=== PATIENT | male | born 1945 | race Caucasian/White ===

== ENCOUNTER → 2018-11-04 11:54 | Outpatient (CLI) | payer MEDICARE, SELFPAY ==
--- NOTE | 2018-11-04 12:01 | RAD_ITS ---
STUDY: X-RAY CHEST REASON FOR EXAM: Male, 73 years old. Wheezing x1 week TECHNIQUE: PA and lateral views of the chest. COMPARISON: None. FINDINGS: There are interstitial fibrotic changes of the lungs. There is no demonstrated pleural abnormality. Normal size heart. Normal mediastinum and teresita. Normal visualized pulmonary arteries. Normal visualized aortic arch and descending thoracic aorta. Normal visualized thoracic spine. Normal visualized ribs, clavicles, and shoulders. There is no demonstrated abnormality of the visualized soft tissue structures of the upper abdomen. RAD/Chest PA and Lateral IMPRESSION: Chronic interstitial changes, no superimposed acute pulmonary process Electronically Signed: Miguel Darnell MD at 13:51 EDT , Service support ,
== END ==
PROVIDERS: Family Provider Family Medicine; PCP Family Medicine; Referring Provider Family Medicine; Visit Provider Family Medicine
DX: R06.2 Wheezing (principal)
CPT/HCPCS: 71046

== ENCOUNTER → 2021-02-11 14:42 | Outpatient (CLI) | payer MEDICARE, SELFPAY ==
--- NOTE | 2021-02-11 14:50 | RAD_ITS ---
STUDY: X-RAY CHEST REASON FOR EXAM: Male, 75 years old. Abnormal pulmonary function tests TECHNIQUE: PA and lateral views of the chest. COMPARISON: None. FINDINGS: The lungs are clear and expanded. There is no demonstrated pleural abnormality. Normal size heart. Normal mediastinum and teresita. Normal visualized pulmonary arteries. Normal visualized aortic arch and descending thoracic aorta. Normal visualized thoracic spine. Normal visualized ribs, clavicles, and shoulders. There is no demonstrated abnormality of the visualized soft tissue structures of the upper abdomen. RAD/Chest PA and Lateral IMPRESSION: No acute pulmonary process Electronically Signed: Miguel Darnell MD at 13:35 EDT , Service support ,
== END ==
PROVIDERS: PCP Family Medicine; Referring Provider Family Medicine; Visit Provider Family Medicine
DX: R94.2 Abnormal results of pulmonary function studies (principal); R06.00 Dyspnea, unspecified
CPT/HCPCS: 71046

== ENCOUNTER → 2021-02-21 09:45 | Outpatient (CLI) | payer MEDICARE, SELFPAY ==
--- NOTE | 2021-02-21 12:15 | STRESSREP ---
Stress Test Report Date: 02/21/2021 Procedure: Exercise tolerance test Indications: Dyspnea on exertion Consent: Per the patient Procedure: The patient exercised on a Augustine protocol for 3 minutes and 13 seconds achieving a peak heart rate of 123 bpm (85% predicted maximal heart rate) with a peak blood pressure 178/84 mmHg and a peak MET capacity of approximately 4.8 MET's. The baseline ECG demonstrated normal sinus rhythm, nonspecific ST changes. The peak exercise ECG demonstrated sinus tachycardia with about [address] depression in the inferior and lateral leads. [There were no cardiac dysrhythmias pretest, during exercise, or recovery]. The functional capacity was considered mildly decreased for age. The patient had no complaint of chest discomfort during exercise or recovery. He did have right arm and throat discomfort in the recovery period. The examination was discontinued secondary to dyspnea. Impression: 1. Technically adequate (percent predicted maximal heart rate greater than 85%) exercise tolerance test 2. Stress test is negative for exercise-induced chest pain. 3. Stress test test is negative for exercise-induced EKG changes of ischemia. 4. Functional capacity is mildly decreased for age This note was generated with [employer] software. It may contain incorrect words, spelling, and punctuation that were not noted in checking the note before signing.
== END ==
PROVIDERS: PCP Family Medicine; Referring Provider Family Medicine; Visit Provider Family Medicine
DX: R06.00 Dyspnea, unspecified (principal)
CPT/HCPCS: 93017

== ENCOUNTER → 2021-07-11 15:41 | Outpatient (CLI) | payer MEDICARE, SELFPAY ==
[2021-07-11 16:35] LABS: Absolute Lymphocyte Count 3.78 X10^3/uL (0.83-4.51); Absolute Neutrophil Count 3.7 X10^3/uL (2.0-7.7); Basophil# 0.04 X10^3/uL; Basophil% 0.5 % (0-1); Eosinophil# 0.19 X10^3/uL; Eosinophils% 2.2 % (0-5); Hemoglobin 14.8 g/dL (13.0-16.5); Lymphocyte # 3.78 X10^3/ul (0.83-4.51); Lymphocyte % 43.7 % (19-41); Mean Corp Hgb Conc 32.9 g/dL (32-36); Mean Corpuscular Hgb 30.2 pg (27.0-32.0); Mean Corpuscular Volume 91.8 fL (80-94); Mean Platelet Vol. 9.5 fl (6.2-12.0); Monocyte# 0.88 X10^3/uL; Monocyte% 10.2 % (0-10); NRBC Flagged by Analyzer 0 % (0-5); Neutrophil # 3.72 X10^3/uL (2.7-7.7); Neutrophil % 42.9 % (47-70); Platelet Count 377 K/mm3 (150-450); RBC Distribution Width SD 43.5 fl (35.1-43.9); White Blood Count 8.7 K/mm3 (4.4-11.0)
[2021-07-11 16:55] LABS: Prothrombin Time (Protime)PT. 12.4 SECONDS (11.7-14.9)
[2021-07-11 16:56] LABS: Partial Thromboplast Time 33.4 Seconds (24.1-36.2)
[2021-07-11 17:02] LABS: Anion Gap 1 (5-15); BUN 14 mg/dL (7-18); BUN/Creat Ratio 11.5 RATIO (10-20); Calcium,Total 9.1 mg/dL (8.5-10.1); Chloride 106 mmol/L (98-107); Creatinine, Serum 1.22 mg/dL (0.70-1.30); EST Glomerular Filtration Rate 61 mL/min (>60); Est Glom Filt Rate - Afr Amer 74 mL/min (>60); Glucose 90 mg/dL (74-106); Sodium Level 137 mmol/L (136-145)
== END ==
PROVIDERS: PCP Family Medicine; Referring Provider Internal Medicine Cardiovascular Disease; Visit Provider Internal Medicine Cardiovascular Disease
DX: I20.9 Angina pectoris, unspecified (principal); R06.02 Shortness of breath; R94.39 Abnormal result of other cardiovascular function study; E78.2 Mixed hyperlipidemia; R06.00 Dyspnea, unspecified; R94.31 Abnormal electrocardiogram [ECG] [EKG]
CPT/HCPCS: 36415; 80048; 85025; 85610; 85730

== ENCOUNTER 2021-09-10 07:37 | Day surgery (SDC) | payer MEDICARE, SELFPAY ==
[2021-09-03 12:43] LABS: Absolute Lymphocyte Count 3.09 X10^3/uL (0.83-4.51); Absolute Neutrophil Count 3.5 X10^3/uL (2.0-7.7); Basophil# 0.06 X10^3/uL; Basophil% 0.8 % (0-1); Eosinophil# 0.22 X10^3/uL; Eosinophils% 2.9 % (0-5); Hematocrit 41.7 % (40-54); Lymphocyte # 3.09 X10^3/ul (0.83-4.51); Lymphocyte % 40.1 % (19-41); Mean Corp Hgb Conc 33.6 g/dL (32-36); Mean Corpuscular Hgb 30.7 pg (27.0-32.0); Mean Corpuscular Volume 91.4 fL (80-94); Mean Platelet Vol. 9.3 fl (6.2-12.0); Monocyte# 0.84 X10^3/uL; Monocyte% 10.9 % (0-10); NRBC Flagged by Analyzer 0 % (0-5); Neutrophil # 3.45 X10^3/uL (2.7-7.7); Neutrophil % 44.7 % (47-70); Platelet Count 309 K/mm3 (150-450); RBC Distribution Width CV 13.6 % (11.6-14.6); Red Blood Count 4.56 M/mm3 (4.6-6.2); White Blood Count 7.7 K/mm3 (4.4-11.0)
[2021-09-03 12:55] LABS: Prothrombin Time (Protime)PT. 12.1 SECONDS (11.7-14.9)
[2021-09-03 13:24] LABS: Anion Gap 3 (5-15); BUN 17 mg/dL (7-18); BUN/Creat Ratio 14.2 RATIO (10-20); Chloride 102 mmol/L (98-107); EST Glomerular Filtration Rate 62 mL/min (>60); Est Glom Filt Rate - Afr Amer 76 mL/min (>60); Glucose 99 mg/dL (74-106); Potassium 4.1 mmol/L (3.5-5.1); Sodium Level 134 mmol/L (136-145)
[2021-09-09 08:32] VITALS: BMI 28.0
--- NOTE | 2021-09-09 18:14 | HP.PCM_ITS ---
History and Physical Date of Admission: 09/10/21 [facility] [id number] [place], [place] [id number] OFFICE VISITDate of Service: 09/03/21 MR#:[id number]: BENSON DUVAL #[id number] Provider: RADHA Dodd/Sex: 75/M Loca tion:BMS.REJItatus:Signed HPI HPI History of Present Illness Surgical H&P: Yes Details: This is a 75-year-old white male who presents today for a cardiovascular visit. He has concerns of exertional right upper extremity discomfort, upper chest discomfort, neck discomfort, and shortness of breath/dyspnea concerning for angina pectoris with notation of an abnormal electrocardiogram and report of an abnormal treadmill stress test. The patient states for some time now he has been demonstrating the aforementioned symptoms with exertion. He does not recall them happening at rest. He has not had any obvious orthopnea or PND or peripheral pitting edema. There is been no near syncope or syncope. He states that with his symptoms he does feel somewhat nauseated at times. He has not had diaphoresis. He did have in February of 2021 a treadmill stress test. It stated he exercised on a Augustine protocol for just over 3 minutes and had approximately [address] segment depression in the inferior and lateral leads which at the time was considered negative for exercise-induced ECG ischemia. There was an addendum to his stress test that stated that his symptoms that occurred at peak ex ercise/recovery included his right arm discomfort and throat pain being concerning for an anginal equivalent. He did have an ECG in the office today. He was noted to have sinus rhythm with a T wave abnormality compatible with myocardial ischemia in the inferior leads. He did have a chest x-ray in January which per radiology was reported as with no acute cardiopulmonary findings. He does have a cardiovascular risk factor of hyperlipidemia for which he is being treated. From a cardiac standpoint, the patient is doing well. He denies any palpitations, chest pain, pressure or heaviness. He states that he does get pain in his neck that does radiate to his right arm during exertion. He does have an occasional SOB with exertion. He denies Orthopnea, and PND. He does not have bleeding issues; no blood in urine, stool or nosebleeds. He denies any decrease in energy level, myalgias, or claudication. He denies edema, or sudden weight gain. He does note an occasional dizziness or lightheadedness with positional changes. He denies syncopal or near syncopal episodes, and headaches. Intake Vital Signs 09/03/21 11:09 Height 5 ft 9 in Weight: 190 lb BMI 28.0 BP 137/84 H Blood Pressure Location Lt brachial Position Sitting Respiration 18 Pulse 70 Pulse Source Monitor Pulse Oximetry (%) 98 Intake Visit Reasons: update H & P Ged Preparation Teacher Required: No Accompanied by: None Is patient in pain?: No Allergies No Known Allergies Allergy (Verified 09/03/21 11:35) Medications albuterol sulfate 90 mcg/actuation aerosol inhaler 2 puff INHALATION Q6H PRN 04/03/21 [History Confirmed 09/03/21] fluticasone furoate 200 mcg-vilanterol 25 mcg/dose inhalation powder 1 inh INHALATION DAILY 04/03/21 [History Confirmed 09/03/21] multivitamin 1 tab PO DAILY 04/03/21 [History Confirmed 09/03/21] omega-3 fatty acids 1,000 mg capsule 1,000 mg PO DAILY 04/03/21 [History Confirmed 09/03/21] rosuvastatin 5 mg tablet 5 mg PO .three times a week tab 04/03/21 [History Confirmed 09/03/21] aspirin 81 mg tablet,delayed release 81 mg PO DAILY #1 tab 07/11/21 [Rx Confirmed 09/03/21] isosorbide mononitrate 30 mg tablet,extended release 24 hr 30 mg PO DAILY #30 tab 07/11/21 [Rx Confirmed 09/03/21] metoprolol tartrate 25 mg tablet 25 mg PO BID #60 tab 07/11/21 [Rx Confirmed 09/03/21] nitroglycerin 0.4 mg sublingual tablet 0.4 mg SUBLINGUAL Q5-15M PRN #90 tab 07/11/21 [Rx Confirmed 09/03/21] PFSH Medical History Abnormal electrocardiogram [ECG] [EKG] Abnormal stress test Angina pectoris COPD (chronic obstructive pulmonary disease) Dyslipidemia Hernia Mixed hyperlipidemia Surgical History (Reviewed 09/03/21 @ 11:35 by Neva Espino METAL BUILDING ASSEMBLER, METAL BUILDING ASSEMBLER-C) H/O knee surgery History of hernia repair Family History Mother Cancer Brother Myocardial infarction CAD (coronary artery disease) Brother CVA (cerebral vascular accident) Social History (Reviewed 09/03/21 @ 11:35 by Neva Espino METAL BUILDING ASSEMBLER, METAL BUILDING ASSEMBLER-C) Smoking Status: Former smoker alcohol intake: never substance use type: does not use caffeine: Yes Type: coffee Number of servings: 4 ROS Const Const: Negative for fatigue, weakness, fever(s), headache(s), chills, frequent falls, weight gain or weight loss Eyes Eyes: Negative for blind spots, loss of peripheral vision, transient loss of vision, blurry vision, change in vision, double vision, floaters or tunnel vision ENT ENT: Positive for dizziness (occasional positional changes); Negative for headache(s), Nosebleed/epistaxis, balance problems or neck pain Cardio Chest Pain: Yes Character: other (discomfort) Onset: exercise Location: other (Neck and right arm) Exacerbation: exercise Relieving: rest Palpitations: No Edema: None Muscle aches with walking: None Resp Respiratory: Positive for SOB with activity; Negative for SOB at rest or SOB orthopnea\SOB lying down GI GI: Negative nausea, vomiting, heartburn, bloating, vomiting blood/hematemesis, bright, red blood in stools or black,tarry stools Musc Musc: Negative for muscle aches/ myalgia, muscle weakness, joint pain or balance problems Neuro Neuro: Positive for dizziness (occasional positional changes) and li ghtheadedness; Negative for near syncope, syncope, orthostatic symptoms, frequent falls, headache(s), weakness, blurry vision or double vision Padilla Hematologic/Lymphatic: Negative for easy bleeding or easy bruising Endo Endo: Negative for fatigue Cardiology Exam Const Appearance: cooperative and no acute distress Orientation: alert and oriented x3 Head Head: normal to inspection Ears: hearing grossly normal bilaterally Nose: external nose normal Face and Sinus: face symmetric Eyes General: appearance normal, both eyes and all related structures Eyelids: eyelids normal Conjunctivae: conjunctivae normal Pupils: PERRL and pupil size EOM: EOM intact bilaterally Neck Neck: normal visual inspection Carotids: normal carotid upstroke; Negative bruit Chest Chest inspection: normal inspection of the chest and normal respiratory effort Auscultation: Bilateral: Clear to Auscultation Cardio Palpation: normal PMI Rate: regular rate Rhythm: regular rhythm Heart sounds: S1 normal and S2 normal; Negative rub, gallop or murmur GI GI: normal to inspection and soft; Negative no hepatosplenomegaly Neuro General: patient alert, patient oriented x3 and CN's II-XI intact bilaterally Skin Skin: no rashes or lesions noted Extremities Pulses: Normal: Right Posterior Tibial Pulse, Left Posterior Tibial Pulse, Right Radial Pulse and Left Radial Pulse Lower Extremity Edema: None: Bilateral Psych Psychological: normal affect Supplemental Info Supplemental Information Stress Test: Date: 02/21/2021 Procedure: Exercise tolerance test Indications: Dyspnea on exertion Consent: Per the patient Procedure: The patient exercised on a Augustine protocol for 3 minutes and 13 seconds achieving a peak heart rate of 123 bpm (85% predicted maximal heart rate) with a peak blood pressure 178/84 mmHg and a peak MET capacity of approximately 4.8 MET's. The baseline ECG demonstrated normal sinus rhythm, nonspecific ST changes. The peak exercise ECG demonstrated sinus tachycardia with about [address] depression in the inferior and lateral leads. [There were no cardiac dysrhythmias pretest, during exercise, or recovery]. The functional capacity was considered mildly decreased for age. The patient had no complaint of chest discomfort during exercise or recovery. He did have right arm and throat discomfort in the recovery period. The examination was discontinued secondary to dyspnea. Impression: 1. Technically adequate (percent predicted maximal heart rate greater than 85%) exercise tolerance test 2. Stress test is negative for exercise-induced chest pain. 3. Stress test test is negative for exercise-induced EKG changes of ischemia. 4. Functional capacity is mildly decreased for age ADDENDUM by Dr. Hammad Jay MD on 02/21/21 at 1223 Patient's right arm pain and throat pain could be anginal equivalents. Labs: No Data to Display Diagnostics: Electrocardiogram Stress Test Chest X-Ray Pulmonary: No Data to Display Assessment and Plan Assessment and Plan (1) Abnormal stress test: Status: Acute Orders: Orders: 12 Lead EKG performed by BMS Today 12 Lead EKG performed by BMS Today Basic Metabolic Profile (BMP) Today Prothrombin Time w/INR Today CBC W/Diff, Automated Today Plan - Neva Espino METAL BUILDING ASSEMBLER, METAL BUILDING ASSEMBLER-C: Patient had an abnormal stress test. With his symptoms and abnormal stress test patient will undergo a cardiac catheterization. Cardiac Catheterization instructions given to patient. (2) Abnormal electrocardiogram [ECG] [EKG]: Status: Acute Froylan Espino METAL BUILDING ASSEMBLER, METAL BUILDING ASSEMBLER-C: Patient's EKG from today demonstrated sinus rhythm with a heart rate of 72, and nonspecific T wave abnormality. He underwent a stress test in February 2021 which was abnormal, he will undergo a cardiac catheterization. (3) Dyspnea on exertion: Status: Acute Froylan Espino METAL BUILDING ASSEMBLER, METAL BUILDING ASSEMBLER-C: Patient has complaints of dyspnea on exertion. With his symptoms, and abnormal stress test, patient will undergo a cardiac catheterization to evaluate this. (4) Mixed hyperlipidemia: Status: Acute Froylan Espino METAL BUILDING ASSEMBLER, METAL BUILDING ASSEMBLER-C: Patient has a history of hyperlipidemia. He states his PCP monitors his cholesterol. He will continue rosuvastatin 5mg three times a week, along with aggressive risk factor and lifestyle modifications. Plan Details Other Orders: Orders: Prothrombin Time w/INR Today I20.9 Additional Comments: Patient will follow-up in 1 months, or sooner if needed. Thank you for allowing me to participate in the care of your patient. Please d on't hesitate to call if any issues arise. This note was generated using a voice recognition system and there may be incorrect words, spelling, or punctuation that were not noted when reviewing the office note prior to saving. Follow Up: Keep as is (KR) COVID (Procedure Consent) Procedure Criteria Procedure Criteria: Yes Elective The surgeon/proceduralist and patient have discussed in detail the risk of exposure to and/or potential harm posed by the COVID-19 virus with having a surgery/procedure at this time versus the risk of delaying the surgery/procedure. It is not possible to know either the risk of delaying the surgery or procedure or chance of getting an infection with perfect accuracy, but a joint decision was made between the patient and the surgeon/proceduralist to proceed at this time with the scheduled surgery/procedure as indicated on the consent form. Coding Level of Care Code Off vis,est,level 3 Diagnoses Abnormal stress test R94.39 Abnormal electrocardiogram [ECG] [EKG] R94.31 Dyspnea on exertion R06.00 Mixed hyperlipidemia E78.2 Coding Level of Care Code Off vis,est,level 3 Diagnoses Abnormal stress test R94.39 Abnormal electrocardiogram [ECG] [EKG] R94.31 Dyspnea on exertion R06.00 Mixed hyperlipidemia E78.2 09/03/21 1159<Electronically signed by Neva Espino METAL BUILDING ASSEMBLER METAL BUILDING ASSEMBLER-C>Date Neva Espino METAL BUILDING ASSEMBLER METAL BUILDING ASSEMBLER-C 09/03/21 1220<Electronically signed by Marcel Garcia MD>Cosigner Signature:Date (if applicable)Marcel Garcia MD CC: Dr. Mikel Fields MD ~ Assessment & Plan Addt'l Comments I have re-examined the patient. There are no clinical changes since date of exam
--- NOTE | 2021-09-10 10:58 | CL.D_ITS ---
Patient Name: BENSON DUVAL Study Date: 09/10/2021 Performing: Marcel Garcia MD Ht: 68.89 inches 175 cm : 1945 Wt: 189.6 lbs 86 kg Age: 75 Gender: male BSA: 2.02 PROCEDURE(S) PERFORMED DC01-(49813)LHC/COR/LV CLINICAL PROFILE AND INDICATIONS Indications: Worsening Angina, Suspected CAD Heart Failure: None Stress/Imaging Date: 02/21/2021 Angina Classification Anginal Classification w/in 2 Weeks: CCS III CAD Presentations: Stable angina. 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 The risks and benefits of the procedure as well as a full d escription of our services here and current unavailability of surgical backup were fully explained to the patient and/or their significant other prior to the catheterization. The Timeout was completed, verifying the correct patient and procedure. The patient's procedural site was prepped and draped in the usual fashion. Local anesthetic was given subcutaneously to right radial region with Lidocaine 2% . Using a modified Seldinger technique, arterial access was obtained via the right radial artery, a 6 Fr sheath was inserted. Left Coronary Artery selective angiography was performed in multiple views u sing a 5 Fr. 4.0 [place] catheter. Right Coronary Artery selective angiography was then performed in mu ltiple views using a 5 Fr. 4.0 [place] catheter. Right Coronary Artery selective angiography was then p erformed in multiple views using a 5 Fr. JR 4 catheter. Left Ventriculography was performed in LENZ projection using a 5 Fr. Pigtail catheter. LV to AO pullback pressures were then rec orded.The arterial sheath was pulled and a TR Band was applied for hemostasis w/10ml air CORONARY ANGIOGRAPHY DOMINANCE: Right Dominant LEFT HEART ASSESSMENT Left Ventricular Ejection Fraction: by LV Gram 55 % Inferior Basal Hypokinesis. Inferior Mid Hypokinesis. Inferior Apical Hypokinesis Elevated Left Ventricular End Diastolic Pressure LVEDP: 42 mmHg LEFT MAIN: Mild calcification, mid: eccentric: 25 % Stenosis LEFT ANTERIOR DESCENDING ARTERY: PROX LAD: Moderate calcification, is occluded MID LAD: Moderate calcification, filling late from bridging collaterals and left to left collaterals and right to left collateral flow, mid to distal with subtotal occlusion DISTAL LAD: filling late from antegrade flow as well as from left to left collateral flow and right t o left collateral flow CIRCUMFLEX ARTERY: Mild luminal irregularities RIGHT CORONARY ARTERY: Moderate calcification PROX RCA: diffuse: eccentric: 25 % Stenosis MID RCA: diffuse: irregular: 50 % Stenosis DISTAL RCA: is occluded, filling from left to right collateral flow COLLATERAL FLOW: Collateral flow from Left to Left (bridging collaterals) Collateral flow from Left to Left Collateral flow from Left to Right Collateral flow from Right to Left VALVE FINDINGS: Mitral Valve Insufficiency - Grade 1 to Grade 2 AORTIC ROOT: Angiographically normal COMPLICATIONS No Complications PROCEDURE MEDICATIONS Versed 1 mg IV Fentanyl 50 mcg IV Oxygen: 2 L/min via nasal cannula Heparin given IA 09/10/2021 09:48:15 Verapamil 2.5mg, Ntg 100mcgs, 3000 units of Heparin given IA 09/10/2021 09:48:15 SUMMARY OF HEMODYNAMIC DATA Time AIR REST ECG 08:01:31 Art 167/62 (98) 09:40:58 AO 113/66 (88) SA 09:50:43 LV 145/16, 41 10:03:35 LV 144/8, 42 10:03:41 LV 141/10, 40 10:04:23 LV 147/8, 43 10:04:29 LVp 150/9, 48 10:04:34 AOp 149/79 (110) 10:04:39 Signed By Marcel Garcia MD On 09/10/2021 10:56:59 AM Marcel Garcia MD
--- NOTE | 2021-09-10 12:22 | ECHOD_ITS ---
Reason For Study: CAD, chest pain Procedure This was a 2D Doppler, Color Flow transthoracic echocardiogram. The study was technically difficult. Exam done portable in micro lab analyst holding area. Left Ventricle Normal LV size. Segmental dysfunction with preserved ejection fraction (see wall motion). The estimated ejection fraction is 55 %. There is evidence of diastolic dysfunction. Infero-Basal: Hypokinetic. Mid-Inferior: Hypokinetic. Mid-inferoseptal : Hypokinetic. Right Ventricle Normal RV size. Normal systolic function. Atria The left atrium is mildly enlarged. Normal right atrium. No doppler evidence for ASD. Mitral Valve There is mild to moderate mitral annular calcification. Extension of the mitral annular calcification onto the base of the posterior mitral valve leaflet. Mild-Moderate (1-2+) mitral valve insufficiency. Tricuspid Valve Normal tricuspid valve. Trivial tricuspid valve insufficiency. Right ventricular systolic pressure estimated to be 27 mmHg. Aortic Valve Trisinus/trileaflet aortic valve. Normal aortic valve. Trivial aortic valve insufficiency. Pulmonic Valve The pulmonic valve is not well visualized. Trivial pulmonic valve insufficiency. Great Vessels Normal sized aortic root. Calcified aortic root. Pericardium/Pleural No pericardial effusion. MMode/2D Measurements & Calculations LVIDd: 4.8 cm IVSd: 1.3 cm Ao root diam: 3.5 cm LVIDs: 3.3 cm LVPWd: 1.1 cm RVDd: 3.0 cm FS: 31.8 % LAV(MOD-bp): 70.3 ml LVAd ap4: 35.3 cm2 LVAd ap2: 34.8 cm2 LAV(MOD-bp) Indexed: 34.9 ml/m2 LVLd ap4: 8.3 cm LVLd ap2: 8.3 cm LAV(MOD-sp2): 54.0 ml EDV(MOD-sp4): 123.8 ml EDV(MOD-sp2): 126.4 ml LAV(MOD-sp4): 76.5 ml EDV(sp4-el): 127.3 ml EDV(sp2-el): 123.9 ml LVAs ap4: 20.1 cm2 LVAs ap2: 21.3 cm2 LVLs ap4: 6.7 cm LVLs ap2: 7.2 cm ESV(MOD-sp4): 53.8 ml ESV(MOD-sp2): 59.6 ml ESV(sp4-el): 51.2 ml ESV(sp2-el): 54.0 ml EF(MOD-sp4): 56.5 % EF(MOD-sp2): 52.9 % EF(sp4-el): 59.8 % SV(MOD-sp4): 70.0 ml SV(MOD-sp2): 66.9 ml SV(sp4-el): 76.1 ml LA dimension(2D): 4.7 cm LA A4 area: 24.3 cm2 RA A4 area: 14.3 cm2 Doppler Measurements & Calculations MV E max reinaldo: 88.4 cm/sec Lat Peak E' Reinaldo: 9.3 cm/sec Med Peak E' Reinaldo: 5.9 cm/sec MV A max reinaldo: 114.9 cm/sec E/E' lat: 9.5 E/E' med: 15.0 MV E/A: 0.77 Ao V2 max: 126.1 cm/sec AI max reinaldo: 364.4 cm/sec LV V1 max: 104.4 cm/sec Ao max P.4 mmHg AI max P.1 mmHg LV V1 max P.4 mmHg AI dec slope: 136.7 cm/sec2 AI P1/2t: 780.8 msec PA V2 max: 98.0 cm/sec TR max reinaldo: 242.2 cm/sec TR max P.5 mmHg ECHO/Echo Complete Interpretation Summary The study was technically difficult. Segmental dysfunction with preserved ejection fraction (see wall motion). The estimated ejection fraction is 55 %. The left atrium is mildly enlarged. There is mild to moderate mitral annular calcification. Extension of the mitral annular calcification onto the base of the posterior mi tral valve leaflet. Mild-Moderate (1-2+) mitral valve insufficiency. Trivial tricuspid valve insufficiency. Trivial aortic valve insufficiency. Trivial pulmonic valve insufficiency. Calcified aortic root. Right ventricular systolic pressure estimated to be 27 mmHg. There is evidence of diastolic dysfunction. Ordering Physician: Marcel Garcia Referring Physician: Marycarmen Berger M.D. Performed By: Grace Walton RDCS
== END 2021-09-10 23:59 | disposition home or self-care (01) ==
PROVIDERS: Nurse Practitioner Gerontology; PCP Internal Medicine; Referring Provider Internal Medicine Cardiovascular Disease; Visit Provider Internal Medicine Cardiovascular Disease
DX: I25.10 Atherosclerotic heart disease of native coronary artery without angina pectoris (principal); J44.9 Chronic obstructive pulmonary disease, unspecified; E78.2 Mixed hyperlipidemia; I34.0 Nonrheumatic mitral (valve) insufficiency; Z87.891 Personal history of nicotine dependence; Z79.82 Long term (current) use of aspirin; Z79.899 Other long term (current) drug therapy
CPT/HCPCS: 36415; 80048; 85025; 85610; 93306; 93458; 99152; 99153; J7040; C1769; C1894; Q9967

== ENCOUNTER → 2022-01-21 | Outpatient (CLI) | payer MEDICARE, SELFPAY ==
[2022-01-21 10:26] LABS: Absolute Lymphocyte Count 3.23 X10^3/uL (0.83-4.51); Absolute Neutrophil Count 3.6 X10^3/uL (2.0-7.7); Basophil# 0.08 X10^3/uL; Eosinophil# 0.57 X10^3/uL; Eosinophils% 6.9 % (0-5); Hematocrit 38.3 % (40-54); Hemoglobin 12.3 g/dL (13.0-16.5); Lymphocyte # 3.23 X10^3/ul (0.83-4.51); Lymphocyte % 38.9 % (19-41); Mean Corp Hgb Conc 32.1 g/dL (32-36); Mean Corpuscular Hgb 29.2 pg (27.0-32.0); Mean Platelet Vol. 8.8 fl (6.2-12.0); Monocyte# 0.74 X10^3/uL; Monocyte% 8.9 % (0-10); NRBC Flagged by Analyzer 0 % (0-5); Neutrophil % 43.3 % (47-70); Platelet Count 381 K/mm3 (150-450); RBC Distribution Width CV 14.1 % (11.6-14.6); RBC Distribution Width SD 46.9 fl (35.1-43.9); Red Blood Count 4.21 M/mm3 (4.6-6.2); White Blood Count 8.3 K/mm3 (4.4-11.0)
[2022-01-21 11:09] LABS: AST(SGOT) 12 U/L (15-37); Alanine Aminotransfer ALT/SGPT 26 U/L (16-61); Albumin, Serum 3.7 g/dL (3.2-5.0); Alkaline Phosphatase 66 U/L (45-117); Anion Gap 7 (5-15); BUN 31 mg/dL (7-18); BUN/Creat Ratio 16.8 RATIO (10-20); Bilirubin, Direct 0.13 mg/dL (0.00-0.30); Calcium,Total 8.7 mg/dL (8.5-10.1); Chloride 103 mmol/L (98-107); Cholesterol 154 mg/dL (200); Creatinine, Serum 1.85 mg/dL (0.70-1.30); EST Glomerular Filtration Rate 38 mL/min (>60); Est Glom Filt Rate - Afr Amer 46 mL/min (>60); Free T3 1.8 pg/mL (2.18-3.98); Globulin 4.4 g/dL (2.2-4.2); Glucose 108 mg/dL (74-106); High Density Lipoprotein 36 mg/dL; Potassium 4.5 mmol/L (3.5-5.1); Protein, Total 8.1 g/dL (6.4-8.2); Sodium Level 133 mmol/L (136-145); T4 Free Direct 1.18 ng/dL (0.76-1.46); Triglycerides 102 mg/dL; Very Low Density Lipoprotein 20 mg/dL (5-40)
== END | disposition home or self-care (01) ==
LOC: LAB 09:52
PROVIDERS: PCP Internal Medicine; Referring Provider Nurse Practitioner Gerontology; Visit Provider Nurse Practitioner Gerontology
DX: R53.83 Other fatigue (principal); E78.2 Mixed hyperlipidemia
CPT/HCPCS: 36415; 80048; 80061; 80076; 84439; 84443; 84481; 85025

== ENCOUNTER → 2022-01-23 | Outpatient (CLI) | payer MEDICARE, SELFPAY ==
--- NOTE | 2022-01-23 08:46 | CR.HP_ITS ---
CR - History & Physical - General Arrival date:: 01/23/22 Arrival time:: 08:00 Date of Referral:: 01/03/22 Date of CR Evaluation:: 01/23/22 Referring Physician: Dr. Marcel Garcia Primary Diagnosis: S/P CABG - History of Present Cardiac Event Onset Date: Enter Onset Date of cardiac illnesses in Comment field below Coronary Artery Bypass Graft:: Yes - 2 vessel bypass; pacemaker implant device Heart valve replacement or repair:: Yes - repaired Type of Symptoms:: abnormal nuclear stress test, abnormal heart cath Were there any complications?: Readmitted about two weeks later for rapid heart rate, cardioversion, meds - Sleep Disorder Evaluation Hx of Sleep Apnea: No Do you snore loudly (louder than talking or can be heard through closed doors)?: No Do you often feel tired/ fatigued/ sleepy during daytime?: Yes - sometimes Has anyone observed you stop breathing during sleep?: No History of Hypertension (for STOP score): Yes STOP Results: Positive - Medications Home Medications: Ambulatory Orders Medication Instructions Recorded albuterol sulfate 90 mcg/actuation 2 puff INHALATION Q6H PRN 04/03/21 aerosol inhaler fluticasone furoate 200 1 inh INHALATION DAILY 04/03/21 mcg-vilanterol 25 mcg/dose inhalation powder multivitamin 1 tab PO DAILY 04/03/21 omega-3 fatty acids 1,000 mg 1,000 mg PO DAILY 04/03/21 capsule aspirin 81 mg tablet,delayed 81 mg PO DAILY #1 tab 07/11/21 release nitroglycerin 0.4 mg sublingual 0.4 mg SUBLINGUAL Q5-15M PRN #90 07/11/21 tablet tab amiodarone 200 mg tablet 400 mg PO DAILY #60 tab 01/14/22 apixaban 5 mg tablet 5 mg PO BID #180 tab 01/14/22 lisinopril 5 mg tablet 5 mg PO DAILY #90 tab 01/14/22 metoprolol tartrate 25 mg tablet 37.5 mg PO BID #270 tab 01/14/22 rosuvastatin 5 mg tablet 5 mg PO MOWEFR tab 01/14/22 - Allergies Allergies/Adverse Reactions: Allergies No Known Allergies Allergy (Verified 01/14/22 13:47) Advanced Directives - Advanced Directives Power of Manager Clinical Informatics: Yes - Granddaughter is POA for his Healthcare Living Will: Yes Advance Directives Information Provided: No Advance Directives on File: No DNR Order?:: No - MOLST See MOLST form: No Past Medical History - Covid-19 Screening Fever: No Unexplained muscle aches: No Current respiratory symptoms: No Upper respiratory infections symptoms: No Gastro-intestinal symptoms: No [id number] symptoms: No Has tested positive for COVID-19 in last 30 days: No Date of testin01/23/22 - No vaccines per patients request Had contact w/person w/symptoms or Covid-19 (+) last 14 days: No Has High Risk Exposures ID'd by Health dept/Inf Control team: No 65 years or older:: Yes Lives in Assisted Living facility:: No Has a chronic lung disease or moderate to severe asthma:: Yes Has a serious heart condition:: Yes Immunocompromised:: No Severely obese (Body Mass Index of 40 or higher):: No Diabetic:: No Has chronic kidney disease undergoing dialysis:: No Has liver disease:: No - Past Medical Illness Medical History: Past Medical History (Last Updated 01/16/22 @ 11:13 by Neva Espino TRACTOR TRAILER MECHANIC, TRACTOR TRAILER MECHANIC-C) Abnormal electrocardiogram [ECG] [EKG] R94.31 Abnormal stress test R94.39 Angina pectoris I20.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 COPD (chronic obstructive pulmonary disease) J44.9 Dyslipidemia E78.5 Hernia K46.9 Mixed hyperlipidemia E78.2 Sinus node dysfunction I49.5 - Past Surgical History Surgical History: Past Surgical History (Last Reviewed 01/14/22 @ 13:47 by Neva Espino NP, TRACTOR TRAILER MECHANIC-C) H/O knee surgery Z98.890 History of cardioversion Onset Date: ~12/16/21 Z98.890 12/16/21 History of coronary artery bypass surgery Onset Date: ~11/18/21 Z95.1 CABG x2 VALLADARES-LAB, SVG-PDA @ [facility] 11/18/21 History of hernia repair Z98.890, Z87.19 x2 History of left heart catheterization (LHC) Onset Date: ~09/10/21 Z98.890 LEFT MAIN: Mild calcification, mid: eccentric: 25 % Stenosis; LEFT ANTERIOR DESCENDING ARTERY: PROX LAD: Moderate calcification, is occluded, MID LAD: Moderate calcification, filling late from bridging collaterals and left to left collaterals and right to left collateral flow, mid to distal with subtotal occlusion; DISTAL LAD: filling late from antegrade flow as well as from left to left collateral flow and right to left collateral flow; CIRCUMFLEX ARTERY: Mild luminal irregularities; RIGHT CORONARY ARTERY: Moderate calcification, PROX RCA: diffuse: eccentric: 25 % Stenosis, MID RCA: diffuse: irregular: 50 % Stenosis, DISTAL RCA: is occluded, filling from left to right collateral flow; COLLATERAL FLOW: Collateral flow from Left to Left (bridging collaterals); Collateral flow from Left to Left; Collateral flow from Left to Right; Collateral flow from Right to Left; VALVE FINDINGS: Mitral Valve Insufficiency - Grade 1 to Grade 2; AORTIC ROOT: Angiographically normal: RECOMMENDATION: CT surgery consult for coronary revascularization options and possible valvular intervention per cardiac cath 09/10/21 History of mitral valve repair Onset Date: ~11/18/21 Z98.890 Annuloplasty: Estrada Etiologix @ [facility] 11/18/21 Presence of permanent cardiac pacemaker Onset Date: 11/22/21 Z95.0 S/P CABG (coronary artery bypass graft) Z95.1 - Family History Summary Family History: Family History (Last Reviewed 01/14/22 @ 13:47 by Neva Espino NP, TRACTOR TRAILER MECHANIC-C) Mother Cancer Brother Myocardial infarction CAD (coronary artery disease) Brother CVA (cerebral vascular accident) Social History - Smoking History Smoking Status: Former smoker Hx Tobacco Use: No Hx Smoking Exposure: No - Alcohol Use Alcohol Usage: Yes - social drink, very rarely - Substance Abuse Hx Substance Use: No - Occupation Occupation (List type of work in comments):: Retired - Hobbies, Recreation, Social Activities Hobbies: Sports - fire arm range, fishing, Walking - walking the dog., Exercise - ride bike, Other Recreational Activities: I am able to engage in most, but not all activities Social Environment - Status Marital Status: - Current Living Arrangements Living Environment:: Alone, Family - Children How many children do you have?: 2 Do any of your children live nearby?: Yes - daughter lives with me - Safety Do you feel safe in your surroundings?: Yes - Assistance Do you need any assistance at home?: no Review of Systems - Review of Systems Hints: Right click = Denies ([place]). Left click = Reports ([place]) Review of Present Symptoms: Reports: Shortness of Breath with Exertion, Operative Discomfort, Angina - not a good description, probably more related to surgical pain/discomfort., Dizziness/Lightheadedness - rarely, Fatigue, Heart Arrhythmia/Irregularities - H/O SVT, pacemaker implant device, cardioversion and adjusted medications to control heart rate post surgery., Appetite - Normal, Sleep - Normal. Denies: Shortness of Breath at Rest, Appetite - Special Diet, Sexual Changes - Pain Is Patient Pain Free?: Yes Pain Location: none Risk Factor Assessment - Vital Signs Temperature: 98.2 F Respiratory Rate: 16 Pulse Ox: 96 Blood Pressure: 135/66 - Pulse Pulse Rate: 65 Pulse Rhythm: Regular - Hypertension Blood Pressure Sitting - Left Arm: 135/66 - Obesity Height: 5 ft 9 in Weight:: 188 lb Weight in Pounds: 188.0 lbs Body Mass Index (BMI): 27.7 Nutritional Referral for Obesity: No - Physical Inactivity Physical Inactivity: Reg Exercise 30 min/day, Recreational activity - walking and riding bike - Risk Stratification Risk Guidelines: Lowest Risk: Risk Factor for Dyslipidemia, Risk Factor for Obesity, Risk Factor for Sedentary Lifestyle, Risk Factor for Depression, Moderate Risk: Risk Factor for Hypertension - 135/66 - Family History Family History: Family History (Last Reviewed 01/14/22 @ 13:47 by Neva Espino NP, TRACTOR TRAILER MECHANIC-C) Mother Cancer Brother Myocardial infarction CAD (coronary artery disease) Brother CVA (cerebral vascular accident) Motivation - Motivation to Participate On a scale of 1 to 10, how prepared are you to commit to attending program?: 5 What do you see as barriers to successfully being able to complete the program?: scheduling / hours What do you see as the benefits of succesfully completing the program? In other words, what do you hope to get out of participating in the program?: felling better, more normal, getting healthier, improving physical activity Are there issues you are dealing with that will interfere with completing the program?: none Do you have a spouse or signficant other, family or friends who will help support you to complete the program?: yes
[2022-01-23 09:02] VITALS: BP 135/66; PULSE 65; RESP 16; TEMP 36.8; O2SAT 96; BMI 27.7
--- NOTE | 2022-01-23 09:54 | PCM.CR.ITP ---
Diagnosis - General Information Admitting Diagnosis: S/P CABG Personal Learning Style:: Audio/Visual, Written Barriers to Learning: Hearing Impairment, Vision Impairment Stage of change r/t lifestyle modifications:: Contemplation Gave educational material for:: Treating Heart Disease, Emotions & Heart Disease, Stress Management & Relaxation, Sleep Disorders & Heart Disease, How The Heart Works, What it means to have Heart Disease, How Coronary Artery Disease is Diagnosed, Heart Procedures, What Heart Medications Do, Risk Factors & Modifications, Living an Active Life, Nutrition - Education/Goals Individual Counseling: Initial Assessment: Abnormal Cholesterol Levels, High Blood Pressure Cardiac Rehabilitation Goals: 1. Maintain the individual as the primary focus of care. 2. To improve the patient's quality of life. 3. Identification of cardiac risk factors and provide cardiac risk factor management. 4. Enhance the psychosocial status of the patient. 5. Reconditioning enough to allow the patient to resume customary activities. 6. Control symptoms of cardiac disease Personal Goals: Initial Assessment: Improve energy level, Get back to work, or to resume activities faster, Improve muscle strength and endurance, Control risk factors (learn risk factor modification) Scale for measuring improvement of personal goals: Enter appropriate number in Comments. 2 = Unchanged. 3 = Slightly Better. 4 = Moderate Improvement. 5 = Met my Goal - Diagnosis & Disease Process Outcomes/Goals: Pt IDs own risk factors & lifestyle modifications by Session 10, Verbalizes symptoms of angina & response by session 3., Pt independently manages Plan/Interventions: Assist Pt to ID & engage in lifestyle modification to reduce CVD risk, Instruct on individual risk factors, Review symptoms of angina & emergency actions, Review secondary diagnosis & identify educational needs. - Safety Referral to Physical Therapy: No Referral to [facility] Case Management: No Fall Risk Assessed:: Yes Assistive Devices:: None Exercise - Initial Assessment - Visit Date of Eval: 01/23/22 Session #:: 0 - Starting 01/27/2022 @ 09:30 Mets: Pre-: >5 METS for 30 minutes by discharge - Physician Prescribed Exercise Modalities: Treadmill, Airdyne, NuStep Frequency: 3x/week for 12 weeks [36 sessions] Intensity: 60-80% of age predicted maximum heart rate reserve Target Heart Rate:: 93-123 Resting Blood Pressure: 135/66 EKG Type: Atrial Flutter with a 2:1 conduction (Pacemaker) - Outcomes & Goals Goals:: Verbalizes understanding of THR, RPE & goal METS by session 6, Documents in home exercise log/reports 30 min aerobic 5 day/wk by DC, Demonstrates accurate pulse taking by DC - Intervention & Plan Exercise Program Goals: Instruct on personal THR & RPE, Instruct on MET level & personal MET goal, Show patient to take own pulse /validate performance until accurate, Instruct on home exercise - Physical Activity Home Exercise Physical Activity - Home Exercise: Safe Exercise, Warm-up, Self-monitoring, Cool-Down, Home Exercise > 30 min Daily, Sitting Time <3 hours/daily - Outcomes & Goals Outcomes/Goals: Demonstrates correct Warm-up/exercise Cool-Down (S3) if = 2.5 METs, Verbalizes symptoms of exercise intolerance by Session 3 (S3), Demonstrate safe equipment use (S3) & follows exercise prescrition (6) - Intervention & Plan Plan/Intervention: Instruct warm-up & cool-down if exercising at > 2 METs, Instruct on symptoms of exercise intolerance & actions to take, Instruct & monitor on saf, Assess intial functional capacity & safety risk Nutrition - Initial Assessment - Program Goals Nutrition Program Goals: LDL <100 optimal. 100 - 129 Near optimal. 130 - 159 Borderline High. 160 - 189 High. Total Cholesterol <200 desirable. 200 - 239 Borderline High. >/= 240 High. HDL < 40 Low >/=60 High. Triglycerides <150 desirable. <199 optimal. VlDL 5 - 40. HgbA1C <7%. BMI <25 Patient has diagnosis of Hyperlipidemia (ICD E78)?: Yes - Visit Date of Assessment:: 01/23/22 - no labs available - Cholesterol/Lipids Determine presence & major risk factors that modify LDL goal: Hypertension or hypertensive medication, Age men > 45 years; women >/= 55 years Outcomes/Goals: Pt IDs own risk factors & lifestyle modifications by Session 10, Verbalizes symptoms of angina & response by session 3., Pt independently manages Intervention/Plan: Instruct on personal lipid levels & lipid goals/NCEP guidelines, Instruct on cholesterol Referral to dietitian:: Yes - Medical Nutrition Therapy - Diabetes (Other Core Measures) Diabetes Type: Not Applicable - Weight Mgt (Other Care) Not Applicable: Yes Height: 5 ft 9 in Weight:: 188 lb BMI: 27.7 Diagnosis Overweight/Obesity BMI> 30% ICD-10 E66: No Diagnosis High BMI/Morbid Obesity BMI> 35% ICD-10 Z68: No Outcomes/Goals: Pt sets, maintains & shows weight loss goal & trend during rehab Intervention/Plan: Instruct on ideal BMI & set weight loss goal w/patient - Healthy Eating Habits Will attend diet classes:: Yes Outcomes/Goals:: Consume diet rich in vegs,fruits,whole grain/high fiber,fish,lean meat, Limit sat/trans fats,cholesterol & added salts & sugars Intervention/Plan:: Assess current eating habits - Education Gave educational materials for:: Healthy eating Nutrition - 30-Day Assessment Nutrition - 60-Day Assessment Nutrition - 90-Day Assessment Nutrition - Final Assessment Medical - Initial Assessment - Visit Date of Eval: 01/23/22 Session #:: 0 - Medication Compliance Preventative Medication(s):: Aspirin, ABRAN inhibitor, Statin/lipid, Beta nighat, Eliquis H/O mental health issues: depression, anxiety, or addiction?: No Doesn?t believe in the benefits of treatment?: No Believes medications are unnecessary or harmful?: No Has a concern about medication side effects?: No Expresses concern over the cost of medications?: No Outcomes/Goals: Verbalizes medications,desired effect & common side effects @ DC, Pt self-reports following medication regimen, Keeps card in wallet w/medications listed by DC Interventions/plans: Instruct on medication effects & side effects, Review medication list w/patient every two weeks, Instruct importance of taking meds as ordered & assist problem solving - Tobacco Use Tobacco Use: Non-smoker - Hypertension Hypertension Diagnosis:: Hypertension ICD-10 I10 Resting Blood Pressure:: 135/66 [place] [employer] Hypertension Guidelines: [place] [employer] Hypertension Guidelines. Normal BP Less than 120/80. Elevated BP 120/80. Hypertension Stage 1: BP 130-139/80-89. Hypertesnion Stage 2: BP 140 or higher/90 or higher. Hypertension Crisis: BP higher than 180/120 Outcomes/Goals: Able to verbalize/achieve optimal blood pressure <130/80, Incorporates diet changes & exercise for blood pressure control by DC Interventions/plan: Instruct on optimal blood pressure, hypertension & medications, Instruct on effects of sodium, alcohol, stress, exercise &hypertension - Tobacco Cessation Referral Smoking Cessation Referral:: No Individual Education/Counseling:: No Education Schedule Given:: Yes Medical- 30-Day Assessment Medical- 60-Day Assessment Medical- 90-Day Assessment Medical - Final Assessment Psychosocial - Initial Assess - VIsit Date of Eval: 01/23/22 Session #:: 0 Not Applicable: Yes History of previous Mental disease:: No - Psychosocial Test Tool Used:: Lara Kwan QOL Cardiac, PHQ-9 Questionnaire phq-9 Severity: Severity. 1-4 Minimal Depression. 5-9 Mild Depression. 10-14 Moderate Depression. 15-19 Moderately Sever Depression. 20-27 Severe Depression. Rule: - Referral to Behavioral Health PS - Interventions: Yes Attend Stress Management Classes, No Referral to Behavioral Health if PHQ-9 score >9:, No Referral to [facility], No Referral to Physician if PHQ-9 if score is 5-9: - Outcomes/Goals: See list Psychosocial Outcomes/Goals:: ID's personal stressors & 2 strategies to manage stress by discharge - Intervention/Plan: See List Interventions/Plan:: Assess stressors,coping strategies & signs of derpression on admission, Instruct/assist pt to develop coping & personal stress Mgt strategies, Instruct patient to recognize signs & symptoms of depression, Instruct patient to recog Psychosocial - 30-Day Assess Psychosocial - 60-Day Assess Psychosocial - 90-Day Assess Psychosocial - Final Assessmen Patient Health Questionnaire Initial Assessment 1. Little interest or pleasure in doing things: Not at all 2. Feeling down, depressed, or hopeless: Several days 3. Trouble falling or staying asleep, or sleeping too much: Not at all 4. Feeling tired or having little energy: Several days 5. Poor appetite or overeating: Not at all 6. Feeling bad about yourself -- or that you are a failure or have let yourself or your family down: Not at all 7. Trouble concentrating on things, such as reading the newspaper or watching television: Several days 8. Moving or speaking so slowly that other people could have noticed. Or the opposite - being so fidgety or restless that you have been moving around a lot more than usual: Not at all 9. Thoughts that you would be better off , or of hurting yourself in some way: Not at all How difficult have these problems made it for you to do your work, take care of things at home, or get along with other people?: Not difficult at all Total Score: 3 CORINA-Q SV Test - Statements CAD is a disease of the arteries in the heart: False Examples of risk factors for heart disease: True Angina is chest pain or discomfort: True The benefits of resistance training include: True Eating more meat and dairy products: False Anti-platelet medications such as aspirin are important: True The only effective way to manage stress: False An exercise warm-up slowly increases heart rate: True Prepared, processed foods usually have high sodium: True Depression is common after a heart attack: True The statin medications lower cholesterol: I Don't Know To control blood pressure, lower the amount of sodium: True If someone gets chest discomfort during walking: False Transfats are partially hydrogenated vegetable oils: True Sleep apnea that is not treated increases the risk: I Don't Know To control cholesterol, one should become a vegetarian: False Someone knows if he/she is exercising at the right level: I Don't Know Diabetes cannot be prevented with exercise & health eating: False Stress is a large risk for heart attack: True A diet that can help lower blood pressure is rich in: True - Total Score Total Correct Responses: 17 Self-Efficacy Initial Assessment We would like to know how confident you are in doing certain activities. Please select your confidence level for:: Select your confidence level for the following using the scale 1-10 where 1 is not at all confident and 10 is totally confident. Your score is the average of all 6 responses. Fatigue: How confident are you that you can keep the fatigue caused by your disease from interfering with the things you want to do? Select Number: 6 Physical Discomfort or Pain: How confident are you that you can keep the physical discomfort or pain of your disease from interfering with the things you want to do? Select Number: 8 Emotional Distress: How confident are you that you can keep the emotional distress caused by your disease from interfering with the things you want to do? Select Number: 8 Other Symptoms or Health Problems: How confident are you that you can keep other symptoms or health problems from interfering with the things you want to do? Select Number: 8 Different Tasks and Activities: How confident are you that you can do the different tasks and activities needed to manage your health condition so as to reduce your need to see a doctor? Medication: How confident are you that you can do things other than just taking medication to reduce how much your illness affects your everyday life? Select Number: 8 Nutrition Survey - Nutrition Survey Initial Have you lost >10 lbs over the past 2 months without trying?: No Are you following a special diet at home for diabetes, low fat, or low salt?: No Are you interested in meeting with a dietitian for help understanding your diet?: No Do you eat less than 3 meals a day?: Yes Do you eat fatty meats (fleming, sausage, ribs, etc), fried foods, desserts, large amounts of salad dressings, margarine, butter, or cheese most days?: Yes Do you have food allergies? [Enter types in comment field]: No Do you eat in restaurants more than 3 times a week?: Yes Do you season food with salt, seasoning salt, or garlic salt?: Yes Do you used canned, boxed, frozen meals, or soups, seasoning packets?: Yes Total Score:: 5
[2022-01-23 10:04] VITALS: BP 135/66; BMI 27.7
== END | disposition home or self-care (01) ==
LOC: CR 08:14
PROVIDERS: PCP Internal Medicine; Referring Provider Internal Medicine Cardiovascular Disease; Visit Provider Internal Medicine Cardiovascular Disease
DX: I25.119 Atherosclerotic heart disease of native coronary artery with unspecified angina pectoris (principal); J44.9 Chronic obstructive pulmonary disease, unspecified; I49.5 Sick sinus syndrome; E78.5 Hyperlipidemia, unspecified; Z95.1 Presence of aortocoronary bypass graft; Z79.899 Other long term (current) drug therapy; Z79.01 Long term (current) use of anticoagulants

== ENCOUNTER 2022-02-19 09:30 | Outpatient (RCR) | payer MEDICARE, SELFPAY | END 2022-02-20 23:59 | LOC: CR 09:30 | PROVIDERS: PCP Internal Medicine; Referring Provider Internal Medicine Cardiovascular Disease; Visit Provider Internal Medicine Cardiovascular Disease | DX: I25.10 Atherosclerotic heart disease of native coronary artery without angina pectoris (principal); Z95.1 Presence of aortocoronary bypass graft | CPT/HCPCS: 93798 ==

== ENCOUNTER → 2022-03-07 | Outpatient (CLI) | payer MEDICARE, SELFPAY ==
[2022-01-23 10:04] VITALS: BMI 27.7
[2022-03-07 17:51] LABS: Free T3 1.6 pg/mL (2.18-3.98); T4 Free Direct 0.97 ng/dL (0.76-1.46); Thyroid Stim Hormone (TSH) 6.37 uIU/mL (0.358-3.74)
== END | disposition home or self-care (01) ==
LOC: LAB 14:18
PROVIDERS: PCP Internal Medicine; Visit Provider Nurse Practitioner Gerontology
DX: Z79.899 Other long term (current) drug therapy (principal)
CPT/HCPCS: 36415; 84439; 84443; 84481

== ENCOUNTER 2022-03-21 09:30 | Outpatient (RCR) | payer MEDICARE, SELFPAY ==
[2022-01-23 10:04] VITALS: BMI 27.7
== END 2022-03-23 23:59 ==
LOC: CR 09:30
PROVIDERS: PCP Internal Medicine; Referring Provider Internal Medicine Cardiovascular Disease; Visit Provider Internal Medicine Cardiovascular Disease
DX: I25.10 Atherosclerotic heart disease of native coronary artery without angina pectoris (principal); Z95.1 Presence of aortocoronary bypass graft
CPT/HCPCS: 93798

== ENCOUNTER → 2022-04-21 | Outpatient (CLI) | payer MEDICARE, SELFPAY ==
[2022-03-26 14:16] VITALS: BMI 28.0
[2022-04-21 11:53] LABS: T4 Free Direct 0.92 ng/dL (0.76-1.46); Thyroid Stim Hormone (TSH) 9.02 uIU/mL (0.358-3.74)
== END | disposition home or self-care (01) ==
LOC: LAB 09:58
PROVIDERS: PCP Internal Medicine; Referring Provider Nurse Practitioner Gerontology; Visit Provider Nurse Practitioner Gerontology
DX: Z79.899 Other long term (current) drug therapy (principal)
CPT/HCPCS: 36415; 84439; 84443; 84481

== ENCOUNTER 2022-04-23 09:30 | Outpatient (RCR) | payer MEDICARE, SELFPAY ==
[2022-01-23 10:04] VITALS: BMI 27.7
--- NOTE | 2022-03-26 14:05 | PCM.CR.ITP ---
Diagnosis Exercise - 60-day Assessment - Visit Date of Eval: 03/26/22 Session #:: 22 - Physician Prescribed Exercise Modalities: Treadmill, Airdyne, NuStep Frequency: 3x/week for 12 weeks [36 sessions] Intensity: 60-80% of age predicted maximum heart rate reserve Current METSs:: 5.0 Target Heart Rate:: 93-123 Current RPE:: 13-14 Maximum Excercise HR:: 111 Resting Blood Pressure: 124/68 Maximum Exercise Blood Pressure: 146/60 EKG Type: NSR to sinus tach at times T wave inversion. Current Physical Activity or Exercising minutes: 37:24 - Outcomes & Goals Goals:: Verbalizes understanding of THR, RPE & goal METS by session 6, Documents in home exercise log/reports 30 min aerobic 5 day/wk by DC, Demonstrates accurate pulse taking by DC - Intervention & Plan Exercise Program Goals: Instruct on personal THR & RPE, Instruct on MET level & personal MET goal, Show patient to take own pulse /validate performance until accurate, Instruct on home exercise - 30-day Reassessments 30 day Reassessments:: Progressing - Physical Activity Home Exercise Physical Activity - Home Exercise: Safe Exercise, Warm-up, Self-monitoring, Cool-Down, Home Exercise > 30 min Daily, Sitting Time <3 hours/daily - Outcomes & Goals Outcomes/Goals: Demonstrates correct Warm-up/exercise Cool-Down (S3) if = 2.5 METs, Verbalizes symptoms of exercise intolerance by Session 3 (S3), Demonstrate safe equipment use (S3) & follows exercise prescrition (6) - Intervention & Plan Plan/Intervention: Instruct warm-up & cool-down if exercising at > 2 METs, Instruct on symptoms of exercise intolerance & actions to take, Instruct & monitor on saf - 30-day Reassessments 30 day Reassessments:: Progressing Nutrition - Initial Assessment Nutrition - 30-Day Assessment Nutrition - 60-Day Assessment - Program Goals Nutrition Program Goals: LDL <100 optimal. 100 - 129 Near optimal. 130 - 159 Borderline High. 160 - 189 High. Total Cholesterol <200 desirable. 200 - 239 Borderline High. >/= 240 High. HDL < 40 Low >/=60 High. Triglycerides <150 desirable. <199 optimal. VlDL 5 - 40. HgbA1C <7%. BMI <25 Patient has diagnosis of Hyperlipidemia (ICD E78)?: Yes - Visit Date of Assessment:: 03/26/22 Session #:: 22 - no recent labs drawn - Cholesterol/Lipids Determine presence & major risk factors that modify LDL goal: Hypertension or hypertensive medication, Family history of premature CHD in Male < 55 years: female <65 yearsFa, Age men > 45 years; women >/= 55 years Outcomes/Goals: Pt IDs own risk factors & lifestyle modifications by Session 10, Verbalizes symptoms of angina & response by session 3., Pt independently manages Intervention/Plan: Instruct on personal lipid levels & lipid goals/NCEP guidelines, Instruct on cholesterol Referral to dietitian:: Yes - Medical Nutrition Therapy 30-day Reassessments:: Progressing - Diabetes (Other Core Measures) Diabetes Type: Not Applicable - Weight Mgt (Other Care) Not Applicable: Yes Height: 5 ft 9 in Weight:: 189 lb 8 oz BMI: 28.0 Diagnosis Overweight/Obesity BMI> 30% ICD-10 E66: No Diagnosis High BMI/Morbid Obesity BMI> 35% ICD-10 Z68: No Outcomes/Goals: Pt sets, maintains & shows weight loss goal & trend during rehab Intervention/Plan: Instruct on ideal BMI & set weight loss goal w/patient, Assist pt to ID & incorporate diet changes for weight loss by S9, Encourage goal of using 250-300dcal per session for weight loss 30 day Reassessments:: Progressing - weight stable - Healthy Eating Habits Will attend diet classes:: Yes Outcomes/Goals:: Consume diet rich in vegs,fruits,whole grain/high fiber,fish,lean meat, Limit sat/trans fats,cholesterol & added salts & sugars Intervention/Plan:: Assess current eating habits 30-day Reassessments:: Progressing - Education Gave educational materials for:: Healthy eating Nutrition - 90-Day Assessment Nutrition - Final Assessment Medical - Initial Assessment Medical- 30-Day Assessment Medical- 60-Day Assessment - Visit Date of Eval: 03/26/22 Session #:: 22 - Medication Compliance Preventative Medication(s):: Aspirin, ABRAN inhibitor, Statin/lipid, Beta nighat, Eliquis H/O mental health issues: depression, anxiety, or addiction?: No Doesn?t believe in the benefits of treatment?: No Believes medications are unnecessary or harmful?: No Has a concern about medication side effects?: No Expresses concern over the cost of medications?: No Outcomes/Goals: Verbalizes medications,desired effect & common side effects @ DC, Pt self-reports following medication regimen, Keeps card in wallet w/medications listed by DC Interventions/plans: Instruct on medication effects & side effects, Review medication list w/patient every two weeks, Instruct importance of taking meds as ordered & assist problem solving 30-day Reassessments:: Progressing - Tobacco Use Tobacco Use: Non-smoker - Hypertension Hypertension Diagnosis:: Hypertension ICD-10 I10 Resting Blood Pressure:: 130/56 [employer] Hypertension Guidelines: [place] [employer] Hypertension Guidelines. Normal BP Less than 120/80. Elevated BP 120/80. Hypertension Stage 1: BP 130-139/80-89. Hypertesnion Stage 2: BP 140 or higher/90 or higher. Hypertension Crisis: BP higher than 180/120 Peak Exercise Blood Pressure:: 140/60 Outcomes/Goals: Able to verbalize/achieve optimal blood pressure <130/80, Incorporates diet changes & exercise for blood pressure control by DC Interventions/plan: Instruct on optimal blood pressure, hypertension & medications, Instruct on effects of sodium, alcohol, stress, exercise &hypertension 30 day Reassessments:: Not Met Reassessment Notes & Comments:: Blood pressure remain above recommended AHA Guidelines - Tobacco Cessation Referral Smoking Cessation Referral:: No Individual Education/Counseling:: No Education Schedule Given:: Yes Medical- 90-Day Assessment Medical - Final Assessment Psychosocial - Initial Assess Psychosocial - 30-Day Assess Psychosocial - 60-Day Assess - VIsit Date of Eval: 03/26/22 Session #:: 22 Not Applicable: Yes History of previous Mental disease:: No - Psychosocial Test Tool Used:: PHQ-9 Questionnaire phq-9 Severity: Severity. 1-4 Minimal Depression. 5-9 Mild Depression. 10-14 Moderate Depression. 15-19 Moderately Sever Depression. 20-27 Severe Depression. Rule: - Referral to Behavioral Health PS - Interventions: Yes Attend Stress Management Classes, No Referral to Behavioral Health if PHQ-9 score >9:, No Referral to [facility], No Referral to Physician if PHQ-9 if score is 5-9: - Outcomes/Goals: See list Psychosocial Outcomes/Goals:: ID's personal stressors & 2 strategies to manage stress by discharge - Intervention/Plan: See List Interventions/Plan:: Assess stressors,coping strategies & signs of derpression on admission, Instruct/assist pt to develop coping & personal stress Mgt strategies, Instruct patient to recognize signs & symptoms of depression, Instruct patient to recog - 30-day Reassessments: 30 day Reassessments:: Met - Patient verbalizes methods to control stress/situations Psychosocial - 90-Day Assess Psychosocial - Final Assessmen Patient Health Questionnaire 60-Day Re-eval Assessment 1. Little interest or pleasure in doing things: Not at all 2. Feeling down, depressed, or hopeless: Not at all 3. Trouble falling or staying asleep, or sleeping too much: Not at all 4. Feeling tired or having little energy: Several days 5. Poor appetite or overeating: Not at all 6. Feeling bad about yourself -- or that you are a failure or have let yourself or your family down: Not at all 7. Trouble concentrating on things, such as reading the newspaper or watching television: Not at all 8. Moving or speaking so slowly that other people could have noticed. Or the opposite - being so fidgety or restless that you have been moving around a lot more than usual: Not at all 9. Thoughts that you would be better off , or of hurting yourself in some way: Not at all How difficult have these problems made it for you to do your work, take care of things at home, or get along with other people?: Not difficult at all Total Score: 1 Self-Efficacy 60-Day Re-eval Assessment We would like to know how confident you are in doing certain activities. Please select your confidence level for:: Select your confidence level for the following using the scale 1-10 where 1 is not at all confident and 10 is totally confident. Your score is the average of all 6 responses. Fatigue: How confident are you that you can keep the fatigue caused by your disease from interfering with the things you want to do? Select Number: 8 Physical Discomfort or Pain: How confident are you that you can keep the physical discomfort or pain of your disease from interfering with the things you want to do? Select Number: 8 Emotional Distress: How confident are you that you can keep the emotional distress caused by your disease from interfering with the things you want to do? Select Number: 9 Other Symptoms or Health Problems: How confident are you that you can keep other symptoms or health problems from interfering with the things you want to do? Select Number: 9 Different Tasks and Activities: How confident are you that you can do the different tasks and activities needed to manage your health condition so as to reduce your need to see a doctor? Select Number: 9 Medication: How confident are you that you can do things other than just taking medication to reduce how much your illness affects your everyday life? Select Number: 9 Total Score:: 8 Nutrition Survey
[2022-03-26 14:16] VITALS: BP 124/68; BP 130/56; BP 140/60; BMI 28.0
== END 2022-04-23 23:59 ==
LOC: CR 09:30
PROVIDERS: PCP Internal Medicine; Referring Provider Internal Medicine Cardiovascular Disease; Visit Provider Internal Medicine Cardiovascular Disease
DX: I25.10 Atherosclerotic heart disease of native coronary artery without angina pectoris (principal); Z95.1 Presence of aortocoronary bypass graft
CPT/HCPCS: 93798

== ENCOUNTER 2022-05-02 09:30 | Outpatient (RCR) | payer MEDICARE, SELFPAY ==
[2022-03-26 14:16] VITALS: BMI 28.0
[2022-04-24 00:34] VITALS: BP 124/68; BP 130/56; BP 140/60
== END 2022-05-23 23:59 ==
LOC: CR 09:30
PROVIDERS: PCP Internal Medicine; Referring Provider Internal Medicine Cardiovascular Disease; Visit Provider Internal Medicine Cardiovascular Disease
DX: I25.10 Atherosclerotic heart disease of native coronary artery without angina pectoris (principal); Z95.1 Presence of aortocoronary bypass graft
CPT/HCPCS: 93798

== ENCOUNTER 2022-05-22 15:55 | Outpatient (RCR) | payer MEDICARE, SELFPAY ==
[2022-03-26 14:16] VITALS: BMI 28.0
[2022-05-22 16:06] LABS: INR Fingerstick 1.1; Prothrombin Time Fingerstick 13.6 SEC (11.7-14.9)
== END 2022-05-22 18:00 | disposition home or self-care (01) ==
LOC: LAB 15:55
PROVIDERS: PCP Internal Medicine; Visit Provider Physician Assistant Medical
DX: I48.91 Unspecified atrial fibrillation (principal); Z79.01 Long term (current) use of anticoagulants
CPT/HCPCS: 36415; 36416; 85610

== ENCOUNTER → 2022-05-29 | Outpatient (CLI) | payer MEDICARE, SELFPAY ==
[2022-03-26 14:16] VITALS: BMI 28.0
[2022-05-29 16:14] LABS: Free T3 2.1 pg/mL (2.18-3.98); T4 Free Direct 0.86 ng/dL (0.76-1.46)
== END | disposition home or self-care (01) ==
PROVIDERS: PCP Internal Medicine; Referring Provider Nurse Practitioner Gerontology; Visit Provider Nurse Practitioner Gerontology
DX: I48.91 Unspecified atrial fibrillation (principal); Z79.899 Other long term (current) drug therapy; Z79.01 Long term (current) use of anticoagulants
CPT/HCPCS: 36415; 84439; 84443; 84481; 85610

== ENCOUNTER 2022-06-20 13:50 | Outpatient (RCR) | payer MEDICARE, SELFPAY ==
[2022-03-26 14:16] VITALS: BMI 28.0
[2022-05-29 15:33] LABS: International Normalized Ratio 1.2; Prothrombin Time (Protime)PT. 14.6 SECONDS (11.7-14.9)
[2022-06-05 14:40] LABS: INR Fingerstick 1.3; Prothrombin Time Fingerstick 15.8 SEC (11.7-14.9)
[2022-06-11 08:56] LABS: INR Fingerstick 1.4
[2022-06-20 14:16] LABS: INR Fingerstick 1.5
== END 2022-06-20 18:00 | disposition home or self-care (01) ==
LOC: LAB 13:50
PROVIDERS: PCP Internal Medicine; Visit Provider Physician Assistant Medical
DX: Z79.01 Long term (current) use of anticoagulants (principal); I48.91 Unspecified atrial fibrillation
CPT/HCPCS: 36415; 36416; 85610

== ENCOUNTER 2022-06-27 14:14 | Outpatient (RCR) | payer MEDICARE, SELFPAY ==
[2022-03-26 14:16] VITALS: BMI 28.0
[2022-06-30 09:31] LABS: INR Fingerstick 1.5; Prothrombin Time Fingerstick 18.3 SEC (11.7-14.9)
== END 2022-07-23 18:00 | disposition home or self-care (01) ==
LOC: LAB 14:14
PROVIDERS: PCP Internal Medicine; Visit Provider Physician Assistant Medical
DX: I48.91 Unspecified atrial fibrillation (principal); Z79.01 Long term (current) use of anticoagulants
CPT/HCPCS: 36416; 85610

== ENCOUNTER → 2022-09-25 | Outpatient (CLI) | payer MEDICARE, SELFPAY ==
[2022-03-26 14:16] VITALS: BMI 28.0
[2022-09-25 15:09] LABS: Absolute Lymphocyte Count 3.46 X10^3/uL (0.83-4.51); Absolute Neutrophil Count 4.1 X10^3/uL (2.0-7.7); Basophil# 0.05 X10^3/uL; Basophil% 0.5 % (0-1); Eosinophil# 0.66 X10^3/uL; Eosinophils% 7.2 % (0-5); Hemoglobin 12.6 g/dL (13.0-16.5); Lymphocyte # 3.46 X10^3/ul (0.83-4.51); Lymphocyte % 37.5 % (19-41); Mean Corp Hgb Conc 32.3 g/dL (32-36); Mean Corpuscular Hgb 30.3 pg (27.0-32.0); Mean Corpuscular Volume 93.8 fL (80-94); Mean Platelet Vol. 9.3 fl (6.2-12.0); Monocyte# 0.93 X10^3/uL; Monocyte% 10.1 % (0-10); NRBC Flagged by Analyzer 0 % (0-5); Neutrophil # 4.07 X10^3/uL (2.7-7.7); Neutrophil % 44.2 % (47-70); Platelet Count 339 K/mm3 (150-450); RBC Distribution Width CV 13.2 % (11.6-14.6); RBC Distribution Width SD 45.1 fl (35.1-43.9); Red Blood Count 4.16 M/mm3 (4.6-6.2); White Blood Count 9.2 K/mm3 (4.4-11.0)
[2022-09-25 15:38] LABS: AST(SGOT) 21 U/L (15-37); Alanine Aminotransfer ALT/SGPT 29 U/L (16-61); Albumin, Serum 3.8 g/dL (3.2-5.0); Alkaline Phosphatase 60 U/L (45-117); Anion Gap 5 (5-15); BUN 23 mg/dL (7-18); BUN/Creat Ratio 16.2 RATIO (10-20); Bilirubin, Direct 0.11 mg/dL (0.00-0.30); Chloride 102 mmol/L (98-107); Cholesterol 137 mg/dL (200); Creatinine, Serum 1.42 mg/dL (0.70-1.30); EST Glomerular Filtration Rate 51 mL/min (>60); Est Glom Filt Rate - Afr Amer 62 mL/min (>60); Free T3 2.5 pg/mL (2.18-3.98); Globulin 4.6 g/dL (2.2-4.2); Glucose 90 mg/dL (74-106); High Density Lipoprotein 30 mg/dL; Potassium 4.4 mmol/L (3.5-5.1); Protein, Total 8.4 g/dL (6.4-8.2); Sodium Level 134 mmol/L (136-145); T4 Free Direct 0.96 ng/dL (0.76-1.46); Thyroid Stim Hormone (TSH) 4.98 uIU/mL (0.358-3.74); Triglycerides 164 mg/dL; Very Low Density Lipoprotein 33 mg/dL (5-40)
== END | disposition home or self-care (01) ==
LOC: LAB 13:40
PROVIDERS: PCP Internal Medicine; Visit Provider Nurse Practitioner Gerontology
DX: R53.83 Other fatigue (principal); E78.2 Mixed hyperlipidemia
CPT/HCPCS: 36415; 80048; 80061; 80076; 84439; 84443; 84481; 85025

== ENCOUNTER → 2022-10-02 | Outpatient (CLI) | payer MEDICARE, SELFPAY ==
[2022-03-26 14:16] VITALS: BMI 28.0
[2022-10-08 11:09] LABS: Testosterone, Free 9.52 ng/dL (5.00-21.00)
[2022-10-10 19:00] LABS: Testosterone, % Free 1.87 % (1.50-4.20); Testosterone, Total 509 ng/dL (264-916)
== END | disposition home or self-care (01) ==
LOC: LAB 12:17
PROVIDERS: PCP Internal Medicine; Visit Provider Internal Medicine
DX: N52.9 Male erectile dysfunction, unspecified (principal)
CPT/HCPCS: 36415; 84402; 84403

== ENCOUNTER → 2022-10-07 | Outpatient (CLI) | payer MEDICARE, SELFPAY ==
[2022-03-26 14:16] VITALS: BMI 28.0
--- NOTE | 2022-10-07 09:02 | ECHOD_ITS ---
Version 2 Reason For Study: s/p MV Repair Procedure This was a 2D Doppler, Color Flow transthoracic echocardiogram. The study was technically difficult. Exam performed in department. Left Ventricle Normal LV size. Left ventricular systolic function is normal. The estimated ejection fraction is 60 %. Post operative septal motion. Diastolic function is indeterminate. Right Ventricle Normal RV size. ICD or pacer leads identified within the right ventricle. Normal systolic function. Atria The left atrium is mildly enlarged. Normal right atrium. ICD or pacer leads identified within the right atrium. No doppler evidence for ASD. Mitral Valve There is moderate mitral annular calcification. Moderate (2+) mitral valve insufficiency. An annuloplasty ring is noted in the mitral position. Tricuspid Valve Normal tricuspid valve. Moderate (2+) tricuspid valve insufficiency. Right ventricular systolic pressure estimated to be 33 mmHg. Aortic Valve Trisinus/trileaflet aortic valve. Mild focal aortic valve calcification. Trivial aortic valve insufficiency. Pulmonic Valve The pulmonic valve is not well visualized. Mild (1+) pulmonic valve insufficiency. Great Vessels Calcified aortic root. Pericardium/Pleural No pericardial effusion. MMode/2D Measurements & Calculations LVIDd: 4.6 cm IVSd: 0.84 cm Ao root diam: 3.4 cm LVIDs: 3.1 cm LVPWd: 1.00 cm LA dimension: 4.4 cm RVDd: 3.4 cm FS: 30.9 % LAV(MOD-bp): 61.0 ml LA A4 area: 21.9 cm2 RA A4 area: 14.5 cm2 LAV(MOD-bp) Indexed: 29.7 ml/m2 LAV(MOD-sp2): 50.5 ml LAV(MOD-sp4): 66.9 ml Time Measurements MV dec time: 0.31 sec Doppler Measurements & Calculations MV E max reinaldo: 111.5 cm/sec Lat Peak E' Reinaldo: 9.1 cm/sec Med Peak E' Reinaldo: 5.6 cm/sec MV A max reinaldo: 126.6 cm/sec E/E' lat: 12.3 E/E' med: 20.0 MV E/A: 0.88 MV V2 max: 137.5 cm/sec MV dec slope: 389.5 cm/sec2 Ao V2 max: 113.4 cm/sec MV max P.6 mmHg Ao max P.1 mmHg MV V2 mean: 89.1 cm/sec MV mean P.6 mmHg MV V2 VTI: 43.8 cm AI max reinaldo: 409.3 cm/sec LV V1 max: 102.7 cm/sec MR max reinaldo: 523.5 cm/sec AI max P.1 mmHg LV V1 max P.2 mmHg MR max P.6 mmHg MR mean reinaldo: 371.0 cm/sec AI dec slope: 226.7 cm/sec2 MR mean P.7 mmHg AI P1/2t: 528.9 msec MR VTI: 173.5 cm PA V2 max: 80.0 cm/sec TR max reinaldo: 275.1 cm/sec TR max P.3 mmHg ECHO/Echo Complete Interpretation Summary The study was technically difficult. Left ventricular systolic function is normal. The estimated ejection fraction is 60 %. Post operative septal motion. The left atrium is mildly enlarged. There is moderate mitral annular calcification. An annuloplasty ring is noted in the mitral position. Moderate (2+) mitral valve insufficiency. Moderate (2+) tricuspid valve insufficiency. Mild focal aortic valve calcification. Trivial aortic valve insufficiency. Mild (1+) pulmonic valve insufficiency. Calcified aortic root. Right ventricular systolic pressure estimated to be 33 mmHg. Diastolic function is indeterminate. Ordering Physician: Neva Espino Referring Physician: Marycarmen Berger M.D. Performed By: Cirilo Gottlieb RCS
== END | disposition home or self-care (01) ==
LOC: CVS 09:00
PROVIDERS: PCP Internal Medicine; Visit Provider Nurse Practitioner Gerontology
DX: Z98.890 Other specified postprocedural states (principal)
CPT/HCPCS: 93306

== ENCOUNTER → 2023-04-20 | Outpatient (CLI) | payer MEDICARE, SELFPAY ==
[2022-03-26 14:16] VITALS: BMI 28.0
[2023-04-20 15:07] LABS: Absolute Neutrophil Count 4.2 X10^3/uL (2.0-7.7); Basophil# 0.05 X10^3/uL; Basophil% 0.5 % (0-1); Eosinophil# 0.39 X10^3/uL; Hematocrit 37.1 % (40-54); Hemoglobin 11.9 g/dL (13.0-16.5); Lymphocyte % 42.5 % (19-41); Mean Corp Hgb Conc 32.1 g/dL (32-36); Mean Corpuscular Hgb 29.8 pg (27.0-32.0); Mean Corpuscular Volume 92.8 fL (80-94); Mean Platelet Vol. 9.4 fl (6.2-12.0); Monocyte# 0.89 X10^3/uL; Monocyte% 9.2 % (0-10); NRBC Flagged by Analyzer 0 % (0-5); Neutrophil # 4.15 X10^3/uL (2.7-7.7); Neutrophil % 43.2 % (47-70); Platelet Count 332 K/mm3 (150-450); RBC Distribution Width SD 44.3 fl (35.1-43.9); White Blood Count 9.6 K/mm3 (4.4-11.0)
[2023-04-20 15:48] LABS: ALB/GLOB Ratio 0.8 RATIO (0.9-2.4); AST(SGOT) 13 U/L (15-37); Alanine Aminotransfer ALT/SGPT 20 U/L (16-61); Albumin, Serum 3.6 g/dL (3.2-5.0); Alkaline Phosphatase 57 U/L (45-117); Anion Gap 5 (5-15); BUN 26 mg/dL (7-18); Calcium,Total 8.7 mg/dL (8.5-10.1); Chloride 107 mmol/L (98-107); Cholesterol 126 mg/dL (200); Creatinine, Serum 1.37 mg/dL (0.70-1.30); EST Glomerular Filtration Rate 53 mL/min (>60); Est Glom Filt Rate - Afr Amer 65 mL/min (>60); Free T3 1.9 pg/mL (2.18-3.98); Globulin 4.3 g/dL (2.2-4.2); Glucose 96 mg/dL (74-106); High Density Lipoprotein 29 mg/dL; PSA,Total - Annual Screen 0.84 ng/mL (0.00-4.00); Potassium 4.5 mmol/L (3.5-5.1); Protein, Total 7.9 g/dL (6.4-8.2); Sodium Level 135 mmol/L (136-145); T4 Free Direct 0.94 ng/dL (0.76-1.46); Thyroid Stim Hormone (TSH) 3.01 uIU/mL (0.358-3.74); Triglycerides 160 mg/dL; Very Low Density Lipoprotein 32 mg/dL (5-40)
[2023-04-22 14:27] LABS: Iron 57 ug/dL (65-175); Iron Binding Capacity,Total 323 ug/dL (250-450); PERCENT IRON SATURATION 17.6 % (15.0-55.0)
== END | disposition home or self-care (01) ==
LOC: LAB 14:08
PROVIDERS: PCP Internal Medicine; Referring Provider Internal Medicine; Visit Provider Internal Medicine
DX: Z13.220 Encounter for screening for lipoid disorders (principal); J44.9 Chronic obstructive pulmonary disease, unspecified; I48.91 Unspecified atrial fibrillation; Z95.1 Presence of aortocoronary bypass graft; E78.2 Mixed hyperlipidemia; R06.00 Dyspnea, unspecified; R94.31 Abnormal electrocardiogram [ECG] [EKG]; I25.10 Atherosclerotic heart disease of native coronary artery without angina pectoris; Z12.5 Encounter for screening for malignant neoplasm of prostate; D64.9 Anemia, unspecified
CPT/HCPCS: 36415; 80053; 80061; 83540; 83550; 84153; 84439; 84443; 84481; 85025; G0103

== ENCOUNTER → 2024-04-19 | Outpatient (CLI) | payer MEDICARE, SELFPAY ==
[2022-03-26 14:16] VITALS: BMI 28.0
--- NOTE | 2024-04-19 09:03 | ECHOD_ITS ---
Reason For Study: MV REPAIR Procedure This was a 2D Doppler, Color Flow transthoracic echocardiogram. The study was technically difficult. Exam performed in department. Left Ventricle Normal LV size. Mild concentric left ventricular hypertrophy. The left ventricular ejection fraction is 55 %. Normal diastology for age. Right Ventricle Normal right ventricle. ICD or pacer leads identified within the right ventricle. Atria The left atrium is severely enlarged. Normal right atrium. ICD or pacer leads identified within the right atrium. Mitral Valve Mitral valve annuloplasty repair. Moderate (2+) mitral valve insufficiency. Tricuspid Valve Moderate (2+) tricuspid valve insufficiency. Normal pulmonary artery pressure. Aortic Valve Trisinus/trileaflet aortic valve. Mild (1+) aortic valve insufficiency. Pulmonic Valve The pulmonic valve is not well visualized. Mild (1+) pulmonic valve insufficiency. Great Vessels Normal sized aortic root. Pericardium/Pleural No pericardial effusion. MMode/2D Measurements & Calculations LVIDd: 5.1 cm IVSd: 1.4 cm LVOT diam: 2.0 cm LVIDs: 3.8 cm LVPWd: 0.91 cm LVOT area: 3.2 cm2 RVDd: 3.9 cm FS: 26.6 % Ao root diam: 3.4 cm LAV(MOD-bp): 60.8 ml LVAd ap4: 26.7 cm2 LAV(MOD-bp) Indexed: 30.1 ml/m2 LVLd ap4: 7.8 cm LAV(MOD-sp2): 60.2 ml EDV(MOD-sp4): 74.9 ml LAV(MOD-sp4): 53.3 ml EDV(sp4-el): 77.5 ml LVAs ap4: 16.4 cm2 LVLs ap4: 6.4 cm ESV(MOD-sp4): 35.6 ml ESV(sp4-el): 35.6 ml EF(MOD-sp4): 52.5 % EF(sp4-el): 54.1 % LVAd ap2: 23.4 cm2 SV(MOD-sp4): 39.3 ml SV(MOD-sp2): 33.5 ml LVLd ap2: 7.3 cm EDV(MOD-sp2): 64.1 ml EDV(sp2-el): 63.8 ml LVAs ap2: 14.7 cm2 LVLs ap2: 6.2 cm ESV(MOD-sp2): 30.6 ml ESV(sp2-el): 29.5 ml EF(MOD-sp2): 52.3 % SV(sp4-el): 41.9 ml LA dimension(2D): 4.9 cm LA A4 area: 21.0 cm2 RA A4 area: 14.2 cm2 TAPSE: 1.3 cm Time Measurements MV dec time: 0.31 sec Doppler Measurements & Calculations MV E max reinaldo: 131.3 cm/sec Lat Peak E' Reinaldo: 9.2 cm/sec Med Peak E' Reinaldo: 6.3 cm/sec MV A max reinaldo: 141.7 cm/sec E/E' lat: 14.3 E/E' med: 20.8 MV E/A: 0.93 MV V2 max: 143.2 cm/sec Ao V2 max: 103.1 cm/sec MV max P.2 mmHg MV dec slope: 463.1 cm/sec2 Ao max P.3 mmHg MV V2 mean: 85.0 cm/sec Ao V2 mean: 77.7 cm/sec MV mean P.4 mmHg Ao mean P.6 mmHg MV V2 VTI: 56.7 cm Ao V2 VTI: 22.1 cm AV (velocity ratio): 0.99 MVA(VTI): 1.2 cm2 GIUSEPPE(I,D): 3.1 cm2 GIUSEPPE(V,D): 2.8 cm2 LV V1 max: 90.5 cm/sec SV(LVOT): 68.9 ml PA V2 max: 68.8 cm/sec LV V1 max P.3 mmHg PA max PG (full): 1.2 mmHg LV V1 mean P.0 mmHg LV V1 mean: 67.0 cm/sec LV V1 VTI: 21.8 cm TR max reinaldo: 264.1 cm/sec TR max P.9 mmHg ECHO/Echo Complete Interpretation Summary Mild concentric left ventricular hypertrophy. The left ventricular ejection fraction is 55 %. Moderate (2+) mitral valve insufficiency. Moderate (2+) tricuspid valve insufficiency. Mild (1+) aortic valve insufficiency. Mild (1+) pulmonic valve insufficiency. The study was technically difficult. Ordering Physician: Mitch Bonilla Referring Physician: Marycarmen Berger M.D. Performed By: Chaya James RDCS
== END | disposition home or self-care (01) ==
LOC: CVS 09:03
PROVIDERS: PCP Internal Medicine; Referring Provider Nurse Practitioner Family; Visit Provider Nurse Practitioner Family
DX: Z98.890 Other specified postprocedural states (principal); Z95.1 Presence of aortocoronary bypass graft; Z95.0 Presence of cardiac pacemaker
CPT/HCPCS: 93306

== ENCOUNTER → 2024-04-28 | Outpatient (CLI) | payer MEDICARE, SELFPAY ==
[2022-03-26 14:16] VITALS: BMI 28.0
[2024-04-28 10:56] LABS: Absolute Lymphocyte Count 4.08 X10^3/uL (0.83-4.51); Basophil# 0.07 X10^3/uL; Basophil% 0.8 % (0-1); Eosinophil# 0.27 X10^3/uL; Eosinophils% 3.3 % (0-5); Hemoglobin 12.9 g/dL (13.0-16.5); Lymphocyte # 4.08 X10^3/ul (0.83-4.51); Lymphocyte % 49.3 % (19-41); Mean Corp Hgb Conc 33.1 g/dL (32-36); Mean Corpuscular Hgb 30.4 pg (27.0-32.0); Mean Platelet Vol. 9.2 fl (6.2-12.0); Monocyte% 9.7 % (0-10); NRBC Flagged by Analyzer 0 % (0-5); Neutrophil % 36.2 % (47-70); Platelet Count 289 K/mm3 (150-450); Red Blood Count 4.24 M/mm3 (4.6-6.2); White Blood Count 8.3 K/mm3 (4.4-11.0)
[2024-04-28 11:32] LABS: Vitamin B12 497 pg/mL (211-911); Vitamin D,25 Hydroxy 26.4 ng/mL
[2024-04-28 11:48] LABS: Cholesterol 139 mg/dL (200); High Density Lipoprotein 29 mg/dL; Triglycerides 150 mg/dL; Very Low Density Lipoprotein 30 mg/dL (5-40)
[2024-04-28 11:49] LABS: ALB/GLOB Ratio 0.8 RATIO (0.9-2.4); AST(SGOT) 18 U/L (15-37); Alanine Aminotransfer ALT/SGPT 28 U/L (16-61); Albumin, Serum 3.6 g/dL (3.2-5.0); Alkaline Phosphatase 67 U/L (45-117); Anion Gap 5 (5-15); BUN 24 mg/dL (7-18); BUN/Creat Ratio 15.6 RATIO (10-20); Calcium,Total 9.3 mg/dL (8.5-10.1); Chloride 105 mmol/L (98-107); Creatinine, Serum 1.54 mg/dL (0.70-1.30); EST Glomerular Filtration Rate 47 mL/min (>60); Est Glom Filt Rate - Afr Amer 56 mL/min (>60); Globulin 4.8 g/dL (2.2-4.2); Glucose 117 mg/dL (74-106); Magnesium 2.4 mg/dL (1.6-2.6); PSA,Total - Annual Screen 0.83 ng/mL (0.00-4.00); Potassium 4.3 mmol/L (3.5-5.1); Protein, Total 8.4 g/dL (6.4-8.2); Sodium Level 135 mmol/L (136-145)
== END | disposition home or self-care (01) ==
LOC: LAB 10:15
PROVIDERS: Nurse Practitioner Family; PCP Internal Medicine; Referring Provider Internal Medicine; Visit Provider Internal Medicine
DX: Z95.1 Presence of aortocoronary bypass graft (principal); E78.2 Mixed hyperlipidemia; E53.8 Deficiency of other specified B group vitamins; E55.9 Vitamin D deficiency, unspecified; Z12.5 Encounter for screening for malignant neoplasm of prostate
CPT/HCPCS: 36415; 80053; 80061; 82306; 82607; 83735; 84153; 84443; 85025; G0103

== ENCOUNTER → 2024-09-15 | Outpatient (CLI) | payer MEDICARE, SELFPAY ==
[2022-03-26 14:16] VITALS: BMI 28.0
--- NOTE | 2024-09-15 13:51 | CDU_ITS ---
Reason For Study: Carotid Stenosis Rt. Velocities/BP Lt. Velocities/BP Prox CCA 86.7/6.9 cm/sec. Prox CCA 100.1/16.7 cm/sec. Mid CCA 80.6/9.3 cm/sec. Mid CCA 115.5/16.7 cm/sec. Dist CCA 86.7/10.6 cm/sec. Dist CCA 86.9/10.1 cm/sec. ICA BULB 168.2/16.7 cm/sec. Prox ICA 95.7/18.9 cm/sec. Prox ICA 157.2/10.1 cm/sec. Mid ICA 76.0/21.1 cm/sec. Mid ICA 128.6/25.5 cm/sec. Dist ICA 115.5/34.2 cm/sec. Dist ICA 95.7/16.7 cm/sec. Lt. ICA/CCA = 1.0. Rt. ICA/CCA = 2.1. Prox ECA 119.9/3.5 cm/sec. Prox ECA 179.1/0.0 cm/sec. Lt. Vert. 54.6/9.2 cm/sec. Rt. Vert. 42.4/7.5 cm/sec. Right Extracranial There is heterogeneous, irregular atherosclerotic plaque noted in the right common carotid artery. There is heterogeneous, irregular atherosclerotic plaque noted in the right internal carotid artery. The atherosclerotic plaque causes acoustic shadowing. There is heterogeneous, irregular atherosclerotic plaque noted in the right external carotid artery. Antegrade flow is noted in the right vertebral artery. There is acoustic shadowing in the bulb. Left Extracranial There is heterogeneous, irregular atherosclerotic plaque noted in the left common carotid artery. There is heterogeneous, irregular atherosclerotic plaque noted in the left internal carotid artery. There is heterogeneous, irregular atherosclerotic plaque noted in the left external carotid artery. Antegrade flow is noted in the left vertebral artery. VL/Carotid Duplex Ultrasound Interpretation Summary Moderate (50-69%) stenosis right extracranial internal carotid. Limited by calc ific shadowing. Mild (<50%) stenosis left extracranial internal carotid. Patent and antegrade vertebrals bilaterally. Ordering Physician: Marycarmen Berger Referring Physician: Marycarmen Berger Performed By: Brain Schulte RVT
== END | disposition home or self-care (01) ==
LOC: CVS 13:51
PROVIDERS: PCP Internal Medicine; Referring Provider Internal Medicine; Visit Provider Internal Medicine
DX: I65.23 Occlusion and stenosis of bilateral carotid arteries (principal)
CPT/HCPCS: 93880

== ENCOUNTER → 2025-05-15 | Outpatient (CLI) | payer MEDICARE, SELFPAY ==
[2022-03-26 14:16] VITALS: BMI 28.0
[2025-05-15 17:08] LABS: Hematocrit 38.4 % (40-54); Hemoglobin 12.7 g/dL (13.0-16.5); Immature Granulocytes Count 0.080 X10^3/uL (0.0-0.0); Mean Corp Hgb Conc 33.1 g/dL (32-36); Mean Corpuscular Volume 91.0 fL (80-94); Mean Platelet Vol. 9.2 fl (6.2-12.0); NRBC Flagged by Analyzer 0 % (0-5); POSITIVE DIFFERENTIAL YES; Platelet Count 319 K/mm3 (150-450); RBC Distribution Width CV 13.2 % (11.6-14.6); RBC Distribution Width SD 44.7 fl (35.1-43.9); Red Blood Count 4.22 M/mm3 (4.6-6.2); White Blood Count 11.2 K/mm3 (4.4-11.0)
[2025-05-15 17:50] LABS: AST(SGOT) 17 U/L (<=37); Alanine Aminotransfer ALT/SGPT 14 U/L (<=46); Albumin, Serum 4.1 g/dL (3.4-4.8); Alkaline Phosphatase 55 U/L (40-129); Anion Gap 10 (5-15); BUN 24 mg/dL (4-19); BUN/Creat Ratio 14.6 RATIO (10-20); Calcium,Total 9.3 mg/dL (7.6-11.0); Carbon Dioxide 22.3 mmol/L (21.0-32.0); Chloride 101 mmol/L (98-108); Cholesterol 183 mg/dL (<=200); Free T3 2.3 pg/mL (2.18-3.98); Globulin 3.9 g/dL (2.2-4.2); Glucose 92 mg/dL (70-99); Low Density Lipoprotein Calc. 100 mg/dL; Magnesium 2.2 mg/dL (1.5-2.2); Potassium 5.2 mmol/L (3.3-5.1); Triglycerides 265 mg/dL; Very Low Density Lipoprotein 53 mg/dL (5-40); Vitamin B12 517 pg/mL (180-914); Vitamin D,25 Hydroxy 81.2 ng/mL (30-100); cholesterol:hdl ratio screen 6.10
[2025-05-15 19:44] LABS: Differential Indicated SCAN CRITERIA MET
[2025-05-15 19:47] LABS: Differential Comment SCANNED
== END | disposition home or self-care (01) ==
LOC: LAB 16:42
PROVIDERS: PCP Internal Medicine; Referring Provider Internal Medicine; Visit Provider Internal Medicine
DX: I25.10 Atherosclerotic heart disease of native coronary artery without angina pectoris (principal); J44.9 Chronic obstructive pulmonary disease, unspecified; I48.0 Paroxysmal atrial fibrillation; I48.19 Other persistent atrial fibrillation; I65.23 Occlusion and stenosis of bilateral carotid arteries; Z79.899 Other long term (current) drug therapy; Z95.1 Presence of aortocoronary bypass graft; Z79.01 Long term (current) use of anticoagulants; N52.9 Male erectile dysfunction, unspecified; E53.8 Deficiency of other specified B group vitamins; E78.2 Mixed hyperlipidemia; Z13.220 Encounter for screening for lipoid disorders; E55.9 Vitamin D deficiency, unspecified
CPT/HCPCS: 36415; 80053; 80061; 82306; 82607; 83735; 84439; 84443; 84481; 85025

== ENCOUNTER 2025-06-09 10:46 | Emergency (ER) | payer MEDICARE, SELFPAY ==
[2022-03-26 14:16] VITALS: BMI 28.0
[2025-06-09 10:47] VITALS: BP 170/101; PULSE 117; RESP 18; TEMP 37; O2SAT 99; BMI 27.6
--- NOTE | 2025-06-09 11:22 | EKG12_ITS ---
Test Reason : PALPS Blood Pressure : */* mmHG Vent. Rate : 116 BPM Atrial Rate : 116 BPM P-R Int : 230 ms QRS Dur : 94 ms QT Int : 276 ms P-R-T Axes : 40 60 -43 degrees QTcB Int : 383 ms Sinus tachycardia with 1st degree A-V block T wave abnormality, consider inferior ischemia Abnormal ECG Confirmed by CHRISTINA DONOVAN, ERNESTO ([id number]), design editor ELIZABETH TA ([id number]) on 06/12/2025 9:16:36 AM Referred By: SUMIT/COREY Confirmed By: ERNESTO VASQUEZ MD
--- NOTE | 2025-06-09 11:22 | RAD_ITS ---
PROCEDURE: CHEST 1 VIEW (PORTABLE) 06/09/2025 REASON FOR EXAM: CHEST PAIN TECHNIQUE: Frontal view of the chest. COMPARISON: None. FINDINGS: LINES: Left-sided pacemaker device with right atrial and right ventricular leads. LUNGS AND PLEURA: Small nodular opacity over the inferior left lung. The left lung is clear. No pleural effusion or pneumothorax. HEART AND MEDIASTINUM: The heart size and mediastinal contours are normal. Prior cardiac valvuloplasty. Mediastinal closure devices present. BONES: No acute osseous abnormality. RAD/Chest 1 View (Portable) IMPRESSION: Nodular opacity over the left inferior lung, possibly a nipple shadow or lung n odule. Consider follow-up imaging with a nipple marker to further evaluate. Reading Location: [id number]
--- NOTE | 2025-06-09 11:23 | ED.VIS.CHEST ---
HPI History of Present Illness Chief Complaint: Palpitations Narrative Narrative: Pt is a 79-year-old male who was sent into the ER today at the recommendation of his spectrographic analyst because he was having episodes of A-fib. Patient stated this morning he felt slightly lightheaded, dizzy, slightly weak, so he came into the ER on his own accord. Patient does take Eliquis 2.5 mg daily. Patient's driver salesman is Dr. Chacko. Patient does have a spectrographic analyst, Dr. Duncan. Patient currently has no headache, no chest pain or shortness of breath. Minimal palpitations. No abdominal pain nausea vomiting. No other acute complaints. Patient does have an ICD pacemaker. REVIEW OF SYSTEMS: Unless otherwise stated in this report the patient's positive and negative responses for review of systems for constitutional, eyes, ENT, cardiovascular, respiratory, gastrointestinal, neurological, , musculoskeletal, and integument systems and related systems to the presenting problem are either stated in the history of present illness or were not pertinent or were negative for the symptoms and/or complaints related to the presenting medical problem. Nurse's notes and vital signs reviewed. The patient is not hypoxic. Vital signs reviewed and patient is not hypoxic. General: The patient appears well and in no apparent distress. Patient is resting comfortably on cart. Not toxic, lethargic, or listless. Skin: Warm, dry, no pallor noted. There is no rash noted. Head: Normocephalic, atraumatic Eye: Normal conjunctiva, no drainage, EOMI. PERRL. Ears, Nose, Mouth, and Throat: oral mucosa is moist. Nares patent. Mouth without vesicles. Cardiovascular: Tachycardic regular Rate and Rhythm, no murmurs, gallops, or rubs Respiratory: Patient is in no distress, no accessory muscle use, lungs are clear to auscultation, no wheezing, rales or rhonchi Back: non-tender, no CVA tenderness bilaterally to percussion. NO CTLS midline or paraspinal tenderness to palpation. GI: Soft, no tenderness to palpation, no masses appreciated. No rebound, guarding, or rigidity noted. Musculoskeletal: The patient has full range of motion of all extremities and joints with no difficulty. Patient has no motor, no sensory deficits. Neurological: A&O x4, normal speech, no focal neurological deficits. Psychiatric: Cooperative PFS PFSH Medical History Bilateral stenosis of carotid arteries greater than 50% Cataract fragments in eye following surgery COVID-19 long-term (current) use of anticoagulants Sinus node dysfunction Atherosclerotic heart disease of [place] coronary artery without angina pectoris Abnormal stress test Abnormal electrocardiogram [ECG] [EKG] Angina pectoris Mixed hyperlipidemia Hernia COPD (chronic obstructive pulmonary disease) Dyslipidemia Home Medications ?Medication ?Instructions ?Recorded ?Last Taken ?Type multivitamin (Daily Multi-Vitamin 1 tab PO DAILY 04/03/21 Unknown History tablet) aspirin 81 mg tablet,delayed 81 mg PO DAILY #1 TAB 07/11/21 09/10/21 Rx release (Adult Aspirin Regimen) nitroglycerin 0.4 mg sublingual 0.4 mg sublingual Q5-15M PRN chest 02/15/24 Unknown Rx tablet pain #25 tabs acetaminophen 650 mg 650 mg PO Q12H 08/03/24 Unknown History tablet,extended release (Tylenol 8 Hour) metoprolol tartrate 25 mg tablet 25 mg PO BID #180 tabs 10/10/24 Unknown Rx cholecalciferol (vitamin D3) 25 25 mcg PO QDAY 10/26/24 Unknown History mcg (1,000 unit) capsule lisinopril 5 mg tablet 5 mg PO DAILY #90 tabs 12/19/24 Unknown Rx apixaban 2.5 mg tablet 2.5 mg PO BID pt stopping 02/10/25 Unknown Rx warfarin, switching to Eliquis #180 tabs Allergy/AdvReac Type Severity Reaction Status Date / Time No Known Allergies Allergy Verified 06/09/25 10:47 Family History Mother Cancer Brother Myocardial infarction CAD (coronary artery disease) Brother CVA (cerebral vascular accident) Surgical History History of cataract surgery Presence of permanent cardiac pacemaker (11/22/21) History of cardioversion (~12/16/21) History of mitral valve repair (~11/18/21) History of coronary artery bypass surgery (~11/18/21) S/P CABG (coronary artery bypass graft) History of left heart catheterization (LHC) (~09/10/21) History of hernia repair H/O knee surgery Social History Smoking Status: Former smoker Tobacco: How many years used: 20 how long ago did patient quit smoking: Started age 13, cigarettes, switched to pipe in his 30s, quit late 30's alcohol intake: current alcohol intake frequency: holidays/special occasions only substance use type: does not use caffeine: Yes Type: coffee Number of servings: 4 EXAM Physical Exam Const Vital Signs: 06/09/25 10:47 06/09/25 12:01 06/09/25 12:37 Temperature 98.6 F Temperature Source Oral Pulse Rate 117 H 116 H 116 H Respiratory Rate 18 14 14 Blood Pressure 170/101 H 158/102 H 129/91 H Blood Pressure Mean 124 120 103 Pulse Ox 99 100 100 Oxygen Delivery Method Room Air Room Air Room Air 06/09/25 14:49 06/09/25 15:27 Temperature 98.2 F Temperature Source Pulse Rate 75 71 Respiratory Rate 18 16 Blood Pressure 127/81 H 125/86 H Blood Pressure Mean 96 99 Pulse Ox 96 97 Oxygen Delivery Method Room Air MDM MDM MDM Narrative Medical decision making narrative: Patient seen and examined: IV, EKG, x-ray, IV fluids, lab work Differential diagnosis includes but is not limited to: A-fib, a flutter, tachycardia, electrolyte abnormality, dehydration, ICD malfunction Relevant laboratory interpretation: Patient BUN is 25/1.42. Radiological studies: Chest x-ray shows no acute cardiopulmonary disease, no infiltrate, no effusion. Reevaluation: Patient feels better after IV fluids. Initially patient had small amount of IV fluids ordered, patient was given 1 L bolus which helped him feel better. Social barriers to healthcare: There are no food insecurities, there is no issue with transportation, there are no insurance barriers Disposition: I initially spoke to Roseline Reddy nurse practitioner from Dr. Duncan office. Patient's device was interrogated on June 02 and June 05. Both times he was in A-fib. The recommendation was for patient to start on 5 mg of Eliquis daily, patient has an appointment at the office on August 01 at 1 PM the patient did not know about. Patient is already taking Eliquis 2.5 mg daily. I discussed this with Dr. Medina. He recommended to keep on 2.5 mg of Eliquis daily, not increasing to 5 mg daily and we discussed his age and BUN and creatinine. Patient is happy with this, this was written on patient's discharge papers as well. He will follow-up with his spectrographic analyst in July. Strict return precautions were discussed with the patient at bedside. Lab Data Labs: Laboratory Results - last 24 hr 06/09/25 06/09/25 11:40 12:59 WBC 8.6 RBC 4.38 L Hgb 13.3 Hct 39.8 L MCV 90.9 MCH 30.4 MCHC 33.4 RDW Std Deviation 45.0 H RDW Coeff of Nancy 13.3 Plt Count 318 MPV 9.3 Immature Gran % (Auto) 0.500 Neut % (Auto) 47.3 Lymph % (Auto) 41.8 H [place] % (Auto) 9.0 Eos % (Auto) 0.9 Baso % (Auto) 0.5 Absolute Neuts (auto) 4.1 Absolute Lymphs (auto) 3.59 Nucleated RBC % 0 Sodium Cancelled 133 Potassium Cancelled 4.6 Chloride Cancelled 103 Carbon Dioxide Cancelled 22.7 Anion Gap Cancelled 8 BUN Cancelled 25 H Creatinine Cancelled 1.42 H Estim Creat Clear Calc Cancelled 42.84 L Est GFR (MDRD) Non-Af Cancelled 50 L BUN/Creatinine Ratio Cancelled 17.6 Glucose Cancelled 121 H Calcium Cancelled 9.0 Magnesium Cancelled Troponin T High Sens Cancelled 15 NT pro BNP II Cancelled Radiography Chest X-Ray - ED: Read by ED Physician (Chest x-ray shows no acute cardiopulmonary disease, no infiltrate, no effusion.) Diagnostic Testing: Clinical Impression(s) from Imaging Studies Chest X-Ray 06/09/25 11:22 IMPRESSION: Nodular opacity over the left inferior lung, possibly a nipple shadow or lung nodule. Consider follow-up imaging with a nipple marker to further evaluate. Reading Location: [facility] [place] Initial EKG: Attestation: I personally reviewed and interpreted this EKG as follows: (EKG interpretation. Sinus tachy, 116. IN interval at 230, first-degree AV block. Normal axis deviation. No acute ST elevation, no acute ectopy. QTc of 3 3) Discharge Plan Triage Chief Complaint: Palpitations ED Provider: Adrian Jalloh Dx/Rx/DC Orders Clinical Impression: Light-headedness Instructions: A-Fib, ED Dizziness, Uncertain Cause Prescriptions: No Action multivitamin [Daily Multi-Vitamin] Tablet 1 tab PO DAILY aspirin [Adult Aspirin Regimen] 81 mg tablet,delayed release (DR/EC) 81 mg PO DAILY Qty: 1 0RF acetaminophen [Tylenol 8 Hour] 650 mg tablet extended release 650 mg PO Q12H cholecalciferol (vitamin D3) 25 mcg (1,000 unit) capsule 25 mcg PO QDAY nitroglycerin 0.4 mg tablet, sublingual 0.4 mg sublingual Q5-15M PRN (Reason: chest pain) Qty: 25 3RF Rx Instructions: do not exceed 3 doses per episode metoprolol tartrate 25 mg tablet 25 mg PO BID Qty: 180 3RF lisinopril 5 mg tablet 5 mg PO DAILY Qty: 90 3RF apixaban 2.5 mg tablet 2.5 mg PO BID Qty: 180 3RF Primary Care Provider: Marycarmen Berger Referrals: Marycarmen Berger MD [Primary Care Provider, Internal Medicine - [facility]] Activity Restrictions/Additional Instructions: Continue taking Eliquis 2.5mg twice a day per Dr. Medina. He will discuss with Dr. Chacko your case as well. You have an appointment scheduled on August 01 with your spectrographic analyst, Dr. Duncan at 1PM. Print Language: [place]ian Disposition Disposition: Home, Self Care Discharge Date/Time: 06/09/25 15:30
[2025-06-09] MEDS: 0.9% Normal Saline (1000mL) 1,000 ML 250 ML IV (11:39)
[2025-06-09 12:01] VITALS: BP 158/102; PULSE 116; RESP 14; O2SAT 100
[2025-06-09 12:04] LABS: Hematocrit 39.8 % (40-54); Hemoglobin 13.3 g/dL (13.0-16.5); Immature Granulocytes Count 0.040 X10^3/uL (0.0-0.0); Mean Corp Hgb Conc 33.4 g/dL (32-36); Mean Corpuscular Volume 90.9 fL (80-94); Mean Platelet Vol. 9.3 fl (6.2-12.0); NRBC Flagged by Analyzer 0 % (0-5); Platelet Count 318 K/mm3 (150-450); RBC Distribution Width CV 13.3 % (11.6-14.6); RBC Distribution Width SD 45.0 fl (35.1-43.9); Red Blood Count 4.38 M/mm3 (4.6-6.2); White Blood Count 8.6 K/mm3 (4.4-11.0)
--- OUTSIDE RECORDS SUMMARY | 2025-06-09 12:08 | XMS RPT_ITS | CCD ---
Author Organization [facility] Care Team Providers Care Java Analyst Name Role Phone Kelsey Berger MD Primary Care Provider [phone] Marcel Garcia Unavailable Miglionico WOOD MILLING MACHINE TENDER.NURSE SUBSTANCE ABUSE, Catherine Unavailable Roly Lazo MD Unavailable Alonzo De La Cruz RN Unavailable Dr. Mikel Fields Referring Provider [phone] Dr. Kelsey Berger Primary Care Provider Dr. Kelsey Berger Attending Provider [phone] RADHA Espino NP Attending Provider Dr. Marcel Garcia Attending Provider [phone] Dr. Kelsey Berger Referring Provider [phone] Dr. Kelsey Berger Primary Care Provider RADHA Espino NP Attending Provider Alonzo De La Cruz RN Unavailable Dr. Kelsey Berger Primary Care Provider Dr. Kelsey Berger Referring Provider [phone] RADHA Espino NP Attending Provider Kelsey Berger MD Primary Care Provider [phone] Marcel Garcia Unavailable Miglionicflakito WOOD MILLING MACHINE TENDER.URVASHI, Catherine Unavailable Roly Lazo MD Unavailable Dr. Klesey Berger Attending Provider [phone] Dr. Kelsey Berger Primary Care Provider Dr. Kelsey Berger Referring Provider [phone] Srinivas NGO, FIRST MATE-C Neva Attending Provider Dr. Kelsey Berger Primary Care Provider Dr. Kelsey Berger Attending Provider [phone] Dr. Kelsey Berger Referring Provider [phone] Kelsey Berger MD Primary Care Provider [phone] Marcel Garcia Unavailable Miglionico WOOD MILLING MACHINE TENDER.NURSE SUBSTANCE ABUSE, Catherine Unavailable Henri DONOVAN, Roly Knott Unavailable Dr. Kelsey Berger Primary Care Provider Dr. Kelsey Berger Referring Provider [phone] Lillie ARROYO, PA Abhishek Moran Attending Provider Srinivas FIRST MATE, FIRST MATE-C Neva Attending Provider Dr. Kelsey Berger Attending Provider [phone] Dr. Marcel Garcia Attending Provider [phone] Miglionico WOOD MILLING MACHINE TENDER.NURSE SUBSTANCE ABUSE, Catherine Unavailable Dr. Kelsey Berger Primary Care Provider Dr. Kelsey Berger Referring Provider [phone] Irene FIRST MATE, FIRST MATE-C Mitch Leung Attending Provider Dr. Kelsey Berger Attending Provider [phone] DO BRIDGETT KIM Attending Unavailable BOBBY, DO MALACHI BRANCH Primary Care UnavailDO MALACHI Mcdowell Referring UnavailKelsey Glass MD Primary Care Provider [phone] Marcel Garcia MD Unavailable Miglionico WOOD MILLING MACHINE TENDER.NURSE SUBSTANCE ABUSE, Catherine Unavailable [phone] Kelsey Berger MD Primary Care Provider [phone] Long WOOD MILLING MACHINE TENDER.NURSE SUBSTANCE ABUSE, Catherine Unavailable [phone] Long WOOD MILLING MACHINE TENDER.NURSE SUBSTANCE ABUSE, Catherine Unavailable Unavailable Celine DONOVAN, Dr. Conroy Primary Care Provider Celine DONOVAN, Dr. Conroy Referring Provider Dr. Vu Chacko MD Attending Provider Celine DONOVAN, Dr. Conroy Attending Provider OVIDIO MAIN Attending Unavailable SELF Referring Unavailable CELINE, KELSEY M Primary Care Unavailable CELINE, KELSEY M Primary Care Unavailable CELINE, KELSEY M Primary Care Unavailable CELINE, KELSEY M Primary Care Unavailable CELINE, KELSEY M Primary Care Unavailable Celine DONOVAN, Dr. Conroy Primary Care Physician Celine DONOVAN, Dr. Conroy Attending Physician Celine DONOVAN, Dr. Conroy Referring Provider Mitch Varghese Attending Physician Kelsey Berger Attending Unavailable Kelsey Berger Primary Care Unavailable CelineKelsey Referring Unavailable Celine, Kelsey Primary Care Unavailable Kelsey Berger Attending Unavailable Kelsey Berger Attending Unavailable Celine, Kelsey Referring Unavailable Celine, Kelsey Primary Care Unavailable Kelsey Berger Attending Unavailable Celine, Kelsey Primary Care Unavailable Kelsey Berger Attending Unavailable Celine, Klesey Primary Care Unavailable Celine, Kelsey Referring Unavailable Celine, Kelsey Primary Care Unavailable Larry Magana Attending Unavailable Mitch Bonilla NP Attending Unavailable Kelsey Berger Referring Unavailable Celine, Kelsey Primary Care Unavailable Kelsey Berger Attending Unavailable Kelsey Berger Primary Care Unavailable Vu Chacko Attending Unavailable CelineKelsey Referring Unavailable Celine Kelsey Primary Care Unavailable Medications Current Medications Medication Drug Class(es) Dates Sig (Normalized) Sig (Original) 8 hr acetaminophen 650 mg extended release oral tablet (20 sources) Start: 08-03-2024 take 1 tablet by mouth every twelve hours Start: 11-25-2021 take 2 tablets by [facility] every six hours as needed acetaminophen (TYLENOL) 500 mg tablet Take 2 tablets by mouth every 6 hours as needed for pain. 11/25/2021 Active acetaminophen (T YLENOL EXTRA STRENGTH ORAL) Take 1,000 tablets by mouth. today 0 Suspended Comment on above: Take 1,000 tablets b y mouth. today Take 2 tablets by [facility] every 6 hours as needed for pain. aspirin 81 mg chewable tablet (20 sources) Platelet Aggregation Inhibitor, Nonsteroidal Anti-inflammatory Drug Start: 12-25-2021 End: 01-24-2022 take 1 tablet by mouth once daily aspirin 81 mg chewable tablet Take 1 tablet by mouth once daily. 390 tablet 12/25/2021 Active Start: 11-26-2021 End: 12-26-2022 take 2 tablets by mouth once daily, then take 1 tablet by mouth once daily aspirin 81 mg chewable tablet Take 2 tablets by mouth once daily for 30 days, THEN 1 tablet once daily. 420 tablet 0 11/26/2021 12/25/2021 Discontinued Start: 07-11-20[address] [facility] once daily Comment on above: Take 81 mg by mouth once daily. Take 2 tablets by [facility] once daily for 30 days, THEN 1 tablet once daily. Take [address] [facility] once daily. chlorhexidine gluconate 1.2 mg/ml mouthwash (11 sources) Start: 11-12-19 End: 12-26-19 Chlorhexidine Gluconate (PERIDEX) 0.12 % solution Use 15 mL as instructed twice daily for 5 days. Rinse around mouth for 30 seconds then expectorate 150 mL 0 11/11/2021 11/16/2021 Active Comment on above: Use 15 mL as instruc ezequiel twice daily for 5 days. Rinse around mouth for 30 seconds then expectorate Use 15 mL as instruc ezequiel as directed. Rinse around mouth for 30 seconds then expectorate Use 15 mL as instruc ezequiel twice daily. Rinse around mouth for 30 seconds then expectorate cholecalciferol 0.025 mg oral capsule (3 sources) Vitamin D Start: 10-27-19 take 1 capsule by mouth once daily Fluticasone Furoate-Vilanterol (20 sources) Corticosteroid, beta2-Adrenergic Agonist Start: 04-03-20 Fluticasone Furoate-Vilanterol (Breo Ellipta) 200-25 mcg/dose blister with device Active 1 INH INHALATION DAILY April 03, 2021 11:00am Start: 04-03-2021 End: 09-25-2022 Fluticasone Furoate-Vilanter ol (Breo Ellipta) 200-25 mcg/dose blister with device Discontinued 1 NMA INHALATION DAILY April 03, 2021 12:00am September 25, 2022 2:01pm Start: 04-03-2021 End: 09-25-2022 Fluticasone Furoate-Vilanter ol (Breo Ellipta) 200-25 mcg/dose blister with device Discontinued 1 INH INHALATION DAILY April 03, 2021 12:00am September 25, 2022 2:01pm Start: 04-03-2021 End: 09-25-2022 Fluticasone Furoate-Vilanter ol (Breo Ellipta) 200-25 mcg/dose blister with device Discontinued 1 INH INHALATION DAILY April 02, 2021 11:00pm September 25, 2022 1:01pm Start: 04-03-2021 Fluticasone Fu roate-Vilanterol (Breo Ellipta) 200-25 mcg/dose blister with device Active 1 INH INHALATION DAILY April 02, 2021 11:00pm Start: 04-03-2021 Fluticasone Fu roate-Vilanterol (Breo Ellipta) 200-25 mcg/dose blister with device Active 1 INH INHALATION DAILY April 03, 2021 12:00am Start: 03-07-2021 End: 03-07-2022 fluticasone-vilanterol (BREO ELLIPTA) 200-25 mcg/dose inhaler [The details of the medication are not available because there are pending changes by a home health clinician.] 60 Each 03/07/2021 Active Start: 03-07-2021 End: 03-07-2022 fluticasone-vilanterol (BREO ELLIPTA) 200-25 mcg/dose inhaler Inhale 1 Inhalation as instructed once daily. 60 Each 03/07/2021 03/07/2022 Suspended Comment on above: Inhale 1 Inhalation as instructed once daily. [The details of the medication are not available because there are pending changes by a home health clinician.] Multivitamin (Daily Multi-Vitamin) tablet (17 sources) Start: take 1 tablet by mouth once daily Multivitamin (Daily Multi-Vitamin) tablet Active 1 TABLET PO DAILY April 03, 2021 11:01am Start: 04-03-2021 Start: 04-03-2021 Multivitamin ( Daily Multi-Vitamin) tablet Active 1 {tbl} PO DAILY April 03, 2021 12:00am Start: 04-03-2021 take 1 tablet by barbara th once daily Multivitamin (Daily Multi-Vitamin) tablet Active 1 TABLET PO DAILY April 02, 2021 11:00pm Start: 04-03-2021 take 1 tablet by barbara th once daily Multivitamin (Daily Multi-Vitamin) tablet Active 1 TABLET PO DAILY April 03, 2021 12:00am mupirocin 0.02 mg/mg topical ointment (11 sources) RNA Synthetase Inhibitor Antibacterial Start: 11-11-2021 End: 12-25-2021 mupirocin (BACTROBAN) 2 % ointment Apply 1 application to affected area twice daily for 5 days. 22 g 0 11/11/2021 11/16/2021 Active Comment on above: Apply 1 application to affected area twice daily for 5 days. Apply 1 application to affected area as directed. nitroglycerin 0.4 mg sublingual tablet (20 sources) Nitrate Vasodilator Start: 01-08-2023 nitroglyce rin sublingual (NITROQUICK) 0.[address] 1 tablet under the tongue if needed every 5 minutes for james... (REFER TO PRESCRIPTION NOTES). 01/08/2023 Active Start: 07-11-2021 End: 02-15-2024 Nitroglycerin 0.4 mg tablet, sublingual Discontinued 0.4 mg SL every 5 to 15 minutes as needed for chest pain 15 11January 07, 2023 9:47am February 15, 2024 10:57am do not exceed 3 doses per episode Start: 07-11-2021 End: 01-07-2023 Nitroglycerin Active 0.4 MG SL every 5 to 15 minutes January 07, 2023 9:47am do not exceed 3 doses per episode Comment on above: place 1 tablet under the tongue if needed every 5 minutes for james... (REFER TO PRESCRIPTION NOTES). [place]-3 Fatty Acids (14 sources) Start: 04-03-2021 take 1000 mg by mouth once daily [place]-3 Fatty Acids Active 1000 MG PO DAILY April 03, 2021 11:01am Start: 04-03-2021 End: 09-25-2022 take 1000 mg by mouth once daily [place]-3 Fatty Acids Discontinued 1000 MG PO DAILY April 03, 2021 12:00am September 25, 2022 2:01pm Start: 04-03-2021 End: 09-25-2022 take 1000 mg by mouth once daily [place]-3 Fatty Acids Discontinued 1000 MG PO DAILY April 02, 2021 11:00pm September 25, 2022 1:01pm Start: 04-03-2021 take 1000 mg by mout h once daily [place]-3 Fatty Acids Active 1000 MG PO DAILY April 02, 2021 11:00pm Start: 04-03-2021 take 1000 mg by mout h once daily [place]-3 Fatty Acids Active 1000 MG PO DAILY April 03, 2021 12:00am microencapsulated potassium chloride 20 meq extended release oral tablet (10 sources) Start: 11-25-2021 End: 11-28-2021 take 1 tablet by mouth once daily potassium chloride ER (KLOR-CON M20) 20 mEq tablet Take 1 tablet by mouth once daily for 3 days. 3 tablet 0 11/25/2021 11/28/2021 Active End: 12-25-2021 potassium chloride ER (K-DUR , KLOR-CON) 20 mEq tablet Take 20 mEq by mouth as directed. 0 12/25/2021 Discontinued (Course of therapy completed) Comment on above: Take 1 tablet by barbara th once daily for 3 days. Take 20 mEq by mouth as directed. Completed/Discontinued Medications Medication Drug Class(es) Dates Sig (Normalized) Sig (Original) [id number] 200 actuat albuterol 0.09 mg/actuat metered dose inhaler (20 sources) beta2-Adrenergic Agonist Start: 04-03-2021 End: 03-17-2024 Albuterol Sulfate 90 mcg/actuation HFA aerosol inhaler Discontinued 2 NMA INHALATION EVERY 6 HOURS as needed for Shortness Of Breath April 03, 2021 12:00am March 17, 2024 1:09pm Start: 04-03-2021 take 1 puff(s) by in halation every six hours Albuterol Sulfate Active 2 PUFF INHALATION EVERY 6 HOURS April 03, 2021 12:00am Start: 03-04-2021 albuterol HFA (PROVENTIL HFA, VENTOLIN HFA) 90 mcg/actuation inhaler inhale 2 puffs 20-30 MINUTES PRIOR TO EXERCISE AND NEEDED FOR ... (REFER TO PRESCRIPTION NOTES). 03/04/2021 Active Start: 03-04-2021 albuterol HFA (PROVENTIL HFA, VENTOLIN HFA) 90 mcg/actuation inhaler [The details of the medication are not available because there are pending changes by a home health clinician.] 0 03/04/2021 Active Start: 03-04-2021 albuterol HFA (PROVENTIL HFA, VENTOLIN HFA) 90 mcg/actuation inhaler inhale 2 puffs 20-30 MINUTES PRIOR TO EXERCISE AND NEEDED FOR ... (REFER TO PRESCRIPTION NOTES). 0 03/04/2021 Suspended Comment on above: inhale 2 puffs 20-30 MINUTES PRIOR TO EXERCISE AND NEEDED FOR ... (REFER TO PRESCRIPTION NOTES). [The details of the medication are not available because there are pending changes by a home health clinician.] amiodarone hydrochloride 200 mg oral tablet (20 sources) Antiarrhythmic Start: 03-10-2022 End: 04-21-2022 Amiodarone 200 mg tablet Discontinued 100 mg PO DAILY March 10, 2022 1:54pm April 21, 2022 3:20pm Start: 03-10-2022 End: 04-21-2022 take 100 mg by mouth once daily Amiodarone Discontinue d 100 MG PO DAILY March 10, 2022 1:54pm April 21, 2022 3:20pm Start: 01-29-2022 End: 03-10-2022 take 1 tablet by mouth once daily Amiodarone 200 mg tablet Discontinued 200 mg PO DAILY February 06, 2022 10:38am March 10, 2022 1:54pm Start: 01-14-2022 End: 01-29-2022 take 2 tablets by mouth once daily Amiodarone 200 mg tablet Discontinued 400 mg PO DAILY 60 0 January 14, 2022 2:12pm January 29, 2022 3:55pm Start: 01-14-2022 End: 01-29-2022 take 400 mg by mouth once daily Amiodarone Discontinue d 400 MG PO DAILY 60 January 14, 2022 2:12pm January 29, 2022 3:55pm Start: 12-17-2021 End: 01-21-2022 take 2 tablets by mouth twice daily, then take 2 tablets by mouth once daily amiodarone (PACERONE) 200 mg tablet Take 2 tablets by mouth twice daily for 5 days, THEN 2 tablets once daily. 80 tablet 0 12/17/2021 01/21/2022 Active Comment on above: Take 2 tablets by mo [facility] twice daily for 5 days, THEN 2 tablets once daily. amoxicillin 500 mg oral capsule (5 sources) Penicillin-class Antibacterial take 1 capsule by mouth three times daily amoxicillin (POLYMOX, AMOXIL) 500 mg capsule Take 500 mg by mouth three times daily. 0 Suspended Comment on above: Take 500 mg by mouth three times daily. apixaban 2.5 mg oral tablet (20 sources) Factor Xa Inhibitor Start: 10-13-19 End: 02-11-20 take 1 tablet by mouth twice daily Apixaban 2.5 mg tablet Discontinued 2.5 mg PO TWICE A DAY 180 3 October 13, 2024 4:12pm February 10, 2025 11:26am pt stopping warfarin, switching to Eliquis Start: 01-26-2023 End: 02-09-2025 take 2.5 mg by mouth twice daily ELIQUIS 5 mg tab(s) Take 2.5 mg by mouth two times a day. 01/26/2023 02/09/2025 Discontinued Start: 07-01-2022 End: 10-13-2024 take 1 tablet by mouth twice daily Apixaban (Eliquis) 5 mg tablet Discontinued 5 mg PO TWICE A DAY 60 July 01, 2022 1:00am October 13, 2024 4:10pm pt stopping warfarin, switching to Eliquis Start: 12-17-2021 End: 05-15-2022 take 1 tablet by mouth twice daily Apixaban (Eliquis) 5 mg tablet Discontinued 5 mg PO TWICE A DAY 180 3 January 14, 2022 2:00pm May 15, 2022 9:05am Comment on above: Take 1 tablet by barbara twice daily. Take 5 mg by mouth t wice daily. furosemide 40 mg oral tablet (15 sources) Loop Diuretic Start: 2 End: 2 take 1 tablet by mouth once daily furosemide (LASIX) 40 mg tablet Take 1 tablet by mouth once daily for 3 days. 3 tablet 0 11/25/2021 Active Comment on above: [facility] for 3 days. Take 40 mg by mouth as directed. 24 hr isosorbide mononitrate 60 mg extended release oral tablet (20 sources) Nitrate Vasodilator Start: 2 take 2 tablets by mouth once daily isosorbide mononitrate ER (IMDUR) 30 mg 24 hr tablet Take 2 tablets by mouth once daily. 0 10/09/2021 Suspended Start: 09-10-2021 End: 01-14-2022 take 1 tablet by mouth once daily, then take 1 tablet by mouth every twenty-four hours Isosorbide Mononitrate 60 mg tablet extended release 24 hr Discontinued 60 mg PO DAILY 30 September 10, 2021 12:26pm January 14, 2022 1:30pm Start: 07-11-2021 End: 09-10-2021 take 1 tablet by mouth once daily, then take 1 tablet by mouth every twenty-four hours Isosorbide Mononitrate 30 mg tablet extended release 24 hr Discontinued 30 mg PO DAILY 30 September 04, 2021 1:14pm September 10, 2021 12:24pm Comment on above: Take 2 tablets by mo [facility] once daily. Take 60 mg by mouth as directed. lidocaine 0.04 mg/mg medicated patch (8 sources) Antiarrhythmic, Amide Local Anesthetic Start: 2 lidocaine (SALONPAS) 4 % patch Apply 1 Patch as directed once daily. Cut in half and apply to both sides of midsternal incision daily. Remove after 12 hrs. 0 11/26/2021 Active Comment on above: Apply 1 Patch as dir ected once daily. Cut in half and apply to both sides of midsternal incision daily. Remove after 12 hrs. lisinopril 5 mg oral tablet (20 sources) Angiotensin Converting Enzyme Inhibitor Start: 2 End: 5 take 1 tablet by mouth once daily Lisinopril 5 mg tablet Discontinued 5 mg PO DAILY 90 December 21, 2023 8:07am December 19, 2024 2:08pm Comment on above: Take 1 tablet by barbara once daily. magnesium oxide 400 mg oral tablet (20 sources) Start: 2 End: take 1 tablet by mouth once daily magnesium oxide (MAG-OX) 400 mg (241.3 mg magnesium) tablet Take 1 tablet by mouth once daily. 0 11/26/2021 12/25/2021 Discontinued (Course of therapy completed) Comment on above: Take 1 tablet by barbara once daily. metoprolol tartrate 25 mg oral tablet (20 sources) beta-Adrenergic Nighat Start: 3 End: 5 take 1 tablet by mouth twice daily Metoprolol Tartrate 25 mg tablet Discontinued 25 mg PO TWICE A DAY 180 September 29, 2023 4:57pm October 10, 2024 11:43am Start: 01-14-2022 End: 09-25-2022 Metoprolol Tartrate 25 mg ta blet Discontinued 37.5 mg PO TWICE A DAY 270 January 14, 2022 2:02pm September 25, 2022 2:24pm Start: 01-14-2022 End: 09-25-2022 take 37.5 mg by mouth twice daily Metoprolol Tartrate Discontinued 37.5 MG PO TWICE A DAY 270 January 14, 2022 2:02pm September 25, 2022 2:24pm Start: 12-09-2021 End: 01-08-2022 take 1.5 tablets by mouth every twelve hours metoprolol tartrate, short acting, (LOPRESSOR) 25 mg tablet Take 1.5 tablets by mouth every 12 hours. 90 tablet 12/09/2021 Active Start: 11-25-2021 End: 12-25-2021 take 0.5 tablet by mouth every twelve hours metoprolol tartrate, short acting, (LOPRESSOR) 25 mg tablet Take 0.5 tablets by mouth every 12 hours. 30 tablet 0 11/25/2021 12/09/2021 Discontinued Start: 09-10-2021 End: 01-14-2022 take 1 tablet by mouth twice daily Metoprolol Tartrate 50 mg tablet Discontinued 50 mg PO TWICE A DAY 60 September 10, 2021 12:26pm January 14, 2022 1:27pm Start: 07-11-2021 End: 11-20-2021 metoprolol tartrate, short a cting, (LOPRESSOR) 25 mg tablet Take 50 mg by mouth twice daily. 0 07/11/2021 11/20/2021 Discontinued Start: 07-11-2021 End: 09-10-2021 take 1 tablet by mouth twice daily Metoprolol Tartrate 25 mg tablet Discontinued 25 mg PO TWICE A DAY 60 September 04, 2021 1:14pm September 10, 2021 12:25pm Comment on above: Take 50 mg by mouth twice daily. Take 0.5 tablets by mouth every 12 hours. Take 1.5 tablets by mouth every 12 hours. Molnupiravir (6 sources) Start: 08-14-2022 End: 08-19-2022 take 1 capsule by mouth every twelve hours Molnupiravir 200 mg capsule Discontinued 800 mg PO Q12H 40 5 0 August 14, 2022 1:00am August 18, 2022 1:00am August 19, 2022 1:04am Start: 08-14-2022 End: 08-19-2022 take 1 capsule by mouth every twelve hours Molnupiravir 200 mg capsule Discontinued 800 mg PO Q12H 40 5 August 14, 2022 1:00am August 18, 2022 1:00am August 19, 2022 1:04am Start: 08-14-2022 End: 08-19-2022 take 800 mg by mouth every twelve hours Molnupiravir Discontinued 800 MG PO Q12H 40 5 August 14, 2022 1:00am August 19, 2022 1:04am Start: 08-14-2022 End: 08-19-2022 take 800 mg by mouth every twelve hours Molnupiravir Discontinued 800 MG PO Q12H 40 5 August 14, 2022 12:00am August 19, 2022 12:04am Multivitamin capsule (5 sources) take 1 capsule by mo uth once daily Multivitamin capsule Take 1 capsule by mouth once daily. 0 Suspended take 1 capsule by mouth once marv ly Multivitamin capsule Take 1 capsule by mouth once daily. 0 Active Comment on above: Take 1 capsule by mo uth once daily. [place]-3 Fatty Acids 1,000 mg capsule (3 sources) Start: 04-03-2021 End: 09-25-2022 take 1 capsule by mouth once daily [place]-3 Fatty Acids 1,000 mg capsule Discontinued 1000 mg PO DAILY April 03, 2021 12:00am September 25, 2022 2:01pm omega-3 fatty acids/fish oil (FISH OIL-OMEGA-3 FATTY ACIDS) 300-1,000 mg cap (5 sources) take 1 capsule by mouth once daily omega-3 fatty acids/fish oil (FISH OIL-OMEGA-3 FATTY ACIDS) 300-1,000 mg cap Take 2 g by mouth once daily. 0 Suspended take 1 capsule by mouth once marv ly omega-3 fatty acids/fish oil (FISH OIL-OMEGA-3 FATTY ACIDS) 300-1,000 mg cap Take 2 g by mouth once daily. 0 Active Comment on above: Take 2 g by mouth on ce daily. rosuvastatin calcium 5 mg oral tablet (20 sources) HMG-CoA Reductase Inhibitor Start: 2 End: 2 take 1 tablet by mouth once rosuvastatin (CRESTOR) 5 mg tablet Take 1 tablet by mouth every Thursday,Thursday, ay. 12 tablet 12/25/2021 Active Start: 11-26-2021 End: 02-24-2022 take 1 tablet by mouth once daily rosuvastatin (CRESTOR) 20 mg tablet Take 1 tablet by mouth once daily. 90 tablet 0 11/26/2021 12/25/2021 Discontinued Start: 04-03-2021 End: 10-13-2024 Rosuvastatin 5 mg tablet Discontinued 5 mg PO MOWEFR 36 3 May 06, 2022 4:33pm April 08, 2023 1:34pm Start: 12-11-2016 take 1 tablet by barbara th once daily rosuvastatin (CRESTOR) 5 mg tablet Take 5 mg by mouth once daily. 0 12/11/2016 Suspended Comment on above: Take 5 mg by mouth o nce daily. Take 1 tablet by barbara th once daily. Take 1 tablet by barbara th every Thursday,Thursday,Thursday. Shower Chair with Back (20 sources) Start: 11-25-2021 End: 12-25-2021 Shower Chair with Back once daily. Use as directed 1 Each 0 11/25/2021 12/25/2021 Discontinued (Course of therapy completed) Start: 11-25-2021 End: 12-25-2021 Shower Chair with Back once daily. Use as directed 1 Each 0 11/25/2021 12/25/2021 Suspended Start: 11-25-2021 End: 12-25-2021 Shower Chair with Back once daily. Use as directed 1 Each 0 11/25/2021 12/25/2021 Active Comment on above: once daily. Use as d irected warfarin sodium 7.5 mg oral tablet (20 sources) Vitamin K Antagonist Start: 06-30-2022 End: 07-01-2022 take 1 tablet by mouth once daily Warfarin 7.5 mg tablet Discontinued 7.5 mg PO DAILY Protocol: Adjustment Start Date: Thursday06/30/22INR Value: 1.5INR Date: 06/27/22 Condition: Thursday Dose/Route: 7.5 mg Instructions: 1 x 7.5 mg tablet Condition: Thursday Dose/Route: 7.5 mg Instructions: 1 x 7.5 mg tablet Condition: Thursday Dose/Route: 7.5 mg Instructions: 1 x 7.5 mg tablet Condition: Thursday Dose/Route: 7.5 mg Instructions: 1 x 7.5 mg tablet Condition: Dose/Route: 7.5 mg Instructions: 1 x 7.5 mg tablet Condition: Thursday Dose/Route: 7.5 mg Instructions: 1 x 7.5 mg tablet Condition: Thursday Dose/Route: 7.5 mg Instructions: 1 x 7.5 mg tablet 23 07June 30, 2022 1:00am July 01, 2022 10:14am Please contact the information source for Protocol details. Start: 06-05-2022 End: 06-30-2022 take 1 tablet by mouth once daily Warfarin 4 mg tablet Discontinued 6 mg PO DAILY Protocol: Adjustment Start Date: Thursday06/20/22INR Value: 1.5INR Date: 06/20/22Recheck Date: 06/27/22 Condition: Thursday Dose/Route: 6 mg Instructions: 1.5 x 4 mg tablets Condition: Thursday Dose/Route: 6 mg Instructions: 1.5 x 4 mg tablets Condition: Thursday Dose/Route: 6 mg Instructions: 1.5 x 4 mg tablets Condition: Thursday Dose/Route: 8 mg Instructions: 2 x 4 mg tablets Condition: Dose/Route: 6 mg Instructions: 1.5 x 4 mg tablets Condition: Thursday Dose/Route: 8 mg Instructions: 2 x 4 mg tablets Condition: Thursday Dose/Route: 6 mg Instructions: 1.5 x 4 mg tablets 135 4 June 05, 2022 5:14pm June 30, 2022 6:43pm or as directed Please contact the information source for Protocol details. Start: 06-04-2022 End: 06-30-2022 Warfarin 4 mg tablet Discont inued 0 mg PO DAILY Protocol: Adjustment Start Date: 06/05/22INR Value: 1.3INR Date: 06/05/22Recheck Date: 06/11/22 Condition: Thursday Dose/Route: 6 mg Instructions: 1.5 x 4 mg tablets Condition: Thursday Dose/Route: 6 mg Instructions: 1.5 x 4 mg tablets Condition: Thursday Dose/Route: 6 mg Instructions: 1.5 x 4 mg tablets Condition: Thursday Dose/Route: 4 mg Instructions: 1 x 4 mg tablet Condition: Dose/Route: 6 mg Instructions: 1.5 x 4 mg tablets Condition: Thursday Dose/Route: 6 mg Instructions: 1.5 x 4 mg tablets Condition: Thursday Dose/Route: 6 mg Instructions: 1.5 x 4 mg tablets 90 3 June 04, 2022 3:00pm June 05, 2022 5:17pm Take 6 mg on , Thursday, Thursday. Take 4 mg all other days or as directed for dose changes. Please contact the information source for Protocol details. Start: 06-04-2022 End: 06-30-2022 take 6 mg by mouth once daily Warfarin Discontinued 6 MG PO DAILY 135 June 05, 2022 5:14pm June 30, 2022 6:43pm or as directed Start: 05-15-2022 End: 06-04-2022 take 1 tablet by mouth once daily Warfarin 4 mg tablet Discontinued 4 mg PO .COMPLEX Protocol: Adjustment Start Date: 05/29/22INR Value: 1.2INR Date: 05/29/22Recheck Date: 06/05/22 Condition: Thursday Dose/Route: 4 mg Instructions: 1 x 4 mg tablet Condition: Thursday Dose/Route: 4 mg Instructions: 1 x 4 mg tablet Condition: Thursday Dose/Route: 4 mg Instructions: 1 x 4 mg tablet Condition: Thursday Dose/Route: 4 mg Instructions: 1 x 4 mg tablet Condition: Dose/Route: 6 mg Instructions: 1.5 x 4 mg tablets Condition: Thursday Dose/Route: 6 mg Instructions: 1.5 x 4 mg tablets Condition: Thursday Dose/Route: 6 mg Instructions: 1.5 x 4 mg tablets 23 07May 16, 2022 8:34am June 04, 2022 12:42pm 4 mg orally daily or as directed.; Please contact the information source for Protocol details. Problems Active Problems Problem Classification Problem Date Documented Date Episodic/Chronic Acute and unspecified renal failure (1 source) Acute injury of kidney; Translations: [Acute kidney failure, unspecified] Episodic Cardiac dysrhythmias (20 sources) Cardiac arrhythmia; Translations: [Other specified cardiac arrhythmias] Onset: 2 Resolved: 2 11-21-2021 Chronic Comment on above: Patients 07/2023 PPM check shows NSR with normal pacer function and no mode switches Chronic obstructive pulmonary disease and bronchiectasis (20 sources) Chronic obstructive lung disease; Translations: [Chronic obstructive pulmonary disease, unspecified] Onset: 3 Chronic Conduction disorders (20 sources) Cardiac pacemaker in situ; Translations: [Presence of cardiac pacemaker] Onset: 2 Chronic Coronary atherosclerosis and other heart disease (20 sources) Coronary atherosclerosis; Translations: [Atherosclerotic heart disease of venetie ira coronary artery with unstable angina pectoris] Onset: 2 Chronic Coronary atherosclerosis and other heart disease (20 sources) Presence of aortocoronary bypass graft; Translations: [Aortocoronary bypass status] Onset: 2 Episodic Deficiency and other anemia (4 sources) Hemoglobin low; Translations: [Anemia, unspecified] 04-22-2023 Episodic Disorders of lipid metabolism (20 sources) Dyslipidemia; Translations: [Hyperlipidemia, unspecified] Onset: 5 Chronic Essential hypertension (1 source) Essential (primary) hypertension; Translations: [ESSENTIAL (PRIMARY) HYPERTENSION] Onset: 3 Chronic Heart valve disorders (20 sources) Non-rheumatic mitral regurgitation ; Translations: [Nonrheumatic mitral (valve) insufficiency] Chronic Comment on above: 2+ MR on Echo in 09/25 023. Malaise and fatigue (20 sources) Fatigue; Translations: [Other fatigue] Episodic Nutritional deficiencies (2 sources) Vitamin D deficiency, unspecified; Translations: [Vitamin D deficiency, unspecified] Onset: 5 Chronic Nutritional deficiencies (2 sources) Deficiency of other specified B group vitamins; Translations: [Deficiency of other specified B group vitamins] Onset: 5 Episodic Occlusion or stenosis of precerebral arteries (9 sources) Bilateral stenosis of carotid arteries; Translations: [Occlusion and stenosis of bilateral carotid arteries] Onset: 5 10-26-2024 Chronic Other aftercare (11 sources) Drug therapy finding; Translations: [Other skilled nursing (current) drug therapy] 03-07-2022 Episodic Other aftercare (11 sources) 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; Translations: [Long-term (current) use of other medications] Onset: 3 Episodic Other aftercare (19 sources) Long-term current use of anticoagulant; Translations: [jail (current) use of anticoagulants] 05-15-2022 Episodic Other aftercare (5 sources) 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; Translations: [Long-term (current) use of anticoagulants] Onset: 5 10-02-2022 Episodic Other aftercare (1 source) termite control technician (current) use of aspirin; Translations: [SOAP PRESS FEEDER (CURRENT) USE OF ASPIRIN] Onset: 3 Episodic Other aftercare (6 sources) Long-term current use of amiodarone; Translations: [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] 03-07-2022 Episodic Other connective tissue disease (6 sources) Calcaneal spur; Translations: [Calcaneal spur, unspecified foot] 10-02-2022 Episodic Other connective tissue disease (2 sources) Calcaneal spur, unspecified foot; Translations: [Calcaneal spur] 10-02-2022 Episodic Other lower respiratory disease (17 sources) Dyspnea on exertion; Translations: [Dyspnea, unspecified] 04-03-2021 Episodic Other lower respiratory disease (2 sources) Dyspnea, unspecified; Translations: [Other respiratory abnormalities] Episodic Other lower respiratory disease (8 sources) Other forms of dyspnea; Translations: [Other respiratory abnormalities] Episodic Other male genital disorders (15 sources) Male erectile dysfunction, unspecified; Translations: [Erectile dysfunction] Onset: 5 09-25-2022 Chronic Other screening for suspected conditions (not mental disorders or infectious disease) (20 sources) Electrocardiogram abnormal; Translations: [Abnormal electrocardiogram [ECG] [EKG]] Onset: 5 07-11-2021 Episodic Other skin disorders (4 sources) Lesion of skin of face; Translations: [Disorder of the skin and subcutaneous tissue, unspecified] 04-08-2023 Episodic Other skin disorders (1 source) Disorder of the skin and subcutaneous tissue, unspecified; Translations: [Unspecified disorder of skin and subcutaneous tissue] 04-08-2023 Episodic Residual codes; unclassified (1 source) Other problems related to lifestyle; Translations: [OTHER PROBLEMS RELATED TO LIFESTYLE] Onset: 3 Episodic Residual codes; unclassified (1 source) Family history of ischemic heart disease and other diseases of the circulatory system; Translations: [FAMILY HX OF ISCHEM HEART DIS AND OTH DIS OF THE C] Onset: 3 Episodic Screening and history of mental health and substance abuse codes (1 source) Personal history of nicotine dependence; Translations: [PERSONAL HISTORY OF NICOTINE DEPENDENCE] Onset: 3 Episodic Spondylosis; intervertebral disc disorders; other back problems (17 sources) Neck pain; Translations: [Cervicalgia] 04-03-2021 Episodic Unclassified (2 sources) Other persistent atrial fibrillation; Translations: [Other persistent atrial fibrillation] Onset: 5 Viral infection (8 sources) Disease caused by 2019-nCoV; Translations: [COVID-19] 08-14-2022 Episodic Past or Other Problems Problem Classification Problem Date Documented Date Episodic/Chronic Residual codes; unclassified (19 sources) History of repair of mitral valve; Translations: [Other specified postprocedural states] Onset: 10-22-2021 Episodic Comment on above: Annuloplasty: Rolo Liu @ [facility] 11/18/21 Residual codes; unclassified (18 sources) Other specified postprocedural states; Translations: [Personal history of surgery to heart and great vessels, presenting hazards to health] Onset: 10-22-2021 Episodic Residual codes; unclassified (20 sources) Other specified personal risk factors, not elsewhere classified; Translations: [Other specified personal history presenting hazards to health] Onset: 01-28-2022 01-28-2022 Episodic Unclassified (2 sources) Patient encounter status 03-13-2025 Results Test Name Value Interpretation Reference Range Facility Absolute lymphocyte countOrd ered By: Kelsey Berger on 05-15-2025 Lymphocytes Auto (Unsp spec) [#/Vol] 5.32 10*3/uL High 0.83-4.51 [facility] Absolute neutrophil countOrd ered By: Kelsey Berger on 05-15-2025 Neutrophils (Bld) [#/Vol] 4.4 10*3/uL 2.0-7.7 [facility] Anion gap in Serum or Plasma Ordered By: Kelsey Berger on 05-15-2025 Anion gap [Moles/Vol] 10 mmol/L 5-15 [facility] Automated lymphocyte count a s percentage of total leukocytesOrdered By: Kelsey Berger on 05-15-2025 Lymphocytes/100 WBC Auto (Unsp spec) 47.5 % High 19-41 [facility] BUN/creatinine ratioOrdered By: Kelsey Berger on 05-15-2025 Urea nitrogen/Creatinine [Mass ratio] 14.6 mg/mg 10-20 [facility] Basophil percentageOrdered B y: Kelsey Berger on 05-15-2025 Basophils/100 WBC (Bld) 0.4 % 0-1 [facility] Bilirubin, totalOrdered By: Kelsey Berger on 05-15-2025 Bilirubin [Mass/Vol] 0.32 mg/dL 0.00-1.30 [facility] Blood manual differential co mment interpretation (narrative result)Ordered By: Kelsey Berger on 05-15-2025 Manual differential comment Josias (Bld) [Interp] SCANNED [facility] CBC W/Diff, Automatedon 04-25 PLT EST ADEQUATE Normal ADEQ [facility] Comment on above: Performed By: #### L [id number], L100.0100, L506.1001, L503.0106, L506.0400, L501.5200, L501.13623, L500.4050, L500.4100 ####[facility] [address] [place], [address] SMEAR COMMENT SCANNED Normal [facility] Comment on above: Performed By: #### L [id number], L100.0100, L506.1001, L503.0106, L506.0400, L501.5200, L501.21809, L500.4050, L500.4100 ####[facility] [address] [place], [place], [address] Calculated very low density lipoprotein (VLDL) cholesterol measurementOrdered By: Kelsey Berger on 05-15-2025 Calculated very low density lipoprotein (VLDL) cholesterol measurement 53 mg/dL High 5-40 [facility] Carbon dioxide, total [Moles /volume] in Central venous bloodOrdered By: Kelsey Berger on 05-15-2025 CO2 [Moles/Vol] 22.3 mmol/L 21.0-32.0 [facility] Cardiology Visit Reporton Cardiology Visit Report [facility] [address] [place], [place] [address] OFFICE VISIT Date of Service: 05/15/25 MR#: [id number] Acct: [id number] Name: BENSON MCKEON Rep #: [id number] 3 : 1945 Provider: RADHA dorado Age/Sex: 79/M [place] [facility] [place] Status: Signed HPI HPI History of Present Illness Details: Patient is a pleasant 79-year-old white male that comes in today for monitoring of his coronary disease and history of atrial fibrillation. Patient is status post coronary bypass graft surgery by Dr. Lazo at [facility] October 2021. He received a VALLADARES to the LAD and a vein graft to the PDA of the right coronary artery and mitral valve repair. 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 Last pacer check 02/08/2024 showed no ventricular high rate sensing and no mode switching. This is consistent with him not having atrial fibrillation. The patient's resting heart rate is around 60 bpm and he is paced about 50% of the time. The patient is on Eliquis for his history of atrial fibrillation at 5 mg twice daily. Last blood work showed a creatinine of 1.5 he is now 79 years old for therefore decreasing his Eliquis to 2.5 mg twice daily. Patient also has a history of hypertension his blood pressure is well-controlled he has a history of hyperlipidemia but he is intolerant of all statin therapy and could not including rosuvastatin. He denies chest, arm, jaw, or neck discomfort. He states palpitations that he describes as occasional and notes during exercise. He denies bilateral lower extremity edema. He denies claudication. He denies shortness of breath with activity, shortness of breath at rest, orthopnea, or PND. He denies chronic cough. He denies significant, sudden weight gain. He denies lightheadedness, dizziness, near-syncope, or syncope. He denies blood in urine, blood in stool, or epistaxis. He denies fever with chills. He denies myalgia. He denies fatigue. His exercise level has remained stable. 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 Accompanied by: Self Is patient in pain?: No Allergies No Known Allergies Allergy (Verified 05/15/25 14:48) Medications ???Medication ???Instructions ???Recorded ???Confirmed ???Type multivitamin (Daily Multi-Vitamin 1 tab PO DAILY 04/03/21 05/15/25 History tablet) aspirin 81 mg tablet,delayed 81 mg PO DAILY #1 TAB 07/11/21 Rx release (Adult Aspirin Regimen) nitroglycerin 0.4 mg sublingual 0.4 mg sublingual Q5-15M PRN chest 02/15/24 05/15/25 Rx tablet pain #25 tabs acetaminophen 650 mg 650 mg PO Q12H 08/03/24 05/15/25 H istory tablet,extended release (Tylenol 8 Hour) metoprolol tartrate 25 mg tablet 25 mg PO BID #180 tabs 10/10/24 Rx cholecalciferol (vitamin D3) 25 25 mcg PO QDAY 10/26/24 05/15/25 H istory mcg (1,000 unit) capsule lisinopril 5 mg tablet 5 mg PO DAILY #90 tabs 12/19/24 Rx apixaban 2.5 mg tablet 2.5 mg PO BID pt stopping 02/10/25 05/15/25 Rx warfarin, switching to Eliquis #180 tabs Ejection fraction %: 55 Have you fallen in the past year?: No PFSH Medical History Bilateral stenosis of carotid arteries greater than 50% Cataract fragments in eye following surgery COVID-19 jail (current) use of anticoagulants Sinus node dysfunction 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 Abnormal stress test Abnormal electrocardiogram [ECG] [EKG] Angina pectoris Mixed hyperlipidemia Hernia COPD (chronic obstructive pulmonary disease) Dyslipidemia Surgical History History of cataract surgery Presence of permanent cardiac pacemaker (11/22/21) History of cardioversion ( 12/16/21) History of mitral valve repair ( 11/18/21) History of coronary artery bypass surgery ( 11/18/21) S/P CABG (coronary artery bypass graft) History of left heart catheterization (LHC) ( 09/10/21) History of hernia repair H/O knee surgery Family History Mother Cancer Brother Myocardial infarction CAD (coronary artery disease) Brother CVA (cerebral vascular accident) Social History Smoking Status: Former smoker Tobacc (more content not included)... Normal [facility] Chloride assayOrdered By: Nataliia Berger on 05-15-2025 Chloride [Moles/Vol] 101 mmol/L 98-108 [facility] Comprehensive Metabolic Prof ilon 05-15-2025 Albumin [Mass/Vol] 4.1 g/dL Normal 3.4-4.8 [facility] Comment on above: Performed By: #### L [id number], L100.0100, L506.1001, L503.0106, L506.0400, L501.5200, L501.01307, L500.4050, L500.4100 #### [facility] [address] [place], [address] Albumin/Globulin [Mass ratio] 1.1 {ratio} Normal 0.9-2.4 [facility] Comment on above: Performed By: #### L [id number], L100.0100, L506.1001, L503.0106, L506.0400, L501.5200, L501.92984, L500.4050, L500.4100 #### [facility] [address] [place], [address] ALK PHOS 55 U/L Normal 40-129 [facility] Comment on above: Performed By: #### L [id number], L100.0100, L506.1001, L503.0106, L506.0400, L501.5200, L501.89446, L500.4050, L500.4100 #### [facility] [address] [place], [address] ALT [Catalytic activity/Vol] 14 U/L Normal <=46 [facility] Comment on above: Performed By: #### L 501.9520, L100.0100, L506.1001, L503.0106, L506.0400, L501.5200, L501.71061, L500.4050, L500.4100 #### [facility] [address] [place], [address] AST [Catalytic activity/Vol] 17 U/L Normal <=37 [facility] Comment on above: Performed By: #### L 501.9520, L100.0100, L506.1001, L503.0106, L506.0400, L501.5200, L501.77001, L500.4050, L500.4100 #### [facility] [address] [place], [address] Bilirubin [Mass/Vol] 0.32 mg/dL Normal 0.00-1.30 [facility] Comment on above: Performed By: #### L 501.9520, L100.0100, L506.1001, L503.0106, L506.0400, L501.5200, L501.35155, L500.4050, L500.4100 #### [facility] [address] [place], [address] BUN/CRE 14.6 RATIO Normal 10-20 [facility] Comment on above: Performed By: #### L 501.9520, L100.0100, L506.1001, L503.0106, L506.0400, L501.5200, L501.60723, L500.4050, L500.4100 #### [facility] [address] [place], [address] Calcium [Mass/Vol] 9.3 mg/dL Normal 7.6-11.0 [facility] Comment on above: Performed By: #### L 501.9520, L100.0100, L506.1001, L503.0106, L506.0400, L501.5200, L501.45535, L500.4050, L500.4100 #### [facility] [address] [place], [address] Chloride [Moles/Vol] 101 mmol/L Normal 98-108 [facility] Comment on above: Performed By: #### L 501.9520, L100.0100, L506.1001, L503.0106, L506.0400, L501.5200, L501.51854, L500.4050, L500.4100 #### [facility] [address] [place], [place], [id number] (832) CO2 [Moles/Vol] 22.3 mmol/L Normal 21.0-32.0 [facility] Comment on above: Performed By: #### L 501.9520, L100.0100, L506.1001, L503.0106, L506.0400, L501.5200, L501.55155, L500.4050, L500.4100 #### [facility] [address] [place], [place], [id number] (355) Creatinine [Mass/Vol] 1.64 mg/dL High 0.70-1.20 [facility] Comment on above: Performed By: #### L 501.9520, L100.0100, L506.1001, L503.0106, L506.0400, L501.5200, L501.08963, L500.4050, L500.4100 #### [facility] [address] [place], [place], [id number] (308) GAP 10 Normal 5-15 [facility] Comment on above: Performed By: #### L 501.9520, L100.0100, L506.1001, L503.0106, L506.0400, L501.5200, L501.73058, L500.4050, L500.4100 #### [facility] [address] [place], [place], [id number] (456) GFR/1.73 sq M.predicted among non-blacks MDRD (S/P/Bld) [Vol rate/Area] 42 mL/min/{1.73_m2} Low >60 [facility] Comment on above: Result Comment: mL/m in/1.73m2 CKD-EPI Creatinine Equation (2020) Performed By: #### L 501.9520, L100.0100, L506.1001, L503.0106, L506.0400, L501.5200, L501.43384, L500.4050, L500.4100 #### [facility] [address] [place], [address] Globulin (S) [Mass/Vol] 3.9 g/dL Normal 2.2-4.2 [facility] Comment on above: Performed By: #### L 501.9520, L100.0100, L506.1001, L503.0106, L506.0400, L501.5200, L501.99256, L500.4050, L500.4100 #### [facility] [address] [place], [address] Glucose [Mass/Vol] 92 mg/dL Normal 70-99 [facility] Comment on above: Performed By: #### L 501.9520, L100.0100, L506.1001, L503.0106, L506.0400, L501.5200, L501.79830, L500.4050, L500.4100 #### [facility] [address] [place], [address] Potassium [Moles/Vol] 5.2 mmol/L High 3.3-5.1 [facility] Comment on above: Performed By: #### L 501.9520, L100.0100, L506.1001, L503.0106, L506.0400, L501.5200, L501.00975, L500.4050, L500.4100 #### [facility] [address] [place], [address] Sodium [Moles/Vol] 133 mmol/L Normal 133-145 [facility] Comment on above: Performed By: #### L 501.9520, L100.0100, L506.1001, L503.0106, L506.0400, L501.5200, L501.52957, L500.4050, L500.4100 #### [facility] [address] [place], [place], [id number] T PROT 8.0 g/dL Normal 5.9-8.4 [facility] Comment on above: Performed By: #### L 501.9520, L100.0100, L506.1001, L503.0106, L506.0400, L501.5200, L501.22469, L500.4050, L500.4100 #### [facility] [address] [place], [place], [id number] Urea nitrogen [Mass/Vol] 24 mg/dL High 4-19 [facility] Comment on above: Performed By: #### L 501.9520, L100.0100, L506.1001, L503.0106, L506.0400, L501.5200, L501.02946, L500.4050, L500.4100 #### [facility] [address] [place], [place], [id number] Eosinophil percentageOrdered By: Kelsey Berger on 05-15-2025 Eosinophils/100 WBC (Bld) 3.2 % 0-5 [facility] Erythrocyte distribution wid th ratioOrdered By: Kelsey Berger on 05-15-2025 Erythrocyte distribution width (RBC) [Ratio] 13.2 % 11.6-14.6 [facility] Erythrocyte distribution wid th standard deviationOrdered By: Kelsey Berger on 05-15-2025 Erythrocyte distribution width (RBC) [Ratio] 44.7 fl High 35.1-43.9 [facility] Free T3on 05-15-2025 Free T3 [Mass/Vol] 2.3 pg/mL Normal 2.18-3.98 [facility] Comment on above: Performed By: #### L 501.9520, L100.0100, L506.1001, L503.0106, L506.0400, L501.5200, L501.88495, L500.4050, L500.4100 #### [facility] [address] [place], [address] Free A9Cbvltmg By: eKlsey prince on 05-15-2025 Free T3 [Mass/Vol] 2.3 pg/mL 2.18-3.98 [facility] Glomerular filtration rate ( GFR) estimation/1.73 sq m using serum, plasma, or whole bOrdered By: Kelsey Berger on 05-15-2025 GFR/1.73 sq M.predicted among non-blacks MDRD (S/P/Bld) [Vol rate/Area] 42 mL/min/{1.73_m2} Low >60 [facility] Comment on above: mL/min/1.73m2 CKD-EP I Creatinine Equation (2020) Hematocrit Auto (Bld) [Volum e fraction]Ordered By: Kelsey Berger on 05-15-2025 Hematocrit (Bld) [Volume fraction] 38.4 % Low 40-54 [facility] Hemoglobin measurementOrdere d By: Kelsey Berger on 05-15-2025 Hemoglobin (Bld) [Mass/Vol] 12.7 g/dL Low 13.0-16.5 [facility] Immature granulocytes/100 WB C Auto (Bld)Ordered By: Kelsey Berger on 05-15-2025 Immature granulocytes/100 WBC (Bld) 0.700 % 0.0-0.9 [facility] Comment on above: IG% - Immature Granu locytes (promyelocytes, myelocytes and metamyelocytes) > 1% indicates that a LEFT SHIFT is Present. LDL calc ser/plasOrdered By: Kelsey Berger on 05-15-2025 Cholesterol in LDL [Mass/Vol] 100 mg/dL [facility] Comment on above: Huvypjcwwn=554-896 m g/dL & Higher Ilxd=689 mg/dL or greaterFriedwald Equation for LDL-C Laboratory - Chemistry and C hemistry - challengeOrdered By: Kelsey Berger on 05-15-2025 AST [Catalytic activity/Vol] 17 U/L <38 [facility] Lipid Profileon 05-15-2025 CHOL:HDL 6.10 Normal [facility] Comment on above: Performed By: #### L 501.9520, L100.0100, L506.1001, L503.0106, L506.0400, L501.5200, L501.26712, L500.4050, L500.4100 #### [facility] [address] [place], [address] Cholesterol [Mass/Vol] 183 mg/dL Normal <=200 [facility] Comment on above: Result Comment: Chol esterol level, Desirable <200 mg/dL Borderline high cholesterol 200-239 mg/dL High cholesterol >=240 mg/dL Recommendations of the NCEP Adult Treatment Panel for the following risk-cutoff thresholds for the [place] population. Performed By: #### L 501.9520, L100.0100, L506.1001, L503.0106, L506.0400, L501.5200, L501.73362, L500.4050, L500.4100 #### [facility] [address] [place], [address] Cholesterol in HDL [Mass/Vol] 30 mg/dL Low [facility] Comment on above: Result Comment: Laury onal Cholesterol Education Program (NCEP) guidelines: <40 mg/dL: Low HDL-cholesterol (major risk factor for CHD) >= 60 mg/dL: High HDL-cholesterol (negative risk factor for CHD) HDL-cholesterol is affected by a number of factors, e.g. smoking, exercise, hormones, sex and age. Performed By: #### L 501.9520, L100.0100, L506.1001, L503.0106, L506.0400, L501.5200, L501.64087, L500.4050, L500.4100 #### [facility] [address] [place], [address] Cholesterol in LDL [Mass/Vol] 100 mg/dL Normal [facility] Comment on above: Result Comment: Bord pqjwgk=831-108 mg/dL Higher Tjck=004 mg/dL or greater Friedwald Equation for LDL-C Performed By: #### L 501.9520, L100.0100, L506.1001, L503.0106, L506.0400, L501.5200, L501.25453, L500.4050, L500.4100 #### [facility] [address] [place], [address] Cholesterol in VLDL [Mass/Vol] 53 mg/dL High 5-40 [facility] Comment on above: Performed By: #### L 501.9520, L100.0100, L506.1001, L503.0106, L506.0400, L501.5200, L501.01339, L500.4050, L500.4100 #### [facility] [address] [place], [address] Triglyceride [Mass/Vol] 265 mg/dL High [facility] Comment on above: Result Comment: The drugs N-Acetylcysteine and Metamizole may falsely depress this assay. Normal range: <150 mg/dL Borderline High: 150-199 mg/dL High: 200-499 mg/dL Very High: >500 mg/dL Performed By: #### L 501.9520, L100.0100, L506.1001, L503.0106, L506.0400, L501.5200, L501.97477, L500.4050, L500.4100 #### [facility] [address] [place], [address] CHOL Normal <=200 [facility] Comment on above: Result Comment: DUP ORDER Performed By: #### L 500.4100 #### [facility] [address] [place], [address] CHOL:HDL Normal [facility] Comment on above: Result Comment: DUP ORDER Performed By: #### L 500.4100 #### [facility] [address] [place], [address] CLDL Normal [facility] Comment on above: Result Comment: DUP ORDER Performed By: #### L 500.4100 #### [facility] [address] [place], [address] HDL Normal [facility] Comment on above: Result Comment: DUP ORDER Performed By: #### L 500.4100 #### [facility] [address] [place], [address] TRIG Normal [facility] Comment on above: Result Comment: DUP ORDER Performed By: #### L 500.4100 #### [facility] [address] [place], [address] VLDL Normal 5-40 [facility] Comment on above: Result Comment: DUP ORDER Performed By: #### L 500.4100 #### [facility] [address] [place], [address] MCV (mean corpuscular volume ) determinationOrdered By: Kelsey Berger on 05-15-2025 MCV (RBC) [Entitic vol] 91.0 fL 80-94 [facility] Magnesiumon 05-15-2025 Magnesium [Mass/Vol] 2.2 mg/dL Normal 1.5-2.2 [facility] Comment on above: Performed By: #### L 501.9520, L100.0100, L506.1001, L503.0106, L506.0400, L501.5200, L501.28922, L500.4050, L500.4100 #### [facility] [address] [place], [address] Magnesium measurement (mass/ volume)Ordered By: Kelsey Berger on 05-15-2025 Magnesium (Unsp spec) [Mass/Vol] 2.2 mg/dL 1.5-2.2 [facility] Mean corpuscular hemoglobin (MCH) determinationOrdered By: Kelsey Berger on 05-15-2025 MCH (RBC) [Entitic mass] 30.1 pg 27.0-32.0 [facility] Mean corpuscular hemoglobin concentration (MCHC) determinationOrdered By: Kelsey Berger on 05-15-2025 MCHC (RBC) [Mass/Vol] 33.1 g/dL 32-36 [facility] Mean platelet volume determi nationOrdered By: Kelsey Berger on 05-15-2025 Platelet mean volume (Bld) [Entitic vol] 9.2 fL 6.2-12.0 [facility] Monocyte percentageOrdered B y: Kelsey Berger on 05-15-2025 Monocytes/100 WBC (Bld) 9.1 % 0-10 [facility] Neutrophil percentageOrdered By: Kelsey Berger on 05-15-2025 Neutrophils/100 WBC (Bld) 39.1 % Low 47-70 [facility] Nucleated red blood cell per centageOrdered By: Kelsey Berger on 05-15-2025 Nucleated RBC/100 WBC (Bld) [Ratio] 0 % 0-5 [facility] Platelet countOrdered By: Nataliia Berger on 05-15-2025 Platelets (Bld) [#/Vol] 319 10*3/uL 150-450 [facility] Platelet estimateOrdered By: Kelsey Berger on 05-15-2025 Platelets LM Ql (Bld) ADEQUATE ADEQ [facility] Potassium measurement (mass/ volume)Ordered By: Kelsey Berger on 05-15-2025 Potassium (Unsp spec) [Mass/Vol] 5.2 mmol/L High 3.3-5.1 [facility] RBC Auto (Bld) [#/Vol]Ordere d By: Kelsey Berger on 05-15-2025 RBC (Bld) [#/Vol] 4.22 10*6/uL Low 4.6-6.2 [facility] Screening total cholesterol/ high density lipoprotein (HDL) cholesterol ratioOrdered By: Kelsey Berger on 05-15-2025 Cholesterol.total/Beverly sterol in HDL [Mass ratio] 6.10 {ratio} [facility] Serum creatinine measurement (mass/volume)Ordered By: Kelsey Berger on 05-15-2025 Creatinine [Mass/Vol] 1.64 mg/dL High 0.70-1.20 [facility] Serum globulin measurementOr dered By: Kelsey Berger on 05-15-2025 Globulin (S) [Mass/Vol] 3.9 g/dL 2.2-4.2 [facility] Serum glucose measurement (m ass/volume)Ordered By: Kelsey Berger on 05-15-2025 Glucose [Mass/Vol] 92 mg/dL 70-99 [facility] Serum or plasma alanine jain otransferase (ALT) measurementOrdered By: Kelsey Berger on 05-15-2025 ALT [Catalytic activity/Vol] 14 U/L <47 [facility] Serum or plasma albumin karel urement (mass/volume)Ordered By: Kelsey Berger on 05-15-2025 Albumin [Mass/Vol] 4.1 g/dL 3.4-4.8 [facility] Serum or plasma albumin/glob ulin mass ratioOrdered By: Kelsey Berger on 05-15-2025 Albumin/Globulin [Mass ratio] 1.1 {ratio} 0.9-2.4 [facility] Serum or plasma alkaline leonard sphatase measurementOrdered By: Kelsey Berger on 05-15-2025 ALP [Catalytic activity/Vol] 55 U/L 40-129 [facility] Serum or plasma calcium karel urement (mass/volume)Ordered By: Kelsey Berger on 05-15-2025 Calcium [Mass/Vol] 9.3 mg/dL 7.6-11.0 [facility] Serum or plasma cholesterol in HDL measurement (mass/volume)Ordered By: Kelsey Berger on 05-15-2025 Cholesterol in HDL [Mass/Vol] 30 mg/dL Low >40 [facility] Comment on above: National Cholesterol Education Program (NCEP) guidelines:<40 mg/dL: Low HDL-cholesterol (major risk factor for CHD)>= 60 mg/dL: High HDL-cholesterol (negative risk factor for CHD)HDL-cholesterol is affected by a number of factors, e.g. smoking, exercise, hormones, sex and age. Serum or plasma cholesterol measurement (mass/volume)Ordered By: Kelsey Berger on 05-15-2025 Cholesterol [Mass/Vol] 183 mg/dL <201 [facility] Comment on above: Cholesterol level, D esirable <200 mg/dLBorderline high cholesterol 200-239 mg/dLHigh cholesterol >=240 mg/dLRecommendations of the NCEP Adult Treatment Panel for the following risk-cutoff thresholds for the [place] population. Serum or plasma urea nitroge n measurement (mass/volume)Ordered By: Kelsey Berger on 05-15-2025 Urea nitrogen [Mass/Vol] 24 mg/dL High 4-19 [facility] Sodium levelOrdered By: Yeni Berger on 05-15-2025 Sodium [Moles/Vol] 133 mmol/L 133-145 [facility] T4 Free Directon 05-15-2025 T4 FREE DIRECT 1.10 ng/dL Normal 0.76-1.46 [facility] Comment on above: Performed By: #### L 501.9520, L100.0100, L506.1001, L503.0106, L506.0400, L501.5200, L501.84593, L500.4050, L500.4100 ####[facility] [address] [place], [place], [address] T4 freeOrdered By: Kelsey prince on 05-15-2025 Free T4 [Mass/Vol] 1.10 ng/dL 0.76-1.46 [facility] TSH DL <= 0.005 mIU/L QnOrde red By: Kelsey Berger on 05-15-2025 TSH Qn 2.640 uIU/mL 0.300-4.200 [facility] Thyroid Stim Hormone (TSH)on 05-15-2025 TSH 2.640 uIU/mL Normal 0.300-4.200 [facility] Comment on above: Performed By: #### L 501.9520, L100.0100, L506.1001, L503.0106, L506.0400, L501.5200, L501.91753, L500.4050, L500.4100 #### [facility] [address] [place], [place], [id number] Total proteinOrdered By: Cris Berger on 05-15-2025 Protein [Mass/Vol] 8.0 g/dL 5.9-8.4 [facility] Triglycerides measurementOrd ered By: Kelsey Berger on 05-15-2025 Triglyceride [Mass/Vol] 265 mg/dL High <199 [facility] Comment on above: The drugs N-Acetylcy steine and Metamizole may falsely depress this assay. Normal range: <150 mg/dLBorderline High: 150-199 mg/dLHigh: 200-499 mg/dLVery High: >500 mg/dL Vitamin B12on 05-15-2025 Cobalamin (Vitamin B12) [Mass/Vol] 517 pg/mL Normal 180-914 [facility] Comment on above: Performed By: #### L 501.9520, L100.0100, L506.1001, L503.0106, L506.0400, L501.5200, L501.77463, L500.4050, L500.4100 #### [facility] [address] [place], [place], [id number] Vitamin B12 ser/plasOrdered By: Kelsey Berger on 05-15-2025 Cobalamin (Vitamin B12) [Mass/Vol] 517 pg/mL 180-914 [facility] Vitamin D,25 Hydroxyon 05-15 Vitamin D 25-OH 81.2 ng/mL Normal 30-100 [facility] Comment on above: Result Comment: Luz Marina min D Status Deficiency: <20 ng/mL (50nmol/L) Insufficiency: 20-30 ng/mL (50-75 nmol/L) Sufficiency: 30-100 ng/mL (75-250 nmol/L) Toxicity: >100 ng/mL (>250 nmol/L) Performed By: #### L 501.9520, L100.0100, L506.1001, L503.0106, L506.0400, L501.5200, L501.66422, L500.4050, L500.4100 ####[facility] [address] [place], [address] White blood cell (WBC) count Ordered By: Kelsey Berger on 05-15-2025 WBC (Bld) [#/Vol] 11.2 10*3/uL High 4.4-11.0 [facility] CNOVon 02-09-2025 CNOV Office Visit (MARK POB) ----- SIMINBENSON ([id number]) 1945 M Date Time Provider Department 02/09/25 2:00 PM OVIDIO MAINGCARDPOB During your visit today, we recorded the following information about you: Pulse Blood pressure Weight 68/minute 125/69 86.8 kg Ovidio Main MD 02/09/2025 2:22 PM [facility] SECTION OF CARDIAC PACING and ELECTROPHYSIOLOGY OUTPATIENT VISIT DATE February 09, 2025 OUTPATIENT VISIT TYPE ESTABLISHED PRIMARY CARE PHYSICIAN: Kelsey Berger [address] [facility] [address] [place] [address] HISTORY OF PRESENT ILLNESS: HISTORY OF PRESENT ILLNESS: 78-year-old male with history of essential hypertension, multivessel coronary disease, status post CABG and mitral valve repair for severe mitral regurgitation in October 2021, sinus node dysfunction with severe postoperative bradycardia requiring pacemaker implantation, postoperative atrial fibrillation that required inpatient amiodarone loading and cardioversion. The patient was discharged on oral amiodarone. Benson presents for an office follow-up. He reports feeling well, denies chest discomfort, palpitation, dizziness, or syncope. He has been taking amiodarone since his surgery. He is maintained on oral anticoagulation for [id number] score of at least 4. ECG shows sinus rhythm at 69 bpm with a narrow QRS complex and normal QT interval. Device interrogation from December 2021 demonstrated normal function, battery longevity of 13 more years, no atrial fibrillation recurrences, and stable lead parameters. At this point we can discontinue amiodarone and follow his device remotely. Anticoagulation should be continued. If atrial fibrillation recurrences are detected, amiodarone may be resumed. We will see him back in 1 year provided that remote data reveals no atrial fibrillation. Interval history: Mr. Mckeon presents for an office visit. He reports feeling well, denies palpitation, changes comfort, dizziness, or syncope. His device is about 2 years old. He remains on Eliquis for stroke prevention with no obvious bleeding complications. ECG today shows sinus rhythm at 73 bpm with PACs. Device interrogation earlier today demonstrated normal function, minimal atrial pacing, no atrial fibrillation recurrences, battery longevity of 13 more years. Interval history: Mr. Mckeon presents for follow-up. As before, he reports feeling well, denies palpitation, chest discomfort, or dizziness. He remains on oral anticoagulation with Eliquis for the history of postoperative atrial fibrillation. He is ECG shows sinus rhythm at 72 bpm with PACs. Device interrogation shows normal function, stable lead parameters, better longevity of 11 more years, minimal atrial pacing, no mode switch episodes. PAST MEDICAL HISTORY Diagnosis Date Actinic keratosis Allergic rhinitis BPH (benign prostatic hyperplasia) CAD (coronary artery disease) Hypertension Inguinal hernia Mitral valve regurgitation Mixed hyperlipidemia Osteoarthritis of multiple joints Persistent atrial fibrillation (HCC) 01/26/2023 Presence of cardiac pacemaker 01/26/2023 S/P CABG x 2 11/18/2021 (VALLADARES to LAD, SVG to PDA) MEDICATIONS: nitroglycerin sublingual (NITROQUICK) 0.[address] 1 tablet under the tongue if needed every 5 minutes for james... (REFER TO PRESCRIPTION NOTES). lisinopril (ZESTRIL, PRINIVIL) 5 mg tablet Take 1 tablet by mouth once daily. metoprolol tartrate, short acting, (LOPRESSOR) 25 mg tablet Take 1.5 tablets by mouth every 12 hours. (Patient taking differently: Take 1.5 tablets by mouth every 12 hours.) acetaminophen (TYLENOL) 500 mg tablet Take 2 tablets by mouth every 6 hours as needed for pain. aspirin 81 mg chewable tablet Take 1 tablet by mouth once daily. rosuvastatin (CRESTOR) 5 mg tablet Take 1 tablet by mouth every Thursday,Thursday,Thursday. albuterol HFA (PROVENTIL HFA, VENTOLIN HFA) 90 mcg/actuation inhaler inhale 2 puffs 20-30 MINUTES PRIOR TO EXERCISE AND NEEDED FOR ... (REFER TO PRESCRIPTION NOTES). fluticasone-vilanterol (BREO ELLIPTA) 200-25 mcg/dose inhaler Inhale 1 Inhalation as instructed once daily. (Patient taking differently: Inhale 1 Inhalation as instructed once daily. Inhale 1 puff into lungs daily) Review of Systems Constitutional: Negative for fatigue. HENT: Negative for hearing loss. Respiratory: Negative for shortness of breath. Cardiovascular: Negative for chest pain and palpitations. Gastrointestinal: Negative for abdominal pain. Endocrine: Negative for cold intolerance. Genitourinary: Negative for hematuria. Skin: Negative for pallor. Neurological: Negative for syncope. Psychiatric/Behavioral: The patient is not nervous/anxious. PHYSICAL EXAMINATION: BP 125/69 (BP S (more content not included)... Normal [facility] ECG B/O W INTERP (MED OFFICE )on 02-09-2025 Normal sinus rhythm at 72 bpm, PACs, WV 140, QRS 90, QTc 440, normal axis. [facility] MR/BMS.Bon 02-01-2025 MR/BMS.B [facility] [address] [facility] [place] [address] OFFICE VISIT Date of Service: 02/01/25 MR#: [id number] Acct: [id number] Name: BENSON MCKEON Rep #: [id number] : 1945 Provider: Dr. 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 Accompanied by: Self Is patient in pain?: No Allergies No Known Allergies Allergy (Verified 02/01/25 13:34) Medications ???Medication ???Instructions ???Recorded ???Confirmed ???Type multivitamin (Daily Multi-Vitamin 1 tab PO DAILY 04/03/21 02/01/25 History tablet) aspirin 81 mg tablet,delayed 81 mg PO DAILY #1 TAB 07/11/2107/18 Rx release (Adult Aspirin Regimen) nitroglycerin 0.4 mg sublingual 0.4 mg sublingual Q5-15M PRN chest 02/15/24 02/01/25 Rx tablet pain #25 tabs acetaminophen 650 mg 650 mg PO Q12H 08/03/24 02/01/25 H istory tablet,extended release (Tylenol 8 Hour) metoprolol tartrate 25 mg tablet 25 mg PO BID #180 tabs 10/10/24 Rx apixaban 2.5 mg tablet 2.5 mg PO BID pt stopping 10/13/24 02/01/25 Rx warfarin, switching to Eliquis #180 tabs cholecalciferol (vitamin D3) 25 25 mcg PO QDAY 10/26/24 02/01/25 H istory mcg (1,000 unit) capsule lisinopril 5 mg tablet 5 mg PO DAILY #90 tabs 12/19/24 Rx Have you fallen in the past year?: No PFSH Medical History (Updated 10/26/24 @ 14:[address] 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 Sinus node dysfunction 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 Abnormal stress test Abnormal electrocardiogram [ECG] [EKG] Angina pectoris Mixed hyperlipidemia Hernia COPD (chronic obstructive pulmonary disease) Dyslipidemia Surgical History History of cataract surgery Presence of permanent cardiac pacemaker (11/22/21) History of cardioversion ( 12/16/21) History of mitral valve repair ( 11/18/21) History of coronary artery bypass surgery ( 11/18/21) S/P CABG (coronary artery bypass graft) History of left heart catheterization (LHC) ( 09/10/21) History of hernia repair H/O knee surgery Family History Mother Cancer Brother Myocardial infarction CAD (coronary artery disease) Brother CVA (cerebral vascular accident) Social History Smoking Status: Former smoker Tobacco: How many years used: 20 how long ago did patient quit smoking: Started age 13, cigarettes, switched to pipe in his 30s, quit late 30's alcohol intake: current alcohol intake frequency: holidays/special occasions only substance use type: does not use caffeine: Yes Type: coffee Number of servings: 4 HPI HPI Chief Complaint: 4 M FU Details: BENSON MCKEON, is a 79 M who presents to the office today for 6-month follow-up. 79-year-old gentleman who has a history of atrial fibrillation, on long-term anticoagulation, long-term rate c ontrol. He is on low-dose of lisinopril and metoprolol as well as apixaban. Also takes daily aspirin, vitamin D and a multivitamin. Has a pacemaker, and again follows regularly with cardiology. Basically all of his medications are managed through cardiology for that matter. He just had a few questions that he wanted to review. We reviewed in detail his carotid ultrasound results from August. Basically looks very similar in appearance to carotid ultrasound completed when he had bypass surgery, in 2021. Recommended he update this once again in a couple of more years. He does have stable cholesterol in terms of LDL, total cholesterol but his HDL has been low. We reviewed that in some detail. I highly encourage good amount of antioxidant types of foods in the diet to include fruits and vegetables, and avoid as much as possible, vegetable oil particularly heated vegetable oil in terms of deep-fried foods, baked goods with vegetable oils etc. He also had a question about Eliquis. He is on apixaban 2.5 p.o. twice daily. Was previously on 5 mg. Since he went to 2.5 p.o. twice daily from 5 p.o. twice daily, he is actually paying the higher cost. We did discuss, that the tablets cannot be split. That w (more content not included)... Normal [facility] No Panel Informationon 12-02 BLANK _ [facility] Implant Date 11/22/2021 [facility] PACEMAKER REMOTE CHECKon AV Delay Adaptive Paced Minimum (ms) 300 ms [facility] AV Delay Adaptive Sensed Minimum (ms) 270 ms [facility] AV Delay Paced (ms) 100 ms [facility] AV Delay Sensed (ms) 90 ms [facility] Porter RA Pacing Amplitude (volts) 2.0 V [facility] Porter RA Pacing Polarity BI [facility] Porter RA Pacing Pulse Width (ms) 0.6 ms [facility] Porter RA Sensing Amplitude (mvolts) 0.3 mV [facility] Porter RA Sensing Polarity BI [facility] Porter RV Pacing Amplitude (volts) 2.0 V [facility] Porter RV Pacing Polarity BI [facility] Porter RV Pacing Pulse Width (ms) 0.4 ms [facility] Porter RV Sensing Amplitude (mvolts) 1.5 mV [facility] Porter RV Sensing Polarity BI [facility] Lead1 Mfg [facility] Lead2 Mfg [facility] Location RA [facility] Location RV [facility] Lower Rate (bpm) 60 {beats}/min [facility] Max Sensor Rate (bmp) 130 {beats}/min [facility] Model L331 ACCOLADE MRI EL [facility] Model 7841 Ingevity+IS-1 [facility] Model 7842 Ingevity+IS-1 [facility] Pacing Mode DDDR [facility] PM-Device Mfg BSX [facility] PM-Percent Pacing (A) 9 % [facility] PM-Percent Pacing (V) 0 % [facility] RA Bipolar Impedance ohms 713 ohm [facility] RV Bipolar Impedance ohms 592 ohm [facility] Serial Number [id number] [facility] Serial Number [id number] [facility] Serial Number [id number] [facility] Tracking Rate (bpm) 130 {beats}/min [facility] PM remote interrogat ion. Presenting EGM shows sinus @ 62-88 bpm. Interrogation shows no ventricular high rate or mode switch episodes since last check. Lead impedances and sensing measurements stable. Battery voltage stable. Recommended replacement time is 12.5 years. Sonia CVT NOTE TO PROVIDERS: CARD Flowsheets contain detailed device programming and testing data. Paceart/Interrogation PDF can be found under CARDIAC DATA AND REPORT, Scanned Documents section. PACEART 12/02/2024 Formattin g of this note might be different from the original. PM remote interrogation. Presenting EGM shows sinus @ 62-88 bpm. Interrogation shows no ventricular high rate or mode switch episodes since last check. Lead impedances and sensing measurements stable. Battery voltage stable. Recommended replacement time is 12.5 years. [facility] CVT NOTE TO PROVIDERS: CARD Flowsheets contain detailed device programming and testing data. Paceart/Interrogation PDF can be found under CARDIAC DATA AND REPORT, Scanned Documents section. [facility] MR/BMS.IMBon 10-26-2024 MR/BMS.IMB [facility] [address] [facility] [place] [address] OFFICE VISIT Date of Service: 10/26/24 MR#: [id number] Acct: [id number] Name: BENSON MCKEON Rep #: [id number] : 1945 Provider: Dr. 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 Accompanied by: Self Is patient in pain?: No Allergies No Known Allergies Allergy (Verified 10/26/24 13:47) Medications ???Medication ???Instructions ???Recorded ???Confirmed ???Type multivitamin (Daily Multi-Vitamin 1 tab PO DAILY 04/03/21 10/26/24 History tablet) aspirin 81 mg tablet,delayed 81 mg PO DAILY #1 TAB 07/11/2101/15 Rx release (Adult Aspirin Regimen) lisinopril 5 mg tablet 5 mg PO DAILY #90 tabs 12/21/23 Rx nitroglycerin 0.4 mg sublingual 0.4 mg sublingual Q5-15M PRN chest 02/15/24 10/26/24 Rx tablet pain #25 tabs acetaminophen 650 mg 650 mg PO Q12H 08/03/24 10/26/24 H istory tablet,extended release (Tylenol 8 Hour) metoprolol tartrate 25 mg tablet 25 mg PO BID #180 tabs 10/10/24 Rx apixaban 2.5 mg tablet 2.5 mg PO BID pt stopping 10/13/24 10/26/24 Rx warfarin, switching to Eliquis #180 tabs cholecalciferol (vitamin D3) 25 25 mcg PO QDAY 10/26/24 10/26/24 H istory mcg (1,000 unit) capsule Have you fallen in the past year?: No [facility] Medical History (Updated 10/26/24 @ 14:[address] 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 Sinus node dysfunction 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 Abnormal stress test Abnormal electrocardiogram [ECG] [EKG] Angina pectoris Mixed hyperlipidemia Hernia COPD (chronic obstructive pulmonary disease) Dyslipidemia Surgical History History of cataract surgery Presence of permanent cardiac pacemaker (11/22/21) History of cardioversion ( 12/16/21) History of mitral valve repair ( 11/18/21) History of coronary artery bypass surgery ( 11/18/21) S/P CABG (coronary artery bypass graft) History of left heart catheterization (LHC) ( 09/10/21) History of hernia repair H/O knee surgery Family History Mother Cancer Brother Myocardial infarction CAD (coronary artery disease) Brother CVA (cerebral vascular accident) Social History Smoking Status: Former smoker Tobacco: How many years used: 20 how long ago did patient quit smoking: Started age 13, cigarettes, switched to pipe in his 30s, quit late 30's alcohol intake: current alcohol intake frequency: holidays/special occasions only substance use type: does not use caffeine: Yes Type: coffee Number of servings: 4 HPI HPI Chief Complaint: Review Carotid US Results Details: BENSON MCKEON, is a 79 M who presents to the office today for follow-up visit to discuss recent carotid ultrasound results. In 2021, patient underwent bypass surgery after we had an abnormal stress test. He did well with that. While there, they did a carotid ultrasound showing an estimated 70% approximate blockage in the right carotid. They did not do any intervention at that time. We repeated the ultrasound recently, and the current estimate with our ultrasound, is 50 to 69% in the right, less than 50% in the left. We discussed at least doing note, that would recommend 1 to 2-year follow-up ultrasound. The patient had desired to discuss this a little bit further so he made an appointment to come in. He had some questions about the implications of the carotid stenosis and general. We discussed in terms of any interventions and when to intervene i.e. greater than 70% which she is not there yet based off of our studies. We discussed that in the context of different anticoagulation regimens. He is currently on aspirin plus Eliquis, because of history of atrial fibrillation. Cardiology recently decreased the Eliquis to prevention dose and he wondered about that. We discussed that that should be sufficient, for prevention in the circumstances and would be appropriate for reducing stroke risk fr (more content not included)... [facility] 12 Lead EKG performed by [facility] on 10-13-2024 12 Lead EKG performed by [facility] [address] [place] [address] 12 Lead EKG performed by [facility] 10/13/24 0955 MR#: [id number] Acct: [id number] Name: BENSON MCKEON Rep #: [id number] : 1945 79 From: Vu Chacko MD Attending Dr: Dr. Vu Chacko MD Status: DE P AMB Ordering Dr: Vu Chacko MD Date: 10/13/24 Location: [facility] Sex: M C Admitted: [facility]/12 Lead EKG performed by [facility] ECG Report Interpretation -Sinus Rhythm -With rate variation cv = 12.WITHIN NORMAL LIMITSElectronically signed on 10/13/2024 at 16:[address] Vu Normanwood Software Version 8610 10/13/24 1620 Date Vu Chacko MD CC: Dr. Kelsey Berger MD Date Dictated: 10/13/24954 Date Transcribed: 10/13/24954 Rivet Machine Operator: Signed [facility] Cardiology Visit Reporton Cardiology Visit Report [facility] [address] [place] [address] OFFICE VISIT Date of Service: 10/13/24 MR#: [id number] Acct: [id number] Name: BENSON MCKEON Rep #: [id number] : 1945 Provider: Dr. Vu echevarria MD Age/Sex: 79/M Location: [facility].G Status: Signed HPI HPI History of Present Illness Details: Patient is a pleasant 79-year-old white male that comes in today for monitoring of his coronary disease and history of atrial fibrillation. Patient is status post coronary bypass graft surgery by Dr. Thomas at [facility] October 2021. He received a VALLADARES to the LAD and a vein graft to the PDA of the right coronary artery and mitral valve repair. 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 Last pacer check 02/08/2024 showed no ventricular high rate sensing and no mode switching. This is consistent with him not having atrial fibrillation. The patient's resting heart rate is around 60 bpm and he is paced about 50% of the time. The patient is on Eliquis for his history of atrial fibrillation at 5 mg twice daily. Last blood work showed a creatinine of 1.5 he is now 79 years old for therefore decreasing his Eliquis to 2.5 mg twice daily. Patient also has a history of hypertension his blood pressure is well-controlled he has a history of hyperlipidemia but he is intolerant of all statin therapy and could not including rosuvastatin. Patient denies any recurrence of his dyspnea on exertion which is his anginal equivalent prior to his bypass surgery. EKG done in the office today showed normal sinus rhythm at 77 bpm with some rate variation but otherwise unremarkable. 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 Accompanied by: Self Is patient in pain?: No Allergies No Known Allergies Allergy (Verified 10/13/24 14:35) Medications ???Medication ???Instructions ???Recorded ???Confirmed ???Type multivitamin (Daily Multi-Vitamin 1 tab PO DAILY 04/03/21 10/13/24 History tablet) aspirin 81 mg tablet,delayed 81 mg PO DAILY #1 TAB 07/11/21 Rx release (Adult Aspirin Regimen) lisinopril 5 mg tablet 5 mg PO DAILY #90 tabs 12/21/23 Rx nitroglycerin 0.4 mg sublingual 0.4 mg sublingual Q5-15M PRN chest 02/15/24 10/13/24 Rx tablet pain #25 tabs acetaminophen 650 mg 650 mg PO Q12H 08/03/24 10/13/24 H istory tablet,extended release (Tylenol 8 Hour) metoprolol tartrate 25 mg tablet 25 mg PO BID #180 tabs 10/10/24 Rx apixaban 2.5 mg tablet 2.5 mg PO BID pt stopping 10/13/24 10/13/24 Rx warfarin, switching to Eliquis #180 tabs Ejection fraction %: 55 Have you fallen in the past year?: No PFSH Medical History Cataract fragments in eye following surgery COVID-19 jail (current) use of anticoagulants Sinus node dysfunction 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 Abnormal stress test Abnormal electrocardiogram [ECG] [EKG] Angina pectoris Mixed hyperlipidemia Hernia COPD (chronic obstructive pulmonary disease) Dyslipidemia Surgical History History of cataract surgery Presence of permanent cardiac pacemaker (11/22/21) History of cardioversion ( 12/16/21) History of mitral valve repair ( 11/18/21) History of coronary artery bypass surgery ( 11/18/21) S/P CABG (coronary artery bypass graft) History of left heart catheterization (LHC) ( 09/10/21) History of hernia repair H/O knee surgery Family History Mother Cancer Brother Myocardial infarction CAD (coronary artery disease) Brother CVA (cerebral vascular accident) Social History Smoking Status: Former smoker Tobacco: How many years used: 20 how long ago did patient quit smoking: Started age 13, cigarettes, switched to pipe in his 30s, quit late 30's alcohol intake: current alcohol intake frequency: holidays/special occasions only substance use type: does not use caffeine: Yes Type: coffee Number of servings: 4 ROS Const Const: Negative for fatigue or weakness ENT ENT: Positive for dizziness (occasionally); Negative for balance problems Cardio Chest Pain: No Pal (more content not included)... [facility] Carotid Duplex Ultrasoundon 09-15-2024 Carotid Duplex Ultrasound [facility] [address] [place] [address] Carotid Duplex Ultrasound 09/15/24 1410 MR#: [id number] Acct: [id number] Name: BENSON MCKEON Rep #: [id number] : 1945 78 From: Larry Magana MD Attending Dr: Dr. Kelsey Berger MD Status: RE G CLI Ordering Dr: Kelsey Berger MD Date: 09/15/24 Location: [facility] Sex: M C Admitted: Reason For Study: Carotid Stenosis Rt. Velocities/BP Lt. Velocities/BP Prox CCA 86.7/6.9 cm/sec. Prox CCA 100.1/16.7 cm/sec. Mid CCA 80.6/9.3 cm/sec. Mid CCA 115.5/16.7 cm/sec. Dist CCA 86.7/10.6 cm/sec. Dist CCA 86.9/10.1 cm/sec. ICA BULB 168.2/16.7 cm/sec. Prox ICA 95.7/18.9 cm/sec. Prox ICA 157.2/10.1 cm/sec. Mid ICA 76.0/21.1 cm/sec. Mid ICA 128.6/25.5 cm/sec. Dist ICA 115.5/34.2 cm/sec. Dist ICA 95.7/16.7 cm/sec. Lt. ICA/CCA = 1.0. Rt. ICA/CCA = 2.1. Prox ECA 119.9/3.5 cm/sec. Prox ECA 179.1/0.0 cm/sec. Lt. Vert. 54.6/9.2 cm/sec. Rt. Vert. 42.4/7.5 cm/sec. Right Extracranial There is heterogeneous, irregular atherosclerotic plaque noted in the right common carotid artery. There is heterogeneous, irregular atherosclerotic plaque noted in the right internal carotid artery. The atherosclerotic plaque causes acoustic shadowing. There is heterogeneous, irregular atherosclerotic plaque noted in the right external carotid artery. Antegrade flow is noted in the right vertebral artery. There is acoustic shadowing in the bulb. Left Extracranial There is heterogeneous, irregular atherosclerotic plaque noted in the left common carotid artery. There is heterogeneous, irregular atherosclerotic plaque noted in the left internal carotid artery. There is heterogeneous, irregular atherosclerotic plaque noted in the left external carotid artery. Antegrade flow is noted in the left vertebral artery. VL/Carotid Duplex Ultrasound Interpretation Summary Moderate (50-69%) stenosis right extracranial internal carotid. Limited by calcific shadowing. Mild (<50%) stenosis left extracranial internal carotid. Patent and antegrade vertebrals bilaterally. ___ Ordering Physician: Kelsey Berger Referring Physician: Kelsey Berger Performed By: Brain Schulte, T 09/15/24 1625 Date Larry Magana MD CC: Dr. Kelsey Berger MD Date Dictated: 09/15/24 1410 Date Transcribed: 09/15/241624 Rivet Machine Operator: Signed [facility] No Panel Informationon 08-29 BLANK _ [facility] Implant Date 11/22/2021 [facility] PACEMAKER REMOTE CHECKon AV Delay Adaptive Paced Minimum (ms) 300 ms [facility] AV Delay Adaptive Sensed Minimum (ms) 270 ms [facility] AV Delay Paced (ms) 100 ms [facility] AV Delay Sensed (ms) 90 ms [facility] Porter RA Pacing Amplitude (volts) 2.0 V [facility] RA Pacing Polarity BI [facility] RA Pacing Pulse Width (ms) 0.6 ms [facility] Sensing Amplitude (mvolts) 0.3 mV [facility] RA Sensing Polarity BI [facility] RV Pacing Amplitude (volts) 2.0 V [facility] RV Pacing Polarity BI [facility] RV Pacing Pulse Width (ms) 0.4 ms [facility] RV Sensing Amplitude (mvolts) 1.5 mV [facility] Porter RV Sensing Polarity BI [facility] Lead1 [facility]fg [facility] Lead[facility] Location RA [facility] Location RV [facility] Lower Rate (bpm) 60 {beats}/min [facility] Max Sensor Rate (bmp) 130 {beats}/min [facility] Model L331 ACCOLADE MRI EL [facility] Model 7841 Ingevity+IS-1 [facility] Model 7842 Ingevity+IS-[facility] Pacing Mode DDDR [facility] PM-Device Mfg BSX [facility] PM-Percent Pacing (A) 10 % [facility] PM-Percent Pacing (V) 0 % [facility] RA Bipolar Impedance ohms 675 ohm [facility] RV Bipolar Impedance ohms 611 ohm [facility] Serial Number [id number] [facility] Serial Number [id number] [facility] Serial Number [id number] [facility] Tracking Rate (bpm) 130 {beats}/min [facility] PM remote interrogat ion. Presenting EGM shows -AP/VS @ 80 bpm. Interrogation shows no ventricular high rate episodes and 3 mode switch episodes since last transmission 05/19/24. Mode switch EGMs show brief PAT with some farfield atrial oversensing, longest duration approx. 4 secs. Per epic med list, patient takes Eliquis. Lead impedances and sensing measurements stable. Recommended replacement time is 12.5 years. Rufina Urbina RN NOTE TO PROVIDERS: CARD Flowsheets contain detailed device programming and testing data. Paceart/Interrogation PDF can be found under CARDIAC DATA AND REPORT, Scanned Documents section. PACEART 08/29/2024 Formattin g of this note might be different from the original. PM remote interrogation. Presenting EGM shows -AP/VS @ 80 bpm. Interrogation shows no ventricular high rate episodes and 3 mode switch episodes since last transmission 05/19/24. Mode switch EGMs show brief PAT with some farfield atrial oversensing, longest duration approx. 4 secs. Per epic med list, patient takes Eliquis. Lead impedances and sensing measurements stable. Recommended replacement time is 12.5 years. Rufina Urbina RN NOTE TO PROVIDERS: CARD Flowsheets contain detailed device programming and testing data. Paceart/Interrogation PDF can be found under CARDIAC DATA AND REPORT, Scanned Documents section. [facility] MR/BMS.IMBon 08-03-2024 MR/BMS.IMB [facility] [address] [place] [address] OFFICE VISIT Date of Service: 08/03/24 MR#: [id number] Acct: [id number] Name: BENSON MCKEON Rep #: [id number] : 1945 Provider: Dr. 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 Accompanied by: Self Is patient in pain?: No Allergies No Known Allergies Allergy (Verified 08/03/24 13:30) Medications ???Medication ???Instructions ???Recorded ???Confirmed ???Type multivitamin (Daily Multi-Vitamin 1 tab PO DAILY 04/03/21 08/03/24 History tablet) aspirin 81 mg tablet,delayed 81 mg PO DAILY #1 TAB 07/11/21 08/03/24 Rx release (Adult Aspirin Regimen) apixaban 5 mg tablet (Eliquis) 5 mg PO BID pt stopping warfarin, 07/01/22 08/03/24 Rx switching to Eliquis #60 tabs metoprolol tartrate 25 mg tablet 25 mg PO BID #180 tabs 09/29/23 08/03/24 Rx lisinopril 5 mg tablet 5 mg PO DAILY #90 tabs 12/21/23 08/03/24 Rx nitroglycerin 0.4 mg sublingual 0.4 mg sublingual Q5-15M PRN chest 02/15/24 08/03/24 Rx tablet pain #25 tabs rosuvastatin 5 mg tablet 5 mg PO MOWEFR 90 days #39 tabs 03/17/24 08/03/24 Rx acetaminophen 650 mg 650 mg PO Q12H 08/03/24 08/03/24 History tablet,extended release (Tylenol 8 Hour) Have you fallen in the past year?: No PFSH Medical History Cataract fragments in eye following surgery COVID-19 jail (current) use of anticoagulants Sinus node dysfunction 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 Abnormal stress test Abnormal electrocardiogram [ECG] [EKG] Angina pectoris Mixed hyperlipidemia Hernia COPD (chronic obstructive pulmonary disease) Dyslipidemia Surgical History (Updated 08/03/24 @ 13:34 by Bjorn Choudhury RN) History of cataract surgery Presence of permanent cardiac pacemaker (11/22/21) History of cardioversion ( 12/16/21) History of mitral valve repair ( 11/18/21) History of coronary artery bypass surgery ( 11/18/21) S/P CABG (coronary artery bypass graft) History of left heart catheterization (LHC) ( 09/10/21) History of hernia repair H/O knee surgery Family History Mother Cancer Brother Myocardial infarction CAD (coronary artery disease) Brother CVA (cerebral vascular accident) Social History Smoking Status: Former smoker Tobacco: How many years used: 20 how long ago did patient quit smoking: Started age 13, cigarettes, switched to pipe in his 30s, quit late 30's alcohol intake: current alcohol intake frequency: holidays/special occasions only substance use type: does not use caffeine: Yes Type: coffee Number of servings: 4 HPI HPI Chief Complaint: 4 m fu Details: BENSON MCKEON, is a 78 M who presents to the office today for 6-month follow-up. 78-year-old gentleman who has a history of CAD, see my previous notes. He ultimately was evaluated by cardiology, and underwent stress testing which was abnormal, culminating in heart cath. Ultimately was recommended CABG. He also has mitral valve repair that was completed at that visit as well as the bypass in October 2021. He had pacemaker permanent, placement while there as well for persistent arrhythmia postop. Does have a history of mild COPD which is stable. He does wonder about carotid arteries. They did do carotid artery evaluation preop although I do not have availability of that. Will try and requested and see if anything needs followed through anytime soon. He is not having any concerning symptoms. He does remain on anticoagulation, with Eliquis and aspirin. Hyperlipidemia stable on rosuvastatin low-dose, and lisinopril low-dose along with metoprolol. He is tolerating his medical regimen. Does have some mild alternating between very mild constipation types of symptoms and then empties out and then starts over again. This is a bit different in his previous pattern over his lifetime but nothing it is significant overall he feels. He does use some intermittent fiber supplement and I encouraged him to consider using that on a regular basis as opposed to just using it when he gets actually constipated. Keeping well-hydrated. May add probiot (more content not included)... [facility] No Panel Informationon 05-20 BLANK _ [facility] Implant Date 11/22/2021 [facility] PACEMAKER REMOTE CHECKon AV Delay Adaptive Paced Minimum (ms) 300 ms [facility] AV Delay Adaptive Sensed Minimum (ms) 270 ms [facility] AV Delay Paced (ms) 100 ms [facility] AV Delay Sensed (ms) 90 ms [facility] RA Pacing Amplitude (volts) 2.0 V [facility] RA Pacing Polarity BI [facility] RA Pacing Pulse Width (ms) 0.6 ms [facility] RA Sensing Amplitude (mvolts) 0.3 mV [facility] RA Sensing Polarity BI [facility] RV Pacing Amplitude (volts) 2.0 V [facility] RV Pacing Polarity BI [facility] RV Pacing Pulse Width (ms) 0.4 ms [facility] RV Sensing Amplitude (mvolts) 1.5 mV [facility] Porter RV Sensing Polarity BI [facility] Lead1 Mfg [facility] Lead2 Mfg [facility] Location RA [facility] Location RV [facility] Lower Rate (bpm) 60 {beats}/min [facility] Max Sensor Rate (bmp) 130 {beats}/min [facility] Model L331 ACCOLADE MRI EL [facility] Model 7841 Ingevity+IS-1 [facility] Model 7842 Ingevity+IS-1 [facility] Pacing Mode DDDR [facility] PM-Device Mfg BSX [facility] PM-Percent Pacing (A) 9 % [facility] PM-Percent Pacing (V) 0 % [facility] RA Bipolar Impedance ohms 541 ohm [facility] RV Bipolar Impedance ohms 573 ohm [facility] Serial Number [id number] [facility] Serial Number [id number] [facility] Serial Number [id number] [facility] Tracking Rate (bpm) 130 {beats}/min [facility] PM remote interrogat ion. Presenting EGM: /VS @ 86 bpm. Interrogation shows 1 ventricular high rate and 1 mode switch episodes since last check. Episodes are same event, EGMs show burst of PAT/SVT w/ rate to 152 bpm, approx 8-9 sec in duration. PMT noted, some EGMs show tracking of upper rates. Lead impedance and sensing measurements stable. Battery voltage stable. Recommended replacement time is 13 yrs. April Em RN NOTE TO PROVIDERS: CARD Flowsheets contain detailed device programming and testing data. Paceart/Interrogation PDF can be found under CARDIAC DATA AND REPORT, Scanned Documents section. PACEART 05/20/2024 Formattin g of this note might be different from the original. PM remote interrogation. Presenting EGM: /VS @ 86 bpm. Interrogation shows 1 ventricular high rate and 1 mode switch episodes since last check. Episodes are same event, EGMs show burst of PAT/SVT w/ rate to 152 bpm, approx 8-9 sec in duration. PMT noted, some EGMs show tracking of upper rates. Lead impedance and sensing measurements stable. Battery voltage stable. Recommended replacement time is 13 yrs. April Em RN NOTE TO PROVIDERS: CARD Flowsheets contain detailed device programming and testing data. Paceart/Interrogation PDF can be found under CARDIAC DATA AND REPORT, Scanned Documents section. [facility] ECG B/O W INTERP (MED OFFICE )on 02-08-2024 Normal sinus rhythm at 73 beats minute, PACs, WV 160, QRS 90, QTc 440, normal axis. [facility] No Panel Informationon 02-07 BLANK _ [facility] Implant Date 11/22/2021 [facility] PACEMAKER CLINIC CHECKon AV Delay Adaptive Paced Minimum (ms) 300 ms [facility] AV Delay Adaptive Sensed Minimum (ms) 270 ms [facility] AV Delay Paced (ms) 100 ms [facility] AV Delay Sensed (ms) 90 ms [facility] RA Pacing Amplitude (volts) 2.0 V [facility] RA Pacing Polarity BI [facility] RA Pacing Pulse Width (ms) 0.6 ms [facility] RA Sensing Amplitude (mvolts) 0.3 mV [facility] RA Sensing Polarity BI [facility] Porter RV Pacing Amplitude (volts) 2.0 V [facility] Porter RV Pacing Polarity BI [facility] RV Pacing Pulse Width (ms) 0.4 ms [facility] Porter RV Sensing Amplitude (mvolts) 1.5 mV [facility] Porter RV Sensing Polarity BI [facility] Lead1 Mfg [employer] [facility] Lead2 Mfg [employer] [facility] Location RA [facility] Location RV [facility] Lower Rate (bpm) 60 {beats}/min [facility] Max Sensor Rate (bmp) 130 {beats}/min [facility] Model L331 ACCOLADE MRI EL [facility] Model 7841 Ingevity+IS-1 [facility] Model 7842 Ingevity+IS-1 [facility] Pacemaker Dependent? NO [facility] Pacing Mode DDDR [facility] PM-Device Mfg BSX [facility] PM-Percent Pacing (A) 6 % [facility] PM-Percent Pacing (V) 0 % [facility] RA Bipolar Impedance ohms 503 ohm [facility] Rhythm NSR at 68 BPM [facility] RV Bipolar Impedance ohms 611 ohm [facility] Serial Number [id number] [facility] Serial Number [id number] [facility] Serial Number [id number] [facility] Thresh RA Capture Amplitude (volts) 0.7 V [facility] Thresh RA Capture Duration (ms) 0.6 ms [facility] Thresh RV Capture Amplitude (volts) 0.7 V [facility] Thresh RV Capture Duration (ms) 0.4 ms [facility] Tracking Rate (bpm) 130 {beats}/min [facility] 02/08/2024 Formattin g of this note might be different from the original. PPM check, dual lead system with programming. ID x2. Here for routine PM evaluation. Offers no complaints. Incision/pocket left pectoral area without signs of infection. Presenting rhythm NSR alternating w/ AP/VS. Rate 60's. Interrogation shows no ventricular high rate and/or mode switch episodes. PMT has occurred. Algorithm converts PMT. Takes Eliquis BID and 81 mg asa QD. Recommended replacement time is 13 more years. Lead impedances, sensing and pacing thresholds stable. VAC consistent. PVARP increased. RA sensitivity decreased from 0.25 mv to 0.3 mv d/t past far field atrial oversensing. P waves measure 3.1 mv. Counters cleared. Next device check scheduled for patient, questions answered. M.Catalina RN NOTE TO PROVIDERS: CARD Flowsheets contain detailed device programming and testing data. Paceart/Interrogation PDF can be found under CARDIAC DATA AND REPORT, Scanned Documents section. [facility] No Panel Informationon 11-26 BLANK _ [facility] Implant Date 11/22/2021 [facility] PACEMAKER REMOTE CHECKon AV Delay Adaptive Paced Minimum (ms) 300 ms [facility] AV Delay Adaptive Sensed Minimum (ms) 270 ms [facility] AV Delay Paced (ms) 100 ms [facility] AV Delay Sensed (ms) 90 ms [facility] Porter RA Pacing Amplitude (volts) 2.0 V [facility] Porter RA Pacing Polarity BI [facility] Porter RA Pacing Pulse Width (ms) 0.6 ms [facility] Porter RA Sensing Amplitude (mvolts) 0.25 mV [facility] Porter RA Sensing Polarity BI [facility] Porter RV Pacing Amplitude (volts) 2.0 V [facility] Porter RV Pacing Polarity BI [facility] Porter RV Pacing Pulse Width (ms) 0.4 ms [facility] Porter RV Sensing Amplitude (mvolts) 1.5 mV [facility] Porter RV Sensing Polarity BI [facility] Lead1 Mfg [facility] Lead2 Mfg [facility] Location RA [facility] Location RV [facility] Lower Rate (bpm) 60 {beats}/min [facility] Max Sensor Rate (bmp) 130 {beats}/min [facility] Model L331 ACCOLADE MRI EL [facility] Model 7841 Ingevity+IS-1 [facility] Model 7842 Ingevity+IS-1 [facility] Pacing Mode DDDR [facility] PM-Device Mfg BSX [facility] PM-Percent Pacing (A) 6 % [facility] PM-Percent Pacing (V) 0 % [facility] RA Bipolar Impedance ohms 549 ohm [facility] RV Bipolar Impedance ohms 597 ohm [facility] Serial Number [id number] [facility] Serial Number [id number] [facility] Serial Number [id number] [facility] Tracking Rate (bpm) 130 {beats}/min [facility] No Panel Informationon 05-15 BLANK _ [facility] Implant Date 11/22/2021 [facility] PACEMAKER REMOTE CHECKon AV Delay Adaptive Paced Minimum (ms) 300 ms [facility] AV Delay Adaptive Sensed Minimum (ms) 270 ms [facility] AV Delay Paced (ms) 100 ms [facility] AV Delay Sensed (ms) 90 ms [facility] Porter RA Pacing Amplitude (volts) 2.0 V [facility] Porter RA Pacing Polarity BI [facility] Porter RA Pacing Pulse Width (ms) 0.6 ms [facility] Porter RA Sensing Amplitude (mvolts) 0.25 mV [facility] Porter RA Sensing Polarity BI [facility] Porter RV Pacing Amplitude (volts) 2.0 V [facility] Porter RV Pacing Polarity BI [facility] Porter RV Pacing Pulse Width (ms) 0.4 ms [facility] Porter RV Sensing Amplitude (mvolts) 1.5 mV [facility] Porter RV Sensing Polarity BI [facility] Lead1 Mfg [facility] Lead2 [facility] Location RA [facility] Location RV [facility] Lower Rate (bpm) 60 {beats}/min [facility] Max Sensor Rate (bmp) 130 {beats}/min [facility] Model L331 ACCOLADE MRI EL [facility] Model 7841 Ingevity+IS-1 [facility] Model 7[address] In[address]+IS-[address] [facility] Pacing Mode DDDR [facility] PM-Device Mfg BSX [facility] PM-Percent Pacing (A) 6 % [facility] PM-Percent Pacing (V) 0 % [facility] RA Bipolar Impedance ohms 611 ohm [facility] RV Bipolar Impedance ohms 597 ohm [facility] Serial Number [id number] [facility] Serial Number [id number] [facility] Serial Number [id number] [facility] Tracking Rate (bpm) 130 {beats}/min [facility] Absolute lymphocyte countOrd ered By: Kelsey Berger on 04-20-2023 Lymphocytes Auto (Unsp spec) [#/Vol] 4.10 10*3/uL 0.83-4.51 [facility] Basophil percentageOrdered B y: Kelsey Berger on 04-20-2023 Basophils/100 WBC (Bld) 0.5 % 0-1 [facility] Bilirubin [Mass/Vol] 0.30 mg/dL 0.20-1.00 [facility] Comment on above: For patients on eltr ombopag therapy, use of Dimension [place] TBIL is not recommended. Chloride [Moles/Vol] 107 mmol/L 98-107 [facility] Cholesterol [Mass/Vol] 126 mg/dL <200 [facility] Comment on above: <200 mg/dL Desirable 200-240 mg/dL Borderline >240 mg/dL High Risk Eosinophils/100 WBC (Bld) 4.0 % 0-5 [facility] Glucose [Mass/Vol] 96 mg/dL 74-106 [facility] Neutrophils (Bld) [#/Vol] 4.2 10*3/uL 2.0-7.7 [facility] Neutrophils/100 WBC (Bld) 43.2 % 47-70 [facility] Potassium [Moles/Vol] 4.5 mmol/L 3.5-5.1 [facility] Protein [Mass/Vol] 7.9 g/dL 6.4-8.2 [facility] Sodium [Moles/Vol] 135 mmol/L 136-145 [facility] Triglyceride [Mass/Vol] 160 mg/dL <199 [facility] Comment on above: The drugs N-Acetylcy steine and Metamizole may falsely depress this assay.Serum Triglycerides Reference Interval Normal <150 mg/dL Borderline high 150 - 199 mg/dL High 200 - 499 mg/dL Very High > or = 500 mg/dL WBC (Bld) [#/Vol] 9.6 10*3/uL 4.4-11.0 [facility] Blood erythrocytes count (nu mber/volume)Ordered By: Kelsey Berger on 04-20-2023 RBC (Bld) [#/Vol] 4.00 10*6/uL 4.6-6.2 [facility] Blood hemoglobin measurement (mass/volume)Ordered By: Kelsey eBrger on 04-20-2023 Hemoglobin (Bld) [Mass/Vol] 11.9 g/dL 13.0-16.5 [facility] Blood lymphocytes/100 leukoc ytesOrdered By: Kelsey Berger on 04-20-2023 Lymphocytes/100 WBC (Bld) 42.5 % 19-41 [facility] Blood monocytes/100 leukocyt esOrdered By: Kelsey Berger on 04-20-2023 Monocytes/100 WBC (Bld) 9.2 % 0-10 [facility] Blood platelet mean volumeOr dered By: Kelsey Berger on 04-20-2023 Platelet mean volume (Bld) [Entitic vol] 9.4 fL 6.2-12.0 [facility] Determination of erythrocyte mean corpuscular volume (MCV)Ordered By: Kelsey Berger on 04-20-2023 MCV (RBC) [Entitic vol] 92.8 fL 80-94 [facility] Hematocrit Auto (Bld) [Volum e fraction]Ordered By: Kelsey Berger on 04-20-2023 Hematocrit (Bld) [Volume fraction] 37.1 % 40-54 [facility] Iron measurement (mass/mass) Ordered By: Kelsey Berger on 04-20-2023 Iron (Unsp spec) [Mass/Mass] 57 ug/dL 65-175 [facility] - Chemistry and C hemistry - challengeOrdered By: Kelsey Berger on 04-20-2023 ALP [Catalytic activity/Vol] 57 U/L 45-117 [facility] ALT [Catalytic activity/Vol] 20 U/L 16-61 [facility] CO2 [Moles/Vol] 23.0 mmol/L 21.0-32.0 [facility] Free T4 [Mass/Vol] 0.94 ng/dL 0.76-1.46 [facility] Globulin (S) [Mass/Vol] 4.3 g/dL 2.2-4.2 [facility] Urea nitrogen/Creatinine [Mass ratio] 19.0 mg/mg 10-20 [facility] - Hematology and Cell countsOrdered By: Kelsey Berger on 04-20-2023 Erythrocyte distribution width (RBC) [Entitic vol] 44.3 fL 35.1-43.9 [facility] Erythrocyte distribution width (RBC) [Ratio] 13.0 % 11.6-14.6 [facility] Immature granulocytes/100 WBC (Bld) 0.600 % 0.0-0.9 [facility] Comment on above: IG% - Immature Granu locytes (promyelocytes, myelocytes and metamyelocytes) > 1% indicates that a LEFT SHIFT is Present. MCH (RBC) [Entitic mass] 29.8 pg 27.0-32.0 [facility] Nucleated RBC/100 WBC (Bld) [Ratio] 0 % 0-5 [facility] MCHC Auto (RBC) [Mass/Vol]Or dered By: Kelsey Berger on 04-20-2023 MCHC (RBC) [Mass/Vol] 32.1 g/dL 32-36 [facility] No Panel InformationOrdered By: Kelsey Berger on 04-20-2023 Estimated GFR (MDRD) Amer 65 mL/min >60 [facility] Comment on above: GFR Calc Estimated GFR (MDRD) Non-Af Amer 53 mL/min >60 [facility] Comment on above: Non- GFR Calc Free Triiodothyronine (T3) pg/dL 1.9 pg/mL 2.18-3.98 [facility] Prostate Specific Antigen Screen 0.84 ng/mL 0.00-4.00 [facility] Comment on above: This test was perfor med using the TPSA assay method for [facility] chemistry system. Values obtained with differentassay methods cannot be used interchangably.When changing PSA assays in the course of monitoring apatient, additional sequential testing should be carriedout to confirm baseline values. Thyroid Stimulating Hormone (TSH) 3.01 uIU/mL 0.358-3.74 [facility] Total Iron Binding Capacity 323 ug/dL 250-450 [facility] Platelets bldOrdered By: Cris Berger on 04-20-2023 Platelets (Bld) [#/Vol] 332 10*3/uL 150-450 [facility] Serum or plasma albumin karel urement (mass/volume)Ordered By: Kelsey Berger on 04-20-2023 Albumin [Mass/Vol] 3.6 g/dL 3.2-5.0 [facility] Serum or plasma albumin/glob ulin mass ratioOrdered By: Kelsey Berger on 04-20-2023 Albumin/Globulin [Mass ratio] 0.8 {ratio} 0.9-2.4 [facility] Serum or plasma calcium karel urement (mass/volume)Ordered By: Kelsey Berger on 04-20-2023 Calcium [Mass/Vol] 8.7 mg/dL 8.5-10.1 [facility] Serum or plasma cholesterol in HDL measurement (mass/volume)Ordered By: Kelsey Berger on 04-20-2023 Cholesterol in HDL [Mass/Vol] 29 mg/dL >40 [facility] Comment on above: The drugs N-Acetylcy steine and Metamizole may falsely depress this assay. Reference Range HDL <40 mg/dL Low HDL Cholesterol HDL >or= 60 mg/dL High HDL Cholesterol Serum or plasma cholesterol in VLDL measurement (mass/volume)Ordered By: Kelsey Berger on 04-20-2023 Cholesterol in VLDL [Mass/Vol] 32 mg/dL 5-40 [facility] Serum or plasma creatinine m easurement (mass/volume)Ordered By: Kelsey Berger on 04-20-2023 Creatinine [Mass/Vol] 1.37 mg/dL 0.70-1.30 [facility] Comment on above: The validity of the calculated GFR & GFRAA in patients over 70 years has not been determined. Clinical correlation is essential. Serum or plasma iron saturat ion measurement (mass fraction)Ordered By: Kelsey Berger on 04-20-2023 Iron saturation [Mass fraction] 17.6 % 15.0-55.0 [facility] Serum or plasma low density lipoprotein (LDL) cholesterol measurement (mass/volume)Ordered By: Kelsey Berger on 04-20-2023 Cholesterol in LDL [Mass/Vol] 65 mg/dL 0-130 [facility] Serum or plasma urea nitroge n measurement (mass/volume)Ordered By: Kelsey Berger on 04-20-2023 Urea nitrogen [Mass/Vol] 26 mg/dL 7-18 [facility] Thin prep Papanicolaou smear with manual screeningOrdered By: Kelsey Berger on 04-20-2023 Thin prep Papanicolaou smear with manual screening 13 U/L 15-37 [facility] Thin prep Papanicolaou smear with manual screening 5 5-15 [facility] No Panel Informationon 11-06 BLANK _ [facility] Implant Date 11/22/2021 [facility] PACEMAKER REMOTE CHECKon AV Delay Adaptive Paced Minimum (ms) 300 ms [facility] AV Delay Adaptive Sensed Minimum (ms) 270 ms [facility] AV Delay Paced (ms) 100 ms [facility] AV Delay Sensed (ms) 90 ms [facility] Porter RA Pacing Amplitude (volts) 3.0 V [facility] Porter RA Pacing Polarity BI [facility] Porter RA Pacing Pulse Width (ms) 0.6 ms [facility] Porter RA Sensing Amplitude (mvolts) 0.25 mV [facility] Porter RA Sensing Polarity BI [facility] Porter RV Pacing Amplitude (volts) 2.2 V [facility] Porter RV Pacing Polarity BI [facility] Porter RV Pacing Pulse Width (ms) 0.4 ms [facility] Porter RV Sensing Amplitude (mvolts) 1.5 mV [facility] Porter RV Sensing Polarity BI [facility] Lead1 Mfg [facility] Lead[facility] Location RA [facility] Location RV [facility] Lower Rate (bpm) 60 {beats}/min [facility] Max Sensor Rate (bmp) 130 {beats}/min [facility] Model L331 ACCOLADE MRI EL [facility] Model 7841 Ingevity+IS-1 [facility] Model 7[address] In[address]+IS-1 [facility] Pacing Mode DDDR [facility] PM-Device Mfg BSX [facility] PM-Percent Pacing (A) 5 % [facility] PM-Percent Pacing (V) 0 % [facility] RA Bipolar Impedance ohms 598 ohm [facility] RV Bipolar Impedance ohms 717 ohm [facility] Serial Number [id number] [facility] Serial Number [id number] [facility] Serial Number [id number] [facility] Tracking Rate (bpm) 130 {beats}/min [facility] Absolute lymphocyte countOrd ered By: Neva Espino on 09-25-2022 Lymphocytes Auto (Unsp spec) [#/Vol] 3.46 10*3/uL 0.83-4.51 [facility] Basophil percentageOrdered B y: Neva Espino on 09-25-2022 Basophils/100 WBC (Bld) 0.5 % 0-1 [facility] Bilirubin [Mass/Vol] 0.50 mg/dL 0.20-1.00 [facility] Comment on above: For patients on eltr ombopag therapy, use of Dimension [place] TBIL is not recommended. Chloride [Moles/Vol] 102 mmol/L 98-107 [facility] Cholesterol [Mass/Vol] 137 mg/dL <200 [facility] Comment on above: <200 mg/dL Desirable 200-240 mg/dL Borderline >240 mg/dL High Risk Eosinophils/100 WBC (Bld) 7.2 % 0-5 [facility] Glucose [Mass/Vol] 90 mg/dL 74-106 [facility] Neutrophils (Bld) [#/Vol] 4.1 10*3/uL 2.0-7.7 [facility] Neutrophils/100 WBC (Bld) 44.2 % 47-70 [facility] Potassium [Moles/Vol] 4.4 mmol/L 3.5-5.1 [facility] Protein [Mass/Vol] 8.4 g/dL 6.4-8.2 [facility] Sodium [Moles/Vol] 134 mmol/L 136-145 [facility] Triglyceride [Mass/Vol] 164 mg/dL <199 [facility] Comment on above: The drugs N-Acetylcy steine and Metamizole may falsely depress this assay.Serum Triglycerides Reference Interval Normal <150 mg/dL Borderline high 150 - 199 mg/dL High 200 - 499 mg/dL Very High > or = 500 mg/dL WBC (Bld) [#/Vol] 9.2 10*3/uL 4.4-11.0 [facility] Blood erythrocytes count (nu mber/volume)Ordered By: Neva Espino on 09-25-2022 RBC (Bld) [#/Vol] 4.16 10*6/uL 4.6-6.2 [facility] Blood hemoglobin measurement (mass/volume)Ordered By: Neva Espino on 09-25-2022 Hemoglobin (Bld) [Mass/Vol] 12.6 g/dL 13.0-16.5 [facility] Blood lymphocytes/100 leukoc ytesOrdered By: Neva Espino on 09-25-2022 Lymphocytes/100 WBC (Bld) 37.5 % 19-41 [facility] Blood monocytes/100 leukocyt esOrdered By: Neva Espino on 09-25-2022 Monocytes/100 WBC (Bld) 10.1 % 0-10 [facility] Blood platelet mean volumeOr dered By: Neva Espino on 09-25-2022 Platelet mean volume (Bld) [Entitic vol] 9.3 fL 6.2-12.0 [facility] Determination of erythrocyte mean corpuscular volume (MCV)Ordered By: Neva Espino on 09-25-2022 MCV (RBC) [Entitic vol] 93.8 fL 80-94 [facility] Direct bilirubinOrdered By: Neva Espino on 09-25-2022 Bilirubin.direct [Mass/Vol] 0.11 mg/dL 0.00-0.30 [facility] Hematocrit Auto (Bld) [Volum e fraction]Ordered By: Neva Espino on 09-25-2022 Hematocrit (Bld) [Volume fraction] 39.0 % 40-54 [facility] - Chemistry and C hemistry - challengeOrdered By: Neva Espino on 09-25-2022 ALP [Catalytic activity/Vol] 60 U/L 45-117 [facility] ALT [Catalytic activity/Vol] 29 U/L 16-61 [facility] CO2 [Moles/Vol] 27.0 mmol/L 21.0-32.0 [facility] Free T4 [Mass/Vol] 0.96 ng/dL 0.76-1.46 [facility] Globulin (S) [Mass/Vol] 4.6 g/dL 2.2-4.2 [facility] Urea nitrogen/Creatinine [Mass ratio] 16.2 mg/mg 10-20 [facility] - Hematology and Cell countsOrdered By: Neva Espino on 09-25-2022 Erythrocyte distribution width (RBC) [Entitic vol] 45.1 fL 35.1-43.9 [facility] Erythrocyte distribution width (RBC) [Ratio] 13.2 % 11.6-14.6 [facility] Immature granulocytes/100 WBC (Bld) 0.500 % 0.0-0.9 [facility] Comment on above: IG% - Immature Granu locytes (promyelocytes, myelocytes and metamyelocytes) > 1% indicates that a LEFT SHIFT is Present. MCH (RBC) [Entitic mass] 30.3 pg 27.0-32.0 [facility] Nucleated RBC/100 WBC (Bld) [Ratio] 0 % 0-5 [facility] Auto (RBC) [Mass/Vol]Or dered By: Neva Espino on 09-25-2022 MCHC (RBC) [Mass/Vol] 32.3 g/dL 32-36 [facility] No Panel InformationOrdered By: Neva Espino on 09-25-2022 Estimated GFR (MDRD) Amer 62 mL/min >60 [facility] Comment on above: GFR Calc Estimated GFR (MDRD) Non-Af Amer 51 mL/min >60 [facility] Comment on above: Non- GFR Calc Free Triiodothyronine (T3) pg/dL 2.5 pg/mL 2.18-3.98 [facility] Thyroid Stimulating Hormone (TSH) 4.98 uIU/mL 0.358-3.74 [facility] Platelets bldOrdered By: Benji Espino on 09-25-2022 Platelets (Bld) [#/Vol] 339 10*3/uL 150-450 [facility] Serum or plasma albumin karel urement (mass/volume)Ordered By: Neva Espino on 09-25-2022 Albumin [Mass/Vol] 3.8 g/dL 3.2-5.0 [facility] Serum or plasma calcium karel urement (mass/volume)Ordered By: Neva Espino on 09-25-2022 Calcium [Mass/Vol] 9.0 mg/dL 8.5-10.1 [facility] Serum or plasma cholesterol in HDL measurement (mass/volume)Ordered By: Neva Espino on 09-25-2022 Cholesterol in HDL [Mass/Vol] 30 mg/dL >40 [facility] Comment on above: The drugs N-Acetylcy steine and Metamizole may falsely depress this assay. Reference Range HDL <40 mg/dL Low HDL Cholesterol HDL >or= 60 mg/dL High HDL Cholesterol Serum or plasma cholesterol in VLDL measurement (mass/volume)Ordered By: Neva Espino on 09-25-2022 Cholesterol in VLDL [Mass/Vol] 33 mg/dL 5-40 [facility] Serum or plasma creatinine m easurement (mass/volume)Ordered By: Neva Espino on 09-25-2022 Creatinine [Mass/Vol] 1.42 mg/dL 0.70-1.30 [facility] Comment on above: The validity of the calculated GFR & GFRAA in patients over 70 years has not been determined. Clinical correlation is essential. Serum or plasma low density lipoprotein (LDL) cholesterol measurement (mass/volume)Ordered By: Neva Espino on 09-25-2022 Cholesterol in LDL [Mass/Vol] 74 mg/dL 0-130 [facility] Serum or plasma urea nitroge n measurement (mass/volume)Ordered By: Neva Espino on 09-25-2022 Urea nitrogen [Mass/Vol] 23 mg/dL 7-18 [facility] Thin prep Papanicolaou smear with manual screeningOrdered By: Neva Espino on 09-25-2022 Thin prep Papanicolaou smear with manual screening 21 U/L 15-37 [facility] Thin prep Papanicolaou smear with manual screening 5 5-15 [facility] - Microbiology an d Antimicrobial susceptibilityon 08-14-2022 SARS-CoV-2 (COVID-19) RNA MISBAH+probe Ql (Unsp spec) Detected [facility] No Panel Informationon 08-14 Influenza Types A,B Rapid (Clinic) Not detected [facility] No Panel Informationon 07-25 BLANK _ [facility] Implant Date 11/21/2021 [facility] PACEMAKER REMOTE CHECKon AV Delay Adaptive Paced Minimum (ms) 300 ms [facility] AV Delay Adaptive Sensed Minimum (ms) 270 ms [facility] AV Delay Paced (ms) 100 ms [facility] AV Delay Sensed (ms) 90 ms [facility] Porter RA Pacing Amplitude (volts) 3 V [facility] Porter RA Pacing Polarity BI [facility] Porter RA Pacing Pulse Width (ms) 0.6 ms [facility] Porter RA Sensing Amplitude (mvolts) 0.25 mV [facility] Porter RA Sensing Polarity BI [facility] Porter RV Pacing Amplitude (volts) 2.2 V [facility] Porter RV Pacing Polarity BI [facility] Porter RV Pacing Pulse Width (ms) 0.4 ms [facility] Porter RV Sensing Amplitude (mvolts) 1.5 mV [facility] Porter RV Sensing Polarity BI [facility] Lead1 Mfg [facility] Lead[facility] Location RA [facility] Location RV [facility] Lower Rate (bpm) 60 {beats}/min [facility] Max Sensor Rate (bmp) 130 {beats}/min [facility] Model L331 ACCOLADE MRI EL [facility] Model 7841 Ingevity+IS-1 [facility] Model 7842 Ingevity+IS-1 [facility] Pacing Mode DDDR [facility] PM-Device Mfg BSX [facility] PM-Percent Pacing (A) 7 % [facility] PM-Percent Pacing (V) 1 % [facility] RA Bipolar Impedance ohms 552 ohm [facility] RV Bipolar Impedance ohms 660 ohm [facility] Serial Number [id number] [facility] Serial Number [id number] [facility] Serial Number [id number] [facility] Tracking Rate (bpm) 130 {beats}/min [facility] Laboratory - CoagulationOrde red By: Laura Hines on 06-27-2022 INR Coag (Bld) [Relative time] 1.5 {INR} [facility] Comment on above: Critical Value > 4.0 Whole blood prothrombin time Ordered By: Laura Hines on 06-27-2022 PT Coag (Bld) [Time] 18.3 s 11.7-14.9 [facility] Laboratory - CoagulationOrde red By: Laura Hines on 06-20-2022 INR Coag (Bld) [Relative time] 1.5 {INR} [facility] Comment on above: Critical Value > 4.0 Whole blood prothrombin time Ordered By: Laura Hines on 06-20-2022 PT Coag (Bld) [Time] 18.0 s 11.7-14.9 [facility] INR in Blood by Coagulation assayon 05-29-2022 INR Coag (Bld) [Relative time] 1.2 {INR} [facility] Work Phone: Laboratory - Chemistry and C hemistry - challengeon 05-29-2022 Free T4 [Mass/Vol] 0.86 ng/dL 0.76-1.46 [facility] Work Phone: Laboratory - CoagulationOrde red By: Laura Hines on 05-29-2022 PT Coag (PPP) [Time] 14.6 s 11.7-14.9 [facility] No Panel Informationon 05-29 Free Triiodothyronine (T3) pg/dL 2.1 pg/mL 2.18-3.98 [facility] Work Phone: Thyroid Stimulating Hormone (TSH) 10.30 uIU/mL 0.358-3.74 [facility] Work Phone: Laboratory - Coagulationon 0 05-22-2022 INR Coag (Bld) [Relative time] 1.1 {INR} [facility] Work Phone: Comment on above: Critical Value > 4.0 Whole blood prothrombin time on 05-22-2022 PT Coag (Bld) [Time] 13.6 s 11.7-14.9 [facility] Work Phone: Laboratory - Chemistry and C hemistry - challengeon 04-21-2022 Free T4 [Mass/Vol] 0.92 ng/dL 0.76-1.46 [facility] Work Phone: No Panel Informationon 04-21 Free Triiodothyronine (T3) pg/dL 2.0 pg/mL 2.18-3.98 [facility] Work Phone: Thyroid Stimulating Hormone (TSH) 9.02 uIU/mL 0.358-3.74 [facility] Work Phone: No Panel Informationon 04-11 BLANK _ [facility] Implant Date 11/21/2021 [facility] PACEMAKER REMOTE CHECKon AV Delay Adaptive Paced Minimum (ms) 300 ms [facility] AV Delay Adaptive Sensed Minimum (ms) 270 ms [facility] AV Delay Paced (ms) 100 ms [facility] AV Delay Sensed (ms) [address] [facility] RA Pacing Amplitude (volts) 3 V [facility] RA Pacing Polarity BI [facility] RA Pacing Pulse Width (ms) 0.6 ms [facility] RA Sensing Amplitude (mvolts) 0.25 mV [facility] RA Sensing Polarity BI [facility] RV Pacing Amplitude (volts) 2.2 V [facility] RV Pacing Polarity BI [facility] RV Pacing Pulse Width (ms) 0.4 ms [facility] RV Sensing Amplitude (mvolts) 1.5 mV [facility] RV Sensing Polarity BI [facility] Lead1 Mfg [employer] [facility] Lead2 Mfg [employer] [facility] Location RA [facility] Location RV [facility] Lower Rate (bpm) 60 {beats}/min [facility] Max Sensor Rate (bmp) 130 {beats}/min [facility] Model L331 ACCOLADE MRI EL [facility] Model 7841 Ingevity+IS-1 [facility] Model 7842 Ingevity+IS-1 [facility] Pacing Mode DDDR [facility] PM-Device Mfg BSX [facility] PM-Percent Pacing (A) 9 % [facility] PM-Percent Pacing (V) 1 % [facility] RA Bipolar Impedance ohms 550 ohm [facility] RV Bipolar Impedance ohms 740 ohm [facility] Serial Number [id number] [facility] Serial Number [id number] [facility] Serial Number [id number] [facility] Tracking Rate (bpm) 130 {beats}/min [facility] Laboratory - Chemistry and C hemistry - challengeon 03-07-2022 Free T4 [Mass/Vol] 0.97 ng/dL 0.76-1.46 [facility] Work Phone: No Panel Informationon 03-07 Free Triiodothyronine (T3) pg/dL 1.6 pg/mL 2.18-3.98 [facility] Work Phone: Thyroid Stimulating Hormone (TSH) 6.37 uIU/mL 0.358-3.74 [facility] Work Phone: Absolute lymphocyte counton 01-21-2022 Lymphocytes Auto (Unsp spec) [#/Vol] 3.23 10*3/uL 0.83-4.51 [facility] Work Phone: Basophil percentageon 2021 Basophils/100 WBC (Bld) 1.0 % 0-1 [facility] Work Phone: Bilirubin [Mass/Vol] 0.40 mg/dL 0.20-1.00 [facility] Work Phone: Comment on above: For patients on eltr ombopag therapy, use of Dimension [place] TBIL is not recommended. Chloride [Moles/Vol] 103 mmol/L 98-107 [facility] Work Phone: Cholesterol [Mass/Vol] 154 mg/dL <200 [facility] Work Phone: Comment on above: <200 mg/dL Desirable 200-240 mg/dL Borderline >240 mg/dL High Risk Eosinophils/100 WBC (Bld) 6.9 % 0-5 [facility] Work Phone: Glucose [Mass/Vol] 108 mg/dL 74-106 [facility] Work Phone: Comment on above: Fasting Glucose resu lt from 100 to 125 mg/dL suggests IMPAIRED HOMEOSTASIS per A.D.A. criteria. Neutrophils (Bld) [#/Vol] 3.6 10*3/uL 2.0-7.7 [facility] Work Phone: Neutrophils/100 WBC (Bld) 43.3 % 47-70 [facility] Work Phone: Potassium [Moles/Vol] 4.5 mmol/L 3.5-5.1 [facility] Work Phone: Protein [Mass/Vol] 8.1 g/dL 6.4-8.2 [facility] Work Phone: Sodium [Moles/Vol] 133 mmol/L 136-145 [facility] Work Phone: Triglyceride [Mass/Vol] 102 mg/dL <199 [facility] Work Phone: Comment on above: The drugs N-Acetylcy steine and Metamizole may falsely depress this assay.Serum Triglycerides Reference Interval Normal <150 mg/dL Borderline high 150 - 199 mg/dL High 200 - 499 mg/dL Very High > or = 500 mg/dL WBC (Bld) [#/Vol] 8.3 10*3/uL 4.4-11.0 [facility] Work Phone: Blood erythrocytes count (nu mber/volume)on 01-21-2022 RBC (Bld) [#/Vol] 4.21 10*6/uL 4.6-6.2 [facility]: Blood hemoglobin measurement (mass/volume)on 01-21-2022 Hemoglobin (Bld) [Mass/Vol] 12.3 g/dL 13.0-16.5 [facility] Work Phone: Blood lymphocytes/100 leukoc yteson 01-21-2022 Lymphocytes/100 WBC (Bld) 38.9 % 19-41 [facility] Work Phone: Blood monocytes/100 leukocyt eson 01-21-2022 Monocytes/100 WBC (Bld) 8.9 % 0-10 [facility] Work Phone: Blood platelet mean volumeon 01-21-2022 Platelet mean volume (Bld) [Entitic vol] 8.8 fL 6.2-12.0 [facility] Work Phone: Determination of erythrocyte mean corpuscular volume (MCV)on 01-21-2022 MCV (RBC) [Entitic vol] 91.0 fL 80-94 [facility] Work Phone: Direct bilirubinon 2 Bilirubin.direct [Mass/Vol] 0.13 mg/dL 0.00-0.30 [facility] Work Phone: Hematocrit Auto (Bld) [Volum e fraction]on 01-21-2022 Hematocrit (Bld) [Volume fraction] 38.3 % 40-54 [facility] Work Phone: Laboratory - Chemistry and C hemistry - challengeon 01-21-2022 ALP [Catalytic activity/Vol] 66 U/L 45-117 [facility] Work Phone: ALT [Catalytic activity/Vol] 26 U/L 16-61 [facility] Work Phone: CO2 [Moles/Vol] 23.0 mmol/L 21.0-32.0 [facility] Work Phone: Free T4 [Mass/Vol] 1.18 ng/dL 0.76-1.46 [facility] Work Phone: Globulin (S) [Mass/Vol] 4.4 g/dL 2.2-4.2 [facility] Work Phone: Urea nitrogen/Creatinine [Mass ratio] 16.8 mg/mg 10-20 [facility] Work Phone: Laboratory - Hematology and Cell countson 01-21-2022 Erythrocyte distribution width (RBC) [Entitic vol] 46.9 fL 35.1-43.9 [facility] Work Phone: Erythrocyte distribution width (RBC) [Ratio] 14.1 % 11.6-14.6 [facility] Work Phone: Immature granulocytes/100 WBC (Bld) 1.000 % 0.0-0.9 [facility] Work Phone: Comment on above: IG% - Immature Granu locytes (promyelocytes, myelocytes and metamyelocytes) > 1% indicates that a LEFT SHIFT is Present. MCH (RBC) [Entitic mass] 29.2 pg 27.0-32.0 [facility] Work Phone: Nucleated RBC/100 WBC (Bld) [Ratio] 0 % 0-5 [facility] Work Phone: MCHC Auto (RBC) [Mass/Vol]on 01-21-2022 MCHC (RBC) [Mass/Vol] 32.1 g/dL 32-36 [facility] Work Phone: No Panel Informationon 01-21 Estimated GFR (MDRD) Amer 46 mL/min >60 [facility] Work Phone: Comment on above: GFR Calc Estimated GFR (MDRD) Non-Af Amer 38 mL/min >60 [facility] Work Phone: Comment on above: Non- GFR Calc Free Triiodothyronine (T3) pg/dL 1.8 pg/mL 2.18-3.98 [facility] Work Phone: Thyroid Stimulating Hormone (TSH) 5.80 uIU/mL 0.358-3.74 [facility] Work Phone: Platelets bldon 01-21-2022 Platelets (Bld) [#/Vol] 381 10*3/uL 150-450 [facility] Work Phone: Serum or plasma albumin karel urement (mass/volume)on 01-21-2022 Albumin [Mass/Vol] 3.7 g/dL 3.2-5.0 [facility] Work Phone: Serum or plasma calcium karel urement (mass/volume)on 01-21-2022 Calcium [Mass/Vol] 8.7 mg/dL 8.5-10.1 [facility] Work Phone: Serum or plasma cholesterol in HDL measurement (mass/volume)on 01-21-2022 Cholesterol in HDL [Mass/Vol] 36 mg/dL >40 [facility] Work Phone: Comment on above: The drugs N-Acetylcy steine and Metamizole may falsely depress this assay. Reference Range HDL <40 mg/dL Low HDL Cholesterol HDL >or= 60 mg/dL High HDL Cholesterol Serum or plasma cholesterol in VLDL measurement (mass/volume)on 01-21-2022 Cholesterol in VLDL [Mass/Vol] 20 mg/dL 5-40 [facility] Work Phone: Serum or plasma creatinine m easurement (mass/volume)on 01-21-2022 Creatinine [Mass/Vol] 1.85 mg/dL 0.70-1.30 [facility] Work Phone: Comment on above: The validity of the calculated GFR & GFRAA in patients over 70 years has not been determined. Clinical correlation is essential. Serum or plasma low density lipoprotein (LDL) cholesterol measurement (mass/volume)on 01-21-2022 Cholesterol in LDL [Mass/Vol] 98 mg/dL 0-130 [facility] Work Phone: Serum or plasma urea nitroge n measurement (mass/volume)on 01-21-2022 Urea nitrogen [Mass/Vol] 31 mg/dL 7-18 [facility] Work Phone: Thin prep Papanicolaou smear with manual screeningon 01-21-2022 Thin prep Papanicolaou smear with manual screening 12 U/L 15-37 [facility] Work Phone: Thin prep Papanicolaou smear with manual screening 7 5-15 [facility] Work Phone: No Panel Informationon 01-03 BLANK _ [facility] Implant Date 11/21/2021 [facility] PACEMAKER CLINIC CHECKon AV Delay Adaptive Paced Minimum (ms) 300 ms [facility] AV Delay Adaptive Sensed Minimum (ms) 270 ms [facility] AV Delay Paced (ms) 100 ms [facility] AV Delay Sensed (ms) 90 ms [facility] Porter RA Pacing Amplitude (volts) 3 V [facility] RA Pacing Polarity BI [facility] RA Pacing Pulse Width (ms) 0.6 ms [facility] RA Sensing Amplitude (mvolts) 0.25 mV [facility] RA Sensing Polarity BI [facility] RV Pacing Amplitude (volts) 2.2 V [facility] RV Pacing Polarity BI [facility] RV Pacing Pulse Width (ms) 0.4 ms [facility] RV Sensing Amplitude (mvolts) 1.5 mV [facility] RV Sensing Polarity BI [facility] Lead1 Mfg [facility] Lead2 Mfg [facility] Location RA [facility] Location RV [facility] Lower Rate (bpm) 60 {beats}/min [facility] Max Sensor Rate (bmp) 130 {beats}/min [facility] Model L331 ACCOLADE MRI EL [facility] Model 7841 Ingevity+IS-1 [facility] Model 7842 Ingevity+IS-1 [facility] Pacemaker Dependent? NO [facility] Pacing Mode DDDR [facility] PM-Device Mfg BSX [facility] PM-Percent Pacing (A) 1 % [facility] PM-Percent Pacing (V) 1 % [facility] RA Bipolar Impedance ohms 519 ohm [facility] Rhythm NSR at 75 BPM [facility] RV Bipolar Impedance ohms 678 ohm [facility] Serial Number [id number] [facility] Serial Number [id number] [facility] Serial Number [id number] [facility] Thresh RA Capture Amplitude (volts) 1.4 V [facility] Thresh RA Capture Duration (ms) 0.6 ms [facility] Thresh RV Capture Amplitude (volts) 0.9 V [facility] Thresh RV Capture Duration (ms) 0.4 ms [facility] Tracking Rate (bpm) 130 {beats}/min [facility] No Panel Informationon 12-17 BLANK _ [facility] Implant Date 11/21/2021 [facility] PACEMAKER REMOTE CHECKon AV Delay Adaptive Paced Minimum (ms) 300 ms [facility] AV Delay Adaptive Sensed Minimum (ms) 270 ms [facility] AV Delay Paced (ms) 100 ms [facility] AV Delay Sensed (ms) 90 ms [facility] Porter RA Pacing Amplitude (volts) 3.5 V [facility] Porter RA Pacing Polarity BI [facility] RA Pacing Pulse Width (ms) 0.4 ms [facility] RA Sensing Amplitude (mvolts) 0.25 mV [facility] RA Sensing Polarity BI [facility] RV Pacing Amplitude (volts) 3.5 V [facility] RV Pacing Polarity BI [facility] RV Pacing Pulse Width (ms) 0.4 ms [facility] RV Sensing Amplitude (mvolts) 1.5 mV [facility] RV Sensing Polarity BI [facility] Lead1 Mfg [employer] [facility] Lead2 Mfg [facility] Location RA [facility] Location RV [facility] Lower Rate (bpm) 60 {beats}/min [facility] Max Sensor Rate (bmp) 130 {beats}/min [facility] Model L331 ACCOLADE MRI EL [facility] Model 7841 Ingevity+IS-1 [facility] Model 7842 Ingevity+IS-1 [facility] Pacing Mode DDDR [facility] PM-Device Mfg BSX [facility] PM-Percent Pacing (A) 0 % [facility] PM-Percent Pacing (V) 1 % [facility] RA Bipolar Impedance ohms 451 ohm [facility] RV Bipolar Impedance ohms 671 ohm [facility] Serial Number [id number] [facility] Serial Number [id number] [facility] Serial Number [id number] [facility] Tracking Rate (bpm) 130 {beats}/min [facility] [place] 12-16-2021 CNPN Telephone (HCSIND) ----- SIMINBENSON MENDOZA ([id number]) 1945 M Date Time Provider Department 12/16/21 ALONZO DE LA CRUZ During your visit today, we recorded the following information about you: Alonzo De La Cruz RN 12/16/2021 3:16 PM Signed ; Patient transferred and was admitted to the hospital 12/14 for 3 days of a-fib. All Home Health visits have been placed on HOLD at this time. Thank you for your review of this information. Alonzo De La Cruz RN-[facility] Care. Allergies As of Date: 12/16/2021 (No Known Allergies) Date Reviewed: 12/15/2021 Reviewed by: Amanda Samaniego RN - Fully Assessed Reason for Visit: Home Care [4073] Cmt: report of patient transferred to hospital Prescriptions as of 12/16/2021 - isosorbide mononitrate ER (IMDUR) 60 mg 24 hr tablet Take 60 mg by mouth as directed. - Chlorhexidine Gluconate (PERIDEX) 0.12 % solution Use 15 mL as instructed twice daily. Rinse around mouth for 30 seconds then expectorate - furosemide (LASIX) 40 mg tablet Take 40 mg by mouth as directed. - mupirocin (BACTROBAN) 2 % ointment Apply 1 application to affected area as directed. - potassium chloride ER (K-DUR, KLOR-CON) 20 mEq tablet Take 20 mEq by mouth as directed. - metoprolol tartrate, short acting, (LOPRESSOR) 25 mg tablet Take 1.5 tablets by mouth every 12 hours. - acetaminophen (TYLENOL) 500 mg tablet Take 2 tablets by mouth every 6 hours as needed for pain. - aspirin 81 mg chewable tablet Take 2 tablets by mouth once daily for 30 days, THEN 1 tablet once daily. - rosuvastatin (CRESTOR) 20 mg tablet Take 1 tablet by mouth once daily. - lisinopril (ZESTRIL, PRINIVIL) 5 mg tablet Take 1 tablet by mouth once daily. - magnesium oxide (MAG-OX) 400 mg (241.3 mg magnesium) tablet Take 1 tablet by mouth once daily. - Shower Chair with Back once daily. Use as directed - albuterol HFA (PROVENTIL HFA, VENTOLIN HFA) 90 mcg/actuation inhaler inhale 2 puffs 20-30 MINUTES PRIOR TO EXERCISE AND NEEDED FOR ... (REFER TO PRESCRIPTION NOTES). - fluticasone-vilanterol (BREO ELLIPTA) 200-25 mcg/dose inhaler Inhale 1 Inhalation as instructed once daily. Facility-Administered Medications as of 12/16/2021 - amiodarone 400 mg tab(s) (PACERONE) - apixaban 5 mg tab(s) (ELIQUIS) - acetaminophen 650 mg tab(s) (TYLENOL) - heparin RATE CHANGE bolus 1,000-4,000 Units for subtherapeutic PTTAC results - rosuvastatin 20 mg tab(s) (CRESTOR) - fluticasone-vilanterol 200-25 mcg/dose 1 Inhalation (BREO ELLIPTA) - metoprolol tartrate (short acting) 37.5 mg tab(s) (LOPRESSOR) - aspirin 81 mg chewable tab(s) - potassium chloride ER 20-40 mEq tab(s) (K-DUR, KLOR-CON) - potassium chloride iv piggyback 20 mEq/100 mL - magnesium sulfate 2 g in sterile water 50 ml - phosphorus 500 mg tab(s) (K PHOS NEUTRAL) - calcium gluconate 4 g in NaCl 0.9% 250 mL - NaCl 0.9% iv flush bag - sodium chloride 0.9 % (flush) 3-5 mL (BD POSIFLUSH) Problem List As Of Date 12/16/2021 Noted Resolved CAD (coronary artery disease) [I25.10] 11/18/2021 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 He said that his lopressor had been increased because his HR has been elevated. His HR was 130 (regular), after 10min resting 120bpm. BP 142/78, SPO2 99%, temp 97.8, RR 16. Pt denies any dizziness or SOB. He stated he was due to take another dose of lopressor in about an hour, and that he's only had 2 doses since the change. I told him to record his VS over the weekend, and to call your office Thursday with the readings. Or if he develops symptoms to go to the ER. Thank you Allergies As of Date: 12/13/2021 (No Known Allergies) Date Reviewed: 12/05/2021 Reviewed by: Alena Schwab RN - Fully Assessed Reason for Visit: Home Care [4073] Cmt: elevated HR Prescriptions as of 12/13/2021 - metoprolol tartrate, short acting, (LOPRESSOR) 25 mg tablet Take 1.5 tablets by mouth every 12 hours. - acetaminophen (TYLENOL) 500 mg tablet Take 2 tablets by mouth every 6 hours as needed for pain. - aspirin 81 mg chewable tablet Take 2 tablets by mouth once daily for 30 days, THEN 1 tablet once daily. - rosuvastatin (CRESTOR) 20 mg tablet Take 1 tablet by mouth once daily. - lisinopril (ZESTRIL, PRINIVIL) 5 mg tablet Take 1 tablet by mouth once daily. - magnesium oxide (MAG-OX) 400 mg (241.3 mg magnesium) tablet Take 1 tablet by mouth once daily. - Shower Chair with Back once daily. Use as directed - albuterol HFA (PROVENTIL HFA, VENTOLIN HFA) 90 mcg/actuation inhaler inhale 2 puffs 20-30 MINUTES PRIOR TO EXERCISE AND NEEDED FOR ... (REFER TO PRESCRIPTION NOTES). - fluticasone-vilanterol (BREO ELLIPTA) 200-25 mcg/dose inhaler Inhale 1 Inhalation as instructed once daily. Problem List As Of Date 12/13/2021 Noted Resolved CAD (coronary artery disease) [I25.10] 11/18/2021 Junctional cardiac arrhythmia [I49.8] 11/21/2021 S/P CABG x 2 [Z95.1] 11/24/2021 Encounter Status:Closed by TIANA PHILIPPE on 12/13/21 [facility] [place] 12-09-2021 CNPN Telephone (HCSIND) ----- BENSON MCKEON ([id number]) 1945 M Date Time Provider Department 12/09/21 ALENA SCHWAB During your visit today, we recorded the following information about you: Alena Schwab RN 12/09/2021 10:16 AM Signed Pt has been taking his blood pressures daily and he has noted that he has been having an increase of his blood pressures SN noted his list includes most blood pressures running in the Mid 130's over high 80's to low 90's and his pulse is increasing to in the 90's. SN took his blood pressure manullay today and it was 142/84 p 92 his weight was 185 R 18 his edema in his BLE is reduced he express taking all meds as directed and maintaining his diet he express no chest pain, racing heart, palpitation, sweats, increased pain, dizziness, headaches, arm aches, increased SOB. His Bowel and Bladder are regular. No falls, No confusion. Incisions are clean dry and no s/s of infection noted. Allergies As of Date: 12/09/2021 (No Known Allergies) Date Reviewed: 12/05/2021 Reviewed by: Alena Schwab RN - Fully Assessed Reason for Visit: Home Care [4073] Cmt: Update Prescriptions as of 03/06/2022 - aspirin 81 mg chewable tablet Take 1 tablet by mouth once daily. - rosuvastatin (CRESTOR) 5 mg tablet Take 1 tablet by mouth every Thursday,Thursday,Thursday. - lisinopril (ZESTRIL, PRINIVIL) 5 mg tablet Take 1 tablet by mouth once daily. - metoprolol tartrate, short acting, (LOPRESSOR) 25 mg tablet Take 1.5 tablets by mouth every 12 hours. - acetaminophen (TYLENOL) 500 mg tablet Take 2 tablets by mouth every 6 hours as needed for pain. - albuterol HFA (PROVENTIL HFA, VENTOLIN HFA) 90 mcg/actuation inhaler inhale 2 puffs 20-30 MINUTES PRIOR TO EXERCISE AND NEEDED FOR ... (REFER TO PRESCRIPTION NOTES). - fluticasone-vilanterol (BREO ELLIPTA) 200-25 mcg/dose inhaler Inhale 1 Inhalation as instructed once daily. 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 He is staying with his daughter and her family at this time. He has all his medications in the home and his family is preparing and assuring her takes them. His incisions are clean covered with dermabonud and dressings. Educated pt on Post Op precautions, skin care, s/s of infection home safety, and medication management express understanding See intervention summary for education details and skills performed. Plan of care and visit frequency established with patient and plan of care agreed upon. Patient demonstrated a need for further skilled SN services for chronic disease management AND education and wound/skin care. RECOMMENDATION: Visit Frequency: 2x3, 1x3 Need for additional services: Patient agreeable to PT referrals. Patient declined N/A referrals. Additional concerns to be followed up on: NONE Next visit to focus on (be specific): incision care post op monitoring Additionally Pt states he has been having smaller frequent bowel movements, he states he was on Metamucil prior to Surgery, he would like to know if he can resume taking it? He was also on a Multivitamin SN educated to take bottle with him to his follow up visit with your office before resuming it, express understanding. Allergies As of Date: 11/29/2021 (No Known Allergies) Date Reviewed: 11/29/2021 Reviewed by: Alena Schwab RN - Fully Assessed Reason for Visit: Home Care [4073] Cmt: SOC and request Prescriptions as of 11/29/2021 - acetaminophen (TYLENOL) 500 mg tablet Take 2 tablets by mouth every 6 hours as needed for pain. - aspirin 81 mg chewable tablet Take 2 tablets by mouth once daily for 30 days, THEN 1 tablet once daily. - metoprolol tartrate, short acting, (LOPRESSOR) 25 mg tablet Take 0.5 tablets by mouth every 12 hours. - rosuvastatin (CRESTOR) 20 mg tablet Take 1 tablet by mouth once daily. - lidocaine (SALONPAS) 4 % patch Apply 1 Patch as directed once daily. Cut in half and apply to both sides of midsternal incision daily. Remove after 12 hrs. - lisinopril (ZESTRIL, PRINIVIL) 5 mg tablet Take 1 tablet by mouth once daily. - magnesium oxide (MAG-OX) 400 mg (241.3 mg magnesium) tablet Take 1 tablet by mouth once daily. - furosemide (LASIX) 40 mg tablet Take 1 tablet by mouth once daily for 3 days. - Shower Chair with Back once daily. Use as directed - albuterol HFA (PROVENTIL HFA, VENTOLIN HFA) 90 mcg/actuation inhaler inhale 2 puffs 20-30 MINUTES PRIOR TO EXERCISE AND NEEDED FOR ... (REFER TO PRESCRIPTION NOTES). - fluticasone-vilanterol (BREO ELLIPTA) 200-25 mcg/dose inhaler Inhale 1 Inhalation as instructed once daily. Problem List As Of Date 11/29/2021 Noted Resolved CAD (coronary artery disease) [I25.10] 11/18/2021 Junctional cardiac arrhythmia [I49.8] 11/21/2021 S/P CABG x 2 [Z95.1] 11/24/2021 Encounter Status:Closed by ALENA SCHWAB on 11/29/21 [facility] BENSON MCKE[facility] ([id number]) 1945 M Date Time Provider Department 11/27/21 RAEANN GARIBAY During your visit today, we recorded the following information about you: Raeann Garibay, PT 11/27/2021 3:44 PM Signed PT eval only completed 11/27/21 Pt indep with cardiac ambulation program Allergies As of Date: 11/27/2021 (No Known Allergies) Date Reviewed: 11/26/2021 Reviewed by: Alena Schwab RN - Fully Assessed Reason for Visit: Home Care [4073] Cmt: PT eval Prescriptions as of 11/27/2021 - acetaminophen (TYLENOL) 500 mg tablet Take 2 tablets by mouth every 6 hours as needed for pain. - aspirin 81 mg chewable tablet Take 2 tablets by mouth once daily for 30 days, THEN 1 tablet once daily. - metoprolol tartrate, short acting, (LOPRESSOR) 25 mg tablet Take 0.5 tablets by mouth every 12 hours. - rosuvastatin (CRESTOR) 20 mg tablet Take 1 tablet by mouth once daily. - lidocaine (SALONPAS) 4 % patch Apply 1 Patch as directed once daily. Cut in half and apply to both sides of midsternal incision daily. Remove after 12 hrs. - lisinopril (ZESTRIL, PRINIVIL) 5 mg tablet Take 1 tablet by mouth once daily. - magnesium oxide (MAG-OX) 400 mg (241.3 mg magnesium) tablet Take 1 tablet by mouth once daily. - furosemide (LASIX) 40 mg tablet Take 1 tablet by mouth once daily for 3 days. - potassium chloride ER (KLOR-CON M20) 20 mEq tablet Take 1 tablet by mouth once daily for 3 days. - Shower Chair with Back once daily. Use as directed - albuterol HFA (PROVENTIL HFA, VENTOLIN HFA) 90 mcg/actuation inhaler inhale 2 puffs 20-30 MINUTES PRIOR TO EXERCISE AND NEEDED FOR ... (REFER TO PRESCRIPTION NOTES). - fluticasone-vilanterol (BREO ELLIPTA) 200-25 mcg/dose inhaler Inhale 1 Inhalation as instructed once daily. Problem List As Of Date 11/27/2021 Noted Resolved CAD (coronary artery disease) [I25.10] 11/18/2021 Junctional cardiac arrhythmia [I49.8] 11/21/2021 S/P CABG x 2 [Z95.1] 11/24/2021 Encounter Status:Closed by RAEANN GARIBAY on 11/27/21 [facility] 11-20-2021 [facility] BENSON MCKEON ([id number]) 1945 M Date Time Provider Department 11/20/21 JOHANA VAUGHN During your visit today, we recorded the following information about you: JACQUELINE Flower 11/20/2021 1:11 PM Addendum 11/20/2021 CONFIRMATION CALL NO COVID TEST, NO SYMPTOMS, NO CONTACT, NO INTERNATIONAL TRAVEL a. Date and Time: 1:41 PM 11/20/2021 b. Contact name/relationship: BRITTNEY AMAYA DAUGHTER Have you been active with any Home Care company in the last 60 days? No. Caregiver: Patient is able to manage care independently Shay Dubon, TELEGRAPH MECHANIC CONFIRMATION CALL a. Date and Time: 1:05 PM 11/20/2021 b. Contact name/relationship: No answer at the granddaughters number so a message was left to call Nadine back at the home care number Have you been active with any Home Care company in the last 60 days? Caregiver: JACQUELINE Flower CONFIRMATION CALL a. Date and Time: 11:09 AM 11/20/2021 b. Contact name/relationship: left a message to call Nadine back at the home care number Have you been active with any Home Care company in the last 60 days? Caregiver: JACQUELINE Flower LPN 11/25/2021 12:09 PM Signed CONFIRMATION CALL a. Date and Time: 12:09 PM 11/25/2021 b. Contact name/relationship: Brittney Have you been active with any Home Care company in the last 60 days? No. Nadine Lovell LPN Allergies As of Date: 11/20/2021 (No Known Allergies) Date Reviewed: 11/20/2021 Reviewed by: Joyce Garcia RRT - Fully Assessed Reason for Visit: Home Care [4073] Cmt: confirmation call Prescriptions as of 11/25/2021 - acetaminophen (TYLENOL) 500 mg tablet Take 2 tablets by mouth every 6 hours as needed for pain. - aspirin 81 mg chewable tablet Take 2 tablets by mouth once daily for 30 days, THEN 1 tablet once daily. - metoprolol tartrate, short acting, (LOPRESSOR) 25 mg tablet Take 0.5 tablets by mouth every 12 hours. - rosuvastatin (CRESTOR) 20 mg tablet Take 1 tablet by mouth once daily. - lidocaine (SALONPAS) 4 % patch Apply 1 Patch as directed once daily. Cut in half and apply to both sides of midsternal incision daily. Remove after 12 hrs. - lisinopril (ZESTRIL, PRINIVIL) 5 mg tablet Take 1 tablet by mouth once daily. - magnesium oxide (MAG-OX) 400 mg (241.3 mg magnesium) tablet Take 1 tablet by mouth once daily. - furosemide (LASIX) 40 mg tablet Take 1 tablet by mouth once daily for 3 days. - potassium chloride ER (KLOR-CON M20) 20 mEq tablet Take 1 tablet by mouth once daily for 3 days. - albuterol HFA (PROVENTIL HFA, VENTOLIN HFA) 90 mcg/actuation inhaler inhale 2 puffs 20-30 MINUTES PRIOR TO EXERCISE AND NEEDED FOR ... (REFER TO PRESCRIPTION NOTES). - fluticasone-vilanterol (BREO ELLIPTA) 200-25 mcg/dose inhaler Inhale 1 Inhalation as instructed once daily. Facility-Administered Medications as of 11/25/2021 - metoprolol tartrate (short acting) 12.5 mg tab(s) (LOPRESSOR) - sodium chloride 0.9 % (flush) 2-10 mL (BD POSIFLUSH) - lisinopril 5 mg tab(s) (ZESTRIL, PRINIVIL) - acetaminophen 300 mg - codeine 30 mg tablet (TYLENOL #3) - insulin lispro pen (rapid acting) (HumaLOG KWIKPEN) - insulin lispro pen (rapid acting) (HumaLOG KWIKPEN) - pantoprazole DR 40 mg tab(s) (PROTONIX) - polyethylene glycol 3350 17 g packet (MIRALAX, GLYCOLAX) - senna-docusate 8.6-50 mg 1 tablet (SENNA-S) - bisacodyl 10 mg suppository (DULCOLAX) - rosuvastatin 20 mg tab(s) (CRESTOR) - dextrose 50% in water 25 mL syringe - albuterol 2.5 mg /3 mL (0.083 %) 2.5 mg (PROVENTIL) - aspirin 162 mg chewable tab(s) - ondansetron (PF) 4 mg injection (ZOFRAN) - acetaminophen 1,000 mg tab(s) (TYLENOL) - lidocaine 4 % 1 Patch (SALONPAS) - lidocaine patch - REMOVE - lidocaine - VERIFY PATCH - magnesium oxide 400 mg tab(s) (MAG-OX) Problem List As Of Date 11/20/2021 Noted Resolved CAD (coronary artery disease) [I25.10] 11/18/2021 Encounter Status:Closed by SHAY DUBON on 11/20/21 Normal [facility] SARS-CoV-2 RNA Resp Ql MISBAH+p kerry 11-15-2021 SARS-CoV-2 (COVID-19) RNA MISBAH+probe Ql (Resp) COVID 19 RESULT: SARS-CoV-2 (Agent of COVID-19) Not Detected by RT-PCR or equivalent method. This test was developed and its performance characteristics determined by [facility]'s [facility] [place]. This test has been authorized by FDA under an Emergency Use Authorization (EUA). This test has been validated in accordance with the FDA's Guidance Document Policy for Diagnostics Testing in Laboratories Certified to Perform High Complexity Testing under CLIA prior to Emergency use Authorization for Coronavirus Disease 2019 during the Public Health Emergency issued on October 22, 2019. Test performed by [facility], [facility] [place], [address] [place] [address]. Normal [facility] Comment on above: Performed By: #### [id number] ####[facility] [id number] [place] [address] [place] Laboratory - Microbiology an d Antimicrobial susceptibilityon 11-11-2021 S. aureus and MRSA panel MISBAH+probe (Nose) Negative Negative [facility] [place] 09-19-2021 CNPN Telephone ([facility] ----- SIMINBENSON MENDOZA ([id number]) 1945 M Date Time Provider Department 09/19/21 ROLY LAZO During your visit today, we recorded the following information about you: Tyrell Haley 09/19/2021 2:37 PM Signed LMOM to schedule New Patient Referral from Marcel Garcia for CAD/Mitral Valve Regurgitation with Cath and Echo 09/10/2021 Allergies As of Date: 09/19/2021 (No Known Allergies) Date Reviewed: 08/13/2021 Reviewed by: Ryan Huber MD - Fully Assessed Reason for Visit: Appointment [186] Prescriptions as of 09/19/2021 - metoprolol tartrate, short acting, (LOPRESSOR) 25 mg tablet Take by mouth. - isosorbide mononitrate ER (IMDUR) 30 mg 24 hr tablet Take 30 mg by mouth once daily. - metoprolol succinate ER (TOPROL XL) 25 mg 24 hr tablet Take 25 mg by mouth twice daily. - aspirin, enteric coated (ASPIRIN, ENTERIC COATED) 81 mg EC tablet Take 81 mg by mouth once daily. - albuterol HFA (PROVENTIL HFA, VENTOLIN HFA) 90 mcg/actuation inhaler inhale 2 puffs 20-30 MINUTES PRIOR TO EXERCISE AND NEEDED FOR ... (REFER TO PRESCRIPTION NOTES). - azithromycin (ZITHROMAX) 250 mg tablet Take by mouth as directed. TAKE 2 TABLETS BY MOUTH TODAY, THEN TAKE 1 TABLET DAILY FOR 4 DAYS - benzonatate (TESSALON PERLE) 100 mg capsule take 1 capsule by mouth three times a day if needed for cough - predniSONE (DELTASONE) 20 mg tablet Take 40 mg by mouth once daily. - fluticasone-vilanterol (BREO ELLIPTA) 200-25 mcg/dose inhaler Inhale 1 Inhalation as instructed once daily. - rosuvastatin (CRESTOR) 5 mg tablet Take 5 mg by mouth once daily. - omega-3 fatty acids/fish oil (FISH OIL-OMEGA-3 FATTY ACIDS) 300-1,000 mg cap Take 2 g by mouth once daily. - Multivitamin capsule Take 1 capsule by mouth once daily. - triamcinolone acetonide (KENALOG) 0.1 % ointment Apply 1 application to affected area twice daily. - methylPREDNISolone (MEDROL DOSE-PACK) 4 mg Dose-Pack As Instructed per package - PRAVASTATIN SODIUM (PRAVASTATIN ORAL) Take by mouth. - IBUPROFEN ORAL Take by mouth. - pseudoephedrine (SUDAFED) 30 mg tablet Take 30 mg by mouth every 4 hours as needed. - MEDICATION, NON-DATABASE HCI otc for cough AND congestion - codeine-guaiFENesin (ROBITUSSIN AC) 10-100 mg/5 mL syrup Take 5-10 mL by mouth four times daily as needed for Cough. May cause drowsiness. Problem List As Of Date: 09/19/2021 (None) Encounter Status:Closed by TYRELL HALEY on [facility]/19/[facility] Office Visit ([facility] ) ----- BENSON MCKEON ([id number]) 1945 M Date Time Provider Department 08/13/21 2:[address] [facility] During your visit today, we recorded the following information about you: Temperature Pulse Respiration Blood pressure 97.8 degrees 73/minute 18/minute 131/73 Weight Height 85.3 kg 1.753 m Ryan Huber MD 08/13/2021 2:21 PM Signed PATIENT NAME: Benson Mckeon DATE OF SERVICE: August 13, 2021 PRIMARY CARE PHYSICIAN: Mikel Fields MD CARE TEAM: Patient Care Team: Mikel Fields as PCP - General (Family Practice) HISTORY OF PRESENT ILLNESS: Benson Mckeon is a 75 year old man who presents for evaluation of progressively worsening dyspnea on exertion. He denies SOB at rest, hemoptysis, chronic sinonasal congestion, postnasal drip, unanticipated weight loss, fever/chills, exposure to ill contacts, night sweats, and personal or family history of chronic lung disease. He does have significantly improved dyspnea on exertion, vastly improved chronic cough and chronic sputum production, and has only minimal wheezing. He denies frequent or recurrent respiratory tract infections including pneumonias, sinus infections, and other upper respiratory infections. Patient is able to do all his daily activities (eg, taker out, shopping, meal preparation, work, etc.) at a measured pace without difficulty or dyspnea. He can even now walk his dog ~1/2 mile a day which he could not prior to starting Breo. He had been previously using PRN albuterol daily 8-10 times per day when last seen here on 03/07/21. He has not used it once since he started his Breo. Of note, he has been having intermittent neck and right arm pain for which he saw a mobile lounge driver in [place] who will be doing a cardiac catheterization on him in the new year. HOSPITALIZATION HISTORY: None. LAST DATE OF INFLUENZA/PNEUMONIA VACCINES: Immunization History Administered Date(s) Administered Influenza 06/21/2014 Influenza Seasonal - High Dose - Age 65+ 07/03/2017 Influenza Seasonal Inj Quad Age 6 Mo-64 Yrs Pres Free 06/18/2015 06/14/2018 06/21/2018 Influenza Seasonal Trivalent Adjuvanted Pres Free 06/23/2019 Influenza Seasonal Trivalent Inj Pres Free 07/06/2015 Pneumococcal-13 Vac Conjugate 12/21/2015 Pneumovax 01/09/2014 Zoster Recombinant (Shingrix) 12/29/2018 03/14/2019 influenza (aIIV4) vaccine, age 65+ yr, quadrivalent, PF (FLUAD QUADRIVALENT) 07/03/2020 influenza, high-dose, quadrivalent vaccine (FLUZONE HIGH DOSE QUADRIVALENT) 05/28/2021 REVIEW OF SYSTEMS: GENERAL: Negative for fevers, malaise, chills, sweats, change in appetite or weight HEENT: Negative for headaches, nasal congestion or rhinorrhea NECK: Negative for pain and significant neck swelling NEURO: No history of headaches, syncope, seizures RESPIRATORY: Negative for cough, hemoptysis, wheezing, and dyspnea at rest and with exertion/ambulation CARDIOVASCULAR: Negative for chest pain/discomfort/pressure, orthopnea, leg swelling, or palpitations GI: No nausea, vomiting, diarrhea, heartburn or reflux symptoms : No history of dysuria, frequency or incontinence SKIN: Negative for lesions, rash, and itching MUSCULOSKELETAL: Negative for joint pain or swelling, back pain or muscle pain ? Patient's weight is stable. Last 2 Encounter Wt Readings: Date: Wt: 03/07/2021 82 kg (180 lb 11.2 oz) 05/08/2016 83.4 kg (183 lb 12.8 oz) All other 10 point review of systems were reviewed and negative except for that mentioned above. ? PAST MEDICAL HISTORY: PAST MEDICAL HISTORY Diagnosis Date - Actinic keratosis - Allergic rhinitis - BPH (benign prostatic hyperplasia) - Inguinal hernia - Mixed hyperlipidemia - Osteoarthritis of multiple joints PAST SURGICAL HISTORY: PAST SURGICAL HISTORY Procedure Laterality Date - INGUINAL HERNIA REPAIR HX 1994 - KNEE SURGERY HX Right 1983 PAST FAMILY HISTORY: FAMILY HISTORY Problem Relation Age of Onset - Lymphoma Mother - Alzheimer's Disease Father - Cancer Sister - Stroke Brother - Heart Brother SOCIAL HISTORY: Social History Tobacco Use - Smoking status: Former Smoker Years: 15.00 Types: Cigarettes, Pipe Quit date: 1979 Years since quittin.0 - Smokeless tobacco: Never Used - Tobacco comment: SOCIALLY Vaping Use - Vaping Use: Never used Substance Use Topics - Alcohol use: Yes Comment: ON OCCASION - Drug use: Never ALLERGIES: ALLERGIES No Known Allergies HOME MEDICATIONS: Current Outpatient Medications Medication Sig Dispense Refill - isosorbide mononitrate ER (IMDUR) 30 mg 24 hr tablet Take 30 mg by mouth once daily. - metoprolol succinate ER (TOPROL XL) 25 mg 24 hr tablet Take 25 mg by mouth twice daily. - aspirin, enteric coated (ASPIRIN, ENTERIC COATED) 81 mg EC tablet Take 81 mg by mouth once da (more content not included)... Normal [facility] [place] 03-15-2021 CNPN Telephone ([facility]) ----- BENSON MCKEON ([id number]) 1945 M Date Time Provider Department 03/15/21 RYAN HUBER [facility] During your visit today, we recorded the following information about you: Cassius Blandon 03/15/2021 8:[address] Huber, The patient wanted you to know that the medication you prescribed is working well. I also want you to know that so many of the patients that you see, have such wonderful things to say about you when checking out. Have a good weekend, Cassius Allergies As of Date: 03/15/2021 (No Known Allergies) Date Reviewed: 03/07/2021 Reviewed by: Ryan Huber MD - Fully Assessed Reason for Visit: Patient Update [1234] Prescriptions as of 10/08/2021 - metoprolol tartrate, short acting, (LOPRESSOR) 25 mg tablet Take by mouth. - isosorbide mononitrate ER (IMDUR) 30 mg 24 hr tablet Take 30 mg by mouth once daily. - metoprolol succinate ER (TOPROL XL) 25 mg 24 hr tablet Take 25 mg by mouth twice daily. - aspirin, enteric coated (ASPIRIN, ENTERIC COATED) 81 mg EC tablet Take 81 mg by mouth once daily. - albuterol HFA (PROVENTIL HFA, VENTOLIN HFA) 90 mcg/actuation inhaler inhale 2 puffs 20-30 MINUTES PRIOR TO EXERCISE AND NEEDED FOR ... (REFER TO PRESCRIPTION NOTES). - azithromycin (ZITHROMAX) 250 mg tablet Take by mouth as directed. TAKE 2 TABLETS BY MOUTH TODAY, THEN TAKE 1 TABLET DAILY FOR 4 DAYS - benzonatate (TESSALON PERLE) 100 mg capsule take 1 capsule by mouth three times a day if needed for cough - predniSONE (DELTASONE) 20 mg tablet Take 40 mg by mouth once daily. - fluticasone-vilanterol (BREO ELLIPTA) 200-25 mcg/dose inhaler Inhale 1 Inhalation as instructed once daily. - rosuvastatin (CRESTOR) 5 mg tablet Take 5 mg by mouth once daily. - omega-3 fatty acids/fish oil (FISH OIL-OMEGA-3 FATTY ACIDS) 300-1,000 mg cap Take 2 g by mouth once daily. - Multivitamin capsule Take 1 capsule by mouth once daily. - triamcinolone acetonide (KENALOG) 0.1 % ointment Apply 1 application to affected area twice daily. - methylPREDNISolone (MEDROL DOSE-PACK) 4 mg Dose-Pack As Instructed per package - PRAVASTATIN SODIUM (PRAVASTATIN ORAL) Take by mouth. - IBUPROFEN ORAL Take by mouth. - pseudoephedrine (SUDAFED) 30 mg tablet Take 30 mg by mouth every 4 hours as needed. - MEDICATION, NON-DATABASE HCI otc for cough AND congestion - codeine-guaiFENesin (ROBITUSSIN AC) 10-100 mg/5 mL syrup Take 5-10 mL by mouth four times daily as needed for Cough. May cause drowsiness. Problem List As Of Date: 03/15/2021 (None) Encounter Status:Closed by CASSIUS BLANDON on 10/08/21 Normal [facility] ECG B/O W INTERP (MED OFFICE ) [facility] Vital Signs Date Time Vital Sign Value Performing Clinician Facility 05-15-2025 14:50-0400 Body height 177.[address] Kelsey Berger MD Work Phone: [facility] 05-15-2025 14:49-0400 Body mass index (BMI) [Ratio] 24.5 kg/m2 Dr. Kelsey Berger MD Work Phone: [facility] 05-15-2025 14:49-0400 Body weight 77.[address] Kelsey Berger MD Work Phone: [facility] 05-15-2025 14:49-0400 Diastolic blood pressure 72 mm[Hg] Dr. Kelsey Berger MD Work Phone: [facility] 05-15-2025 14:49-0400 Heart rate 75 /min Dr. Kelsey Berger MD Work Phone: [facility] 05-15-2025 14:49-0400 Respiratory rate 16 /min Dr. Kelsey Berger MD Work Phone: [facility] 05-15-2025 14:49-0400 Systolic blood pressure 125 mm[Hg] Dr. Kelsey Berger MD Work Phone: [facility] 02-09-2025 13:39-0400 Body mass index (BMI) [Ratio] 28.26 kg/m2 Ovidio Main MD Work Phone: [facility] 02-09-2025 13:39-0400 Body weight 86.82 kg Ovidio Main MD Work Phone: [facility] 02-09-2025 13:39-0400 Diastolic blood pressure 69 mm[Hg] Ovidio Main MD Work Phone: [facility] 02-09-2025 13:39-0400 Heart rate 68 /min Ovidio Main MD Work Phone: [facility] 02-09-2025 13:39-0400 SaO2% (BldA) [Mass fraction] 99 % Ovidio Main MD Work Phone: [facility] 02-09-2025 13:39-0400 Systolic blood pressure 125 mm[Hg] Ovidio Main MD Work Phone: [facility] 02-01-2025 13:38-0400 Body height 177.[address] Kelsey Berger MD Work Phone: [facility] 02-01-2025 13:38-0400 Body mass index (BMI) [Ratio] 27.4 kg/m2 Dr. Kelsey Berger MD Work Phone: [facility] 02-01-2025 13:38-0400 Body temperature 98.2 [degF] Dr. Kelsey Berger MD Work Phone: [facility] 02-01-2025 13:38-0400 Body weight 86.[address] Kelsey Berger MD Work Phone: [facility] 02-01-2025 13:38-0400 Diastolic blood pressure 56 mm[Hg] Dr. Kelsey Berger MD Work Phone: [facility] 02-01-2025 13:38-0400 Heart rate 74 /min Dr. Kelsey Berger MD Work Phone: [facility] 02-01-2025 13:38-0400 Respiratory rate 16 /min Dr. Kelsey Berger MD Work Phone: [facility] 02-01-2025 13:38-0400 SaO2% (BldA) [Mass fraction] 95 % Dr. Kelsey Berger MD Work Phone: [facility] 02-01-2025 13:38-0400 Systolic blood pressure 106 mm[Hg] Dr. Kelsey Berger MD Work Phone: [facility] 10-26-2024 13:52-0500 Body mass index (BMI) [Ratio] 28.5 kg/m2 Dr. Kelsey Berger MD Work Phone: [facility] 10-26-2024 13:52-0500 Body temperature 98 [degF] Dr. Kelsey Berger MD Work Phone: [facility] 10-26-2024 13:52-0500 Body weight 90.[address] Kelsey Berger MD Work Phone: [facility] 10-26-2024 13:52-0500 Diastolic blood pressure 70 mm[Hg] Dr. Kelsey Berger MD Work Phone: [facility] 10-26-2024 13:52-0500 Heart rate 77 /min Dr. Kelsey Berger MD Work Phone: [facility] 10-26-2024 13:52-0500 Respiratory rate 16 /min Dr. Kelsey Berger MD Work Phone: [facility] 10-26-2024 13:52-0500 SaO2% (BldA) [Mass fraction] 95 % Dr. Kelsey Berger MD Work Phone: [facility] 10-26-2024 13:52-0500 Systolic blood pressure 115 mm[Hg] Dr. Kelsey Berger MD Work Phone: [facility] 10-13-2024 14:35-0500 Body mass index (BMI) [Ratio] 28.3 kg/m2 Dr. Kelsey Berger MD Work Phone: [facility] 10-13-2024 14:35-0500 Body weight 89.[address] Kelsey Berger MD Work Phone: [facility] 10-13-2024 14:35-0500 Diastolic blood pressure 67 mm[Hg] Dr. Kelsey Berger MD Work Phone: [facility] 10-13-2024 14:35-0500 Heart rate 74 /min Dr. Kelsey Berger MD Work Phone: [facility] 10-13-2024 14:35-0500 Respiratory rate 18 /min Dr. Kelsey Berger MD Work Phone: [facility] 10-13-2024 14:35-0500 SaO2% (BldA) [Mass fraction] 94 % Dr. Kelsey Berger MD Work Phone: [facility] 10-13-2024 14:35-0500 Systolic blood pressure 127 mm[Hg] Dr. Kelsey Berger MD Work Phone: [facility] 02-08-2024 14:06-0400 Body height 175.3 cm Ovidio Main MD Work Phone: [facility] 02-08-2024 14:06-0400 Body mass index (BMI) [Ratio] 28.5 kg/m2 Ovidio Main MD Work Phone: [facility] 02-08-2024 14:06-0400 Body weight 87.54 kg Ovidio Main MD Work Phone: [facility] 02-08-2024 14:06-0400 Diastolic blood pressure 59 mm[Hg] Ovidio Main MD Work Phone: [facility] 02-08-2024 14:06-0400 Heart rate 66 /min Ovidio Main MD Work Phone: [facility] 02-08-2024 14:06-0400 SaO2% (BldA) [Mass fraction] 97 % Ovidio Main MD Work Phone: [facility] 02-08-2024 14:06-0400 Systolic blood pressure 114 mm[Hg] Ovidio Main MD Work Phone: [facility] 04-08-2023 13:32-0400 Body height 177.[address] Kelsey Berger Work Phone: [facility] 04-08-2023 13:32-0400 Body mass index (BMI) [Ratio] 27.9 kg/m2 Dr. Kelsey Berger Work Phone: [facility] 04-08-2023 13:32-0400 Body temperature 97.8 [degF] Dr. Kelsey Berger Work Phone: [facility] 04-08-2023 13:32-0400 Body weight 88.[address] Kelsey Berger Work Phone: [facility] 04-08-2023 13:32-0400 Diastolic blood pressure 71 mm[Hg] Dr. Kelsey Berger Work Phone: [facility] 04-08-2023 13:32-0400 Heart rate 73 /min Dr. Kelsey Berger Work Phone: [facility] 04-08-2023 13:32-0400 Respiratory rate 16 /min Dr. Kelsey Berger Work Phone: [facility] 04-08-2023 13:32-0400 SaO2% (BldA) [Mass fraction] 96 % Dr. Kelsey Berger Work Phone: [facility] 04-08-2023 13:32-0400 Systolic blood pressure 113 mm[Hg] Dr. Kelsey Berger Work Phone: [facility] 01-22-2023 15:03-0400 Body mass index (BMI) [Ratio] 27.6 kg/m2 Dr. Kelsey Berger Work Phone: [facility] 01-22-2023 15:03-0400 Body weight 87.[address] Kelsey Berger Work Phone: [facility] 01-22-2023 15:03-0400 Diastolic blood pressure 61 mm[Hg] Dr. Kelsey Berger Work Phone: [facility] 01-22-2023 15:03-0400 Heart rate 78 /min Dr. Kelsey Berger Work Phone: [facility] 01-22-2023 15:03-0400 Respiratory rate 16 /min Dr. Kelsey Berger Work Phone: [facility] 01-22-2023 15:03-0400 Systolic blood pressure 116 mm[Hg] Dr. Kelsey Berger Work Phone: [facility] 10-02-2022 11:06-0500 Body temperature 97.1 [degF] Dr. Kelsey Berger Work Phone: [facility] 10-02-2022 11:06-0500 Body weight 86.[address] Kelsey Berger Work Phone: [facility] 10-02-2022 11:06-0500 Diastolic blood pressure 58 mm[Hg] Dr. Kelsey Berger Work Phone: [facility] 10-02-2022 11:06-0500 Heart rate 84 /min Dr. Kelsey Berger Work Phone: [facility] 10-02-2022 11:06-0500 Respiratory rate 16 /min Dr. Kelsey Berger Work Phone: [facility] 10-02-2022 11:06-0500 SaO2% (BldA) [Mass fraction] 98 % Dr. Kelsey Berger Work Phone: [facility] 10-02-2022 11:06-0500 Systolic blood pressure 126 mm[Hg] Dr. Kelsey Berger Work Phone: [facility] 09-25-2022 12:58-0500 Body height 177.[address] Kelsey Berger Work Phone: [facility] 09-25-2022 12:58-0500 Body mass index (BMI) [Ratio] 27.5 kg/m2 Dr. Kelsey Berger Work Phone: [facility] 09-25-2022 12:58-0500 Body weight 87.[address] Kelsey eBrger Work Phone: [facility] 09-25-2022 12:58-0500 Diastolic blood pressure 75 mm[Hg] Dr. Kelsey Berger Work Phone: [facility] 09-25-2022 12:58-0500 Heart rate 62 /min Dr. Kelsey Berger Work Phone: [facility] 09-25-2022 12:58-0500 Respiratory rate 18 /min Dr. Kelsey Berger Work Phone: [facility] 09-25-2022 12:58-0500 SaO2% (BldA) [Mass fraction] 99 % Dr. Kelsey Berger Work Phone: [facility] 09-25-2022 12:58-0500 Systolic blood pressure 128 mm[Hg] Dr. Kelsey Berger Work Phone: [facility] 08-14-2022 16:29-0500 Body mass index (BMI) [Ratio] 27.8 kg/m2 Dr. Kelsey Berger Work Phone: [facility] 08-14-2022 16:29-0500 Body temperature 98.2 [degF] Dr. Kelsey Berger Work Phone: [facility] 08-14-2022 16:29-0500 Body weight 87.[address] Kelsey Berger Work Phone: [facility] 08-14-2022 16:29-0500 Diastolic blood pressure 82 mm[Hg] Dr. Kelsey Berger Work Phone: [facility] 08-14-2022 16:29-0500 Heart rate 81 /min Dr. Kelsey Berger Work Phone: [facility] 08-14-2022 16:29-0500 Respiratory rate 16 /min Dr. Kelsey Berger Work Phone: [facility] 08-14-2022 16:29-0500 SaO2% (BldA) [Mass fraction] 99 % Dr. Kelsey Berger Work Phone: [facility] 08-14-2022 16:29-0500 Systolic blood pressure 138 mm[Hg] Dr. Kelsey Berger Work Phone: [facility] 04-24-2022 00:34-0400 Body weight 85.[address] Kelsey Berger Work Phone: [facility] Work Phone: 03-27-2022 11:03-0400 Body height 175.[address] Kelsey Berger Work Phone: [facility] Work Phone: 03-27-2022 11:03-0400 Body mass index (BMI) [Ratio] 28.5 kg/m2 Dr. Kelsey Berger Work Phone: [facility] Work Phone: 03-27-2022 11:03-0400 Body temperature 98.1 [degF] Dr. Kelsey Berger Work Phone: [facility] Work Phone: 03-27-2022 11:03-0400 Body weight 87.[address] Kelsey Berger Work Phone: [facility] Work Phone: 03-27-2022 11:03-0400 Diastolic blood pressure 74 mm[Hg] Dr. Kelsey Berger Work Phone: [facility] Work Phone: 03-27-2022 11:03-0400 Heart rate 61 /min Dr. Kelsey Berger Work Phone: [facility] Work Phone: 03-27-2022 11:03-0400 Respiratory rate 16 /min Dr. Kelsey Berger Work Phone: [facility] Work Phone: 03-27-2022 11:03-0400 SaO2% (BldA) [Mass fraction] 98 % Dr. Kelsey Berger Work Phone: [facility] Work Phone: 03-27-2022 11:03-0400 Systolic blood pressure 128 mm[Hg] Dr. Kelsey Berger Work Phone: [facility] Work Phone: 03-26-2022 14:16-0400 Body weight 85.[address] Kelsey Berger Work Phone: [facility] Work Phone: 03-07-2022 13:46-0400 Body height 175.[address] Kelsey Berger Work Phone: [facility] Work Phone: 03-07-2022 13:46-0400 Body mass index (BMI) [Ratio] 28.4 kg/m2 Dr. Kelsey Berger Work Phone: [facility] Work Phone: 03-07-2022 13:46-0400 Body weight 87.[address] Kelsey Berger Work Phone: [facility] Work Phone: 03-07-2022 13:46-0400 Diastolic blood pressure 65 mm[Hg] Dr. Kelsey Berger Work Phone: [facility] Work Phone: 03-07-2022 13:46-0400 Heart rate 70 /min Dr. Kelsey Berger Work Phone: [facility] Work Phone: 03-07-2022 13:46-0400 Respiratory rate 18 /min Dr. Kelsey Berger Work Phone: [facility] Work Phone: 03-07-2022 13:46-0400 SaO2% (BldA) [Mass fraction] 97 % Dr. Kelsey Berger Work Phone: [facility] Work Phone: 03-07-2022 13:46-0400 Systolic blood pressure 128 mm[Hg] Dr. Kelsey Berger Work Phone: [facility] Work Phone: 01-23-2022 10:04-0400 Body height 175.[address] Kelsey Berger Work Phone: [facility] Work Phone: 01-23-2022 10:04-0400 Body weight 85.[address] Kelsey Berger Work Phone: [facility] Work Phone: 01-23-2022 10:04-0400 Body height 175.[address] Mikel Fields Work Phone: [facility] Work Phone: 01-23-2022 10:04-0400 Body weight 85.[address] Mikel Fields Work Phone: [facility] Work Phone: 01-23-2022 09:02-0400 Body mass index (BMI) [Ratio] 27.7 kg/m2 Dr. Kelsey Berger Work Phone: [facility] Work Phone: 01-23-2022 09:02-0400 Body temperature 98.2 [degF] Dr. Kelsey Berger Work Phone: [facility] Work Phone: 01-23-2022 09:02-0400 Diastolic blood pressure 66 mm[Hg] Dr. Kelsey Berger Work Phone: [facility] Work Phone: 01-23-2022 09:02-0400 Heart rate 65 /min Dr. Kelsey Berger Work Phone: [facility] Work Phone: 01-23-2022 09:02-0400 Respiratory rate 16 /min Dr. Kelsey Berger Work Phone: [facility] Work Phone: 01-23-2022 09:02-0400 SaO2% (BldA) [Mass fraction] 96 % Dr. Kelsey Berger Work Phone: [facility] Work Phone: 01-23-2022 09:02-0400 Systolic blood pressure 135 mm[Hg] Dr. Kelsey Berger Work Phone: [facility] Work Phone: 01-23-2022 09:02-0400 Body mass index (BMI) [Ratio] 27.7 kg/m2 Dr. Mikel Fields Work Phone: [facility] Work Phone: 01-23-2022 09:02-0400 Body temperature 98.2 [degF] Dr. Mikel Fields Work Phone: [facility] Work Phone: 01-23-2022 09:02-0400 Diastolic blood pressure 66 mm[Hg] Dr. Mikel Fields Work Phone: [facility] Work Phone: 01-23-2022 09:02-0400 Heart rate 65 /min Dr. Mikel Fields Work Phone: [facility] Work Phone: 01-23-2022 09:02-0400 Respiratory rate 16 /min Dr. Mikel Fields Work Phone: [facility] Work Phone: 01-23-2022 09:02-0400 SaO2% (BldA) [Mass fraction] 96 % Dr. Mikel Fields Work Phone: [facility] Work Phone: 01-23-2022 09:02-0400 Systolic blood pressure 135 mm[Hg] Dr. Mikel Fields Work Phone: [facility] Work Phone: 01-14-2022 13:23-0400 Body mass index (BMI) [Ratio] 27.7 kg/m2 Dr. Kelsey Berger Work Phone: [facility] Work Phone: 01-14-2022 13:23-0400 Body weight 85.[address] Kelsey Berger Work Phone: [facility] Work Phone: 01-14-2022 13:23-0400 Diastolic blood pressure 66 mm[Hg] Dr. Kelsey Berger Work Phone: [facility] Work Phone: 01-14-2022 13:23-0400 Heart rate 65 /min Dr. Kelsey Berger Work Phone: [facility] Work Phone: 01-14-2022 13:23-0400 Respiratory rate 16 /min Dr. Kelsey Berger Work Phone: [facility] Work Phone: 01-14-2022 13:23-0400 Systolic blood pressure 135 mm[Hg] Dr. Kelsey Berger Work Phone: [facility] Work Phone: 01-14-2022 13:23-0400 Body mass index (BMI) [Ratio] 27.7 kg/m2 Dr. Mikel Fields Work Phone: [facility] Work Phone: 01-14-2022 13:23-0400 Body weight 85.[address] Mikel Fields Work Phone: [facility] Work Phone: 01-14-2022 13:23-0400 Diastolic blood pressure 66 mm[Hg] Dr. Mikel Fields Work Phone: [facility] Work Phone: 01-14-2022 13:23-0400 Heart rate 65 /min Dr. Mikel Fields Work Phone: [facility] Work Phone: 01-14-2022 13:23-0400 Respiratory rate 16 /min Dr. Mikel Fields Work Phone: [facility] Work Phone: 01-14-2022 13:23-0400 Systolic blood pressure 135 mm[Hg] Dr. Mikel Fields Work Phone: [facility] Work Phone: 12-25-2021 13:21-0400 Body height 175.3 cm Nurse Pob Work Phone: [facility] 12-25-2021 13:21-0400 Body weight 83.46 kg Nurse Pob Work Phone: [facility] 12-25-2021 13:21-0400 Diastolic blood pressure 60 mm[Hg] Nurse Pob Work Phone: [facility] 12-25-2021 13:21-0400 Heart rate 68 /min Nurse Pob Work Phone: [facility] 12-25-2021 13:21-0400 SaO2% (BldA) [Mass fraction] 98 % Nurse Pob Work Phone: [facility] 12-25-2021 13:21-0400 Systolic blood pressure 120 mm[Hg] Nurse Pob Work Phone: [facility] 12-25-2021 11:01-0400 Body height 175.3 cm Catherine Miglionico WOOD MILLING MACHINE TENDER.NURSE SUBSTANCE ABUSE Work Phone: [facility] 12-25-2021 11:01-0400 Body weight 84.73 kg Catherine Miglionico WOOD MILLING MACHINE TENDER.NURSE SUBSTANCE ABUSE Work Phone: [facility] 12-25-2021 11:01-0400 Diastolic blood pressure 69 mm[Hg] Catherine Miglionico WOOD MILLING MACHINE TENDER.NURSE SUBSTANCE ABUSE Work Phone: [facility] 12-25-2021 11:01-0400 Heart rate 68 /min Catherine Miglionico WOOD MILLING MACHINE TENDER.NURSE SUBSTANCE ABUSE Work Phone: [facility] 12-25-2021 11:01-0400 SaO2% (BldA) [Mass fraction] 98 % Catherine Miglionico WOOD MILLING MACHINE TENDER.NURSE SUBSTANCE ABUSE Work Phone: [facility] 12-25-2021 11:01-0400 Systolic blood pressure 118 mm[Hg] Catherine Miglionico WOOD MILLING MACHINE TENDER.NURSE SUBSTANCE ABUSE Work Phone: [facility] 12-09-2021 10:05-0400 Body weight 83.92 kg Alena Schwab RN Work Phone: [facility] 12-09-2021 10:05-0400 Diastolic blood pressure 84 mm[Hg] Alena Schwab RN Work Phone: [facility] 12-09-2021 10:05-0400 Heart rate 92 /min Alena Schwab RN Work Phone: [facility] 12-09-2021 10:05-0400 Respiratory rate 18 /min Alena Schwab RN Work Phone: [facility] 12-09-2021 10:05-0400 SaO2% (BldA) [Mass fraction] 98 % Alena Schwab RN Work Phone: [facility] 12-09-2021 10:05-0400 Systolic blood pressure 142 mm[Hg] Alena Schwab RN Work Phone: [facility] 12-05-2021 08:24-0400 Body weight 85.84 kg Alena Schwab RN Work Phone: [facility] 12-05-2021 08:24-0400 Diastolic blood pressure 62 mm[Hg] Alena Schwab RN Work Phone: [facility] 12-05-2021 08:24-0400 Heart rate 72 /min Alena Schwab RN Work Phone: [facility] 12-05-2021 08:24-0400 Respiratory rate 18 /min Alena Schwab RN Work Phone: [facility] 12-05-2021 08:24-0400 Systolic blood pressure 118 mm[Hg] Alena Schwab RN Work Phone: [facility] 12-02-2021 10:23-0400 Body weight 86.64 kg Alena Schwab RN Work Phone: [facility] 12-02-2021 10:23-0400 Diastolic blood pressure 70 mm[Hg] Alena Schwab RN Work Phone: [facility] 12-02-2021 10:23-0400 Heart rate 74 /min Alena Schwab RN Work Phone: [facility] 12-02-2021 10:23-0400 Respiratory rate 18 /min Alena Schwab RN Work Phone: [facility] 12-02-2021 10:23-0400 SaO2% (BldA) [Mass fraction] 96 % Alena Schwab RN Work Phone: [facility] 12-02-2021 10:23-0400 Systolic blood pressure 144 mm[Hg] Alena Schwab RN Work Phone: [facility] 11-29-2021 09:29-0400 Body temperature 98.01 [degF] Alena Schwab RN Work Phone: [facility] 11-29-2021 09:29-0400 Body weight 88.51 kg Alena Schwab RN Work Phone: [facility] 11-29-2021 09:29-0400 Diastolic blood pressure 84 mm[Hg] Alena Schwab RN Work Phone: [facility] 11-29-2021 09:29-0400 Heart rate 86 /min Alena Schwab RN Work Phone: [facility] 11-29-2021 09:29-0400 Respiratory rate 20 /min Alena Schwab RN Work Phone: [facility] 11-29-2021 09:29-0400 SaO2% (BldA) [Mass fraction] 97 % Alena Schwab RN Work Phone: [facility] 11-29-2021 09:29-0400 Systolic blood pressure 116 mm[Hg] Alena Schwab RN Work Phone: [facility] 11-27-2021 15:28-0400 Diastolic blood pressure 56 mm[Hg] Raeann Garibay PT Work Phone: [facility] 11-27-2021 15:28-0400 Heart rate 87 /min Raeann Garibay PT Work Phone: [facility] 11-27-2021 15:28-0400 Respiratory rate 18 /min Raeann Garibay PT Work Phone: [facility] 11-27-2021 15:28-0400 SaO2% (BldA) [Mass fraction] 97 % Raeann Garibay PT Work Phone: [facility] 11-27-2021 15:28-0400 Systolic blood pressure 120 mm[Hg] Raeann Garibay PT Work Phone: [facility] 11-27-2021 15:00-0400 Body temperature 98.4 [degF] Raeann Garibay PT Work Phone: [facility] 11-26-2021 10:00-0400 Body temperature 97.9 [degF] Alena Schwab RN Work Phone: [facility] 11-26-2021 10:00-0400 Diastolic blood pressure 69 mm[Hg] Alena Schwab RN Work Phone: [facility] 11-26-2021 10:00-0400 Heart rate 74 /min Alena Schwab RN Work Phone: [facility] 11-26-2021 10:00-0400 Respiratory rate 18 /min Alena Schwab RN Work Phone: [facility] 11-26-2021 10:00-0400 SaO2% (BldA) [Mass fraction] 96 % Alena Schwab RN Work Phone: [facility] 11-26-2021 10:00-0400 Systolic blood pressure 144 mm[Hg] Alena Schwab RN Work Phone: [facility] 11-11-2021 14:01-0400 Body height 175.3 cm Garett Cr WOOD MILLING MACHINE TENDER.NURSE SUBSTANCE ABUSE Work Phone: [facility] 11-11-2021 14:01-0400 Body weight 85.28 kg Garett Cr WOOD MILLING MACHINE TENDER.NURSE SUBSTANCE ABUSE Work Phone: [facility] 11-11-2021 14:01-0400 Diastolic blood pressure 62 mm[Hg] Garett Cr WOOD MILLING MACHINE TENDER.NURSE SUBSTANCE ABUSE Work Phone: [facility] 11-11-2021 14:01-0400 Heart rate 72 /min Garett Cr WOOD MILLING MACHINE TENDER.NURSE SUBSTANCE ABUSE Work Phone: [facility] 11-11-2021 14:01-0400 Respiratory rate 18 /min Nehemiasa Shaye WOOD MILLING MACHINE TENDER.NURSE SUBSTANCE ABUSE Work Phone: [facility] 11-11-2021 14:01-0400 SaO2% (BldA) [Mass fraction] 96 % Garett Cr WOOD MILLING MACHINE TENDER.NURSE SUBSTANCE ABUSE Work Phone: [facility] 11-11-2021 14:01-0400 Systolic blood pressure 142 mm[Hg] Weina Shaye WOOD MILLING MACHINE TENDER.NURSE SUBSTANCE ABUSE Work Phone: [facility] 10-16-2021 12:12-0500 Body mass index (BMI) [Ratio] 28 kg/m2 Dr. Mikel Fields Work Phone: [facility] Work Phone: 10-16-2021 12:12-0500 Body weight 86.[address] Mikel Fields Work Phone: [facility] Work Phone: 10-16-2021 12:12-0500 Diastolic blood pressure 75 mm[Hg] Dr. Mikel Fields Work Phone: [facility] Work Phone: 10-16-2021 12:12-0500 Heart rate 65 /min Dr. Mikel Fields Work Phone: [facility] Work Phone: 10-16-2021 12:12-0500 Respiratory rate 18 /min Dr. Mikel Fields Work Phone: [facility] Work Phone: 10-16-2021 12:12-0500 SaO2% (BldA) [Mass fraction] 97 % Dr. Mikel Fields Work Phone: [facility] Work Phone: 10-16-2021 12:12-0500 Systolic blood pressure 135 mm[Hg] Dr. Mikel Fields Work Phone: [facility] Work Phone: 10-02-2021 09:35-0500 Body temperature 95.5 [degF] Dr. Mikel Fields Work Phone: [facility] Work Phone: 10-02-2021 09:35-0500 Body weight 88.[address] Mikel Fields Work Phone: [facility] Work Phone: 10-02-2021 09:35-0500 Diastolic blood pressure 70 mm[Hg] Dr. Mikel Fields Work Phone: [facility] Work Phone: 10-02-2021 09:35-0500 Heart rate 65 /min Dr. Mikel Fields Work Phone: [facility] Work Phone: 10-02-2021 09:35-0500 Respiratory rate 16 /min Dr. Mikel Fields Work Phone: [facility] Work Phone: 10-02-2021 09:35-0500 SaO2% (BldA) [Mass fraction] 98 % Dr. Mikel Fields Work Phone: [facility] Work Phone: 10-02-2021 09:35-0500 Systolic blood pressure 130 mm[Hg] Dr. Mikel Fields Work Phone: [facility] Work Phone: 04-03-2021 11:06-0400 Body mass index (BMI) [Ratio] 27.1 kg/m2 Dr. Mikel Fields Work Phone: [facility] Work Phone: Encounters Encounter Date Encounter Type Care Provider Facility Start: 05-15-2025 End: 05-15-[address] Kelsey Berger MD Work Phone: -Laboratory Start: 05-15-2025 End: 05-15-[address] Kelsey Berger MD -Laboratory Work Phone: Start: 05-15-2025 End: 05-15-2025 Patient encounter procedure Mitch GARCIA -[facility] Work Phone: Start: 05-15-2025 End: 05-15-[address] Kelsey Berger MD Work Phone: [facility] Start: 05-15-2025 End: 05-15-2025 ambulatory Kelsey Berger Facility:[facility] Start: 03-13-2025 ambulatory KELSEY BERGER [facility] ty:[facility] Start: 03-13-2025 End: 03-13-2025 Subsequent hospital visit by physician Device [facility] Comment on above: Pacemaker reprogramm ing/check [Z45.018] Start: 02-09-2025 End: 02-09-2025 Patient encounter procedure Ovidio Main MD Work Phone: [facility] [place] Comment on above: Sinus node dysfuncti on (HCC) (Primary Dx); Presence of cardiac pacemaker Start: 02-09-2025 End: 02-09-2025 ambulatory OVIDIO MAIN Facility:[facility] Start: 02-01-2025 End: 02-01-[address] Kelsey Berger MD -[facility] Work Phone: Start: 02-01-2025 End: 02-01-[address] Kesley Berger MD Work Phone: [facility] Work Phone: Start: 12-02-2024 End: 12-02-2024 Professional / ancillary services management Ovidio Main MD Work Phone: [facility] Start: 12-02-2024 End: 12-02-2024 ambulatory KELSEY BERGER Facility:[facility] Start: 12-02-2024 End: 12-02-2024 Follow-up encounter Oviido Main MD Work Phone: [facility] Comment on above: Remote Pacemaker Fol low Up Start: 12-02-2024 End: 12-02-2024 Patient encounter procedure Rem Device Ck [facility] Start: 10-26-2024 End: 10-26-[address] Kelsey Berger MD [facility] Work Phone: Start: 10-26-2024 End: 10-26-2024 ambulatory Kelseyponce DillonCeline Facility:[facility] Start: 10-13-2024 End: 10-13-[address] Vu Chacko MD -[facility] Work Phone: Start: 10-13-2024 End: 10-13-2024 ambulatory Vu Chacko Facility:[facility] Start: 09-15-2024 ambulatory Kelsey Berger Facility :[facility] Start: 09-15-2024 End: 09-15-2024 ambulatory Kelseyponce Gibsonner Facility:[facility] Start: 08-28-2024 End: 08-29-2024 ambulatory KELSEY Luisa CELINE Facility:[facility] Start: 08-28-2024 End: 08-29-2024 Professional / ancillary services management Ovidio Main MD Work Phone: [facility] Start: 08-28-2024 End: 08-29-2024 Follow-up encounter Ovidio Main MD Work Phone: [facility] Comment on above: Remote Pacemaker Fol low Up Start: 08-28-2024 End: 08-28-2024 Patient encounter procedure Rem Device Ck [facility] Start: 08-03-2024 End: 08-03-2024 ambulatory [facility] Facility:[facility] Start: 05-19-2024 End: 05-20-2024 ambulatory KELSEY Luisa [facility] Facility:[facility] Start: 05-19-2024 End: 05-20-2024 Professional / ancillary services management Ovidio Main MD Work Phone: [facility] Start: 05-19-2024 End: 05-20-2024 Follow-up encounter Ovidio Main MD Work Phone: [facility] Comment on above: Remote Pacemaker Fol low Up Start: 05-19-2024 End: 05-19-2024 Patient encounter procedure Rem Device Ck [facility] Start: 02-08-2024 Follow-up encounter Ovidio Main MD Work Phone: [facility] Start: 02-08-2024 End: 02-08-2024 Patient encounter procedure Ovidio Main MD Work Phone: [facility] Comment on above: Permanent Pacemaker Persistent atrial fi brillation (HCC) (Primary Dx); Sinus node dysfunction (HCC); Presence of cardiac pacemaker; 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 Start: 11-27-2023 End: 11-27-2023 Follow-up encounter Ovidio Main MD Work Phone: [facility] Comment on above: Remote Pacemaker Fol low Up Start: 11-27-2023 Pacemaker Remote F/U Ovidio Valdez MD Work Phone: [facility] Start: 11-27-2023 End: 11-27-2023 Patient encounter procedure Rem Device Ck [facility] Start: 05-15-2023 Follow-up encounter Ovidio Main MD Work Phone: [facility] Start: 05-15-2023 Pacemaker Remote F/U Ovidio Valdez MD Work Phone: [facility] Start: 05-06-2023 ambulatory DO BRIDGETT KIM Facility: [facility] Start: 04-20-2023 End: 04-20-[address] Kelsey Berger Work Phone: [facility] Work Phone: Start: 04-20-2023 End: 04-20-[address] Kelsey Berger Work Phone: [facility] Work Phone: Start: 04-08-2023 End: 04-08-[address] Kelsey Berger Work Phone: [facility] Work Phone: Start: 01-22-2023 End: 01-22-[address] Kelsey Berger Work Phone: [facility] [facility] Work Phone: Start: 11-06-2022 Follow-up encounter Ovidio Main MD Work Phone: [facility] Start: 11-06-2022 Pacemaker Remote F/U Ovidio Valdez MD Work Phone: [facility] Start: 11-06-2022 End: 11-06-2022 ambulatory Rem [facility] Comment on above: Permanent Pacemaker Start: 11-06-2022 End: 11-06-2022 Patient encounter procedure Rem Device [facility] Start: 10-07-2022 Non-patient / Non-visit Dr. Nataliia Berger Work Phone: [facility] Start: 10-07-[address] Kelsey Berger Work Phone: [facility] Start: 10-02-2022 End: 10-02-[address] Kelsey Berger Work Phone: [facility] Work Phone: Start: 10-02-2022 End: 10-02-[address] Kelsey Berger Work Phone: [facility] Start: 10-02-2022 End: 10-02-[address] Kelsey Berger Work Phone: [facility] Start: 09-25-2022 End: 09-25-[address] Kelsey Berger Work Phone: [facility] Work Phone: Start: 09-25-2022 End: 09-25-[address] Kelsey Berger Work Phone: [facility] Start: 08-14-2022 End: 08-14-[address] Kelsey Berger Work Phone: [facility] Start: 07-25-2022 End: 07-25-2022 Follow-up encounter Ovidio Main MD Work Phone: [facility] Comment on above: Remote Pacemaker Fol low Up Start: 07-25-2022 Pacemaker Remote F/U Ovidio Valdez MD Work Phone: [facility] Start: 07-25-2022 End: 07-25-2022 Patient encounter procedure Rem Device Ck [facility] Start: 06-27-2022 End: 07-23-[address] Kelsey Berger Work Phone: [facility] Work Phone: Start: 06-27-2022 End: 07-23-[address] Kelsey Berger Work Phone: [facility] Start: 06-20-2022 End: 06-20-[address] Kelsey Berger Work Phone: [facility] Work Phone: Start: 06-20-2022 End: 06-20-[address] Kelsey Berger Work Phone: [facility] Start: 05-29-[address] Kelsey Berger Work Phone: [facility] Start: 05-29-2022 End: 05-29-[address] Kelsey Berger Work Phone: [facility] Work Phone: Start: 05-29-2022 End: 05-29-[address] [facility] Start: 05-22-2022 End: 05-22-[address] Kelsey Berger Work Phone: [facility] Work Phone: Start: 05-22-2022 End: 05-22-[address] [facility] Start: 05-02-2022 End: 05-23-[address] Kelsey Berger Work Phone: [facility] Work Phone: Start: 05-02-2022 End: 05-23-[address] Kelsey Berger Work Phone: [facility] Start: 05-02-[address] Kelsey Berger Work Phone: [facility] Start: 04-23-2022 End: 04-23-[address] Kelsey Berger Work Phone: [facility] Work Phone: Start: 04-23-2022 End: 04-23-[address] Kelsey Berger Work Phone: [facility] Start: 04-21-2022 End: 04-21-[address] Kelsey Berger Work Phone: [facility] Work Phone: Start: 04-21-2022 End: 04-21-[address] Kelsey Berger Work Phone: [facility] Start: 04-11-2022 End: 04-11-2022 Follow-up encounter Ovidio Main MD Work Phone: [facility] Comment on above: Remote Pacemaker Fol low Up Start: 04-11-2022 Pacemaker Remote F/U Ovidio Valdez MD Work Phone: [facility] Start: 04-11-2022 End: 04-11-2022 Patient encounter procedure Rem Device Ck [facility] Start: 03-27-2022 End: 03-27-[address] Kelsey Berger Work Phone: [facility] Start: 03-21-2022 End: 03-23-[address] Kelsey Berger Work Phone: [facility] Start: 03-07-2022 End: 03-07-[address] Kelsey Berger Work Phone: [facility] Start: 02-19-2022 End: 02-20-[address] Kelsey Berger Work Phone: [facility] Start: 01-27-[address] Max Fields Work Phone: [facility] Start: 01-23-2022 End: 01-23-[address] Mikel Fields Work Phone: [facility] Start: 01-21-2022 End: 01-21-[address] Mikel Fields Work Phone: [facility] Start: 01-14-2022 End: 01-14-[address] Mikel Fields Work Phone: [facility] Start: 01-07-2022 Home visit Liudmila Martinez [facility] Comment on above: AGENCY DC NO [place] Start: 01-03-2022 End: 01-03-2022 ambulatory Device 1 [facility] DEVICE [facility] Comment on above: Permanent Pacemaker Start: 01-03-2022 Follow-up encounter Ovidio Main MD Work Phone: [facility] Start: 01-03-2022 End: 01-03-2022 Patient encounter procedure Device Clinic 1 [facility] Start: 01-03-2022 Telephone encounter Ovidio Main MD Work Phone: [facility] Comment on above: Medication Follow-up Start: 01-03-2022 Non-patient / Non-visit Dr. 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); S/P mitral valve repair; S/P placement of cardiac pacemaker; Atrial flutter, unspecified type (HCC); Acute kidney injury (HCC) Start: 12-17-2021 End: 12-17-2021 Follow-up encounter Ovidio Main MD Work Phone: [facility] Comment on above: Remote Pacemaker Fol low Up Start: 12-17-2021 Pacemaker Remote F/U Ovidio Valdez MD Work Phone: [facility] Start: 12-17-2021 Telephone encounter Kerry bhakta MD Work Phone: [facility] Comment on above: Abnormal Ekg Appointment Start: 12-17-2021 End: 12-17-2021 Patient encounter procedure Rem Device Ck [facility] Start: 12-16-2021 Telephone encounter Alonzo Sol RN Work Phone: [facility] Comment on above: Home Care (report of patient transferred to hospital) Start: 12-16-2021 End: 12-16-2021 Home visit Alonzo De La Cruz RN Work Phone: [facility] Comment on above: SN TRANSFER Start: 12-14-2021 Home visit Gardenia Holm RN [facility] Comment on above: CARE COORDINATION Start: 12-11-2021 End: 12-11-2021 Home visit Alena Schwab RN Work Phone: [facility] Comment on above: CARE COORDINATION Start: 12-09-2021 Telephone encounter Alena Schwab RN Work Phone: [facility] Comment on above: Home Care (Update) Start: 12-09-2021 End: 12-09-2021 Home visit Alena Schwab RN Work Phone: [facility] Comment on above: SN ROUTINE Start: 12-06-2021 Telephone encounter Roly burciaga MD Work Phone: [facility] Comment on above: Cardiac Rehab (refer ral to [facility]) Start: 12-05-2021 End: 12-05-2021 Home visit Alena Schwab RN Work Phone: [facility] Comment on above: SN ROUTINE Start: 12-02-2021 End: 12-02-2021 Home visit Aelna Schwab RN Work Phone: [facility] Comment on above: SN ROUTINE Start: 11-29-2021 Telephone encounter Alena Schwab RN Work Phone: [facility] Comment on above: Home Care (SOC and r equest) Start: 11-29-2021 End: 11-29-2021 ambulatory Nurse Pob Work Phone: [facility] [place] Comment on above: Pacemaker (Primary D x); Junctional cardiac arrhythmia Start: 11-29-2021 End: 11-29-2021 Telemedicine consultation with patient Nurse Card Ag Berta Su Work Phone: [facility] Start: 11-29-2021 End: 11-29-2021 Home visit Alena Schwab RN Work Phone: [facility] Comment on above: SN ROUTINE Start: 11-27-2021 End: 11-27-2021 Home visit Raeann Garibay PT Work Phone: [facility] Comment on above: PT EVAL Start: 11-27-2021 Telephone encounter Raeann Garibay PT Work Phone: [facility] Comment on above: Home Care (PT eval ) 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 Supervisor - 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 Start: 11-26-2021 End: 11-26-2021 Home visit Alena Schwab RN Work Phone: [facility] Comment on above: SN SOC Start: 11-24-2021 Telephone encounter Ovidio Main MD Work Phone: [facility] Comment on above: Wound Check Start: 11-22-2021 Telephone encounter Freddie ignacio APRN.NURSE SUBSTANCE ABUSE Work Phone: [facility] [place] Comment on above: Wound Check Start: 11-20-2021 Telephone encounter Johana king FAST FOOD SUPERVISOR Work Phone: [facility] Comment on above: Home Care (confirmat ion call) Start: 11-15-2021 Telephone encounter Garett Cr APRN.NURSE SUBSTANCE ABUSE Work Phone: [facility] Comment on above: Returning Patient's Call Start: 11-11-2021 End: 11-11-2021 Subsequent hospital visit by physician Xr [facility] Comment on above: Atherosclerosis of n ative 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 Gold Work Phone: [facility] Start: 10-16-2021 End: 10-16-[address] Mikel Fields Work Phone: [facility] Start: 10-02-2021 End: 10-02-[address] Mikel Fields Work Phone: [facility] Procedures Date Procedure Procedure Detail Performing Clinician Start: 05-15-2025 Vitamin D, 25-hydrox y measurement Dr. Kelsey Berger MD Work Phone: Comment on above: Vitamin D StatusDefi ciency: <20 ng/mL (50nmol/L)Insufficiency: 20-30 ng/mL (50-75 nmol/L)Sufficiency: 30-100 ng/mL (75-250 nmol/L)Toxicity: >100 ng/mL (>250 nmol/L) Start: 03-13-2025 Prgrmg dev eval implantable subq lead dfb system Murj Provider Start: 02-09-2025 Ecg routine ecg w/least 12 lds w/i&r Ovidio Main MD Work Phone: Start: 12-02-2024 PACEMAKER REMOTE CHECK Ovidio Main MD Work Phone: Start: 10-13-2024 Evaluation of diagnostic study results Dr. Kelsey Berger MD Work Phone: Start: 08-28-2024 PACEMAKER REMOTE CHECK Ovidio Main MD Work Phone: Start: 05-19-2024 PACEMAKER REMOTE CHECK Ovidio Main MD Work Phone: Start: 02-08-2024 Ecg routine ecg w/least 12 lds w/i&r Ovidio Main MD Work Phone: Start: 02-08-2024 PACEMAKER CLINIC CHECK Ovidio Main MD Work Phone: Start: 11-27-2023 PACEMAKER REMOTE CHECK Ovidio Main MD Work Phone: Start: 05-15-2023 PACEMAKER REMOTE CHECK Ovidio Main MD Work Phone: Start: 11-06-2022 PACEMAKER REMOTE CHECK Ovidio Main MD Work Phone: Start: 07-25-2022 PACEMAKER REMOTE CHECK Ovidio Main MD Work Phone: Start: 04-11-2022 PACEMAKER REMOTE CHECK Ovidio Main MD Work Phone: Start: 01-17-2022 Ecg routine ecg w/least 12 lds w/i&r Ovidio Main MD Work Phone: Start: 01-03-2022 PACEMAKER CLINIC CHECK Ovidio Main MD Work Phone: Start: 12-17-2021 PACEMAKER REMOTE CHECK Ovidio Main MD Work Phone: Start: 11-24-2021 History of coronary artery bypass grafting S/P CABG x 2 Alena Schwab RN Work Phone: Start: 11-11-2021 Radiologic exam ches t 2 views Catherine Miglionico WOOD MILLING MACHINE TENDER.NURSE SUBSTANCE ABUSE Work Phone: Start: 11-11-2021 Iadna s aureus amplified probe tq Garett Cr WOOD MILLING MACHINE TENDER.NURSE SUBSTANCE ABUSE Work Phone: Start: 10-22-2021 History of coronary artery bypass grafting History of coronary artery bypass surgery Dr. Vu Chacko MD Comment on above: CABG x2 VALLADARES-LAD, SV G-PDA @ [facility] 11/18/21 Stable History of coronary artery bypass grafting S/P CABG x 2 Catherine Miglionico WOOD MILLING MACHINE TENDER.NURSE SUBSTANCE ABUSE Work Phone: Plan of Treatment Date Care Activity Detail Author Start: 07-31-2025 ambulatory Ambulatory Facility:[facility] Start: 04-24-2025 [facility] Start: 04-21-2025 End: 04-21-2025 Patient encounter procedure [facility] Comment on above: PM/SV Start: 03-13-2025 End: 03-13-2025 Patient encounter procedure [facility] Comment on above: PM/SV Start: 12-17-2024 DIABETES SCREEN DIABETES SCREEN [facility] Start: 12-17-2024 [facility] Start: 12-16-2024 DIABETES SCREEN [facility]CREEN [facility] Start: 12-14-2024 DIABETES SCREEN [facility]CREEN [facility] Start: 12-03-2024 DIABETES SCREEN DIABETES SCREEN [facility] Start: 12-02-2024 End: 12-02-2024 Patient encounter procedure 12/02/2024 8:00 AM EDT Procedure [facility] [address] [place] [address] remote bsc pm/sv/hb [facility] Comment on above: remote bsc pm/sv/hb Start: 11-25-2024 DIABETES SCREEN DIABETES SCREEN [facility] Start: 11-22-2024 DIABETES SCREEN DIABETES SCREEN [facility] Start: 11-20-2024 DIABETES SCREEN DIABETES SCREEN [facility] Start: 11-11-2024 DIABETES SCREEN DIABETES SCREEN [facility] Start: 08-26-2024 End: 01-03-2025 Patient encounter procedure 08/26/2024 8:00 AM EST Procedure [facility] [address] [place] [address] bsc pm/sv/hb [facility] Comment on above: bsc pm/sv/hb Start: 08-24-2024 Advance Directive Discussion Advance Directive Discussion [facility] Start: 08-24-2024 Medicare Advantage Annual Wellness Visit Medicare Advantage Annual Wellness Visit [facility] Start: 05-13-2024 End: 05-13-2024 Patient encounter procedure 05/13/2024 8:00 AM EDT Procedure [facility] [address] [place] [address] BSC pm remote/ dr V/ [facility] Comment on above: BSC pm remote/ dr V/ [facility] Start: 04-24-2024 Covid-19 Vaccine ( season) Covid-19 Vaccine ( season) [facility] Start: 04-24-2024 Influenza vaccination Influenza Vacc ine (#1) [facility] Start: 08-24-2023 Advance Directive Discussion Advance Directive Discussion [facility] Start: 08-24-2023 Behavioral Health Screening Behavioral Health Screening [facility] Start: 04-24-2023 Covid-19 Vaccine ( season) Covid-19 Vaccine ( season) [facility] Start: 04-24-2023 Influenza vaccination Influenza Vacc ine (#1) [facility] Start: 10-02-2022 Patient referral [facility] Work Phone: Start: 10-02-2022 Testosterone measurement [facility] Start: 08-24-2022 ADVANCE DIRECTIVE DISCUSSION ADVANCE DIRECTIVE DISCUSSION [facility] Start: 08-24-2022 DEPRESSION ASSESSMENT DEPRESSION ASS ESSMENT [facility] Start: 04-24-2022 Influenza vaccination INFLUENZA (#1) [facility] Start: 03-26-2022 Patient referral to [facility] Work Phone: Start: 01-23-2022 [facility] Work Phone: Start: 01-23-2022 Patient referral to [facility] Work Phone: Start: 01-03-2022 Patient referral [facility] Work Phone: Start: 08-24-2021 ADVANCE DIRECTIVE DISCUSSION ADVANCE DIRECTIVE DISCUSSION [facility] Start: 08-24-2021 DEPRESSION ASSESSMENT DEPRESSION ASS ESSMENT [facility] Start: 2019 RSV Vaccine (1 - 1-d ose 75+ series) RSV Vaccine (1 - 1-dose 75+ series) [facility] Start: 2004 RSV Vaccine (1 - 1-d ose 60+ series) RSV Vaccine (1 - 1-dose 60+ series) [facility] Start: 1963 Urine microalbumin profile [facility] Start: 1962 ANNUAL PCP TEAM LOGISTICS CENTER MANAGER POPPY DISEASE VISIT ANNUAL PCP TEAM CHRONIC DISEASE VISIT [facility] Start: 1962 Anxiety Screening Anxiety Screening [facility] Start: 1962 Depression Screening Depression Scre ening [facility] Start: 1962 Hepatitis B surface antibody level LDL CHOLESTEROL [facility] Start: 1962 HEPATITIS C SCREENING HEPATITIS C SC REENING [facility] Start: 1956 Adult depression screening assessment DEPRESSION SCREENING [facility] Start: 1949 COVID-19 VACCINE (#1) COVID-19 VACCI NE (#1) [facility] Start: 1949 COVID-19 VACCINE (1) COVID-19 VACCIN E (1) [facility] Start: 03-27-1945 COVID-19 VACCINE (#1) COVID-19 VACCI NE (#1) [facility] CARDIAC IMPLANTABLE DEVICE CHECK CARDIAC IMPLANTABLE DEVICE CHECK PACEART Routine Pacemaker reprogramming/check 03/13/2025 10:51 AM EDT [facility] CBC W Auto Different ial panel - Blood [facility] Cobalamin (Vitamin B 12) [Mass/volume] in Serum or Plasma [facility] Comprehensive metabo lic 1999 panel - Serum or Plasma [facility] End: 12-17-2022 ECG COMPLETE ECG COMPLETE ECG Routine Atypical atrial flutter (HCC) 1 Occurrences starting 12/17/2021 until 12/17/2022 [facility] Work Phone: Comment on above: 1 Occurrences starti ng 12/17/2021 until 12/17/2022 Lipid 1996 panel - Serum or Plasma [facility] Magnesium measurement [facility] Patient referral [facility] Work Phone: Radiologic exam ches t 2 views XR CHEST 2V FRONTAL/LAT Radiology Routine 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) Nonrheumatic mitral valve regurgitation Preoperative testing 11/11/2021 3:43 PM EDT [facility] Work Phone: T4 free measurement [facility] Testosterone Free [Mass/volume] in Serum or Plasma [facility] Thyroid stimulating hormone measurement [facility] Triiodothyronine, fr ee measurement [facility] US Carotid arteries [facility] Vitamin D, 25-hydrox y measurement [facility] [place] [facility] Immunizations Immunization Date Immunization Notes Care Provider Jayden [facility] 07-03-2023 influenza virus vacc ine, unspecified formulation Rem Ck [facility] 07-15-2022 influenza virus vacc ine, unspecified formulation Ovidio Main MD Work Phone: [facility] 05-28-2021 influenza, high-dose , quadrivalent vaccine (FLUZONE HIGH DOSE QUADRIVALENT) Garett Cr APRN.NURSE SUBSTANCE ABUSE Work Phone: [facility] 07-03-2020 influenza (aIIV4) vaccine, age 65+ yr, quadrivalent, PF (FLUAD QUADRIVALENT) Garett Cr APRN.NURSE SUBSTANCE ABUSE Work Phone: [facility] 06-23-2019 Seasonal trivalent influenza vaccine, adjuvanted, preservative free Garett Cr APRN.NURSE SUBSTANCE ABUSE Work Phone: [facility] 03-14-2019 zoster vaccine recombinant Garett Cr APRN.NURSE SUBSTANCE ABUSE Work Phone: [facility] 12-29-2018 zoster vaccine recombinant Weina Shaye WOOD MILLING MACHINE TENDER.NURSE SUBSTANCE ABUSE Work Phone: [facility] 06-21-2018 influenza, injectabl e, quadrivalent, preservative free Weina Shaye WOOD MILLING MACHINE TENDER.NURSE SUBSTANCE ABUSE Work Phone: [facility] 06-14-2018 influenza, injectabl e, quadrivalent, preservative free Weina Shaye WOOD MILLING MACHINE TENDER.NURSE SUBSTANCE ABUSE Work Phone: [facility] 07-03-2017 influenza, high dose seasonal, preservative-free Weina Shaye WOOD MILLING MACHINE TENDER.NURSE SUBSTANCE ABUSE Work Phone: [facility] 12-21-2015 pneumococcal conjuga te vaccine, 13 valent Weina Shaye WOOD MILLING MACHINE TENDER.NURSE SUBSTANCE ABUSE Work Phone: [facility] 07-06-2015 influenza, seasonal, injectable, preservative free Weina Shaye WOOD MILLING MACHINE TENDER.NURSE SUBSTANCE ABUSE Work Phone: [facility] 06-18-2015 influenza, injectabl e, quadrivalent, preservative free Weina Shaye WOOD MILLING MACHINE TENDER.NURSE SUBSTANCE ABUSE Work Phone: [facility] 06-21-2014 influenza, seasonal, injectable Weina Shaye WOOD MILLING MACHINE TENDER.NURSE SUBSTANCE ABUSE Work Phone: [facility] 01-09-2014 pneumococcal polysaccharide vaccine, 23 valent Weina Shaye WOOD MILLING MACHINE TENDER.NURSE SUBSTANCE ABUSE Work Phone: [facility] Payers Date Payer Category Payer Self-pay [id number] 2019 Medicare HUMANA MEDICARE HUMANA MEDICARE PPO [id number] 2019-Present [phone] [place], [place] [address] PPO [id number] 2019 Medicare HUMANA MEDICARE HUMANA MEDICARE PPO [id number] 2019-Present [phone] [address] [place] [id number] PPO [id number] 2019 Medicare (Managed Care) M[employer]Z [id number] 2019 Medicare [id number] Unknown [id number] Unknown [id number] Unknown [id number] Unknown [id number] Unknown [id number] Unknown [id number] Unknown [id number] Unknown [id number] Unknown [id number] Unknown [id number] Unknown [id number] Social History Date Type Detail Facility Start: 05-15-2015 End: 09-02-2023 Tobacco smoking status INIS Ex-smoker [facility] Start: 08-24-1964 End: 08-24-1979 History of tobacco use Current smoker [facility] Start: 08-24-1964 End: 08-24-1979 History of tobacco use Cigarette Smoker [facility] End: 08-24-1979 History of tobacco use Pipe Smoker [facility] Start: 05-15-2015 End: 02-09-2025 Tobacco use and exposure Smokeless tobacco non-user [facility] Start: 11-11-2021 End: 02-09-2025 Alcohol intake Current drinker of alcohol (finding) [facility] Start: 03-07-2021 History SDOH Alcohol Comment ON OCCASION [facility] Start: 03-07-2021 End: 02-02-2023 Tobacco Comment SOCIALLY [facility] Start: 1945 Sex Assigned At Not on file [facility] Start: 11-01-2021 End: 01-28-2022 Exposure to SARS-CoV-2 (event) Not sure [facility] Start: 11-19-2021 End: 04-11-2022 Exposure to SARS-CoV-2 (event) Unable to assess [facility] Start: 01-23-2022 End: 04-08-2023 Tobacco smoking status NHIS Unknown if ever smoked [facility] Start: 1945 Sex Assigned At Male [facility] Start: 02-02-2023 End: 02-09-2025 History of Social function [facility] Start: 02-02-2023 End: 02-09-2025 Tobacco use panel [facility] National Score (1-100), lower number is lower risk 69 [facility] Medical Equipment Procedure Code Equipment Code Equipment Origin al Text Equipment Identifier Dates Low Profile Ster nal X-Plate 8 Holes [id number] Start: 11-18-2021 Axs Smartlock Driving Screw 2.3mm X 12mm [id number] Start: 11-18-2021 Ring Marely Long Imr Etlogix 32mm Asymmetric Titanium - [id number] Start: 11-18-2021 [id number] Ingevity+Is-1 [id number] Start: 11-22-2021 [id number] Ingevity+Is-1 [id number] Start: 11-22-2021 [id number] Start : 11-22-2021 Goals Date Patient Goal Desired Activity /State Personal health goal Functional Status Date Assessment Result Facility 12-17-2021 Are you deaf, or do you have serious difficulty hearing No 12/17/2021 11:49 AM Gordon Brian APRN.URVASHI No [facility] Work Phone: 12-17-2021 Are you blind, or do you have serious difficulty seeing, even when wearing glasses No 12/17/2021 11:49 AM Gordon Brian APRN.URVASHI No [facility] 12-17-2021 Do you have serious difficulty walking or climbing stairs No 12/17/2021 11:49 AM Gordon Brian APRN.NURSE SUBSTANCE ABUSE No [facility] 12-17-2021 Do you have difficul ty dressing or bathing No 12/17/2021 11:49 AM Gordon Brian APRN.NURSE SUBSTANCE ABUSE No [facility] 12-17-2021 Because of a physica l, mental, or emotional condition, do you have difficulty doing errands alone such as visiting a physician's office or shopping No 12/17/2021 11:49 AM Gordon Brian APRN.NURSE SUBSTANCE ABUSE No [facility] Mental Status Date Assessment Result Facility 12-17-2021 Because of a physica l, mental, or emotional condition, do you have serious difficulty concentrating, remembering, or making decisions No 12/17/2021 11:49 AM Gordon Brian APRN.NURSE SUBSTANCE ABUSE No [facility] Clinical Notes 06-12-2021 to 05-15-2025 Note Date & Type Note Facility 05-15-2025 Progress note [facility] 05-15-2025 Progress note Note Date/Time May 15, 2025 3:10pm [facility] [place] [id number] [place], [place] [address] OFFICE VISIT Date of Service: 05/15/25 MR#: [id number] Acct: [id number] Name: BENSON MCKEON KWABENA Rep #: [id number] : 1945 Provider: RADHA Bonilla Age/Sex: 79/M Location: [facility] Status: Signed HPI HPI History of Present Illness Details: Patient is a pleasant 79-year-old white male that comes in today for monitoring of his coronary disease and history of atrial fibrillation. Patient is status post coronary bypass graft surgery by Dr. Lazo at [facility] October 2021. He received a VALLADARES to the LAD and a vein graft to the PDA of the right coronary artery and mitral valve repair. 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 Last pacer check 02/08/2024 showed no ventricular high rate sensing and no mode switching. This is consistent with him not having atrial fibrillation. The patient's resting heart rate is around 60 bpm and he is pacedabout 50% of the time. The patient is on Eliquis for his history of atrial fibrillation at 5 mg twice daily. Last blood work showed a creatinine of 1.5 heis now 79 years old for therefore decreasing his Eliquis to 2.5 mg twice daily. Patient also has a history of hypertension his blood pressure is well-controlledhe has a history of hyperlipidemia but he is intolerant of all statin therapy and could not including rosuvastatin. He denies chest, arm, jaw, or neck discomfort. He states palpitations that he describes as occasional and notes during exercise. He denies bilateral lower extremity edema. He denies claudication. He denies shortness of breath with activity, shortness of breath at rest, orthopnea, or PND. He denies chronic cough. He denies significant, sudden weight gain. He denies lightheadedness, dizziness, near-syncope, or syncope. He denies blood in urine, blood in stool, or epistaxis. He denies fever with chills. He denies myalgia. He denies fatigue. His exercise level has remained stable. 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 Accompanied by: Self Is patient in pain?: No Allergies No Known Allergies Allergy (Verified 05/15/25 14:48) Medications ?Medication ?Instructions ?Recorded ?Confirmed ?Type multivitamin (Daily Multi-Vitamin 1 tab PO DAILY 04/0305/15/25 History tablet) aspirin 81 mg tablet,delayed 81 mg PO DAILY #1 TAB 05/15/25 Rx release (Adult Aspirin Regimen) nitroglycerin 0.4 mg sublingual 0.4 mg sublingual Q5-1 5M PRN chest 02/15/24 05/15/25 Rx tablet pain #25 tabs acetaminophen 650 mg 650 mg PO Q12H 08/03/2404/25 History tablet,extended release (Tylenol 8 Hour) metoprolol tartrate 25 mg tablet 25 mg PO BID #180 tab s 10/10/24 05/15/25 Rx cholecalciferol (vitamin D3) 25 25 mcg PO QDAY 5 05/15/25 History mcg (1,000 unit) capsule lisinopril 5 mg tablet 5 mg PO DAILY #90 tabs 12/1905/15/25 Rx apixaban 2.5 mg tablet 2.5 mg PO BID pt stopping 05/15/25 Rx warfarin, switching to Eliquis #180 tabs Ejection fraction %: 55 Have you fallen in the past year?: No PFSH Medical History Bilateral stenosis of carotid arteries greater than 50% Cataract fragments in eye following surgery 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 Sinus node dysfunction 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 Abnormal stress test Abnormal electrocardiogram [ECG] [EKG] Angina pectoris Mixed hyperlipidemia Hernia COPD (chronic obstructive pulmonary disease) Dyslipidemia Surgical History History of cataract surgery Presence of permanent cardiac pacemaker (11/22/21) History of cardioversion (~12/16/21) History of mitral valve repair (~11/18/21) History of coronary artery bypass surgery (~11/18/21) S/P CABG (coronary artery bypass graft) History of left heart catheterization (LHC) (~09/10/21) History of hernia repair H/O knee surgery Family History Mother Cancer Brother Myocardial infarction CAD (coronary artery disease) Brother CVA (cerebral vascular accident) Social History Smoking Status: Former smoker Tobacco: How many years used: 20 how long ago did patient quit smoking: Started age 13, cigarettes, switched to pipe in his 30s, quit late 30's alcohol intake: current alcohol intake frequency: holidays/special occasions only substance use type: does not use caffeine: Yes Type: coffee Number of servings: 4 ROS Const Const: Negative for fatigue or weakness Eyes Eyes: Negative for change in vision ENT ENT: Negative for dizziness or balance problems Cardio Chest Pain: No Palpitations: Yes feels like its: fast (occasional with exercise) Edema: None Muscle aches with walking: None Resp Respiratory: Negative for SOB with activity, SOB at rest or SOB orthopnea\SOB lying down GI GI: Positive for heartburn; Negative nausea : Negative for hematuria or frequent nighttime urination/ nocturia Musc Musc: Negative for balance problems Skin Skin: Negative non-healing lesions or rash Neuro Neuro: Negative for dizziness, lightheadedness, near syncope, syncope or weakness Endo Endo: Negative for fatigue Allergy Allergy/Immunology: Negative for rash Cardiology Exam Const Appearance: cooperative, healthy appearing, comfortable and no acute distress Nutritional Appearance: average body habitus and well nourished Orientation: alert, awake and oriented x3 Head Head: normal to inspection Ears: hearing grossly normal bilaterally Nose: external nose normal Face and Sinus: face symmetric Mouth: moist mucous membranes Eyes General: appearance normal, both eyes and all related structures Eyelids: eyelids normal EOM: EOM intact bilaterally Neck Neck: normal visual inspection and no JVD Carotids: normal carotid upstroke Chest Chest inspection: normal inspection of the chest, symmetric chest movement, Pacemaker/ICD Yes left pectoral incision, normal respiratory effort and other (No obvious PPM site infection); Negative cough Auscultation: Bilateral: Clear to Auscultation Cardio Rate: regular rate Rhythm: regular rhythm Heart sounds: S1 normal and S2 normal; Negative rub, gallop or murmur GI GI: normal to inspection Neuro General: patient alert, patient awake, patient oriented x3 and CN's II-XI intact bilaterally Skin Skin: no rashes or lesions noted Extremities Pulses: Normal: Right Posterior Tibial Pulse, Left Posterior Tibial Pulse, Right Radial Pulse and Left Radial Pulse Lower Extremity Edema: None: Bilateral Psych Psychological: normal affect Supplemental Info Supplemental Information Carotid Duplex Ultrasound 09/15/2024 Interpretation Summary Moderate (50-69%) stenosis right extracranial internal carotid. Limited by calcific shadowing. Mild (<50%) stenosis left extracranial internal carotid. Patent and antegrade vertebrals bilaterally. Echocardiogram 04/19/2024 Interpretation Summary Mild concentric left ventricular hypertrophy. The left ventricular ejection fraction is 55 %. Moderate (2+) mitral valve insufficiency. Moderate (2+) tricuspid valve insufficiency. Mild (1+) aortic valve insufficiency. Mild (1+) pulmonic valve insufficiency. The study was technically difficult. Cardiac Catheterization 09/10/2021 PROCEDURE(S) PERFORMED DC01-(40787)LHC/COR/LV CLINICAL PROFILE AND INDICATIONS Indications: Worsening Angina, Suspected CAD Heart Failure: None Stress/Imaging Date: 02/21/2021 Angina Classification Anginal Classification w/in 2 Weeks: CCS III CAD Presentations: Stable angina. CONCLUSIONS Elevated Left Ventricular End Diastolic Pressure LV RWMA with overall preserved LVEF of 55 % [place] Multivessel CAD Left to Left Bridging Collaterals Left to Left Collaterals Left to Right Collaterals Right to Left Collaterals Mitral Valve Insufficiency Mild - Moderate RECOMMENDATIONS Risk factor modification Medical therapy Additional noninvasive evaluation of cardiac anatomy / physiology with a transthoracic echocardiogram CT surgery consult for coronary revascularization options and possible valvular intervention CORONARY ANGIOGRAPHY DOMINANCE: Right Dominant LEFT HEART ASSESSMENT Left Ventricular Ejection Fraction: by LV Gram 55 % Inferior Basal Hypokinesis. Inferior Mid Hypokinesis. Inferior Apical Hypokinesis Elevated Left Ventricular End Diastolic Pressure LVEDP: 42 mmHg LEFT MAIN: Mild calcification, mid: eccentric: 25 % Stenosis LEFT ANTERIOR DESCENDING ARTERY: PROX LAD: Moderate calcification, is occluded MID LAD: Moderate calcification, filling late from bridging collaterals and left to left collaterals and right to left collateral flow, mid to distal with subtotal occlusion DISTAL LAD: filling late from antegrade flow as well as from left to left collateral flow and right to left collateral flow CIRCUMFLEX ARTERY: Mild luminal irregularities RIGHT CORONARY ARTERY: Moderate calcification PROX RCA: diffuse: eccentric: 25 % Stenosis MID RCA: diffuse: irregular: 50 % Stenosis DISTAL RCA: is occluded, filling from left to right collateral flow COLLATERAL FLOW: Collateral flow from Left to Left (bridging collaterals) Collateral flow from Left to Left Collateral flow from Left to Right Collateral flow from Right to Left VALVE FINDINGS: Mitral Valve Insufficiency - Grade 1 to Grade 2 AORTIC ROOT: Angiographically normal Stress Test 02/21/2021 Impression 1. Technically adequate (percent predicted maximal heart rate greater than 85%) exercise tolerance test 2. Stress test is negative for exercise-induced chest pain. 3. Stress test test is negative for exercise-induced EKG changes of ischemia. 4. Functional capacity is mildly decreased for age ADDENDUM by Dr. Hammad Jay MD on 02/21/21 at 1223 Patient's right arm pain and throat pain could be anginal equivalents. Assessment and Plan Assessment and Plan (1) Atrial fibrillation: Status: Resolved Qualifiers: Atrial fibrillation type: paroxysmal Qualified Code(s): I48.0 - Paroxysmal atrial fibrillation Comment: Patients 07/2023 PPM check shows NSR with normal pacer function and no mode switches Plan: This appears stable. He appears to be in a regular rhythm on exam. He will continue Eliquis therapy for CVA protection. He denies any mode switch or atrial fibrillation related issues from [facility]. He will continue metoprolol for rate control. (2) jail (current) use of anticoagulants: Status: Chronic Plan: Patient is Eliquis will be decreased to 2.5 mg twice daily given he is now 79 years old with a creatinine of 1.54. He denies any significant bleeding related issues. We will continue Eliquis therapy and continue to monitor. (3) Presence of permanent cardiac pacemaker: Status: Chronic Plan: Patient's pacemaker is monitored through the [facility]. He continues to acknowledge that this is being monitored regularly. He denies any known concerns. He was encouraged continue to follow device clinic as needed. (4) History of coronary artery bypass surgery: Status: Acute Comment: CABG x2 VALLADARES-LAD, SVG-PDA @ [facility] 11/18/21 Stable Plan: Patient status post CABG and mitral valve repair at [facility] October 2021. Following the surgery he developed AV block requiring permanent pacemaker implantation. This appears stable. We will continue to monitor and not make any medication regimen changes. We will continue to promote risk factor and lifestyle modification. (5) Mixed hyperlipidemia: Status: Chronic Plan: Patient's last lipids from April 2024 total cholesterol was 139, HDL 29, LDL 80, and triglycerides 150. At some point in time he had trialed multiple statins and failed all of them including rosuvastatin 5 mg daily. This is due to profound myalgias. Given the patient is 79 years of age and his quality of life being good off of statin therapy, we have not reattempted statin medication. He will continue risk factor and lifestyle modification. We will continue to monitor. Plan Details Additional Comments: Thank you for allowing us to participate in the patients plan of care, if you have any questions please do not hesitate to call. Plan was reviewed with patient/family member along with red flag symptoms. Understanding was acknowledged. Questions were answered to apparent satisfaction. This note was generated using a voice recognition system and there may be incorrect words, spelling or punctuation that were not noted when reviewing the office note prior to saving. Portions of this documentation were copied and pasted from previous office visit notes to provide a cohesive continuity of the history. The note has been reviewed, edited, and updated, as necessary. Follow Up: 6 Months () Coding Level of Care Code Off vis,est,level 4 Diagnoses Paroxysmal atrial fibrillation I48.0 Atrial fibrillation type: paroxysmal jail (current) use of anticoagulants Z79.01 Presence of permanent cardiac pacemaker Z95.0 History of coronary artery bypass surgery Z95.1 Mixed hyperlipidemia E78.2 Coding Level of Care Code Off vis,est,level 4 Diagnoses Paroxysmal atrial fibrillation I48.0 Atrial fibrillation type: paroxysmal jail (current) use of anticoagulants Z79.01 Presence of permanent cardiac pacemaker Z95.0 History of coronary artery bypass surgery Z95.1 Mixed hyperlipidemia E78.2 Clinical Quality Measures Falls Risk Screening/Assistive Devices Have you fallen in the past year?: No Cardiac Ejection fraction %: 55 05/15/25 1511 <Electronically signed by Mitch DODDC> Date _ Mitch DODDC Cosigner Signature: Date (if applicable) CC: Dr. Kelsey Berger MD ~ [facility] [facility] Work Phone: [phone]) 214-930206-19-2025 NoteHNO ID: [id number] Author: OVIDIO MAIN MD Service: ? Author Type: Physician Type: Progress Notes Filed: 02/09/2025 14:22 Note Text: Heart and Vascular [facility] SECTION OF CARDIAC PACING and ELECTROPHYSIOLOGY OUTPATIENT VISIT DATE February 09, 2025 OUTPATIENT VISIT TYPE ESTABLISHED PRIMARY CARE PHYSICIAN: Kelsey Berger [address] [address] HISTORY OF PRESENT ILLNESS: HISTORY OF PRESENT ILLNESS: 78-year-old male with history of essential hypertension, multivessel coronary disease, status post CABG and mitral valve repair for severe mitral regurgitation in October 2021, sinus node dysfunction with severe postoperative bradycardia requiring pacemaker implantation, postoperative atrial fibrillation that required inpatient amiodarone loading and cardioversion. The patient was discharged on oral amiodarone. Benson presents for an office follow-up. He reports feeling well, denies chest discomfort, palpitation, dizziness, or syncope. He has been taking amiodarone since his surgery. He is maintained on oral anticoagulation for [id number]-LF6-XQDt score of at least 4. ECG shows sinus rhythm at 69 bpm with a narrow QRS complex and normal QT interval. Device interrogation from December 2021 demonstrated normal function, battery longevity of 13 more years, no atrial fibrillation recurrences, and stable lead parameters. At this point we can discontinue amiodarone and follow his device remotely. Anticoagulation should be continued. If atrial fibrillation recurrences are detected, amiodarone may be resumed. We will see him back in 1 year provided that remote data reveals no atrial fibrillation. Interval history: Mr. Mckeon presents for an office visit. He reports feeling well, denies palpitation, changes comfort, dizziness, or syncope. His device is about 2 years old. He remains on Eliquis for stroke prevention with no obvious bleeding complications. ECG today shows sinus rhythm at 73 bpm with PACs. Device interrogation earlier today demonstrated normal function, minimal atrial pacing, no atrial fibrillation recurrences, battery longevity of 13 more years. Interval history: Mr. Mckeon presents for follow-up. As before, he reports feeling well, denies palpitation, chest discomfort, or dizziness. He remains on oral anticoagulation with Eliquis for the history of postoperative atrial fibrillation. He is ECG shows sinus rhythm at 72 bpm with PACs. Device interrogation shows normal function, stable lead parameters, better longevity of 11 more years, minimal atrial pacing, no mode switch episodes. PAST MEDICAL HISTORY Diagnosis Date Actinic keratosis Allergic rhinitis BPH (benign prostatic hyperplasia) CAD (coronary artery disease) Hypertension Inguinal hernia Mitral valve regurgitation Mixed hyperlipidemia Osteoarthritis of multiple joints Persistent atrial fibrillation (HCC) 01/26/2023 Presence of cardiac pacemaker 01/26/2023 S/P CABG x 2 11/18/2021 (VALLADARES to LAD, SVG to PDA) MEDICATIONS: nitroglycerin sublingual (NITROQUICK) 0.[address] 1 tablet under the tongue if needed every 5 minutes for james... (REFER TO PRESCRIPTION NOTES). lisinopril (ZESTRIL, PRINIVIL) 5 mg tablet Take 1 tablet by mouth once daily. metoprolol tartrate, short acting, (LOPRESSOR) 25 mg tablet Take 1.5 tablets by mouth every 12 hours. (Patient taking differently: Take 1.5 tablets by mouth every 12 hours.) acetaminophen (TYLENOL) 500 mg tablet Take 2 tablets by mouth every 6 hours as needed for pain. aspirin 81 mg chewable tablet Take 1 tablet by mouth once daily. rosuvastatin (CRESTOR) 5 mg tablet Take 1 tablet by mouth every Thursday,Thursday,Thursday. albuterol HFA (PROVENTIL HFA, VENTOLIN HFA) 90 mcg/actuation inhaler inhale 2 puffs 20-30 MINUTES PRIOR TO EXERCISE AND NEEDED FOR ... (REFER TO PRESCRIPTION NOTES). fluticasone-vilanterol (BREO ELLIPTA) 200-25 mcg/dose inhaler Inhale 1 Inhalation as instructed once daily. (Patient taking differently: Inhale 1 Inhalation as instructed once daily. Inhale 1 puff into lungs daily) Review of Systems Constitutional: Negative for fatigue. HENT: Negative for hearing loss. Respiratory: Negative for shortness of breath. Cardiovascular: Negative for chest pain and palpitations. Gastrointestinal: Negative for abdominal pain. Endocrine: Negative for cold intolerance. Genitourinary: Negative for hematuria. Skin: Negative for pallor. Neurological: Negative for syncope. Psychiatric/Behavioral: The patient is not nervous/anxious. PHYSICAL EXAMINATION: BP 125/69 (BP Site: Right Arm, BP Position: Sitting, BP Cuff Size: Large Adult) Pulse 68 Wt 191 lb 6.4 oz (86.8 kg) SpO2 99% BMI 28.26 kg/m? BP w/Orthostatic Vitals Date and Time Orthostatic BP Orthostatic Pulse BP Pulse BP Position BP Site BP Cuff Size 02/09/25 1339 -- -- 125/69 68 Si (more content not included)...[facility]06-19-2025 History of Present illness Narrative* Ovidio Main MD - 02/09/2025 2:19 PM EDT Images from the original note were not included. Heart and Vascular [facility] SECTION OF CARDIAC PACING and ELECTROPHYSIOLOGY OUTPATIENT VISIT DATE February 09, 2025 OUTPATIENT VISIT TYPE ESTABLISHED PRIMARY CARE PHYSICIAN: Kelsey Berger [address] [address] HISTORY OF PRESENT ILLNESS: HISTORY OF PRESENT ILLNESS: 78-year-old male with history of essential hypertension, multivessel coronary disease, status post CABG and mitral valve repair for severe mitral regurgitation in October 2021, sinus node dysfunction with severe postoperative bradycardia requiring pacemaker implantation, postoperative atrial fibrillation that required inpatient amiodarone loading and cardioversion. The patient was discharged on oral amiodarone. Benson presents for an office follow-up. He reports feeling well, denies chest discomfort, palpitation, dizziness, or syncope. He has been taking amiodarone since his surgery. He is maintained on oral anticoagulation for HVN6-AW1-CDNn score of at least 4. ECG shows sinus rhythm at 69 bpm with a narrow QRS complex and normal QT interval. Device interrogation from December 2021 demonstrated normal function, battery longevity of 13 more years, no atrial fibrillation recurrences, and stable lead parameters. At this point we can discontinue amiodarone and follow his device remotely. Anticoagulation should be continued. If atrial fibrillation recurrences are detected, amiodarone may be resumed. We will see him back in 1 year provided that remote data reveals no atrial fibrillation. Interval history: Mr. Mckeon presents for an office visit. He reports feeling well, denies palpitation, changes comfort, dizziness, or syncope. His device is about 2 years old. He remains on Eliquis for stroke prevention with no obvious bleeding complications. ECG today shows sinus rhythm at 73 bpm with PACs. Device interrogation earlier today demonstrated normal function, minimal atrial pacing, no atrial fibrillation recurrences, battery longevity of 13 more years. Interval history: Mr. Mckeon presents for follow-up. As before, he reports feeling well, denies palpitation, chest discomfort, or dizziness. He remains on oral anticoagulation with Eliquis for the history of postoperative atrial fibrillation. He is ECG shows sinus rhythm at 72 bpm with PACs. Device interrogation shows normal function, stable lead parameters, better longevity of 11 more years, minimal atrial pacing, no mode switch episodes. PAST MEDICAL HISTORY Diagnosis Date Actinic keratosis Allergic rhinitis BPH (benign prostatic hyperplasia) CAD (coronary artery disease) Hypertension Inguinal hernia Mitral valve regurgitation Mixed hyperlipidemia Osteoarthritis of multiple joints Persistent atrial fibrillation (HCC) 01/26/2023 Presence of cardiac pacemaker 01/26/2023 S/P CABG x 2 11/18/2021 (VALLADARES to LAD, SVG to PDA) MEDICATIONS: nitroglycerin sublingual (NITROQUICK) 0.[address] 1 tablet under the tongue if needed every 5 minutes for james... (REFER TO PRESCRIPTION NOTES). lisinopril (ZESTRIL, PRINIVIL) 5 mg tablet Take 1 tablet by mouth once daily. metoprolol tartrate, short acting, (LOPRESSOR) 25 mg tablet Take 1.5 tablets by mouth every 12 hours. (Patient taking differently: Take 1.5 tablets by mouth every 12 hours.) acetaminophen (TYLENOL) 500 mg tablet Take 2 tablets by mouth every 6 hours as needed for pain. aspirin 81 mg chewable tablet Take 1 tablet by mouth once daily. rosuvastatin (CRESTOR) 5 mg tablet Take 1 tablet by mouth every Thursday,Thursday,Thursday. albuterol HFA (PROVENTIL HFA, VENTOLIN HFA) 90 mcg/actuation inhaler inhale 2 puffs 20-30 MINUTES PRIOR TO EXERCISE AND NEEDED FOR ... (REFER TO PRESCRIPTION NOTES). fluticasone-vilanterol (BREO ELLIPTA) 200-25 mcg/dose inhaler Inhale 1 Inhalation as instructed once daily. (Patient taking differently: Inhale 1 Inhalation as instructed once daily. Inhale 1 puff into lungs daily) Review of Systems Constitutional: Negative for fatigue. HENT: Negative for hearing loss. Respiratory: Negative for shortness of breath. Cardiovascular: Negative for chest pain and palpitations. Gastrointestinal: Negative for abdominal pain. Endocrine: Negative for cold intolerance. Genitourinary: Negative for hematuria. Skin: Negative for pallor. Neurological: Negative for syncope. Psychiatric/Behavioral: The patient is not nervous/anxious. PHYSICAL EXAMINATION: BP 125/69 (BP Site: Right Arm, BP Position: Sitting, BP Cuff Size: Large Adult) Pulse 68 Wt 191lb 6.4 oz (86.8 kg) SpO2 99% BMI 28.26 kg/m BP w/Orthostatic Vitals Date and Time Orthostatic BP Orthostatic Pulse BP Pulse BP Position BP Site BP Cuff Size 02/09/25 1339 -- -- 125/69 68 Sitting Right Arm Large Adult Physical Exam Constitutional: Appearance: Normal appearance. HENT: Head: Normocephalic and atraumatic. Eyes: Conjunctiva/sclera: Conjunctivae normal. Cardiovascular: Rate and Rhythm: Normal rate and regular rhythm. Pulmonary: Effort: Pulmonary effort is normal. No respiratory distress. Breath sounds: No stridor. Skin: General: Skin is dry. Coloration: Skin is not pale. Neurological: Mental Status: He is alert and oriented to person, place, and time. Psychiatric: Mood and Affect: Mood normal. I have personally reviewed the Electrocardiogram. Assessment PLAN AND RECOMMENDATIONS: ASSESSMENT/PLAN: 1. Sinus node dysfunction (HCC) - ICD9: 427.81, ICD10: I49.5 (primary diagnosis) Addressed with a dual-chamber pacemaker implantation 2. Presence of cardiac pacemaker - ICD9: V45.01, ICD10: Z95.0 Normal function, continue quarterly opacifications and annual office visit 3. Atrial fibrillation, unspecified [place] fibrillation was observe in the immediate postoperative period only, no recurrences for the last several years as evidenced by regular device interrogations. Would discontinue,anticoagulation at this point. If future device indications reveal atrial fibrillation, would reinstitute anticoagulat ion. Ovidio Main MD CONTACT INFORMATION: Ovidio Main MD documented in this encounter[facility] Evaluation [facility]* Diagnosis Onset Date Resolution Status Admit Date 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 acute February 01, 2025 1:29pm Bilateral stenosis of carotid arteries greater than 50% acute February 01, 2025 1:29pm COPD (chronic obstructive pulmonary disease) acute February 01 1:29pm Erectile dysfunction acute February 01, 2025 1:29pm History of coronary artery bypass surgery October, acute February 01, 2025 1:29pm 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 acute February 01, 2025 1:29pm Persistent atrial fibrillation acute February 01, 2025 1:29pm jail (current) use of anticoagulants chronic February 01, 2025 1:29pm Atrial fibrillation resolved February 01, 2025 1:29pm History of coronary artery bypass surgery October, acute May 15, 2025 2:40pm 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 May 15, 2025 2:40pm Mixed hyperlipidemia chronic Apr 2:40pm Presence of permanent cardiac pacemaker November 22, 2021 chronic April 2:40pm Atrial fibrillation resolved 2024 2:40pm [facility] Work Phone: 1(635) 850-608002-20-2025 Evaluation note* Diagnosis Onset Date Resolution Status Admit Date 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 acute October 13, 025 2:23pm History of coronary artery bypass surgery October, acute October 13 025 2:23pm 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 October 13 025 2:23pm Mixed hyperlipidemia chronic 2024 2:23pm Presence of permanent cardiac pacemaker November 22, 2021 chronic October 13, 2024 2:23pm Atrial fibrillation resolved 2024 2:23pm Bilateral stenosis of carotid arteries greater than 50% acute October 26, 2024 1:45pm History of coronary artery bypass surgery October, acute October 26, 2024 1:45pm History of mitral valve repair October, chronic October 26, 2024 1:45pm jail (current) use of anticoagulants chronic October 26, 2024 1:45pm Mixed hyperlipidemia chronic Alejandro 2024 1:45pm Atrial fibrillation resolved October 26, 2024 1:45pm 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 acute February 01, 2025 1:29pm Bilateral stenosis of carotid arteries greater than 50% acute February 01, 2025 1:29pm COPD (chronic obstructive pulmonary disease) acute February 01 1:29pm Erectile dysfunction acute February 01, 2025 1:29pm History of coronary artery bypass surgery October, acute February 01, 2025 1:29pm jail current use of amiodarone acute February 01, 2025 1:29pm Persistent atrial fibrillation acute February 01, 2025 1:29pm jail (current) use of anticoagulants chronic February 01, 2025 1:29pm Atrial fibrillation resolved February 01, 2025 1:29pm [employer] Work Phone: 1(379) 297-857206-17-2024 History of Present illness Narrative* Ovidio Main MD - 02/08/2024 2:14 PM EDT Images from the original note were not included. Heart and Vascular [facility] SECTION OF CARDIAC PACING and ELECTROPHYSIOLOGY OUTPATIENT VISIT DATE February 08, 2024 OUTPATIENT VISIT TYPE ESTABLISHED PRIMARY CARE PHYSICIAN: Kelsey Berger [id number] [address] HISTORY OF PRESENT ILLNESS: 78-year-old male with history of essential hypertension, multivessel coronary disease, status post CABG and mitral valve repair for severe mitral regurgitation in October 2021, sinus node dysfunction with severe postoperative bradycardia requiring pacemaker implantation, postoperative atrial fibrillation that required inpatient amiodarone loading and cardioversion. The patient was discharged on oral amiodarone. Benson presents for an office follow-up. He reports feeling well, denies chest discomfort, palpitation, dizziness, or syncope. He has been taking amiodarone since his surgery. He is maintained on oral anticoagulation for XAF0-IE5-CWMl score of at least 4. ECG shows sinus rhythm at 69 bpm with a narrow QRS complex and normal QT interval. Device interrogation from December 2021 demonstrated normal function, battery longevity of 13 more years, no atrial fibrillation recurrences, and stable lead parameters. At this point we can discontinue amiodarone and follow his device remotely. Anticoagulation should be continued. If atrial fibrillation recurrences are detected, amiodarone may be resumed. We will see him back in 1 year provided that remote data reveals no atrial fibrillation. Interval history: Mr. Mckeon presents for an office visit. He reports feeling well, denies palpitation, changes comfort, dizziness, or syncope. His device is about 2 years old. He remains on Eliquis for stroke prevention with no obvious bleeding complications. ECG today shows sinus rhythm at 73 bpm with PACs. Device interrogation earlier today demonstrated normal function, minimal atrial pacing, no atrial fibrillation recurrences, battery longevity of 13 more years. PAST MEDICAL HISTORY Diagnosis Date Actinic keratosis Allergic rhinitis BPH (benign prostatic hyperplasia) CAD (coronary artery disease) Hypertension Inguinal hernia Mitral valve regurgitation Mixed hyperlipidemia Osteoarthritis of multiple joints Persistent atrial fibrillation (HCC) 01/26/2023 Presence of cardiac pacemaker 01/26/2023 S/P CABG x 2 11/18/2021 (VALLADARES to LAD, SVG to PDA) MEDICATIONS: ELIQUIS 5 mg tab(s) Take 5 mg by mouth twice daily. nitroglycerin sublingual (NITROQUICK) 0.[address] 1 tablet under the tongue if needed every 5 minutes for james... (REFER TO PRESCRIPTION NOTES). aspirin 81 mg chewable tablet Take 1 tablet by mouth once daily. rosuvastatin (CRESTOR) 5 mg tablet Take 1 tablet by mouth every Thursday,Thursday,Thursday. lisinopril (ZESTRIL, PRINIVIL) 5 mg tablet Take 1 tablet by mouth once daily. metoprolol tartrate, short acting, (LOPRESSOR) 25 mg tablet Take 1.5 tablets by mouth every 12 hours. acetaminophen (TYLENOL) 500 mg tablet Take 2 tablets by mouth every 6 hours as needed for pain. albuterol HFA (PROVENTIL HFA, VENTOLIN HFA) 90 mcg/actuation inhaler inhale 2 puffs 20-30 MINUTES PRIOR TO EXERCISE AND NEEDED FOR ... (REFER TO PRESCRIPTION NOTES). fluticasone-vilanterol (BREO ELLIPTA) 200-25 mcg/dose inhaler Inhale 1 Inhalation as instructed once daily. (Patient taking differently: Inhale 1 Inhalation as instructed once daily. Inhale 1 puff into lungs daily) Review of Systems Constitutional: Negative for fatigue. HENT: Negative for hearing loss. Respiratory: Negative for shortness of breath. Cardiovascular: Negative for chest pain and palpitations. Gastrointestinal: Negative for abdominal pain. Endocrine: Negative for cold intolerance. Genitourinary: Negative for hematuria. Skin: Negative for pallor. Neurological: Negative for syncope. Psychiatric/Behavioral: The patient is not nervous/anxious. PHYSICAL EXAMINATION: BP 114/59 (BP Site: Left Arm, BP Position: Sitting, BP Cuff Size: Regular Adult) Pulse 66 Ht 5'9 (1.753 m) Wt 193 lb (87.5 kg) SpO2 97% BMI 28.50 kg/m BP w/Orthostatic Vitals Date and Time Orthostatic BP Orthostatic Pulse BP Pulse BP Position BP Site BP Cuff Size 02/08/24 1406 -- -- 114/59 66 Sitting Left Arm Regular Adult Physical Exam Constitutional: Appearance: Normal appearance. HENT: Head: Normocephalic and atraumatic. Eyes: Conjunctiva/sclera: Conjunctivae normal. Cardiovascular: Rate and Rhythm: Normal rate and regular rhythm. Pulmonary: Effort: Pulmonary effort is normal. No respiratory distress. Breath sounds: No stridor. Skin: General: Skin is dry. Coloration: Skin is not pale. Neurological: Mental Status: He is alert and oriented to person, place, and time. Psychiatric: Mood and Affect: Mood normal. I have personally reviewed the Electrocardiogram. Assessment PLAN AND RECOMMENDATIONS: ASSESSMENT/PLAN: 1. Persistent atrial fibrillation (HCC) - ICD9: 427.31, ICD10: I48.19 (primary diagnosis) Maintain sinus rhythm without use of antiarrhythmics, stable - ECG B/O W INTERP (MED OFFICE) 2. Sinus node dysfunction (HCC) - ICD9: 427.81, ICD10: I49.5 Addressed with dual-chamber pacemaker implantation 3. Presence of cardiac pacemaker - ICD9: V45.01, ICD10: Z95.0 Normal functioning as above, continue quarterly interrogations and annual office visits 4. 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 Ovidio Main MD CONTACT INFORMATION: Ovidio Main MD documented in this encounter[facility] NotePPM check, dual lead system with programming. ID x2. Here for routine PM evaluation. Offers no complaints. Incision/pocket left pectoral area without signs of infection. Presenting rhythm NSR alternating w/ AP/VS. Rate 60's. Interrogation shows no ventricular high rate and/or mode switch episodes. PMT has occurred. Algorithm converts PMT. Takes Eliquis BID and 81 mg asa QD. Recommended replacement time is 13 more years. Lead impedances, sensing and pacing thresholds stable. VAC consistent. PVARP increased. RA sensitivity decreased from 0.25 mv to 0.3 mv d/t past far field atrial oversensing. P waves measure 3.1 mv. Counters cleared. Next device check scheduled for patient, questions answered. Jhonathan STANTON NOTE TO PROVIDERS: CARD Flowsheets contain detailed device programming and testing data. Paceart/Interrogation PDF can be found under CARDIAC DATA AND REPORT, Scanned Documents section.[id number] Miscellaneous Notes* Telephone Encounter - Katherine Milligan RN - 01/06/2022 10:27 AM EDT Pt notified and voices understanding to ASA 81mg daily. Katherine Milligan RN * Telephone Encounter - Tatiana Arnold RN - 01/03/2022 4:25 PM EDT Patient states he takes 2 81 mg asa every day. I see Epic shows 81 mg every day. Please let patientknow correct does. Tatiana Moise documented in this encounterMet[facility]-04-2022 Nurse Note* Katherine Milligan RN - 12/25/2021 1:33 PM EDT EKG reviewed. Katherine Milligan RN * Tabitha Hull MA - 12/25/2021 1:24 PM EDT No cardiac complaints today. Tabitha Hull MA documented in this encounterMet[facility]-04-2022 Instructions* Patient Instructions* Kaycee Quinoenz APRN.CNP - 12/25/2021 11:55 AM EDT You have done a great job recovering from you surgery, moving forward, here are the recommendations: Medications: please continue taking Aspirin, beta nighat and statin for coronary artery disease. Please avoid taking NSAIDs (Aleve, Ibuprofen, Motrin, Advil, Mobic etc) Driving: Ok to drive now! Vest: ok to stop using Cardiac Rehab: [phone] ([place] [facility] re[facility], floor 1) You will have a EKG stress test before and after the cardiac rehab, [facility]. Restrictions: slowly increase weight bearing in a gradual fashion (5-10 lbs increment each month) over the next 2-3 months to allow further healing, then gradually resume your normal activities depending on how you feel. Follow-ups: It is crucial to establish future appointments with your main providers, they are you mobile lounge driver , primary care doctor and your marketing business analyst (heart rhythm doctor, Dr. Main)tfor medications refills/questions and future health management. Make sure you go for you EKG at the general cardiology office this afternoon You can follow up with cardiac surgery team on as needed basis. Please don't hesitate to contact us if you have any concerns/questions: [phone] Thanks for coming in to see me today. Kaycee Quinonez APRN.URVASHI documented in this encounterMet[facility]05-04-2022 History of Present illness Narrative* Kaycee Quinonez APRN.NURSE SUBSTANCE ABUSE - 12/25/2021 11:16 AM EDT HPI: This is a 76 year old man PMH of HLD, remote tobacco use, BPH, and inguinal hernia, COPD, and MR, who was referred for evaluation of multivessel coronary artery disease and unstable angina and for consideration of bypass surgery. Pt has been experiencing episodes of exertional right shoulder, rightarm, and anterior neck discomfort with associated dyspnea that is relieved with rest. A stress testwas nominally negative for distal ischemia but did reproduce the symptoms. [place] to be his anginal equivalent. On that basis, left heart catheterization was then performed showing: elevated EDP, Occluded LAD with left to left and right to left collaterals, Occluded right coronary with left to right and right to right collaterals to moderate MR. 2D ECho showed: normal LV size, EF 55%. Inferobasal, mid inferior, mid inferoseptal hypokinesia, Mild mitral annular calcification. 1-2+ MR and mild aortic insufficiency. Patient denied hx of DM, HTN or other vascular disease, such as CVA pr renal insuff iciency. With his COPD dx, he underwent pulmonary medicine evaluation. PFT showed FEV1 of 88% and aDLCO of 131% predicted. He is on Breo. Patient underwent elective CABG x2 and Mitral valve repair performed by Dr. Lazo on 11/18/21. Post-op recovery, he was found to have heart block on POD#1 then SVT with junctional bradycardia rhythm, requiring EP consult and underwent PPM placement on 11/22/21. He was otherwise recovering well in CVICU, was transferred out of ICU on POD#5, and DC home with [facility] on POD #7. He was doing well at his 1 week post hospital follow up. Repeat lab work at that time show resolution of MCKAYLA with a creatinine of 1.16. Interval events: On 12/14/21, [facility] nurse called our services with reports of patient being in a sustained tachycardia. Benson reports he was symptomatic with palpitations, and visual changes, and subsequently went to [facility] ER where he was found to be in 2:1 Atrial flutter HR 140s. Dr. Main saw on hospital consultatoin. Attempted IV metoprolol, with inadequate reduction in heart rate response. Then attempted IV cardizem, with continued tachycardia. He was then Iloaded with digoxin and subsequenty admitted to CVICU for further management. He underwent successful LINDSAY CV with Dr Rosario, amiodaronedrichris and OAC. He was discharged on 12/17 in NSR, on home metoprolol dose, oral amiodarone and Eliquis. He reports he has been feeling well, with no recurrence of palpitations. Denies chest pain, shortness of breath, lightheadedness, dizziness, cough, LE edema. Denies any incisional concerns, fevers orchilss. Has been active walking several times a day around the block with good tolerance. Does report he has stopped his crestor 40 mg daily due to BLE myalgias. States he has tolerated 5 mg every other day dosing in the past. Benson Leeanne Mckeon reports home recovery as listed below: Episodes of dizziness or syncope: no Chest pain: no Palpitations: no BP: reviewed per home log: mid 120s systolic/ 70s, HR 70s Tolerating diet well without changing bowel habits: yes Fever, chills: no Activities at home without SOB or [place]: see above` Post surgical pain: denies. Takes Tylenol PRN Leg edema: no Sleep: good Energy: good Subjective: Current Outpatient Medications Medication Sig amiodarone (PACERONE) 200 mg tablet Take 2 tablets by mouth twice daily for 5 days, THEN 2 tablets once daily. apixaban (ELIQUIS) 5 mg tab(s) Take 1 tablet by mouth twice daily. isosorbide mononitrate ER (IMDUR) 60 mg 24 hr tablet Take 60 mg by mouth as directed. Chlorhexidine Gluconate (PERIDEX) 0.12 % solution Use 15 mL as instructed twice daily. Rinse aroundmouth for 30 seconds then expectorate furosemide (LASIX) 40 mg tablet Take 40 mg by mouth as directed. mupirocin (BACTROBAN) 2 % ointment Apply 1 application to affected area as directed. potassium chloride ER (K-DUR, KLOR-CON) 20 mEq tablet Take 20 mEq by mouth as directed. metoprolol tartrate, short acting, (LOPRESSOR) 25 mg tablet Take 1.5 tablets by mouth every 12 hours. acetaminophen (TYLENOL) 500 mg tablet Take 2 tablets by mouth every 6 hours as needed for pain. aspirin 81 mg chewable tablet Take 2 tablets by mouth once daily for 30 days, THEN 1 tablet once daily. rosuvastatin (CRESTOR) 20 mg tablet Take 1 tablet by mouth once daily. lisinopril (ZESTRIL, PRINIVIL) 5 mg tablet Take 1 tablet by mouth once daily. magnesium oxide (MAG-OX) 400 mg (241.3 mg magnesium) tablet Take 1 tablet by mouth once daily. Shower Chair with Back once daily. Use as directed fluticasone-vilanterol (BREO ELLIPTA) 200-25 mcg/dose inhaler Inhale 1 Inhalation as instructed once daily. (Patient taking differently: Inhale 1 Inhalation as instructed once daily. Inhale 1 puff into lungs daily) albuterol HFA (PROVENTIL HFA, VENTOLIN HFA) 90 mcg/actuation inhaler inhale 2 puffs 20-30 MINUTES PRIOR TO EXERCISE AND NEEDED FOR ... (REFER TO PRESCRIPTION NOTES). No current facility-administered medications for this visit. Patient has no known allergies. PAST MEDICAL HISTORY Diagnosis Date Actinic keratosis Allergic rhinitis BPH (benign prostatic hyperplasia) CAD (coronary artery disease) Hypertension Inguinal hernia Mitral valve regurgitation Mixed hyperlipidemia Osteoarthritis of multiple joints S/P CABG x 2 11/18/2021 (VALLADARES to LAD, SVG to PDA) PAST SURGICAL HISTORY Procedure Laterality Date CABG (2) VEIN GRAFTS & ARTERIAL GRAFT(S 11/18/2021 (VALLADARES to LAD, SVG to PDA) INGUINAL HERNIA REPAIR HX 1995 KNEE SURGERY HX Right 1984 FAMILY HISTORY Problem Relation Age of Onset Lymphoma Mother Alzheimer's Disease Father Cancer Sister Stroke Brother Heart Brother Social History Tobacco Use Smoking status: Former Smoker Years: 15.00 Types: Cigarettes, Pipe Quit date: 1979 Years since quittin.3 Smokeless tobacco: Never Used Tobacco comment: SOCIALLY Vaping Use Vaping Use: Never used Substance Use Topics Alcohol use: Yes Comment: ON OCCASION Drug use: Never Review of Systems Constitutional: Negative for chills, fever, malaise/fatigue and weight loss. Respiratory: Negative for cough, hemoptysis, sputum production, shortness of breath and wheezing. Cardiovascular: Negative for chest pain, palpitations, orthopnea, claudication, leg swelling and PND. Gastrointestinal: Negative for constipation and diarrhea. Genitourinary: Negative. Skin: Negative for itching and rash. Neurological: Negative for dizziness. Objective: One month post- op Chest X-ray is done and reviewed today. Preliminary review with no acute abnormalities. Official read pending Physical Examination: Vitals:BP 118/69 Pulse 68 Ht 5' 9 (1.75m) Wt 186 lb 12.8 oz (84.7kg) SpO2 98% BMI 27.57 kg/(m^2). BP w/Orthostatic Vitals Date and Time Orthostatic BP Orthostatic Pulse BP Pulse BP Position BP Site BP Cuff Size 12/25/21 1101 -- -- 118/69 68 -- -- -- Last 2 Encounter Wt Readings: Date: Wt: 12/25/2021 186 lb 12.8 oz (84.7 kg) 12/14/2021 187 lb 13.3 oz (85.2 kg) Physical Exam Vitals reviewed. Constitutional: General: He is not in acute distress. Appearance: Normal appearance. He is normal weight. HENT: Head: Normocephalic and atraumatic. Nose: Nose normal. Eyes: Extraocular Movements: Extraocular movements intact. Conjunctiva/sclera: Conjunctivae normal. Pupils: Pupils are equal, round, and reactive to light. Cardiovascular: Rate and Rhythm: Normal rate and regular rhythm. Pulses: Normal pulses. Heart sounds: Normal heart sounds. Pulmonary: Effort: Pulmonary effort is normal. Breath sounds: Normal breath sounds. Comments: Stable sternotomy Chest: Chest wall: No tenderness. Skin: General: Skin is warm and dry. Comments: Healed MSI and CT sites without s/sx of infection. CT site with scant flaking scabs. Neurological: General: No focal deficit present. Mental Status: He is alert and oriented to person, place, and time. Psychiatric: Mood and Affect: Mood normal. Assessment and Plan: ASSESSMENT/PLAN: 1. S/P CABG x 2 - ICD9: V45.81, ICD10: Z95.1 (primary diagnosis) - doing well 1 month post op. - continue ASA 81 mg once daily, continue metoprolol 37.5 mg oral BID. - Pt non compliant with current 20 mg dose of crestor 2/2 severe BLE myalgias. - Tolerated 5 mg oralevery other day in past. New rx and dosage provided. - rx for cardiac rehab previously provided. Pt instructed to call [place] site to schedule first appointment 2. Coronary artery disease involving venetie ira coronary artery of ven[place] ira heart with unstable angina pectoris (HCC) - ICD9: 414.01, 411.1, ICD10: I25.110 - pt has scheduled follow up with Dr. Garcia for continued follow up 3. S/P mitral valve repair - ICD9: V45.89, ICD10: Z98.890 4. S/P placement of cardiac pacemaker - ICD9: V45.01, ICD10: Z95.0 - continue to follow up with EP Dr. Main -continues to follow with Device [facility] 5. Atrial flutter, unspecified type (HCC) - ICD9: 427.32, ICD10: I48.92 - s/p successful [facility] - continues on Amiodarone 400 mg daily. Will be getting EKG this afterron with [facility] - continues on BB and OAC 6. Acute kidney injury (HCC) - ICD9: 584.9, ICD10: N17.9 - resolution of MCKAYLA from original CABG operation - most recent creatinine during most recent hospitalization was 1.39 on 12/17/21 - encouraged PCP follow up in next 3-4 weeks. 7. HTN - controlled, continue current regimen Patient is doing well overall after the surgery, with no major complaints. Patient is released to drive, work and gradually resume normal daily activities. It's recommended that patient should start cardiac rehab from this point on. he should follow up with his mobile lounge driver, EP, and PCP as scheduled, and only needs to be seen here on a as needed basis. Thanks. Kaycee Quinonez APRN.NURSE SUBSTANCE ABUSE Electronically signed by Kaycee Quinonez APRN.CNP on December 25, 2021, 11:24 AM documented in this encounterMet[facility]04-26-2022 Miscellaneous Notes* Telephone Encounter - Sarah Bonilla SAE - 12/17/2021 2:09 PM EDT Scheduled patient to see Dr Main on 01/28/22. Called and confirmed appointment time, date and location with patient's daughter. Sarah Bonilla December 17, 2021 2:10 PM * Telephone Encounter - Freddie Gaytan APRN.URVASHI - 12/17/2021 12:34 PM EDT Please schedule patient for follow-up appointment with Dr. Main in 6 weeks to discuss amiodarone usage potentially long-term. Per Dr. Conner's request. Freddie Moise documented in this [facility]04-26-2022 Miscellaneous Notes* Telephone Encounter - Kerry Artis MD - 12/17/2021 9:01 AM EDT Needs order for EKG to check QTc while on amiodarone 5-6 days after discharge. documented in this encounterMet[facility]04-25-2022 Miscellaneous Notes* Telephone Encounter - Alonzo De La Cruz RN - 12/16/2021 3:12 PM EDT ; Patient transferred and was admitted to the hospital 12/14 for 3 days of a-fib. All Home Health visits have been placed on HOLD at this time. Thank you for your review of this information. Alonzo De La Cruz RN-[facility]. documented in this encounterMetro[facility]04-25-2022 Miscellaneous Notes* CARE COORDINATION - Alonzo De La Cruz RN - 12/16/2021 12:30 PM EDT SN contacted Dr.Joseph Nikos Lazo on 12/16/21 for the following: transfer and admission to [facility] on 12/14 with 3 days of heart palpitations. documented in this encounter[address]-2022 History of Past illness Narrative* Problem Noted Date Resolved Date Atrial flutter 12/14/2021 12/17/2021 documented as of this encounter (statuses as of 12/17/2021) [address]-2022 History of Past illness Narrative* Problem Noted Date Resolved Date Atrial flutter 12/14/2021 12/17/2021 documented as of this encounter (statuses as of 12/17/2021) [address]-2022 History of Past illness Narrative* Problem Noted Date Resolved Date Atrial flutter 12/14/2021 12/17/2021 documented as of this encounter (statuses as of 12/17/2021) [address]-2022 History of Past illness Narrative* Problem Noted Date Resolved Date Atrial flutter 12/14/2021 12/17/2021 documented as of this encounter (statuses as of 12/18/2021) [address]-2022 History of Past illness Narrative* Problem Noted Date Resolved Date Atrial flutter 12/14/2021 12/17/2021 documented as of this encounter (statuses as of 12/25/2021) [address]-2022 History of Past illness Narrative* Problem Noted Date Resolved Date Atrial flutter 12/14/2021 12/17/2021 documented as of this encounter (statuses as of 01/03/2022) [address]-2022 History of Past illness Narrative* Problem Noted Date Resolved Date Atrial flutter 12/14/2021 12/17/2021 documented as of this encounter (statuses as of 01/03/2022) [address]22 History of Past illness Narrative* Problem Noted Date Resolved Date Atrial flutter 12/14/2021 12/17/2021 documented as of this encounter (statuses as of 01/06/2022) [address]-2022 History of Past illness Narrative* Problem Noted Date Resolved Date Atrial flutter 12/14/2021 12/17/2021 documented as of this encounter (statuses as of 01/07/2022) [address]-2022 History of Past illness Narrative* Problem Noted Date Resolved Date Atrial flutter 12/14/2021 12/17/2021 documented as of this encounter (statuses as of 01/17/2022) [address]2022 History of Past illness Narrative* Problem Noted Date Resolved Date Atrial flutter 12/14/2021 12/17/2021 documented as of this encounter (statuses as of 03/06/2022) [address]-2022 History of Past illness Narrative* Problem Noted Date Resolved Date Atrial flutter 12/14/2021 12/17/2021 documented as of this encounter (statuses as of 04/11/2022) [address]2022 History of Past illness Narrative* Problem Noted Date Resolved Date Atrial flutter 12/14/2021 12/17/2021 documented as of this encounter (statuses as of 04/11/2022) [address]-2022 History of Past illness Narrative* Problem Noted Date Resolved Date Atrial flutter 12/14/2021 12/17/2021 documented as of this encounter (statuses as of 07/25/2022) [address]2022 History of Past illness Narrative* Problem Noted Date Resolved Date Atrial flutter 12/14/2021 12/17/2021 documented as of this encounter (statuses as of 07/25/2022) [address]-2022 History of Past illness Narrative* Problem Noted Date Resolved Date Atrial flutter 12/14/2021 12/17/2021 documented as of this encounter (statuses as of 11/06/2022) [address]2022 History of Past illness Narrative* Problem Noted Date Resolved Date Atrial flutter 12/14/2021 12/17/2021 documented as of this encounter (statuses as of 11/06/2022) [address] History of Past illness Narrative* Problem Noted Date Diagnosed Date Resolved Date Atrial flutter 12/14/2021 12/17/2021 documented as of this encounter (statuses as of 05/16/2023) [address]-2022 History of Past illness Narrative* Problem Noted Date Diagnosed Date Resolved Date Atrial flutter 12/14/2021 12/17/2021 documented as of this encounter (statuses as of 11/27/2023) [facility] History of Past illness Narrative* Problem Noted Date Diagnosed Date Resolved Date Atrial flutter 12/14/2021 12/17/2021 documented as of this encounter (statuses as of 11/27/2023) [facility]04[facility]20-[facility] Miscellaneous Notes* CARE COORDINATION - Alena Schwab RN - 12/11/2021 5:28 PM EDT SN contacted Dr. Lazo on 12-09-21 for the following: elevated Blood pressures Return call from DR Lazo office message reads --Michael Carvajal- can you please have pt increase his Metop from 12.5 mg BID to 37.5 mg BID. Continue with VS monitoring and if he continues to be above 130,I will think about increasing his Lisinopril as well. Thnx! SN placed call to Pt and his daughter left messages on both voice mails documented in this encounterMetro[facility]04-18-2022 Miscellaneous Notes* Telephone Encounter - Alena Schwab RN - 12/09/2021 10:15 AM EDT Pt has been taking his blood pressures daily and he has noted that he has been having an increase of his blood pressures SN noted his list includes most blood pressures running in the Mid 130's over high 80's to low 90's and his pulse is increasing to in the 90's. SN took his blood pressure manullay today and it was 142/84 p 92 his weight was 185 R 18 his edema in his BLE is reduced he express taking all meds as directed and maintaining his diet he express no chest pain, racing heart, palpitation, sweats, increased pain, dizziness, headaches, arm aches, increased SOB. His Bowel and Bladder are regular. No falls, No confusion. Incisions are clean dry and no s/s of infection noted. documented in this encounterMet[facility]04-18-2022 Miscellaneous Notes* SN Routine - Alena Schwab RN - 12/09/2021 10:01 AM EDT SITUATION: Care Home routine visit completed today. patient reports the following: Allergies--reviewed Medications--full medication reconciliation completed Falls--None DME-Reviewed and added to chart BACKGROUND: Reason for Home Care: post CABG ASSESSMENT: SN greeted at door by patient no DME and demonstrates stable gait. Patient appears in no acute distress. Patient/CG concerns verbalized today: elevated BP Vitals (see flow sheet for details): stable SN findings today: Pt has been taking his blood pressures daily and he has noted that he has been having an increase of his blood pressures SN noted his list includes most blood pressures running in the Mid 130's over high 80's to low 90's and his pulse is increasing to in the 90's. SN took his blood pressure manullay today and it was 142/84 p 92 his weight was 185 R 18 his edema in his BLE is reduced he express taking all meds as directed and maintaining his diet he express no chest pain, racing heart, palpitation, sweats, increased pain, dizziness, headaches, arm aches, increased SOB. His Bowel and Bladder are regular. No falls, No confusion. SN educated pt to cotinue to monitor BP's and Chris Ott made MD aware. he expressed understanding See intervention summary for education details. Patient demonstrated a need for further skilled SN services for chronic disease management & education. Current Discharge plan: self-care and family support RECOMMENDATION: Next visit to focus on (be specific): wound care bP's? documented in this encounterMet[facility]04-15-2022 Miscellaneous Notes* Telephone Encounter - Astrid Davies - 12/06/2021 10:39 AM EDT [facility] ph [phone] fax [phone]. Orders, 12/03/21 office notes, & operative report on 12/06/21 documented in this encounterMet[facility]04-14-2022 Miscellaneous Notes* SN Routine - Alena Schwab RN - 12/05/2021 8:17 AM EDT SITUATION: Care Home routine visit completed today. daughter also present during today's visit. patient reports the following: Allergies--reviewed Medications--full medication reconciliation completed Falls--None DME-Reviewed and added to chart BACKGROUND: Reason for Home Care: post CABG ASSESSMENT: SN greeted at door by patient no DME and demonstrates stable gait. Patient appears in no acute distress. Vitals (see flow sheet for details): stable SN findings today: Pt presents today ambulating in his home without assist. Pt express he went to MD for his follow up and had his labs drawn. he express he has not had his cardiac rehab scheduled yet. He express understanding to continue with his diet and flud management post op precautiondand wound care . See intervention summary for education details. Patient demonstrated a need for further skilled SN services for chronic disease management & education and wound/skin care. Current Discharge plan: self-care and family support RECOMMENDATION: Next visit to focus on (be specific): post op CABG documented in this encounterMet[facility]04-11-2022 Miscellaneous Notes* SN Routine - Alena Schwab RN - 12/02/2021 10:02 AM EDT SITUATION: Care Home routine visit completed today. granddaughter also present during today's visit. patient reports the following: Allergies--reviewed Medications--full medication reconciliation completed Falls--None DME-Reviewed and added to chart BACKGROUND: Reason for Home Care: s/p CABG ASSESSMENT: SN greeted at door by patient no DME and demonstrates stable gait. Patient appears in no acute distress. Patient/CG concerns verbalized today: right hand pointer finger and thumb are numb at tips since surgery Vitals (see flow sheet for details): stable SN findings today: Pt presents today ambulating in his home with no assist he has a cane that sits near him he states he uses 'when he needs it. He express he had some increased edema to BLE thursday but it has reduced down alot since hem his RLE is not edematous but his left is reduced from last SN visit but still some edema remains. he express he is remaining to the diet and monitoring fluids,reduce dsodium, and taking all his meds. He does have his ezequiel hose on today. Reinfroced continued monitoring checking weights daily report increase of 3-4 lbs in a day, increased SOB, fever chills dizziness chest pain numbness down arm fainting. express understanding. He does express he has numbness in his right pointer and thumb since surgery He express he spoke with the MD and he expressed it should go away. Educated to continue to monitor if does not get better to contact MD.[facility] exprss understanding See intervention summary for education details. Patient demonstrated a need for further skilled SN services for chronic disease management & education and wound/skin care. Current Discharge plan: self-care and family support RECOMMENDATION: Next visit to focus on (be specific): s/p cabg, edme astiil how did MD apt go? documented in this encounterMet[facility]04-08-2022 Miscellaneous Notes* Telephone Encounter - Constance Hernandez RN - 11/29/2021 2:57 PM EDT Voicemail message left for the patient to return call to [facility] to review incision site. Constance Hernandez RN * Telephone Encounter - Constance Hernandez RN - 11/27/2021 4:00 PM EDT ----- Message from SAE Laguerre sent at 11/26/2021 9:01 AM EDT ----- Patient's daughter requested wound check to be called to patient's cell phone number at [phone]. Thank you Sarah Bonilla November 26, 2021 9:01 AM documented in this encounterMetro[facility]04-08-2022 Nurse Note* Katherine Milligan RN - 11/29/2021 10:36 AM EDT Spoke with pt's daughter. She reports Lt ACW device incision is open to air with steri-strips intact. She reports the incision line is well approximated without gaps, drainage, bleeding or redness. She reports mild bruising and no edema. She reports pt is afebrile. Katherine Milligan RN documented in this encounterMetro[facility]04-08-2022 Miscellaneous Notes* Telephone Encounter - Alena Schwab RN - 11/29/2021 10:09 AM EDTSummary: start of care with [facility] and request metamucil? Pt presents today ambulating in his home, he is pleasant cooperative and expresses understanding ofhis current crisis. He is staying with his daughter and her family at this time. He has all his medications in the home and his family is preparing and assuring her takes them. His incisions are clean covered with dermabonud and dressings. Educated pt on Post Op precautions, skin care, s/s of infection home safety, and medication management express understanding See intervention summary for education details and skills performed. Plan of care and visit frequency established with patient and plan of care agreed upon. Patient demonstrated a need for further skilled SN services for chronic disease management & education and wound/skin care. RECOMMENDATION: Visit Frequency: 2x3, 1x3 Need for additional services: Patient agreeable to PT referrals. Patient declined N/A referrals. Additional concerns to be followed up on: NONE Next visit to focus on (be specific): incision care post op monitoring Additionally Pt states he has been having smaller frequent bowel movements, he states he was on Metamucil prior to Surgery, he would like to know if he can resume taking it? He was also on a Multivitamin SN educated to take bottle with him to his follow up visit with your office before resuming it,express understanding. documented in this encounterMet[facility]04-08-2022 Miscellaneous Notes* SN Routine - Alena Schwab RN - 11/29/2021 9:23 AM EDT SITUATION: Care Home routine visit completed today. daughter also present during today's visit. patient and caregiver reports the following: Allergies--reviewed Medications--full medication reconciliation completed Falls--None DME-Reviewed and added to chart BACKGROUND: Reason for Home Care: post op CABG ASSESSMENT: SN greeted at door by caregiver. Upon entrance patient found in chair Patient appears in no acute distress. Vitals (see flow sheet for details): stable SN findings today: Pt presents today in the chair he is using a cane to assist in the home. his wounds are clean and dry . he has been educated on continued post op precautions and management, he express he is having daily bowel movemnts but they are small and frequest he express he was on metamicul prior to operation and would like to get back on it. message to Dr Lazo office sent, with request. Pt states he was on a mulit vitamin prior to surgery and he has been offof it SN express Pt should take the bottle with him to show MD when he goes for his follow up and aske prior to resuming. express understanding. Daughter present and she has a ap with a tablet that pt recrds his vitals on and [facility]. SN express [facility] does not have ap to her knowledge that Patient usually wrrite down thir vitals and weights daily and report elevation or lows to MD but they take it with them to the office visit and MD will additionally have access to SN vitals taken at each visit. Pt express understanding. Pt express his pill divider as bee filled till Thursday by his RN dariana and that is she is unable ti fill it on SN will fill for im express understanding See intervention summary for education details. Patient demonstrated a need for further skilled SN services for chronic disease management & education, incision care and infection control/prevention. Current Discharge plan: self-care and family support RECOMMENDATION: Next visit to focus on (be specific): wound care post op management pill box fill? documented in this encounterMet[facility]04-07-2022 Miscellaneous Notes* Telephone Encounter - Katherine Milligan RN - 11/28/2021 8:17 AM EDT Freddie Linardi sent same request. Katherine Milligan, RN * Telephone Encounter - Ovidio Main MD - 11/24/2021 10:04 AM EDT Needs wound check in a week, status post pacemaker implantation in the hospital. Thanks. Ovidio Main MD. documented in this encounterMetro[facility]04-06-2022 Miscellaneous Notes* Telephone Encounter - Raeann Garibay, PT - 11/27/2021 3:44 PM EDT PT eval only completed 11/27/21 Pt indep with cardiac ambulation program documented in this encounterMetro[facility]04-06-2022 Miscellaneous Notes* PT EVALUATION - Raeann Garibay PT - 11/27/2021 3:01 PM EDT SITUATION: friend present during today's visit. patient reports the following since the last homecare visit: medications/allergies--no changes, no fall. patient reports he's doing pretty good . BACKGROUND: Diagnoses (reason for Home Care): CABGx 2 Past Medical History: COPD, BPH, hld Weight Bearing or Surgical Precautions: wbat sternal prec ASSESSMENT: [facility]. Reviewed and explained homecare services. Plan of care, goals, and visit frequency developed, reviewed, and agreed upon with patient and/or caregiver. Patient Goal: get back to plf Patient will benefit from continued physical therapy to address the following deficits: aerobic capacity. Pt /cg instr in cardiac ambulation program. Pt has already started walking several times /day. Instr how to progress and parameters thhat he needs to work within Pt /cg report good understanding Current Discharge Plan:independent with home exercise program. Anticipate discharge by 11/27/21 RECOMMENDATION: No further skilled PT need at this time See intervention summary for intervention/education details. documented in this encounterMet[facility]04-05-2022 Miscellaneous Notes* SN SOC - Alena Schwab RN - 11/26/2021 9:29 AM EDT SITUATION: Care Home SOC visit completed today. Granddaughter also present during today's visit. patient reports the following: Allergies--reviewed Medications--full medication reconciliation completed Falls--None DME-Reviewed and added to chart BACKGROUND: Discharged/Referral from [facility] on 11-25-21 following treatment for CABG Pertinent referral information or other diagnoses that may affect plan of care: COPD, CAD ASSESSMENT: SN greeted at door by caregiver. Upon entrance patient found in chair Patient appears in no acute distress. Patient lives at home with daughter and family at this time . Home environment: clean and uncluttered. SOC booklet reviewed & completed with patient and consent obtained for Home Care services. Vitals (see flow sheet for details): stable SN findings today: Pt presents today ambulating in his home, he is pleasant cooperative and expresses understanding of his current crisis. He is staying with his daughter and her family at this time.He has all his medications in the home and his family is preparing and assuring her takes them. Hisincisions are clean covered with dermabonud and dressings. Educated pt on Post Op precautions, skincare, s/s of infection home safety, and medication management express understanding See intervention summary for education details and skills performed. Plan of care and visit frequency established with patient and plan of care agreed upon. Patient demonstrated a need for further skilled SN services for chronic disease management & education and wound/skin care. RECOMMENDATION: Visit Frequency: 2x3, 1x3 Need for additional services: Patient agreeable to PT referrals. Patient declined N/A referrals. Additional concerns to be followed up on: NONE Next visit to focus on (be specific): incision care post op monitoring documented in this encounterMetro[facility]04-01-2022 Miscellaneous Notes* Telephone Encounter - Freddie Gaytan APRN.CNP - 11/22/2021 3:48 PM EDT Constance, Patient had permanent pacemaker placed with Dr. Main on 11/22/2021. He will need a wound check phone call in 1 week. Thank you, Freddie documented in this encounterMetro[facility]03-30-2022 Miscellaneous Notes* Telephone Encounter - JACQUELINE Flower - 11/20/2021 11:09 AM EDT 11/20/2021 CONFIRMATION CALL NO COVID TEST, NO SYMPTOMS, NO CONTACT, NO INTERNATIONAL TRAVEL a. Date and Time: 1:41 PM 11/20/2021 b. Contact name/relationship: BRITTNEY AMAYA DAUGHTER Have you been active with any Home Care company in the last 60 days? No. Caregiver: Patient is able to manage care independently Shay Dubno, TELEGRAPH MECHANIC CONFIRMATION CALL a. Date and Time: 1:05 PM 11/20/2021 b. Contact name/relationship: No answer at the granddaughters number so a message was left to call Nadine back at the home care number Have you been active with any Home Care company in the last 60 days? Caregiver: JACQUELINE Flower CONFIRMATION CALL a. Date and Time: 11:09 AM 11/20/2021 b. Contact name/relationship: left a message to call Nadine back at the home care number Have you been active with any Home Care company in the last 60 days? Caregiver: JACQUELINE Flower documented in this encounterMetro[facility]03-25-2022 Miscellaneous Notes* Telephone Encounter - Garett Cr APRN.CNP - 11/15/2021 1:03 PM EDT Call returned to daughter and answered her questions related to surgery. Garett Cr APRN.CNP * Telephone Encounter - Garett Cr APRN.CNP - 11/15/2021 1:03 PM EDT ----- Message from Amanda Mcallister sent at 11/15/2021 10:49 AM EDT ----- Pt's daughter would like you to give her a call. It's [phone]. Thanks! documented in this encounterMetrohealth [facility]03-21-2022 History of Present illness Narrative* RT Jessica(R) - 11/11/2021 3:35 PM EDT Radiology Service Progress Note PATIENT NAME: Benson Mckeon DATE OF SERVICE: November 11, 2021 TIME: 3:42 PM PATIENT IDENTITY VERIFICATION COMPLETED USING TWO (2) IDENTIFIERS: Name and Date of confirmedby patient verbally. FALL SCREENING: Has the patient had 2 falls in the last year or 1 fall with injury or currently using an Ambulatory Assistive Device (Walker, Cane, Wheelchair, Crutches, etc.)? No PATIENT GENDER DATA: Male PATIENT RELEVANT IMPLANT DATA REVIEWED: Not Applicable RADIOLOGY DEPARTMENT: General X-ray: Exam(s) Completed: Chest X-Ray PERIPHERAL IV DATA: Not applicable SIGNED BY: RT Kaden(R) November 11, 2021 3:42 PM documented in this encounter[facility]21-[facility]22 Instructions* Patient Instructions* Garett Cr APRN.CNP - 11/11/2021 2:20 PM EDT [facility] Pre-Admission Patient Instruction You are scheduled for surgery (inpatient) located on the 2nd Floor on: 11/18/2021 (your surgery date is subject to change should there be emergencies). Come in the Front Doors / Main Entrance of the hospital. No need to stop at front entrance registration. Please check in to the [facility] (2nd Floor) at: 6 AM 1. Nothing by mouth after midnight: Do not eat or drink anything, including water and coffee, after12 AM on the morning of your surgery. This is important because if you do, your surgery may have gennaro cancelled. Eat a light supper the evening before surgery or follow specific doctor's instructions. 2. Oral hygiene and a shower or bath is required the evening before or the morning of surgery. Use the prescribed mouth water and Hibiclens body wash supplied to you along with the instruction. 3. Do not chew gum/mints, or use oral spray the morning of surgery. 4. Notify your doctor if you develop a cold, sore throat, fever or other changes in your physical condition. 5. No alcohol 24 hours before or after surgery and refrain from smoking the morning of surgery and immediately following surgery. 6. Leave valuables such as rings, watches and money at home. Remove all make-up and nail american before admission. We need to check your circulation. Remove jewelry from all piercings, tongue included, as no metal can go into surgery. 7. Wear loose, comfortable clothing that will accommodate bandages. 8. You will be asked to remove glasses and contacts prior to surgery. Please bring a case. Your belongings will be kept in an assigned locker until we know your new room. 9. Please bring your CPAP or BIPAP or any necessary medical equipments, we will keep them in an assigned locker until you are assigned a post-op room. 10. Your length of stay will be determined by your surgeon, the anesthesiologist as well as your post of progress. 11. Given COVID-19 pandemic, 1 designated visitor are allowed on the day of surgery and have the same visitors everyday after the surgery on rotating basis. On the morning of surgery, your point of contact will be instructed on communication regarding surgery updates. 12. Please bring a list of any medication you are taking including dose and the condition for whichyou are being treated. Medications to stop in preparing surgery: NONE Infection control and prevention: For nose- Mupirocin ointment: Please use a pea sized amount on a q-tip to apply inside your nose twice daily for five days prior to surgery. 5-7 days total if you are tested positive for MRSA. For mouth- Peridex therapy should be initiated for surgery prophylaxis 3-5 days prior surgery. Recommended use is twice daily oral rinsing for 30 seconds, morning and evening after toothbrushing. Usual dosage is 15ml (marked in cap) of undiluted Peridex. Please do not rinse with water or other mouthwashes, brush teeth or eat immediately after using Peridex. Peridex is not intended for ingestion and should be expectorated after rinsing. For body- Hibiclens body wash the night before and morning of surgery. If you are positive of MRSA,you would need shower daily with the Hibiclens body solution for 5 days total (you can get additional amount from any drug store). Pre-Op COVID TEST: it is ordered. You will be instructed to have this test completed 2-3 days priorto your surgery date. PLEASE make sure you complete this test to prevent any surgery delay or possible cancellation. If you have not receive call regarding the test, please call [phone]. Nutritional support/Ensure Drinks Instruction (Please continue eating your usual heart healthy diet): 2 protein shakes daily for 5 days before surgery 2 presurgical clear drinks the night before surgery 1 presurgical clear drink 2 hrs before surgery Medications to take with small amount of fluid in the morning of surgery: Aspirin 81 mg Beta Nighat (Metoprolol or Coreg/Carvedilol) Tylenol 1000 mg If you have respiratory inhaler, please give yourself a treatment prior to come in If you are diabetic, please check you blood sugar prior to come in PLEASE COMPLETE THE SHOWER, MOUTH WASH, NASAL OINTMENT, FINISH YOUR DRINK AND MEDICATIONS NO LATER THAN 5:30 AM, THANKS. Please call office: [phone] if you have additional questions, Thanks. Garett Cr APRN.CNP 11/11/21 documented in this encounterMet[facility]03-21-2022 History of Present illness Narrative* Garett Cr APRN.CNP - 11/11/2021 2:11 PM EDT CARDIOTHORACIC SURGERY / H&P SERVICE DATE: 11/11/2021 SERVICE TIME: 2:12 PM Subjective PRIMARY SERVICE: Cardiothoracic Surgery CHIEF COMPLAINT: Patient is here for PAT, H& P, MRSA SWAB and Pre-op teaching for surgery. HPI: This is a 76 year old man PMH of HLD, remote tobacco use, BPH, and inguinal hernia, COPD, and MR, who was referred for evaluation of multivessel coronary artery disease and unstable angina and for consideration of bypass surgery. Pt has been experiencing episodes of exertional right shoulder, right arm, and anterior neck discomfort with associated dyspnea that is relieved with rest. A stresstest was nominally negative for distal ischemia but did reproduce the symptoms. [place] to be his anginal equivalent. On that basis, left heart catheterization was then performed showing: elevated EDP, Occluded LAD with left to left and right to left collaterals, Occluded right coronary with left to ri ght and right to right collaterals to moderate MR. 2D ECho showed: normal LV size, EF 55%. Inferobasal, mid inferior, mid inferoseptal hypokinesia, Mild mitral annular calcification. 1-2+ MR and mild Aortic insufficiency. Patient denied hx of DM, HTN or other vascular disease, such as CVA pr renal insufficiency. With his COPD dx, he underwent pulmonary medicine evaluation. PFT showed FEV1 of 88% and a DLCO of 131% predicted. He is on Breo. Patient came in today for PAT, who reports having longer duration of anginal sx with more intensitylately. Often, these episodes are exertional induced. He has not has to use Nitro SL as rest often seem to settle anginal sx. He denied leg edema or SOB. Patient is Able to Perform the Following Physical Activity: Do moderate work around the house such as vacuuming, sweeping floors, or carrying in groceries (3.50 METs) Patient has the following medical comorbidities which might affect the perioperative course: PAST MEDICAL HISTORY Diagnosis Date Actinic keratosis Allergic rhinitis BPH (benign prostatic hyperplasia) CAD (coronary artery disease) Inguinal hernia Mitral valve regurgitation Mixed hyperlipidemia Osteoarthritis of multiple joints PAST SURGICAL HISTORY Procedure Laterality Date INGUINAL HERNIA REPAIR HX 1995 KNEE SURGERY HX Right 1983 FAMILY HISTORY Problem Relation Age of Onset Lymphoma Mother Alzheimer's Disease Father Cancer Sister Stroke Brother Heart Brother Social History Tobacco Use Smoking status: Former Smoker Years: 15.00 Types: Cigarettes, Pipe Quit date: 1979 Years since quittin.2 Smokeless tobacco: Never Used Tobacco comment: SOCIALLY Vaping Use Vaping Use: Never used Substance Use Topics Alcohol use: Yes Comment: ON OCCASION Drug use: Never (Not in a hospital admission) isosorbide mononitrate ER (IMDUR) 30 mg 24 hr tablet, Take 2 tablets by mouth once daily. metoprolol tartrate, short acting, (LOPRESSOR) 25 mg tablet, Take 50 mg by mouth twice daily. aspirin, enteric coated (ASPIRIN, ENTERIC COATED) 81 mg EC tablet, Take 81 mg by mouth once daily. albuterol HFA (PROVENTIL HFA, VENTOLIN HFA) 90 mcg/actuation inhaler, inhale 2 puffs 20-30 MINUTES PRIOR TO EXERCISE AND NEEDED FOR ... (REFER TO PRESCRIPTION NOTES). fluticasone-vilanterol (BREO ELLIPTA) 200-25 mcg/dose inhaler, Inhale 1 Inhalation as instructed once daily. rosuvastatin (CRESTOR) 5 mg tablet, Take 5 mg by mouth once daily. omega-3 fatty acids/fish oil (FISH OIL-OMEGA-3 FATTY ACIDS) 300-1,000 mg cap, Take 2 g by mouth once daily. Multivitamin capsule, Take 1 capsule by mouth once daily. amoxicillin (POLYMOX, AMOXIL) 500 mg capsule, Take 500 mg by mouth three times daily. ALLERGIES No Known Allergies REVIEW OF SYSTEMS: PAIN ASSESSMENT: Negative for pain, history of chronic pain, or current treatment for a chronic pain condition. GENERAL: No weight loss, malaise or fevers HEENT: Negative for frequent or significant headaches, No changes in hearing or vision, no nose bleeds or other nasal problems RESPIRATORY: Negative for cough, wheezing or shortness of breath. CARDIOVASCULAR: See HPI GI: Negative for abdominal discomfort, blood in stools or black stools or change in bowel habits : No history of dysuria, frequency or incontinence MUSCULOSKELETAL: Negative for joint pain or swelling, back pain or muscle pain. SKIN: Negative for lesions, rash, and itching. PSYCH: Negative for sleep disturbance, mood disorder and recent psychosocial stressors., Positive for anxiety: Related to upcoming surgery HEMATOLOGY/LYMPHOLOGY Negative for prolonged bleeding, bruising easily or swollen nodes. ENDOCRINE: Negative for cold or heat intolerance, polyuria, polydipsia and goiter. NEURO: No history of headaches, syncope, paralysis, seizures or tremors See HPI Objective PHYSICAL EXAM: BP 142/62 (BP Site: Left Arm, BP Position: Sitting) Pulse 72 Resp 18 Ht 5' 9 (1.753 m) Wt 188 lb (85.3 kg) SpO2 96% BMI 27.76 kg/m Body surface area is 2.04 meters squared. STS RISK CALCULATOR: 0.7% STS Calculator General Appearance: well developed and no distress, however, pt appears easily forgetful and unableto retain pre-op teaching information today with raised my concern of possible underline memory impairment Skin: warm and dry Lungs: clear and respiratory effort: normal Heart: regular rhythm, S1, S2 normal and no murmur Peripheral Vascular/Arteries: pulses intact and radial +2 Abdomen: soft, non-tender and bowel sounds present Genitourinary: voiding without difficulty Musculoskeletal: no deformities Neurologic/Psychiatric: oriented to time, place and person and steady gait Extremities: normal exam of the extremities and no edema Lines, Drains, and Airways None @LDAASSESS(2::::8:)@ DATA: Diagnostic tests reviewed for today's visit: Significant Lab Results Cardiac Catheterization Chest X-RAY ECHO Stress Test Carotis US Assessment/Plan ASSESSMENT/PLAN: 1. Pre-op testing - ICD9: V72.84, ICD10: Z01.818 (primary diagnosis) - ST[facility] AUREUS PCR 2. 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) - ICD9: 414.01, 411.1, ICD10: I25.110 Procedure: CABG scheduled on 11/18/[address] Lazo The risks, benefits and anticipated outcomes of the procedure, the risks and benefits of the alternatives to the procedure, and the roles and tasks of the personnel to be involved, were discussed with the patient. Consent was previously obtained by Dr. Lazo - H& P updated, which is consistent with recent evaluation performed by Dr. Lazo - Reviewed all pre-op images and reports. No pre-op labs were obtained prior today's PAT visit. - MRSA screen completed - Pre-op teaching and consultation provided - CHG 4% information provided to patient - Pre-op nutritional drinks were provided - ERAS protocol educated: patient to take Tylenol on DOS - Patient also to take BB and ASA on DOS - MUPIROCIN script is provided - Patient and has no questions at this time, contact offered for further concerns/questions Given concerns with possible impaired memory, I directly contact daughter Brittney at pt's permissionto re-review pre-op instruction. Also urged daughter that pt might need memory evaluation formally down the road via PCP. Daughter concurred stating she noticed this past Friday 11/10 that he was not consistent with his information and she questioned if he has memory issue as well. 3. Nonrheumatic mitral valve regurgitation - ICD9: 424.0, ICD10: I34.0 - will reassess during intra-op Tests/Labs Ordered: 1. MRSA These findings will be communicated back to the requesting provider electronically. SIGNATURE: Garett Cr APRN.CNP PATIENT NAME: Benson Mckeon DATE: November 11, 2021 TIME: 2:12 PM PAGER/CONTACT #:[id number] ETX [id number] documented in this encounterMet[facility]03-01-2022 Evaluation note* Diagnosis Onset Date Resolution Status Atrial fibrillation acute Fatigue acute History of coronary artery bypass surgery October, acute Mixed hyperlipidemia acute Presence of permanent cardiac pacemaker November 22 2 acute History of mitral valve repair October, [facility] Work Phone: 1(808) 533-471303-01-2022 Evaluation note* Diagnosis Onset Date Resolution Status Atrial fibrillation acute Fatigue acute History of coronary artery bypass surgery October, acute Mixed hyperlipidemia acute Presence of permanent cardiac pacemaker November 22 2 acute History of mitral valve repair October, chronic Atrial fibrillation acute History of coronary artery bypass surgery October, acute jail current use of amiodarone acute Mixed hyperlipidemia acute Presence of permanent cardiac pacemaker November 22 2 acute History of mitral valve repair October, [facility] Work Phone: 1(785) 181-844003-01-2022 Evaluation note* Diagnosis Onset Date Resolution Status Atrial fibrillation acute Fatigue acute History of coronary artery bypass surgery October, acute Mixed hyperlipidemia acute Presence of permanent cardiac pacemaker November 22 2 acute History of mitral valve repair October, chronic Atrial fibrillation acute History of coronary artery bypass surgery October, 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 Mixed hyperlipidemia acute Presence of permanent cardiac pacemaker November 22 2 acute History of mitral valve repair October, chronic Atrial fibrillation acute Dyspnea on exertion acute Fatigue acute History of coronary artery bypass surgery October, acute Mitral valve regurgitation a cute Mixed hyperlipidemia acute [facility] Work Phone: 1(718) 765-827703-01-2022 Evaluation note* Diagnosis Onset Date Resolution Status Atrial fibrillation acute History of coronary artery bypass surgery October, acute jail current use of amiodarone acute Mixed hyperlipidemia acute Presence of permanent cardiac pacemaker November 22 acute History of mitral valve repair October, chronic Atrial fibrillation acute Dyspnea on exertion acute Fatigue acute History of coronary artery bypass surgery October, acute Mitral valve regurgitation a cute Mixed hyperlipidemia acute [facility] Work Phone: 1(590) 321-239403-01-2022 Evaluation note* Diagnosis Onset Date Resolution Status Dyspnea on exertion acute Fatigue acute History of coronary artery bypass surgery October, acute Mitral valve regurgitation a cute Mixed hyperlipidemia acute [facility] Work Phone: 1(473) 888-208803-01-2022 Evaluation note* Diagnosis Onset Date Resolution Status COVID-19 acute Erectile dysfunction acute Fatigue acute History of coronary artery bypass surgery October, acute Mixed hyperlipidemia acute Presence of permanent cardiac pacemaker November 22 acute History of mitral valve repair October, chronic Atherosclerotic heart diseas e of [place] coronary artery without angina pectoris acute COPD (chronic obstructive pulmonary disease) acute Erectile dysfunction acute Heel spur acute Mixed hyperlipidemia acute Persistent atrial fibrillation 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 [facility] Work Phone: 1([phone]) 575-664803-01-2022 Evaluation note* Diagnosis Onset Date Resolution Status History of coronary artery bypass surgery October, acute History of mitral valve repair October, chronic Mixed hyperlipidemia chronic Presence of permanent cardiac pacemaker November 22 chronic Atrial fibrillation resolved Atherosclerotic heart diseas e of [place] coronary artery without angina pectoris acute COPD (chronic obstructive pulmonary disease) acute Dyspnea on exertion acute History of coronary artery bypass surgery October, 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 Author Type: Physician Type: Progress Notes Filed: 08/13/2021 2:21 PM Note Text: PATIENT NAME: Benson Mckeon DATE OF SERVICE: August 13, 2021 PRIMARY CARE PHYSICIAN: Mikel A Diamond, MD CARE TEAM: Patient Care Team: Mikel Fields as PCP - General (Family Practice) HISTORY OF PRESENT ILLNESS: Benson Mckeon is a 75 year old man who presents for evaluation of progressively worsening dyspnea on exertion. He denies SOB at rest, hemoptysis, chronic sinonasal congestion, postnasal drip, unanticipated weight loss, fever/chills, exposure to ill contacts, night sweats, and personal or family history of chronic lung disease. He does have significantly improved dyspnea on exertion, vastly improved chronic cough and chronic sputum production, and has only minimal wheezing. He denies frequent or recurrent respiratory tract infections including pneumonias, sinus infections, and other upper respiratory infections. Patient is able to do all his daily activities (eg, taker out, shopping, meal preparation, work, etc.) at a measured pace without difficulty or dyspnea. He can even now walk his dog ~1/2 mile a day which he could not prior to starting Breo. He had been previously using PRN albuterol daily 8-10 times per day when last seen here on 03/07/21. He has not used it once since he started his Breo. Of note, he has been having intermittent neck and right arm pain for which he saw a mobile lounge driver in [place] who will be doing a cardiac catheterization on him in the new year. HOSPITALIZATION HISTORY: None. LAST DATE OF INFLUENZA/PNEUMONIA VACCINES: Immunization History Administered Date(s) Administered Influenza 06/21/2014 Influenza Seasonal - High Dose - Age 65+ 07/03/2017 Influenza Seasonal Inj Quad Age 6 Mo-64 Yrs Pres Free 06/18/2015 06/14/2018 06/21/2018 Influenza Seasonal Trivalent Adjuvanted Pres Free 06/23/2019 Influenza Seasonal Trivalent Inj Pres Free 07/06/2015 Pneumococcal-13 Vac Conjugate 12/21/2015 Pneumovax 01/09/2014 Zoster Recombinant (Shingrix) 12/29/2018 03/14/2019 influenza (aIIV4) vaccine, age 65+ yr, quadrivalent, PF (FLUAD QUADRIVALENT) 07/03/2020 influenza, high-dose, quadrivalent vaccine (FLUZONE HIGH DOSE QUADRIVALENT) 05/28/2021 REVIEW OF SYSTEMS: GENERAL: Negative for fevers, malaise, chills, sweats, change in appetite or weight HEENT: Negative for headaches, nasal congestion or rhinorrhea NECK: Negative for pain and significant neck swelling NEURO: No history of headaches, syncope, seizures RESPIRATORY: Negative for cough, hemoptysis, wheezing, and dyspnea at rest and with exertion/ambulation CARDIOVASCULAR: Negative for chest pain/discomfort/pressure, orthopnea, leg swelling, or palpitations GI: No nausea, vomiting, diarrhea, heartburn or reflux symptoms : No history of dysuria, frequency or incontinence SKIN: Negative for lesions, rash, and itching MUSCULOSKELETAL: Negative for joint pain or swelling, back pain or muscle pain ? Patient's weight is stable. Last 2 Encounter Wt Readings: Date: Wt: 03/07/2021 82 kg (180 lb 11.2 oz) 05/08/2016 83.4 kg (183 lb 12.8 oz) All other 10 point review of systems were reviewed and negative except for that mentioned above. ? PAST MEDICAL HISTORY: PAST MEDICAL HISTORY Diagnosis Date - Actinic keratosis - Allergic rhinitis - BPH (benign prostatic hyperplasia) - Inguinal hernia - Mixed hyperlipidemia - Osteoarthritis of multiple joints PAST SURGICAL HISTORY: PAST SURGICAL HISTORY Procedure Laterality Date - INGUINAL HERNIA REPAIR HX 1994 - KNEE SURGERY HX Right 1983 PAST FAMILY HISTORY: FAMILY HISTORY Problem Relation Age of Onset - Lymphoma Mother - Alzheimer's Disease Father - Cancer Sister - Stroke Brother - Heart Brother SOCIAL HISTORY: Social History Tobacco Use - Smoking status: Former Smoker Years: 15.00 Types: Cigarettes, Pipe Quit date: 1979 Years since quittin.0 - Smokeless tobacco: Never Used - Tobacco comment: SOCIALLY Vaping Use - Vaping Use: Never used Substance Use Topics - Alcohol use: Yes Comment: ON OCCASION - Drug use: Never ALLERGIES: ALLERGIES No Known Allergies HOME MEDICATIONS: Current Outpatient Medications Medication Sig Dispense Refill - isosorbide mononitrate ER (IMDUR) 30 mg 24 hr tablet Take 30 mg by mouth once daily. - metoprolol succinate ER (TOPROL XL) 25 mg 24 hr tablet Take 25 mg by mouth twice daily. - aspirin, enteric coated (ASPIRIN, ENTERIC COATED) 81 mg EC tablet Take 81 mg by mouth once daily. - albuterol HFA (PROVENTIL HFA, VENTOLIN HFA) 90 mcg/actuation inhaler inhale 2 puffs 20-30 MINUTES PRIOR TO EXERCISE AND NEEDED FOR ... (REFER TO PRESCRIPTION NOTES). - fluticasone-vilanterol (BREO ELLIPTA) 200-25 mcg/dose inhaler Inhale 1 Inhalation as instructed once daily. 60 Each 11 (more content not included)... [facility]10-[facility] NoteProcedure (AKRLAB) SIMINBENSON ([id number]) 1945 M Date Time Provider Department 06/12/21 9:30 AM PULM [facility] During your visit today, we recorded the following information about you: Referring Provider: RYAN HUBER [[id number]] Allergies As of Date: 06/12/2021 (No Known Allergies) Date Reviewed: 03/07/2021 Reviewed by: Ryan Huber MD - Fully Assessed Reason for Visit: Spirometry [191] Primary Visit Diagnosis:Dyspnea and respiratory abnormalities [R06.00, R06.89] Order(s):SPIROMETRY - BASELINE AND POST DILATOR [[id number]] Order #: [id number]: 1 Prescriptions as of 06/12/2021 - albuterol HFA (PROVENTIL HFA, VENTOLIN HFA) 90 mcg/actuation inhaler inhale 2 puffs 20-30 MINUTES PRIOR TO EXERCISE AND NEEDED FOR ... (REFER TO PRESCRIPTION NOTES). - azithromycin (ZITHROMAX) 250 mg tablet Take by mouth as directed. TAKE 2 TABLETS BY MOUTH TODAY, THEN TAKE 1 TABLET DAILY FOR 4 DAYS - benzonatate (TESSALON PERLE) 100 mg capsule take 1 capsule by mouth three times a day if needed for cough - predniSONE (DELTASONE) 20 mg tablet Take 40 mg by mouth once daily. - fluticasone-vilanterol (BREO ELLIPTA) 200-25 mcg/dose inhaler Inhale 1 Inhalation as instructed once daily. - rosuvastatin (CRESTOR) 5 mg tablet - omega-3 fatty acids/fish oil (FISH OIL-OMEGA-3 FATTY ACIDS) 300-1,000 mg cap Take 2 g by mouth once daily. - Multivitamin capsule Take 1 capsule by mouth once daily. - triamcinolone acetonide (KENALOG) 0.1 % ointment Apply 1 application to affected area twice daily. - methylPREDNISolone (MEDROL DOSE-PACK) 4 mg Dose-Pack As Instructed per package - PRAVASTATIN SODIUM (PRAVASTATIN ORAL) Take by mouth. - IBUPROFEN ORAL Take by mouth. - pseudoephedrine (SUDAFED) 30 mg tablet Take 30 mg by mouth every 4 hours as needed. - MEDICATION, NON-DATABASE HCI otc for cough AND congestion - codeine-guaiFENesin (ROBITUSSIN AC) 10-100 mg/5 mL syrup Take 5-10 mL by mouth four times daily as needed for Cough. May cause drowsiness. Problem List As Of Date: 06/12/2021 (None) Encounter Status:Closed by SANNA NASH on 06/12/21[facility] NoteProcedure (AKLeeanneLAB) BENSON MCKEON ([id number]) 1945 M Date Time Provider Department 06/12/21 9:15 AM [facility]M [facility] During your visit today, we recorded the following information about you: Referring Provider: RYAN HUBER [[id number]] Allergies As of Date: 06/12/2021 (No Known Allergies) Date Reviewed: 03/07/2021 Reviewed by: Ryan Huber MD - Fully Assessed Reason for Visit: Spirometry [191] Visit Diagnosis:Dyspnea and respiratory abnormalities [R06.00, R06.89] Order(s):LUNG DIFFUSION CAPACITY (DLCO) [[id number]] Order #: [id number]: 1 Prescriptions as of 06/12/2021 - albuterol HFA (PROVENTIL HFA, VENTOLIN HFA) 90 mcg/actuation inhaler inhale 2 puffs 20-30 MINUTES PRIOR TO EXERCISE AND NEEDED FOR ... (REFER TO PRESCRIPTION NOTES). - azithromycin (ZITHROMAX) 250 mg tablet Take by mouth as directed. TAKE 2 TABLETS BY MOUTH TODAY, THEN TAKE 1 TABLET DAILY FOR 4 DAYS - benzonatate (TESSALON PERLE) 100 mg capsule take 1 capsule by mouth three times a day if needed for cough - predniSONE (DELTASONE) 20 mg tablet Take 40 mg by mouth once daily. - fluticasone-vilanterol (BREO ELLIPTA) 200-25 mcg/dose inhaler Inhale 1 Inhalation as instructed once daily. - rosuvastatin (CRESTOR) 5 mg tablet - omega-3 fatty acids/fish oil (FISH OIL-OMEGA-3 FATTY ACIDS) 300-1,000 mg cap Take 2 g by mouth once daily. - Multivitamin capsule Take 1 capsule by mouth once daily. - triamcinolone acetonide (KENALOG) 0.1 % ointment Apply 1 application to affected area twice daily. - methylPREDNISolone (MEDROL DOSE-PACK) 4 mg Dose-Pack As Instructed per package - PRAVASTATIN SODIUM (PRAVASTATIN ORAL) Take by mouth. - IBUPROFEN ORAL Take by mouth. - pseudoephedrine (SUDAFED) 30 mg tablet Take 30 mg by mouth every 4 hours as needed. - MEDICATION, NON-DATABASE HCI otc for cough AND congestion - codeine-guaiFENesin (ROBITUSSIN AC) 10-100 mg/5 mL syrup Take 5-10 mL by mouth four times daily as needed for Cough. May cause drowsiness. Problem List As Of Date: 06/12/2021 (None) Encounter Status:Closed by SNANA NASH on 06/12/21[facility]10-20-2021 NoteProcedure (AKRLAB) BENSON MCKEON ([id number]) 1945 M Date Time Provider Department 06/12/21 9:00 AM [facility] During your visit today, we recorded the following information about you: Referring Provider: RYAN HUBER [[id number]] Allergies As of Date: 06/12/2021 (No Known Allergies) Date Reviewed: 03/07/2021 Reviewed by: Ryan Huber MD - Fully Assessed Reason for Visit: Spirometry [191] Visit Diagnosis:Dyspnea and respiratory abnormalities [R06.00, R06.89] Order(s):LUNG VOLUMES [[id number]] Order #: [id number]: 1 Prescriptions as of 06/12/2021 - albuterol HFA (PROVENTIL HFA, VENTOLIN HFA) 90 mcg/actuation inhaler inhale 2 puffs 20-30 MINUTES PRIOR TO EXERCISE AND NEEDED FOR ... (REFER TO PRESCRIPTION NOTES). - azithromycin (ZITHROMAX) 250 mg tablet Take by mouth as directed. TAKE 2 TABLETS BY MOUTH TODAY, THEN TAKE 1 TABLET DAILY FOR 4 DAYS - benzonatate (TESSALON PERLE) 100 mg capsule take 1 capsule by mouth three times a day if needed for cough - predniSONE (DELTASONE) 20 mg tablet Take 40 mg by mouth once daily. - fluticasone-vilanterol (BREO ELLIPTA) 200-25 mcg/dose inhaler Inhale 1 Inhalation as instructed once daily. - rosuvastatin (CRESTOR) 5 mg tablet - omega-3 fatty acids/fish oil (FISH OIL-OMEGA-3 FATTY ACIDS) 300-1,000 mg cap Take 2 g by mouth once daily. - Multivitamin capsule Take 1 capsule by mouth once daily. - triamcinolone acetonide (KENALOG) 0.1 % ointment Apply 1 application to affected area twice daily. - methylPREDNISolone (MEDROL DOSE-PACK) 4 mg Dose-Pack As Instructed per package - PRAVASTATIN SODIUM (PRAVASTATIN ORAL) Take by mouth. - IBUPROFEN ORAL Take by mouth. - pseudoephedrine (SUDAFED) 30 mg tablet Take 30 mg by mouth every 4 hours as needed. - MEDICATION, NON-DATABASE HCI otc for cough AND congestion - codeine-guaiFENesin (ROBITUSSIN AC) 10-100 mg/5 mL syrup Take 5-10 mL by mouth four times daily as needed for Cough. May cause drowsiness. 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) Nonrheumatic mitral valve regurgitation Preoperative testing Preoperative examination, unspecified 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) Nonrheumatic mitral valve regurgitation documented in this encounter [facility] note* Diagnosis Pacemaker- Primary Cardiac pacemaker in situ Junctional cardiac arrhythmia documented in this encounter [facility] note* Diagnosis Atypical atrial flutter (HCC)- Primary Atrial flutter documented in this encounter [facility] note* Diagnosis HB (heart block) Conduction disorder, unspecified documented in this encounter [facility] note* Diagnosis 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) S/P mitral valve repair Other postprocedural status S/P placement of cardiac pacemaker Cardiac pacemaker in situ Atrial flutter, unspecified type ([facility]) Acute kidney injury ([facility]) Acute kidney failure, unspecified documented in this encounter [facility] note* Diagnosis CHB (complete heart block) ([facility]) Atrioventricular block, complete documented in this encounter [facility] note* Diagnosis Junctional cardiac arrhythmia- Primary Pacemaker Cardiac pacemaker in situ documented in this encounter [facility] note* Diagnosis Onset Date Resolution Status Angina pectoris acute Atherosclerotic heart diseas e of [place] coronary artery without angina pectoris acute COPD (chronic obstructive pulmonary disease) acute Dyspnea on exertion acute Mixed hyperlipidemia acute Atherosclerotic heart diseas e of [place] coronary artery without angina pectoris acute Mitral valve regurgitation a cute Mixed hyperlipidemia acute Atrial fibrillation acute Fatigue acute History of coronary artery bypass surgery October, acute Mixed hyperlipidemia acute Presence of permanent cardiac pacemaker November 22 acute History of mitral valve repair October, [facility] Work Phone: Evaluation note* Diagnosis CHB (complete heart block) (HCC)- Primary Atrioventricular block, complete [facility] Diagnosis Heart block- Primary Conduction disorder, unspecified documented in this encounter [facility] note* Diagnosis HB (heart block)- Primary Conduction disorder, unspecified [facility]* Diagnosis CHB (complete heart block) (HCC)- Primary Atrioventricular block, complete [facility]* Diagnosis CHB (complete heart block) (HCC)- Primary Atrioventricular block, complete [facility]* Diagnosis Persistent atrial fibrillation (HCC)- Primary Atrial fibrillation Sinus node dysfunction (HCC) Sinoatrial node dysfunction Presence of cardiac pacemaker Cardiac pacemaker in situ jail (current) use of anticoagulants Long-term (current) use of anticoagulants documented in this encounter [facility] note* Diagnosis Heart block [I45.9]- Primary Conduction disorder, unspecified [facility]* Diagnosis HB (heart block)- Primary Conduction disorder, unspecified [facility]* Diagnosis Heart block- Primary Conduction disorder, unspecified [facility]* Diagnosis Sinus node dysfunction (HCC)- Primary Sinoatrial node dysfunction Presence of cardiac pacemaker Cardiac pacemaker in situ Pacemaker reprogramming/check Fitting and adjustment of cardiac pacemaker documented [facility]* Diagnosis Pacemaker reprogramming/check Fitting and adjustment of cardiac pacemaker documented in this encounter [facility] home Plan of care note* Visit Details Visit Type -SN SOC Discipline -Care Home Problems Problem Description Start Date Status Goals Interve ntions SN Edema Disciplines: 11/26/2021 Active 1 goal linked to scheduled/documen ezequiel intervention 1 goal intervention scheduled/document ed in this visit SN Cardiac Procedure/Surgery Disciplines: 11/26/2021 Active 1 goal linked to scheduled/documen ezequiel intervention 1 goal intervention scheduled/document ed in this visit SN Integumentary/Wound s Disciplines: 11/26/2021 Active 1 goal linked to scheduled/documen ezequiel intervention 5 goal interventions scheduled/document ed in this visit SN Cardiovascular Condition Disciplines: SN 11/26/2021 Active 1 goal linked to scheduled/documen ezequiel intervention 1 goal intervention scheduled/document ed in this visit SN COPD Disciplines: SN 11/26/2021 Active 1 goal linked to scheduled/documen ezequiel intervention 2 goal interventions scheduled/document ed in this visit Medication Education Disciplines: Skilled Services 11/26/2021 Active 1 goal linked to scheduled/documen ezequiel intervention 1 goal intervention scheduled/document ed in this visit Physician Specific Parameters Disciplines: Skilled Services 11/26/2021 Active 1 goal linked to scheduled/documen ezequiel intervention 1 goal intervention scheduled/document ed in this visit Risk for Falls Disciplines: Skilled Services 11/26/2021 Active 1 goal linked to scheduled/documen ezequiel intervention 1 goal intervention scheduled/document ed in this visit Pain Disciplines: Skilled Services 11/26/2021 Active 1 goal linked to scheduled/documen ezequiel intervention 1 goal intervention scheduled/document ed in this visit Advance Directives Disciplines: Skilled Services 11/26/2021 Active 1 goal linked to scheduled/documen ezequiel intervention 1 goal intervention scheduled/document ed in this visit Goals Goal Associated Problem Outcome Goal Met? Visit Notes Patient and/or caregiver will verbalize and/or demonstrate understanding of edema management SN Edema No Patient/caregiver understands all aspects of aftercare post cardiac procedure/surgery Description: Patient/Caregiver to verbalize and demonstrate understanding of aftercare post cardiac procedure/surgery by 01-04-22.. SN Cardiac Procedure/Surgery No Patient/Caregiver will verbalize/demonstrate integumentary condition management and achieve improved healing SN Integumentary/Wounds No Improved management of cardiovascular disease Description: Improve patient/caregiver management of cardiac disease as evidenced by patient/caregiver ability to teach back cardiac management strategies. SN Cardiovascular Condition No Improved management of COPD Description: Improve COPD management as evidenced by patient/caregiver able to teach back 1 COPD management strategies by 01-04-22.. SN COPD No Patient/caregiver will demonstrate ability to obtain, store, identify and administer ordered medications, keep accurate medication list in home, and adhere to medication schedule Medication Education No Patient to maintain parameters within physician-specified ranges Physician Specific Parameters No Manage Risk for falls Description: Patient/caregiver will verbalize knowledge of individualized fall prevention strategies by 01-04-22.. Risk for Falls No Manage Pain Description: Patient/caregiver will verbalize knowledge and understanding of appropriate techniques to control pain, including pain medication and non-pharmacological techniques. Patient will verbalize or demonstrate an acceptable level of pain as evidenced by a pain score of 5/10 and improvement in ability to perform activities of daily living to be achieved by 5-14-22. Pain No Patient/caregiver will make healthcare providers aware of Advance Directives Advance Directives No Interventions Intervention Associated Problem/Goal Status Variance Visit Notes Assess and instruct on measures to reduce edema Problem:SN Edema Goal:Patient and/or caregiver will verbalize and/or demonstrate understanding of edema management Completed patient instructed on elevation, compression, diet, medication compliance and benefits of activity. 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 Problem:SN Cardiac Procedure/Surgery Goal:Patient/caregive r understands all aspects of aftercare post cardiac procedure/surgery Completed patient assessed and instructed on keeping all incisions clean with mild soap and water and leave open to air, allow dermabond to slough off on it's own, signs & symptoms of complications: infection such as fever of 101 or greater, chills, redness and/or drainage of incision site, nausea/vomiting, and/or malaise and cardiac complications such as headache, dizziness, light-headedness, SOB, heart palpitations, chest pain, or chest pressure, use of incentive spirometer, record daily weights, temperature, and BP, instruct heart health diet and fluid restrictions no more than 64-68 oz in 24 hours. Wound Care: Peform wound care (3) Description: wound location: LLShin Order: Cleanse with mild soap and water, rinse, pat dry, cvoer as needed for drainage. Frequency: daily Measure wound/incision weekly and as needed. Problem:SN Integumentary/Wounds Goal:Patient/Caregive r will verbalize/demonstrate integumentary condition management and achieve improved healing Completed Completed by SN. Patient did tolerate well. Wound Care: Perform wound care (2) Description: Incision location: LLE Order: Cleanse with mild soap and water, rinse, pat dry, cvoer as needed for drainage. Frequency: daily Measure wound/incision weekly and as needed. Problem:SN Integumentary/Wounds Goal:Patient/Caregive r will verbalize/demonstrate integumentary condition management and achieve improved healing Completed Completed by SN. Patient did tolerate well. Wound Care: Perform wound care (1) Description: Incision location: sternum Order: Cleanse with mild soap and water, rinse, pat dry, cvoer as needed for drainage. Frequency: daily Measure wound/incision weekly and as needed. Problem:SN Integumentary/Wounds Goal:Patient/Caregive r will verbalize/demonstrate integumentary condition management and achieve improved healing Completed Completed by SN. Patient did tolerate well. Instruct patient/caregiver healing process and management measures to promote healing and avoid complications Problem:SN Integumentary/Wounds Goal:Patient/Caregive r will verbalize/demonstrate integumentary condition management and achieve improved healing Completed patient instructed on the following: healing process, signs and symptoms of infection, importance of good nutrition and when to report symptoms. Instruct Patient/Caregiver on wound/incision care procedure as ordered by physician Problem:SN Integumentary/Wounds Goal:Patient/Caregive r will verbalize/demonstrate integumentary condition management and achieve improved healing Completed patient instructed on wound care as ordered by Physician. Instruct on cardiovascular disease process and management of condition Description: Patient has following cardiac diagnosis(es): CAD. Problem:SN Cardiovascular Condition Goal:Improved management of cardiovascular disease Completed patient instructed on cardiac disease process and self monitoring & symptom reporting. Acute COPD Description: Instruct on defintion of COPD, signs and symptoms of COPD exacerbation, use of zone sheet, use of MDIs, difference between rescue vs maintenance inhalers, use of nebulizer, smoking cessation, breathing management including pursed lip breathing, diaphragmatic breathing, positioning to reduce SOB, controlled coughing, use of incentive spirometer, and use of acapela as found in the COPD binder. Problem:SN COPD Goal:Improved management of COPD Completed patient instructed on defintion of COPD, signs and symptoms of COPD exacerbation, use of zone sheet and difference between rescue vs maintenance inhalers as found in the COPD binder. Ensure patient/caregiver has COPD Binder in home Description: SN to provide and refer to COPD binder every visit. Problem:SN COPD Goal:Improved management of COPD Completed Patient provided COPD binder. Medication Education Description: Evaluate/instruct patient/caregiver on obtaining, storing, identifying and administering ordered medications as well as keeping accurate medication list in the home and adhereing to medication schedule Problem:Medication Education Goal:Patient/caregive r will demonstrate ability to obtain, store, identify and administer ordered medications, keep accurate medication list in home, and adhere to medication schedule Completed Patient instructed on importance of keeping accurate medication list in home, adhering to medication schedule and proper storage of medications. SPO2 Description: Notify Dr. Roly Lazo MD if pulse ox is <92% at rest. Problem:Physician Specific Parameters Goal:Patient to maintain parameters within physician-specified ranges Completed Instruct on individual fall risk factors and strategies to prevent falls and injuries caused by falls. Problem:Risk for Falls Goal:Manage Risk for falls Completed SN: Patient instructed on Eliminating Environmental Hazards: Keep pathways clear, Keep pets out of pathways, Keep rooms and walkways well lit, Wear supportive shoes or non-skid socks and Keep frequently used items within reach Instruct on pain and instruct on strategies to control pain Problem:Pain Goal:Manage Pain Completed patient instructed on techniques to control pain including Pharmacological measures and Non-Pharmacological measures; rest, positioning/elevation and mobility/therapeutic exercise. Determine patient's Advance Directive Status Description: Patient does not have advance directives. Patient/Caregiver declined Advance Directive information. Problem:Advance Directives Goal:Patient/caregive r will make healthcare providers aware of Advance Directives Completed Discussed Advance Directives with Patient and/or Caregiver. Referred patient to Home Care handbook for further information on Healthcare DPOA & Living Will. documented in this encounter [facility] home Plan of care note* Visit Details Visit Type -PT EVAL Discipline -Physical Therapy Problems Problem Description Start Date Status Goals Interve ntions Medication Education Disciplines: Skilled Services 11/26/2021 Active 1 goal linked to scheduled/docume nted intervention 1 goal intervention scheduled/documen ezequiel in this visit PT Referral Disciplines: Skilled Services 11/26/2021 Resolved on 11/27/2021 1 goal linked to scheduled/docume nted intervention 1 goal intervention scheduled/documen ezequiel in this visit Physician Specific Parameters Disciplines: Skilled Services 11/26/2021 Active 1 goal linked to scheduled/docume nted intervention 1 goal intervention scheduled/documen ezequiel in this visit Risk for Falls Disciplines: Skilled Services 11/26/2021 Active 1 goal linked to scheduled/docume nted intervention 1 goal intervention scheduled/documen ezequiel in this visit Pain Disciplines: Skilled Services 11/26/2021 Active 1 goal linked to scheduled/docume nted intervention 1 goal intervention scheduled/documen ezequiel in this visit PT Learning Assessment Disciplines: PT 11/27/2021 Resolved on 11/27/2021 1 goal linked to scheduled/docume nted intervention 1 goal intervention scheduled/documen ezequiel in this visit PT Cardiovascular Disease Disciplines: PT 11/27/2021 Resolved on 11/27/2021 1 goal linked to scheduled/docume nted intervention 1 goal intervention scheduled/documen ezequiel in this visit Goals Goal Associated Problem Outcome Goal Met? Visit Notes Patient/caregiver will demonstrate ability to obtain, store, identify and administer ordered medications, keep accurate medication list in home, and adhere to medication schedule Medication Education No Patient will be referred to additional discipline as needed PT Referral Completed Yes Patient to maintain parameters within physician-specified ranges Physician Specific Parameters No Manage Risk for falls Description: Patient/caregiver will verbalize knowledge of individualized fall prevention strategies by 01-04-22.. Risk for Falls No Manage Pain Description: Patient/caregiver will verbalize knowledge and understanding of appropriate techniques to control pain, including pain medication and non-pharmacological techniques. Patient will verbalize or demonstrate an acceptable level of pain as evidenced by a pain score of 5/10 and improvement in ability to perform activities of daily living to be achieved by 01-04-22. Pain No Demonstrate understanding of education Description: Patient and/or caregiver will understand educational instruction to be achieved by 11/27/21. . PT Learning Assessment Completed Yes Manage Cardiac Interventions Description: Improve patient and/or caregiver understanding of post surgical and/or non-surgical cardiac intervention management as evidenced by patient and/or caregiver able to verbalize, demonstrate, and teach back instruction, to be achieved by 11/27/21. PT Cardiovascular Disease Completed Yes Interventions Intervention Associated Problem/Goal Status Variance Visit Notes Medication Education Description: Evaluate/instruct patient/caregiver on obtaining, storing, identifying and administering ordered medications as well as keeping accurate medication list in the home and adhereing to medication schedule Problem:Medication Education Goal:Patient/caregive r will demonstrate ability to obtain, store, identify and administer ordered medications, keep accurate medication list in home, and adhere to medication schedule Completed Patient instructed on importance of keeping accurate medication list in home. PT evaluation and treatment Description: Evaluate and treat for the assessment of functional deficits and establishment of appropriate interventions and education, including recommendations for functional mobility training, balance training for fall reduction, and strengthening. Problem:PT Referral Goal:Patient will be referred to additional discipline as needed Completed SPO2 Description: Notify Dr. Roly Lazo MD if pulse ox is <92% at rest. Problem:Physician Specific Parameters Goal:Patient to maintain parameters within physician-specified ranges Completed Instruct on individual fall risk factors and strategies to prevent falls and injuries caused by falls. Problem:Risk for Falls Goal:Manage Risk for falls Completed PT: Patient instructed on Eliminating Environmental Hazards: Keep pathways clear, Remove unsafe rugs, Move furniture from pathways and Wear supportive shoes or non-skid socks Managing Pain Instruct on pain and instruct on strategies to control pain Problem:Pain Goal:Manage Pain Completed patient instructed on techniques to control pain including Pharmacological measures and Non-Pharmacological measures; rest and positioning/elevation . Instruct and educate on knowledge deficits Problem:PT Learning Assessment Goal:Demonstrate understanding of education Completed patient verbalize and/or demonstrate understanding of physical therapy education including cardiac ambulation program . Education methods include: verbal cues and written instructions. Instruct on self-management of post surgical and/or non-surgical cardiac intervention Problem:PT Cardiovascular Disease Goal:Manage Cardiac Interventions Completed patient instructed on post-op management of use of zone sheet, use of RPE scale, energy conservation and exercise and activity guidelines. Instructed on precautions/restricti ons including: not raising arms higher than 90 degrees, not lifting > 8 lbs, no riding in the front of the car, no weight bearing with arms during transfers, no driving and use of pillow when coughing [facility] Visit Details Visit Type -SN ROUTINE Discipline -Care Home Problems Problem Description Start Date Status Goals Interve ntions SN Edema Disciplines: 11/26/2021 Active 1 goal linked to scheduled/documen ezequiel intervention 1 goal intervention scheduled/document ed in this visit SN Cardiac Procedure/Surgery Disciplines: 11/26/2021 Active 1 goal linked to scheduled/documen ezequiel intervention 1 goal intervention scheduled/document ed in this visit SN Integumentary/Wound s Disciplines: 11/26/2021 Active 1 goal linked to scheduled/documen ezequiel intervention 4 goal interventions scheduled/document ed in this visit SN Cardiovascular Condition Disciplines: 11/26/2021 Active 1 goal linked to scheduled/documen ezequiel intervention 1 goal intervention scheduled/document ed in this visit SN COPD Disciplines: 11/26/2021 Active 1 goal linked to scheduled/documen ezequiel intervention 2 goal interventions scheduled/document ed in this visit Medication Education Disciplines: Skilled Services 11/26/2021 Active 1 goal linked to scheduled/documen ezequiel intervention 1 goal intervention scheduled/document ed in this visit Physician Specific Parameters Disciplines: Skilled Services 11/26/2021 Active 1 goal linked to scheduled/documen ezequiel intervention 1 goal intervention scheduled/document ed in this visit Risk for Falls Disciplines: Skilled Services 11/26/2021 Active 1 goal linked to scheduled/documen ezequiel intervention 1 goal intervention scheduled/document ed in this visit Pain Disciplines: Skilled Services 11/26/2021 Active 1 goal linked to scheduled/documen ezequiel intervention 1 goal intervention scheduled/document ed in this visit Discharge Disciplines: Skilled Services 11/26/2021 Active 1 goal linked to scheduled/documen ezequiel intervention 1 goal intervention scheduled/document ed in this visit Advance Directives Disciplines: Skilled Services 11/26/2021 Active 1 goal linked to scheduled/documen ezequiel intervention 1 goal intervention scheduled/document ed in this visit Goals Goal Associated Problem Outcome Goal Met? Visit Notes Patient and/or caregiver will verbalize and/or demonstrate understanding of edema management SN Edema No Patient/caregiver understands all aspects of aftercare post cardiac procedure/surgery Description: Patient/Caregiver to verbalize and demonstrate understanding of aftercare post cardiac procedure/surgery by 01-04-22.. SN Cardiac Procedure/Surgery No Patient/Caregiver will verbalize/demonstrate integumentary condition management and achieve improved healing SN Integumentary/Wounds No Improved management of cardiovascular disease Description: Improve patient/caregiver management of cardiac disease as evidenced by patient/caregiver ability to teach back cardiac management strategies. SN Cardiovascular Condition No Improved management of COPD Description: Improve COPD management as evidenced by patient/caregiver able to teach back 1 COPD management strategies by 01-04-22.. SN COPD No Patient/caregiver will demonstrate ability to obtain, store, identify and administer ordered medications, keep accurate medication list in home, and adhere to medication schedule Medication Education No Patient to maintain parameters within physician-specified ranges Physician Specific Parameters No Manage Risk for falls Description: Patient/caregiver will verbalize knowledge of individualized fall prevention strategies by 01-04-22.. Risk for Falls No Manage Pain Description: Patient/caregiver will verbalize knowledge and understanding of appropriate techniques to control pain, including pain medication and non-pharmacological techniques. Patient will verbalize or demonstrate an acceptable level of pain as evidenced by a pain score of 5/10 and improvement in ability to perform activities of daily living to be achieved by -14-22. Pain No Manage discharge planning Description: Patient/caregiver will verbalize understanding of ongoing discharge plan provided related to disease management, arrangements for outpatient and/or community services, obtaining medications, supplies, and DME, as needed. Discharge No Patient/caregiver will make healthcare providers aware of Advance Directives Advance Directives No Interventions Intervention Associated Problem/Goal Status Variance Visit Notes Assess and instruct on measures to reduce edema Problem:SN Edema Goal:Patient and/or caregiver will verbalize and/or demonstrate understanding of edema management Completed patient and caregiver instructed on elevation, compression, diet, medication compliance and benefits of activity. 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 Problem:SN Cardiac Procedure/Surgery Goal:Patient/caregive r understands all aspects of aftercare post cardiac procedure/surgery Completed patient and caregiver assessed and instructed on keeping all incisions clean with mild soap and water and leave open to air, allow dermabond to slough off on it's own, signs & symptoms of complications: infection such as fever of 101 or greater, chills, redness and/or drainage of incision site, nausea/vomiting, and/or malaise and cardiac complications such as headache, dizziness, light-headedness, SOB, heart palpitations, chest pain, or chest pressure, use of incentive spirometer, record daily weights, temperature, and BP, instruct heart health diet and fluid restrictions no more than 64-68 oz in 24 hours. Wound Care: Peform wound care (3) Description: wound location: LLShin Order: Cleanse with mild soap and water, rinse, pat dry, cvoer as needed for drainage. Frequency: daily Measure wound/incision weekly and as needed. Problem:SN Integumentary/Wounds Goal:Patient/Caregive r will verbalize/demonstrate integumentary condition management and achieve improved healing Completed Completed by SN. Patient did tolerate well. Wound Care: Perform wound care (2) Description: Incision location: LLE Order: Cleanse with mild soap and water, rinse, pat dry, cvoer as needed for drainage. Frequency: daily Measure wound/incision weekly and as needed. Problem:SN Integumentary/Wounds Goal:Patient/Caregive r will verbalize/demonstrate integumentary condition management and achieve improved healing Completed Completed by SN. Patient did tolerate well. Wound Care: Perform wound care (1) Description: Incision location: sternum Order: Cleanse with mild soap and water, rinse, pat dry, cvoer as needed for drainage. Frequency: daily Measure wound/incision weekly and as needed. Problem:SN Integumentary/Wounds Goal:Patient/Caregive r will verbalize/demonstrate integumentary condition management and achieve improved healing Completed Completed by SN. Patient did tolerate well. Instruct patient/caregiver healing process and management measures to promote healing and avoid complications Problem:SN Integumentary/Wounds Goal:Patient/Caregive r will verbalize/demonstrate integumentary condition management and achieve improved healing Completed patient and caregiver instructed on the following: healing process, signs and symptoms of infection, importance of good nutrition and when to report symptoms. Instruct on cardiovascular disease process and management of condition Description: Patient has following cardiac diagnosis(es): CAD. Problem:SN Cardiovascular Condition Goal:Improved management of cardiovascular disease Completed patient and caregiver instructed on cardiac disease process, self monitoring & symptom reporting, DVT/PE prevention and Cardiac Diet. Acute COPD Description: Instruct on defintion of COPD, signs and symptoms of COPD exacerbation, use of zone sheet, use of MDIs, difference between rescue vs maintenance inhalers, use of nebulizer, smoking cessation, breathing management including pursed lip breathing, diaphragmatic breathing, positioning to reduce SOB, controlled coughing, use of incentive spirometer, and use of acapela as found in the COPD binder. Problem:SN COPD Goal:Improved management of COPD Completed patient and caregiver reinforced on defintion of COPD, signs and symptoms of COPD exacerbation and use of zone sheet as found in the COPD binder. Ensure patient/caregiver has COPD Binder in home Description: SN to provide and refer to COPD binder every visit. Problem:SN COPD Goal:Improved management of COPD Completed Patient has COPD binder. Medication Education Description: Evaluate/instruct patient/caregiver on obtaining, storing, identifying and administering ordered medications as well as keeping accurate medication list in the home and adhereing to medication schedule Problem:Medication Education Goal:Patient/caregive r will demonstrate ability to obtain, store, identify and administer ordered medications, keep accurate medication list in home, and adhere to medication schedule Completed Patient and Caregiver instructed on importance of keeping accurate medication list in home, adhering to medication schedule and proper storage of medications. SPO2 Description: Notify Dr. Roly Lazo MD if pulse ox is <92% at rest. Problem:Physician Specific Parameters Goal:Patient to maintain parameters within physician-specified ranges Completed Instruct on individual fall risk factors and strategies to prevent falls and injuries caused by falls. Problem:Risk for Falls Goal:Manage Risk for falls Completed SN: Patient and Caregiver instructed on Eliminating Environmental Hazards: Keep pathways clear, Keep pets out of pathways, Keep rooms and walkways well lit, Wear supportive shoes or non-skid socks and Keep frequently used items within reach Instruct on pain and instruct on strategies to control pain Problem:Pain Goal:Manage Pain Completed patient and caregiver instructed on techniques to control pain including Pharmacological measures and Non-Pharmacological measures; rest, positioning/elevation and mobility/therapeutic exercise. Instruct on ongoing discharge plan Problem:Discharge Goal:Manage discharge planning Completed Ongoing Discharge plan: Discharge plan discussed with patient and caregiver including frequency and duration for home SN and plan for transition to: live independently at home without ongoing services. Determine patient's Advance Directive Status Description: Patient does not have advance directives. Patient/Caregiver declined Advance Directive information. Problem:Advance Directives Goal:Patient/caregive r will make healthcare providers aware of Advance Directives Completed Discussed Advance Directives with Patient and/or Caregiver. Referred patient to Home Care handbook for further information on Healthcare DPOA & Living Will. documented in this encounter [facility] home Plan of care note* Visit Details Visit Type -SN ROUTINE Discipline -Care Home Problems Problem Description Start Date Status Goals Interve ntions SN Edema Disciplines: 11/26/2021 Active 1 goal linked to scheduled/documen ezequiel intervention 1 goal intervention scheduled/document ed in this visit SN Cardiac Procedure/Surgery Disciplines: 11/26/2021 Active 1 goal linked to scheduled/documen ezequiel intervention 1 goal intervention scheduled/document ed in this visit SN Integumentary/Wound s Disciplines: 11/26/2021 Active 1 goal linked to scheduled/documen ezequiel intervention 5 goal interventions scheduled/document ed in this visit SN Cardiovascular Condition Disciplines: 11/26/2021 Active 1 goal linked to scheduled/documen ezequiel intervention 1 goal intervention scheduled/document ed in this visit SN COPD Disciplines: 11/26/2021 Active 1 goal linked to scheduled/documen ezequiel intervention 2 goal interventions scheduled/document ed in this visit Medication Education Disciplines: Skilled Services 11/26/2021 Active 1 goal linked to scheduled/documen ezequiel intervention 1 goal intervention scheduled/document ed in this visit Physician Specific Parameters Disciplines: Skilled Services 11/26/2021 Active 1 goal linked to scheduled/documen ezequiel intervention 1 goal intervention scheduled/document ed in this visit Risk for Falls Disciplines: Skilled Services 11/26/2021 Active 1 goal linked to scheduled/documen ezequiel intervention 1 goal intervention scheduled/document ed in this visit Pain Disciplines: Skilled Services 11/26/2021 Active 1 goal linked to scheduled/documen ezequiel intervention 1 goal intervention scheduled/document ed in this visit Discharge Disciplines: Skilled Services 11/26/2021 Active 1 goal linked to scheduled/documen ezequiel intervention 1 goal intervention scheduled/document ed in this visit Advance Directives Disciplines: Skilled Services 11/26/2021 Active 1 goal linked to scheduled/documen ezequiel intervention 1 goal intervention scheduled/document ed in this visit Goals Goal Associated Problem Outcome Goal Met? Visit Notes Patient and/or caregiver will verbalize and/or demonstrate understanding of edema management SN Edema No Patient/caregiver understands all aspects of aftercare post cardiac procedure/surgery Description: Patient/Caregiver to verbalize and demonstrate understanding of aftercare post cardiac procedure/surgery by 01-04-22.. SN Cardiac Procedure/Surgery No Patient/Caregiver will verbalize/demonstrate integumentary condition management and achieve improved healing SN Integumentary/Wounds No Improved management of cardiovascular disease Description: Improve patient/caregiver management of cardiac disease as evidenced by patient/caregiver ability to teach back cardiac management strategies. SN Cardiovascular Condition No Improved management of COPD Description: Improve COPD management as evidenced by patient/caregiver able to teach back 1 COPD management strategies by 01-04-22.. SN COPD No Patient/caregiver will demonstrate ability to obtain, store, identify and administer ordered medications, keep accurate medication list in home, and adhere to medication schedule Medication Education No Patient to maintain parameters within physician-specified ranges Physician Specific Parameters No Manage Risk for falls Description: Patient/caregiver will verbalize knowledge of individualized fall prevention strategies by 01-04-22.. Risk for Falls No Manage Pain Description: Patient/caregiver will verbalize knowledge and understanding of appropriate techniques to control pain, including pain medication and non-pharmacological techniques. Patient will verbalize or demonstrate an acceptable level of pain as evidenced by a pain score of 5/10 and improvement in ability to perform activities of daily living to be achieved by 5-14-22. Pain No Manage discharge planning Description: Patient/caregiver will verbalize understanding of ongoing discharge plan provided related to disease management, arrangements for outpatient and/or community services, obtaining medications, supplies, and DME, as needed. Discharge No Patient/caregiver will make healthcare providers aware of Advance Directives Advance Directives No Interventions Intervention Associated Problem/Goal Status Variance Visit Notes Assess and instruct on measures to reduce edema Problem:SN Edema Goal:Patient and/or caregiver will verbalize and/or demonstrate understanding of edema management Completed patient instructed on elevation, compression, diet, medication compliance and benefits of activity. 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 Problem:SN Cardiac Procedure/Surgery Goal:Patient/caregive r understands all aspects of aftercare post cardiac procedure/surgery Completed patient and caregiver assessed and reinforced on keeping all incisions clean with mild soap and water and leave open to air, allow dermabond to slough off on it's own, signs & symptoms of complications: infection such as fever of 101 or greater, chills, redness and/or drainage of incision site, nausea/vomiting, and/or malaise and cardiac complications such as headache, dizziness, light-headedness, SOB, heart palpitations, chest pain, or chest pressure, use of incentive spirometer, record daily weights, temperature, and BP, instruct heart health diet and fluid restrictions no more than 64-68 oz in 24 hours. Wound Care: Peform wound care (3) Description: wound location: LLShin Order: Cleanse with mild soap and water, rinse, pat dry, cvoer as needed for drainage. Frequency: daily Measure wound/incision weekly and as needed. Problem:SN Integumentary/Wounds Goal:Patient/Caregive r will verbalize/demonstrate integumentary condition management and achieve improved healing Completed Completed by SN. Patient did tolerate well. Wound Care: Perform wound care (2) Description: Incision location: LLE Order: Cleanse with mild soap and water, rinse, pat dry, cvoer as needed for drainage. Frequency: daily Measure wound/incision weekly and as needed. Problem:SN Integumentary/Wounds Goal:Patient/Caregive r will verbalize/demonstrate integumentary condition management and achieve improved healing Completed Completed by SN. Patient did tolerate well. Wound Care: Perform wound care (1) Description: Incision location: sternum Order: Cleanse with mild soap and water, rinse, pat dry, cvoer as needed for drainage. Frequency: daily Measure wound/incision weekly and as needed. Problem:SN Integumentary/Wounds Goal:Patient/Caregive r will verbalize/demonstrate integumentary condition management and achieve improved healing Completed Completed by SN. Patient did tolerate well. Instruct patient/caregiver healing process and management measures to promote healing and avoid complications Problem:SN Integumentary/Wounds Goal:Patient/Caregive r will verbalize/demonstrate integumentary condition management and achieve improved healing Completed patient instructed on the following: healing process, signs and symptoms of infection, importance of good nutrition and when to report symptoms. Instruct Patient/Caregiver on wound/incision care procedure as ordered by physician Problem:SN Integumentary/Wounds Goal:Patient/Caregive r will verbalize/demonstrate integumentary condition management and achieve improved healing Completed patient and caregiver instructed on and return demonstrated wound care as ordered by Physician. Instruct on cardiovascular disease process and management of condition Description: Patient has following cardiac diagnosis(es): CAD. Problem:SN Cardiovascular Condition Goal:Improved management of cardiovascular disease Completed patient instructed on cardiac disease process, self monitoring & symptom reporting, DVT/PE prevention and Cardiac Diet. Acute COPD Description: Instruct on defintion of COPD, signs and symptoms of COPD exacerbation, use of zone sheet, use of MDIs, difference between rescue vs maintenance inhalers, use of nebulizer, smoking cessation, breathing management including pursed lip breathing, diaphragmatic breathing, positioning to reduce SOB, controlled coughing, use of incentive spirometer, and use of acapela as found in the COPD binder. Problem:SN COPD Goal:Improved management of COPD Completed patient reinforced on defintion of COPD, signs and symptoms of COPD exacerbation and use of zone sheet as found in the COPD binder. Ensure patient/caregiver has COPD Binder in home Description: SN to provide and refer to COPD binder every visit. Problem:SN COPD Goal:Improved management of COPD Completed Patient has COPD binder. Medication Education Description: Evaluate/instruct patient/caregiver on obtaining, storing, identifying and administering ordered medications as well as keeping accurate medication list in the home and adhereing to medication schedule Problem:Medication Education Goal:Patient/caregive r will demonstrate ability to obtain, store, identify and administer ordered medications, keep accurate medication list in home, and adhere to medication schedule Completed Patient instructed on importance of keeping accurate medication list in home, adhering to medication schedule and proper storage of medications. SPO2 Description: Notify Dr. Roly Lazo MD if pulse ox is <92% at rest. Problem:Physician Specific Parameters Goal:Patient to maintain parameters within physician-specified ranges Completed Instruct on individual fall risk factors and strategies to prevent falls and injuries caused by falls. Problem:Risk for Falls Goal:Manage Risk for falls Completed SN: Patient and Caregiver instructed on Eliminating Environmental Hazards: Keep pathways clear, Keep pets out of pathways, Keep rooms and walkways well lit, Wear supportive shoes or non-skid socks and Keep frequently used items within reach Instruct on pain and instruct on strategies to control pain Problem:Pain Goal:Manage Pain Completed patient instructed on techniques to control pain including Pharmacological measures and Non-Pharmacological measures; rest, positioning/elevation and mobility/therapeutic exercise. Instruct on ongoing discharge plan Problem:Discharge Goal:Manage discharge planning Completed Ongoing Discharge plan: Discharge plan discussed with patient and caregiver including frequency and duration for home SN and plan for transition to: live independently at home without ongoing services. Determine patient's Advance Directive Status Description: Patient does not have advance directives. Patient/Caregiver declined Advance Directive information. Problem:Advance Directives Goal:Patient/caregive r will make healthcare providers aware of Advance Directives Completed Discussed Advance Directives with Patient and/or Caregiver. Referred patient to Home Care handbook for further information on Healthcare DPOA & Living Will. documented in this encounter [facility] home Plan of care note* Visit Details Visit Type -SN ROUTINE Discipline -Care Home Problems Problem Description Start Date Status Goals Interve ntions SN Edema Disciplines: 11/26/2021 Active 1 goal linked to scheduled/documen ezequiel intervention 1 goal intervention scheduled/document ed in this visit SN Cardiac Procedure/Surgery Disciplines: SN 11/26/2021 Active 1 goal linked to scheduled/documen ezequiel intervention 1 goal intervention scheduled/document ed in this visit SN Integumentary/Wound s Disciplines: 11/26/2021 Active 1 goal linked to scheduled/documen ezequiel intervention 4 goal interventions scheduled/document ed in this visit SN Cardiovascular Condition Disciplines: 11/26/2021 Active 1 goal linked to scheduled/documen ezequiel intervention 1 goal intervention scheduled/document ed in this visit SN COPD Disciplines: 11/26/2021 Active 1 goal linked to scheduled/documen ezequiel intervention 1 goal intervention scheduled/document ed in this visit Medication Education Disciplines: Skilled Services 11/26/2021 Active 1 goal linked to scheduled/documen ezequiel intervention 1 goal intervention scheduled/document ed in this visit Physician Specific Parameters Disciplines: Skilled Services 11/26/2021 Active 1 goal linked to scheduled/documen ezequiel intervention 1 goal intervention scheduled/document ed in this visit Risk for Falls Disciplines: Skilled Services 11/26/2021 Active 1 goal linked to scheduled/documen ezequiel intervention 1 goal intervention scheduled/document ed in this visit Pain Disciplines: Skilled Services 11/26/2021 Active 1 goal linked to scheduled/documen ezequiel intervention 1 goal intervention scheduled/document ed in this visit Discharge Disciplines: Skilled Services 11/26/2021 Active 1 goal linked to scheduled/documen ezequiel intervention 1 goal intervention scheduled/document ed in this visit Advance Directives Disciplines: Skilled Services 11/26/2021 Active 1 goal linked to scheduled/documen ezequiel intervention 1 goal intervention scheduled/document ed in this visit Goals Goal Associated Problem Outcome Goal Met? Visit Notes Patient and/or caregiver will verbalize and/or demonstrate understanding of edema management SN Edema No Patient/caregiver understands all aspects of aftercare post cardiac procedure/surgery Description: Patient/Caregiver to verbalize and demonstrate understanding of aftercare post cardiac procedure/surgery by 01-04-22.. SN Cardiac Procedure/Surgery No Patient/Caregiver will verbalize/demonstrate integumentary condition management and achieve improved healing SN Integumentary/Wounds No Improved management of cardiovascular disease Description: Improve patient/caregiver management of cardiac disease as evidenced by patient/caregiver ability to teach back cardiac management strategies. SN Cardiovascular Condition No Improved management of COPD Description: Improve COPD management as evidenced by patient/caregiver able to teach back 1 COPD management strategies by 01-04-22.. SN COPD No Patient/caregiver will demonstrate ability to obtain, store, identify and administer ordered medications, keep accurate medication list in home, and adhere to medication schedule Medication Education No Patient to maintain parameters within physician-specified ranges Physician Specific Parameters No Manage Risk for falls Description: Patient/caregiver will verbalize knowledge of individualized fall prevention strategies by 01-04-22.. Risk for Falls No Manage Pain Description: Patient/caregiver will verbalize knowledge and understanding of appropriate techniques to control pain, including pain medication and non-pharmacological techniques. Patient will verbalize or demonstrate an acceptable level of pain as evidenced by a pain score of 5/10 and improvement in ability to perform activities of daily living to be achieved by 5-14-22. Pain No Manage discharge planning Description: Patient/caregiver will verbalize understanding of ongoing discharge plan provided related to disease management, arrangements for outpatient and/or community services, obtaining medications, supplies, and DME, as needed. Discharge No Patient/caregiver will make healthcare providers aware of Advance Directives Advance Directives No Interventions Intervention Associated Problem/Goal Status Variance Visit Notes Assess and instruct on measures to reduce edema Problem:SN Edema Goal:Patient and/or caregiver will verbalize and/or demonstrate understanding of edema management Completed patient instructed on elevation, compression, diet, medication compliance and benefits of activity. 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 Problem:SN Cardiac Procedure/Surgery Goal:Patient/caregive r understands all aspects of aftercare post cardiac procedure/surgery Completed patient assessed and reinforced on keeping all incisions clean with mild soap and water and leave open to air, allow dermabond to slough off on it's own, signs & symptoms of complications: infection such as fever of 101 or greater, chills, redness and/or drainage of incision site, nausea/vomiting, and/or malaise and cardiac complications such as headache, dizziness, light-headedness, SOB, heart palpitations, chest pain, or chest pressure, use of incentive spirometer, record daily weights, temperature, and BP, instruct heart health diet and fluid restrictions no more than 64-68 oz in 24 hours. Wound Care: Perform wound care (2) Description: Incision location: LLE Order: Cleanse with mild soap and water, rinse, pat dry, cvoer as needed for drainage. Frequency: daily Measure wound/incision weekly and as needed. Problem:SN Integumentary/Wounds Goal:Patient/Caregive r will verbalize/demonstrate integumentary condition management and achieve improved healing Completed Completed by SN. Patient did tolerate well. Wound Care: Perform wound care (1) Description: Incision location: sternum Order: Cleanse with mild soap and water, rinse, pat dry, cvoer as needed for drainage. Frequency: daily Measure wound/incision weekly and as needed. Problem:SN Integumentary/Wounds Goal:Patient/Caregive r will verbalize/demonstrate integumentary condition management and achieve improved healing Completed Completed by SN. Patient did tolerate well. Instruct patient/caregiver healing process and management measures to promote healing and avoid complications Problem:SN Integumentary/Wounds Goal:Patient/Caregive r will verbalize/demonstrate integumentary condition management and achieve improved healing Completed patient instructed on the following: healing process, signs and symptoms of infection, importance of good nutrition and when to report symptoms. Instruct Patient/Caregiver on wound/incision care procedure as ordered by physician Problem:SN Integumentary/Wounds Goal:Patient/Caregive r will verbalize/demonstrate integumentary condition management and achieve improved healing Completed patient instructed on and return demonstrated wound care as ordered by Physician. Instruct on cardiovascular disease process and management of condition Description: Patient has following cardiac diagnosis(es): CAD. Problem:SN Cardiovascular Condition Goal:Improved management of cardiovascular disease Completed patient instructed on cardiac disease process, self monitoring & symptom reporting and Cardiac Diet. Acute COPD Description: Instruct on defintion of COPD, signs and symptoms of COPD exacerbation, use of zone sheet, use of MDIs, difference between rescue vs maintenance inhalers, use of nebulizer, smoking cessation, breathing management including pursed lip breathing, diaphragmatic breathing, positioning to reduce SOB, controlled coughing, use of incentive spirometer, and use of acapela as found in the COPD binder. Problem:SN COPD Goal:Improved management of COPD Completed patient reinforced on defintion of COPD, signs and symptoms of COPD exacerbation and use of zone sheet as found in the COPD binder. Medication Education Description: Evaluate/instruct patient/caregiver on obtaining, storing, identifying and administering ordered medications as well as keeping accurate medication list in the home and adhereing to medication schedule Problem:Medication Education Goal:Patient/caregive r will demonstrate ability to obtain, store, identify and administer ordered medications, keep accurate medication list in home, and adhere to medication schedule Completed Patient instructed on importance of keeping accurate medication list in home, adhering to medication schedule and proper storage of medications. SPO2 Description: Notify Dr. Roly Lazo MD if pulse ox is <92% at rest. Problem:Physician Specific Parameters Goal:Patient to maintain parameters within physician-specified ranges Completed Instruct on individual fall risk factors and strategies to prevent falls and injuries caused by falls. Problem:Risk for Falls Goal:Manage Risk for falls Completed SN: Patient instructed on Eliminating Environmental Hazards: Keep pathways clear, Keep pets out of pathways, Keep rooms and walkways well lit, Wear supportive shoes or non-skid socks and Keep frequently used items within reach Instruct on pain and instruct on strategies to control pain Problem:Pain Goal:Manage Pain Completed patient instructed on techniques to control pain including Pharmacological measures and Non-Pharmacological measures; rest, positioning/elevation and mobility/therapeutic exercise. Instruct on ongoing discharge plan Problem:Discharge Goal:Manage discharge planning Completed Ongoing Discharge plan: Discharge plan discussed with patient including frequency and duration for home SN and plan for transition to: live independently at home without ongoing services. Determine patient's Advance Directive Status Description: Patient does not have advance directives. Patient/Caregiver declined Advance Directive information. Problem:Advance Directives Goal:Patient/caregive r will make healthcare providers aware of Advance Directives Completed Discussed Advance Directives with Patient and/or Caregiver. Referred patient to Home Care handbook for further information on Healthcare DPOA & Living Will. documented in this encounter [facility]'s home Plan of care note* Visit Details Visit Type -SN ROUTINE Discipline -Care Home Problems Problem Description Start Date Status Goals Interve ntions SN Edema Disciplines: 11/26/2021 Active 1 goal linked to scheduled/documen ezequiel intervention 1 goal intervention scheduled/document ed in this visit SN Cardiac Procedure/Surgery Disciplines: 11/26/2021 Active 1 goal linked to scheduled/documen ezequiel intervention 1 goal intervention scheduled/document ed in this visit SN Integumentary/Wound s Disciplines: 11/26/2021 Active 1 goal linked to scheduled/documen ezequiel intervention 5 goal interventions scheduled/document ed in this visit SN Cardiovascular Condition Disciplines: 11/26/2021 Active 1 goal linked to scheduled/documen ezequiel intervention 1 goal intervention scheduled/document ed in this visit SN COPD Disciplines: 11/26/2021 Active 1 goal linked to scheduled/documen ezequiel intervention 2 goal interventions scheduled/document ed in this visit Medication Education Disciplines: Skilled Services 11/26/2021 Active 1 goal linked to scheduled/documen ezequiel intervention 1 goal intervention scheduled/document ed in this visit Physician Specific Parameters Disciplines: Skilled Services 11/26/2021 Active 1 goal linked to scheduled/documen ezequiel intervention 1 goal intervention scheduled/document ed in this visit Risk for Falls Disciplines: Skilled Services 11/26/2021 Active 1 goal linked to scheduled/documen ezequiel intervention 1 goal intervention scheduled/document ed in this visit Pain Disciplines: Skilled Services 11/26/2021 Active 1 goal linked to scheduled/documen ezequiel intervention 1 goal intervention scheduled/document ed in this visit Discharge Disciplines: Skilled Services 11/26/2021 Active 1 goal linked to scheduled/documen ezequiel intervention 1 goal intervention scheduled/document ed in this visit Advance Directives Disciplines: Skilled Services 11/26/2021 Active 1 goal linked to scheduled/documen ezequiel intervention 1 goal intervention scheduled/document ed in this visit Goals Goal Associated Problem Outcome Goal Met? Visit Notes Patient and/or caregiver will verbalize and/or demonstrate understanding of edema management SN Edema No Patient/caregiver understands all aspects of aftercare post cardiac procedure/surgery Description: Patient/Caregiver to verbalize and demonstrate understanding of aftercare post cardiac procedure/surgery by 01-04-22.. SN Cardiac Procedure/Surgery No Patient/Caregiver will verbalize/demonstrate integumentary condition management and achieve improved healing SN Integumentary/Wounds No Improved management of cardiovascular disease Description: Improve patient/caregiver management of cardiac disease as evidenced by patient/caregiver ability to teach back cardiac management strategies. SN Cardiovascular Condition No Improved management of COPD Description: Improve COPD management as evidenced by patient/caregiver able to teach back 1 COPD management strategies by 01-04-22.. SN COPD No Patient/caregiver will demonstrate ability to obtain, store, identify and administer ordered medications, keep accurate medication list in home, and adhere to medication schedule Medication Education No Patient to maintain parameters within physician-specified ranges Physician Specific Parameters No Manage Risk for falls Description: Patient/caregiver will verbalize knowledge of individualized fall prevention strategies by 01-04-22.. Risk for Falls No Manage Pain Description: Patient/caregiver will verbalize knowledge and understanding of appropriate techniques to control pain, including pain medication and non-pharmacological techniques. Patient will verbalize or demonstrate an acceptable level of pain as evidenced by a pain score of 5/10 and improvement in ability to perform activities of daily living to be achieved by 01-04-22. Pain No Manage discharge planning Description: Patient/caregiver will verbalize understanding of ongoing discharge plan provided related to disease management, arrangements for outpatient and/or community services, obtaining medications, supplies, and DME, as needed. Discharge No Patient/caregiver will make healthcare providers aware of Advance Directives Advance Directives No Interventions Intervention Associated Problem/Goal Status Variance Visit Notes Assess and instruct on measures to reduce edema Problem:SN Edema Goal:Patient and/or caregiver will verbalize and/or demonstrate understanding of edema management Completed patient instructed on elevation, compression, diet, medication compliance and benefits of activity. 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 Problem:SN Cardiac Procedure/Surgery Goal:Patient/caregive r understands all aspects of aftercare post cardiac procedure/surgery Completed patient assessed and reinforced on keeping all incisions clean with mild soap and water and leave open to air, allow dermabond to slough off on it's own, signs & symptoms of complications: infection such as fever of 101 or greater, chills, redness and/or drainage of incision site, nausea/vomiting, and/or malaise and cardiac complications such as headache, dizziness, light-headedness, SOB, heart palpitations, chest pain, or chest pressure, use of incentive spirometer, record daily weights, temperature, and BP, instruct heart health diet and fluid restrictions no more than 64-68 oz in 24 hours. Wound Care: Peform wound care (3) Description: wound location: LLShin Order: Cleanse with mild soap and water, rinse, pat dry, cvoer as needed for drainage. Frequency: daily Measure wound/incision weekly and as needed. Problem:SN Integumentary/Wounds Goal:Patient/Caregive r will verbalize/demonstrate integumentary condition management and achieve improved healing Completed Completed by SN. Patient did tolerate well. Wound Care: Perform wound care (2) Description: Incision location: LLE Order: Cleanse with mild soap and water, rinse, pat dry, cvoer as needed for drainage. Frequency: daily Measure wound/incision weekly and as needed. Problem:SN Integumentary/Wounds Goal:Patient/Caregive r will verbalize/demonstrate integumentary condition management and achieve improved healing Completed Completed by SN. Patient did tolerate well. Wound Care: Perform wound care (1) Description: Incision location: sternum Order: Cleanse with mild soap and water, rinse, pat dry, cvoer as needed for drainage. Frequency: daily Measure wound/incision weekly and as needed. Problem:SN Integumentary/Wounds Goal:Patient/Caregive r will verbalize/demonstrate integumentary condition management and achieve improved healing Completed Completed by SN. Patient did tolerate well. Instruct patient/caregiver healing process and management measures to promote healing and avoid complications Problem:SN Integumentary/Wounds Goal:Patient/Caregive r will verbalize/demonstrate integumentary condition management and achieve improved healing Completed patient instructed on the following: healing process, signs and symptoms of infection, importance of good nutrition and when to report symptoms. Instruct Patient/Caregiver on wound/incision care procedure as ordered by physician Problem:SN Integumentary/Wounds Goal:Patient/Caregive r will verbalize/demonstrate integumentary condition management and achieve improved healing Completed patient instructed on and return demonstrated wound care as ordered by Physician. Instruct on cardiovascular disease process and management of condition Description: Patient has following cardiac diagnosis(es): CAD. Problem:SN Cardiovascular Condition Goal:Improved management of cardiovascular disease Completed patient instructed on cardiac disease process, self monitoring & symptom reporting, DVT/PE prevention and Cardiac Diet. Acute COPD Description: Instruct on defintion of COPD, signs and symptoms of COPD exacerbation, use of zone sheet, use of MDIs, difference between rescue vs maintenance inhalers, use of nebulizer, smoking cessation, breathing management including pursed lip breathing, diaphragmatic breathing, positioning to reduce SOB, controlled coughing, use of incentive spirometer, and use of acapela as found in the COPD binder. Problem:SN COPD Goal:Improved management of COPD Completed patient reinforced on defintion of COPD, signs and symptoms of COPD exacerbation, use of zone sheet, use of MDIs, difference between rescue vs maintenance inhalers and use of nebulizer as found in the COPD binder. Ensure patient/caregiver has COPD Binder in home Description: SN to provide and refer to COPD binder every visit. Problem:SN COPD Goal:Improved management of COPD Completed Patient has COPD binder. Medication Education Description: Evaluate/instruct patient/caregiver on obtaining, storing, identifying and administering ordered medications as well as keeping accurate medication list in the home and adhereing to medication schedule Problem:Medication Education Goal:Patient/caregive r will demonstrate ability to obtain, store, identify and administer ordered medications, keep accurate medication list in home, and adhere to medication schedule Completed Patient instructed on importance of keeping accurate medication list in home. SPO2 Description: Notify Dr. Roly Lazo MD if pulse ox is <92% at rest. Problem:Physician Specific Parameters Goal:Patient to maintain parameters within physician-specified ranges Completed Instruct on individual fall risk factors and strategies to prevent falls and injuries caused by falls. Problem:Risk for Falls Goal:Manage Risk for falls Completed SN: Patient instructed on Eliminating Environmental Hazards: Keep pathways clear, Keep pets out of pathways, Keep rooms and walkways well lit, Wear supportive shoes or non-skid socks and Keep frequently used items within reach Instruct on pain and instruct on strategies to control pain Problem:Pain Goal:Manage Pain Completed patient instructed on techniques to control pain including Pharmacological measures and Non-Pharmacological measures; rest, positioning/elevation and mobility/therapeutic exercise. Instruct on ongoing discharge plan Problem:Discharge Goal:Manage discharge planning Completed Ongoing Discharge plan: Discharge plan discussed with patient including frequency and duration for home SN and plan for transition to: live independently at home without ongoing services. Determine patient's Advance Directive Status Description: Patient does not have advance directives. Patient/Caregiver declined Advance Directive information. Problem:Advance Directives Goal:Patient/caregive r will make healthcare providers aware of Advance Directives Completed Discussed Advance Directives with Patient and/or Caregiver. Referred patient to Home Care handbook for further information on Healthcare DPOA & Living Will. [facility] Outpatient Procedure (Routine) - Pending Review Specialty Diagnoses / Procedures Referred By Rebekah starks Referred To Contact [facility] [place] Diagnoses Atypical atrial flutter (HCC) Procedures ECG COMPLETE ECG ROUTINE ECG W/LEAST 12 LDS W/I&R Frederick Conner MD [address] [place] [address] [facility] [id number] [place] [address] Referral ID Status Reason Start Date Expiration Date Visits Requested Visits Authorized [id number] Pending Review Auto-Generat ed Referral 12/17/2021 12/17/2022 1 1 [facility] for referral (narrative)No reason for referral [facility] Phone: Reason for visit Narrative* Outpatient Procedure (Routine) - Closed Specialty Diagnoses / Procedures Referred By Rebekah starks Referred To Contact [facility] [place] Diagnoses Pacemaker reprogramming/check Procedures CARDIAC IMPLANTABLE DEVICE CHECK [facility] [address] [place] [address] Phone: tel: fax: [facility] [place] [address] Referral ID Status Reason Start Date Expiration Date V isits Requested Visits Authorized [id number] Closed Auto-Generate d Referral 12/26/2024 12/26/2025 1 1 [facility] Summary Purpose Family History No Family History Records Found Relationship Condition Age at Onset Recorded Date/T bang mother Malignant neoplasm Unknown brother Myocardial infarction Unknown Coronary artery disease Unknown brother Cerebrovascular accident (CVA) Unknown Advance Directives No Advanced Directives Records FoundDocuments on File Type Date Recorded Patient Test Consultant Expl anation Advance Directive(s) 11/18/2021 5:54 AM Latest Code Status on File Code Status Date Activated Date Inactivated Comments Full Code 11/26/2021 2:36 PM Documents on File Type Date Recorded Patient Test Consultant Expl anation Advance Directive(s) 11/18/2021 5:54 AM Latest Code Status on File Code Status Date Activated Date Inactivated Comments Full Code 11/26/2021 2:36 PM Latest Code Status on File Code Status Date Activated Date Inactivated Comments Full Code 11/26/2021 2:36 PM 12/14/2021 4:17 PM Latest Code Status on File Code Status Date Activated Date Inactivated Comments Full Code 11/26/2021 2:36 PM 12/14/2021 4:17 PM Advance Directive Response Recorded Date/ Time Advance Directives Yes September 10, 2021 9:00am Living Will Yes January 23, 2022 9 :02am Power of Latin Teacher Yes January 23, 2022 9:02am Advance Directive Response Recorded Date/ Time Advance Directives on File No January 23, 2022 9:02am Advance Directives Yes September 10, 2021 9:00am Living Will Yes January 23, 2022 9 :02am Power of Latin Teacher Yes January 23, 2022 9:02am Advance Directive Response Recorded Date/ Time Advance Directives Yes September 10, 2021 8:00am Living Will Yes January 23, 2022 8 :02am Power of Latin Teacher Yes January 23, 2022 8:02am Latest Code Status on File Code Status Date Activated Date Inactivated Comments Full Code 11/26/2021 2:36 PM 12/14/2021 4:17 PM Date Activated Date Inactivated Comments 11/26/2021 2:36 PM 12/14/2021 4:17 PM Advance Directive Response Recorded Date/ Time Advance Directives Yes September 10, 2021 9:00am Date Activated Date Inactivated Comments 11/26/2021 2:36 PM 12/14/2021 4:17 PM Health Concerns Infection Onset Date Last Indicated Resolved Time COVID-19 Rule-Out 12/14/2021 12/14/2021 12/14/2021 6:07 PM EDT COVID-19 Rule-Out 12/14/2021 12/14/2021 Infection Onset Date Last Indicated Resolved Time COVID-19 Rule-Out 12/14/2021 12/14/2021 Infection Onset Date Last Indicated Resolved Time COVID-19 Rule-Out 12/14/2021 12/14/2021 Infection Onset Date Last Indicated Resolved Time COVID-19 Rule-Out 12/14/2021 12/14/2021 12/17/2021 2:56 PM EDT Infection Onset Date Last Indicated Resolved Time COVID-19 Rule-Out 12/14/2021 12/14/2021 12/14/2021 6:07 PM EDT COVID-19 Rule-Out 12/14/2021 12/14/2021 12/17/2021 2:56 PM EDT Chief Complaint and Reason for Visit Chief Complaint 6 M FU 3 m fu 3 M FU E ORDERS CABG Reason for Visit Angina pectoris 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 COPD (chronic obstructive pulmonary disease) Dyspnea on exertion Mixed hyperlipidemia 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 Mitral valve regurgitation Mixed hyperlipidemia Atrial fibrillation Fatigue History of coronary artery bypass surgery Mixed hyperlipidemia Presence of permanent cardiac pacemaker History of mitral valve repair Chief Complaint 6 M FU 3 m fu 3 M FU E ORDERS CABG s/p cabg Reason for Visit Angina pectoris 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 COPD (chronic obstructive pulmonary disease) Dyspnea on exertion Mixed hyperlipidemia 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 Mitral valve regurgitation Mixed hyperlipidemia Atrial fibrillation Fatigue History of coronary artery bypass surgery Mixed hyperlipidemia Presence of permanent cardiac pacemaker History of mitral valve repair Chief Complaint 3 M FU E ORDERS CABG s/p cabg Reason for Visit Atrial fibrillation Fatigue History of coronary artery bypass surgery Mixed hyperlipidemia Presence of permanent cardiac pacemaker History of mitral valve repair Chief Complaint 3 M FU E ORDERS CABG s/p cabg 6WK FU EORDERS s/p cabg Reason for Visit Atrial fibrillation Fatigue History of coronary artery bypass surgery Mixed hyperlipidemia Presence of permanent cardiac pacemaker History of mitral valve repair Atrial fibrillation History of coronary artery bypass surgery 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 Mixed hyperlipidemia Presence of permanent cardiac pacemaker History of mitral valve repair Chief Complaint 3 M FU E ORDERS CABG s/p cabg 6WK FU EORDERS s/p cabg 6 M FU INT LABS S/P CABG Reason for Visit Atrial fibrillation Fatigue History of coronary artery bypass surgery Mixed hyperlipidemia Presence of permanent cardiac pacemaker History of mitral valve repair Atrial fibrillation History of coronary artery bypass surgery 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 Mixed hyperlipidemia Presence of permanent cardiac pacemaker History of mitral valve repair Atrial fibrillation Dyspnea on exertion Fatigue History of coronary artery bypass surgery Mitral valve regurgitation Mixed hyperlipidemia Chief Complaint CABG s/p cabg 6WK FU EORDERS s/p cabg 6 M FU INT LABS S/P CABG S/P CABG S/O INR Reason for Visit Atrial fibrillation History of coronary artery bypass surgery 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 Mixed hyperlipidemia Presence of permanent cardiac pacemaker History of mitral valve repair Atrial fibrillation Dyspnea on exertion Fatigue History of coronary artery bypass surgery Mitral valve regurgitation Mixed hyperlipidemia Chief Complaint s/p cabg 6WK FU EORDERS s/p cabg 6 M FU INT LABS S/P CABG S/P CABG S/O INR Reason for Visit Atrial fibrillation History of coronary artery bypass surgery jail current use of amiodarone Mixed hyperlipidemia Presence of permanent cardiac pacemaker History of mitral valve repair Atrial fibrillation Dyspnea on exertion Fatigue History of coronary artery bypass surgery Mitral valve regurgitation Mixed hyperlipidemia Chief Complaint s/p cabg 6WK FU EORDERS s/p cabg 6 M FU INT LABS S/P CABG S/P CABG S/O INR E-ORDER S/O INR Reason for Visit Atrial fibrillation History of coronary artery bypass surgery 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 Mixed hyperlipidemia Presence of permanent cardiac pacemaker History of mitral valve repair Atrial fibrillation Dyspnea on exertion Fatigue History of coronary artery bypass surgery Mitral valve regurgitation Mixed hyperlipidemia Chief Complaint 6WK FU EORDERS s/p cabg 6 M FU INT LABS S/P CABG S/P CABG S/O INR E-ORDER S/O INR Reason for Visit Atrial fibrillation History of coronary artery bypass surgery 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 Mixed hyperlipidemia Presence of permanent cardiac pacemaker History of mitral valve repair Atrial fibrillation Dyspnea on exertion Fatigue History of coronary artery bypass surgery Mitral valve regurgitation Mixed hyperlipidemia Chief Complaint 6 M FU INT LABS S/P CABG S/P CABG S/O INR E-ORDER S/O INR S/O INR Reason for Visit Dyspnea on exertion Fatigue History of coronary artery bypass surgery Mitral valve regurgitation Mixed hyperlipidemia Chief Complaint S/O INR S/O INR COUGH, CONGESTED, BODY ACHES 6 M FU E ORDER 6 M FU E ORDER S/P MITRAL VALVE REPAIR Reason for Visit COVID-19 Erectile dysfunction Fatigue History of coronary artery bypass surgery Mixed hyperlipidemia Presence of permanent cardiac pacemaker History of mitral valve repair 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 COPD (chronic obstructive pulmonary disease) Erectile dysfunction Heel spur Mixed hyperlipidemia 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 Chief Complaint 6 M FU 6 M FU EORDER Reason for Visit History of coronary artery bypass surgery History of mitral valve repair Mixed hyperlipidemia Presence of permanent cardiac pacemaker Atrial fibrillation 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 COPD (chronic obstructive pulmonary disease) Dyspnea on exertion History of coronary artery bypass surgery 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 Skin lesion of face jail (current) use of anticoagulants Mixed hyperlipidemia Atrial fibrillation Chief Complaint Admit Date 6 M FU October 13, 2024 2:23pm Review Carotid US Results October 26 1:45pm 4 M FU February 01, 2025 1:29 pm Reason for Visit Admit Date Atherosclerotic heart diseas e of [place] coronary artery without angina pectoris October 13, 2024 2:23pm History of coronary artery bypass surger y October 13, 2024 2:23pm jail (current) use of anticoagulant s October 13, 2024 2:23pm Mixed hyperlipidemia October 13, 2024 2:23pm Presence of permanent cardiac pacemaker October 13, 2024 2:23pm Atrial fibrillation October 13, 2024 2:23pm Bilateral stenosis of carotid arteries g reater than 50% October 26, 2024 1:45pm History of coronary artery bypass surger y October 26, 2024 1:45pm History of mitral valve repair October 1:45pm 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 October 26, 2024 1:45pm Mixed hyperlipidemia October 26, 2024 1:4 5pm Atrial fibrillation October 26, 2024 1:45 pm Atherosclerotic heart diseas e of [place] coronary artery without angina pectoris February 01, 2025 1:29pm Bilateral stenosis of carotid arteries g reater than 50% February 01, 2025 1:29pm COPD (chronic obstructive pulmonary dise ase) February 01, 2025 1:29pm Erectile dysfunction February 01, 2025 1:2 9pm History of coronary artery bypass surger y February 01, 2025 1:29pm 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 February 01, 2025 1:29pm Persistent atrial fibrillation January 1:29pm jail (current) use of anticoagulant s February 01, 2025 1:29pm Atrial fibrillation February 01, 2025 1:29 pm Chief Complaint Admit Date 4 M FU February 01, 2025 1:29 pm OVERDUE 6 M FU May 15, 2025 2:40pm INT LAB ORDERS May 15, 2025 4:42pm Reason for Visit Admit Date Atherosclerotic heart diseas e of [place] coronary artery without angina pectoris February 01, 2025 1:29pm Bilateral stenosis of carotid arteries g reater than 50% February 01, 2025 1:29pm COPD (chronic obstructive pulmonary dise ase) February 01, 2025 1:29pm Erectile dysfunction February 01, 2025 1:2 9pm History of coronary artery bypass surger y February 01, 2025 1:29pm jail current use of amiodarone February 01, 2025 1:29pm Persistent atrial fibrillation January 1:29pm 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 February 01, 2025 1:29pm Atrial fibrillation February 01, 2025 1:29 pm History of coronary artery bypass surger y May 15, 2025 2:40pm jail (current) use of anticoagulant s May 15, 2025 2:40pm Mixed hyperlipidemia May 15 2:40pm Presence of permanent cardiac pacemaker May 15, 2025 2:40pm Atrial fibrillation May 15, 2025 2:40pm Additional Source Comments (unrecognized sect ion and content) No Status Records FoundNo Status Records FoundNo Status Records FoundNo Status Records FoundNo Status Records Found INFORMATION SOURCE (unrecogn ized section and content) DATE CREATED AUTHOR 09/20/2021 [facility] DATE CREATED AUTHOR AUTHOR'S ORGANIZ ATION 03/13/2022 [facility] DATE CREATED AUTHOR AUTHOR'S ORGANIZ ATION 05/12/2023 [facility] DATE CREATED AUTHOR AUTHOR'S ORGANIZ ATION 03/14/2025 [facility] DATE CREATED AUTHOR AUTHOR'S ORGANIZ ATION 05/30/2025 [facility] Source Comments (unrecognize d section and content) In the event this informatio n is protected by the Federal Confidentiality of Alcohol and Drug Abuse Patient Records regulations: The Federal rules restrict any use of the information to criminally investigate or prosecute any alcohol or drug abuse patient.[facility] Center[facility] the event this information is protected by the Federal Confidentiality of Alcohol and Drug Abuse Patient Records regulations: The Federal rules restrict any use of the information to criminally investigate or prosecute any alcohol or drug abuse patient.[facility] CenterIn the event this information is protected by the Federal Confidentiality of Alcohol and Drug Abuse Patient Records regulations: The Federal rules restrict any use of the information to criminally investigate or prosecute any alcohol or drug abuse patient.[facility] CenterIn the event this information is protected by the Federal Confidentiality of Alcohol and Drug Abuse Patient Records regulations: The Federal rules restrict any use of the information to criminally investigate or prosecute any alcohol or drug abuse patient.[facility] CenterIn the event this information is protected by the Federal Confidentiality of Alcohol and Drug Abuse Patient Records regulations: The Federal rules restrict any use of the information to criminally investigate or prosecute any alcohol or drug abuse patient.[facility] CenterIn the event this information is protected by the Federal Confidentiality of Alcohol and Drug Abuse Patient Records regulations: The Federal rules restrict any use of the information to criminally investigate or prosecute any alcohol or drug abuse patient.[facility] CenterIn the event this information is protected by the Federal Confidentiality of Alcohol and Drug Abuse Patient Records regulations: The Federal rules restrict any use of the information to criminally investigate or prosecute any alcohol or drug abuse patient.[facility] CenterIn the event this information is protected by the Federal Confidentiality of Alcohol and Drug Abuse Patient Records regulations: The Federal rules restrict any use of the information to criminally investigate or prosecute any alcohol or drug abuse patient.[facility] CenterIn the event this information is protected by the Federal Confidentiality of Alcohol and Drug Abuse Patient Records regulations: The Federal rules restrict any use of the information to criminally investigate or prosecute any alcohol or drug abuse patient.[facility] CenterIn the event this information is protected by the Federal Confidentiality of Alcohol and Drug Abuse Patient Records regulations: The Federal rules restrict any use of the information to criminally investigate or prosecute any alcohol or drug abuse patient.[facility] CenterIn the event this information is protected by the Federal Confidentiality of Alcohol and Drug Abuse Patient Records regulations: The Federal rules restrict any use of the information to criminally investigate or prosecute any alcohol or drug abuse patient.[facility] CenterIn the event this information is protected by the Federal Confidentiality of Alcohol and Drug Abuse Patient Records regulations: The Federal rules restrict any use of the information to criminally investigate or prosecute any alcohol or drug abuse patient.[facility] CenterIn the event this information is protected by the Federal Confidentiality of Alcohol and Drug Abuse Patient Records regulations: The Federal rules restrict any use of the information to criminally investigate or prosecute any alcohol or drug abuse patient.[facility] CenterIn the event this information is protected by the Federal Confidentiality of Alcohol and Drug Abuse Patient Records regulations: The Federal rules restrict any use of the information to criminally investigate or prosecute any alcohol or drug abuse patient.[facility] CenterIn the event this information is protected by the Federal Confidentiality of Alcohol and Drug Abuse Patient Records regulations: The Federal rules restrict any use of the information to criminally investigate or prosecute any alcohol or drug abuse patient.[facility] CenterIn the event this information is protected by the Federal Confidentiality of Alcohol and Drug Abuse Patient Records regulations: The Federal rules restrict any use of the information to criminally investigate or prosecute any alcohol or drug abuse patient.[facility] CenterIn the event this information is protected by the Federal Confidentiality of Alcohol and Drug Abuse Patient Records regulations: The Federal rules restrict any use of the information to criminally investigate or prosecute any alcohol or drug abuse patient.[facility] CenterIn the event this information is protected by the Federal Confidentiality of Alcohol and Drug Abuse Patient Records regulations: The Federal rules restrict any use of the information to criminally investigate or prosecute any alcohol or drug abuse patient.[facility] CenterIn the event this information is protected by the Federal Confidentiality of Alcohol and Drug Abuse Patient Records regulations: The Federal rules restrict any use of the information to criminally investigate or prosecute any alcohol or drug abuse patient.[facility] CenterIn the event this information is protected by the Federal Confidentiality of Alcohol and Drug Abuse Patient Records regulations: The Federal rules restrict any use of the information to criminally investigate or prosecute any alcohol or drug abuse patient.[facility] CenterIn the event this information is protected by the Federal Confidentiality of Alcohol and Drug Abuse Patient Records regulations: The Federal rules restrict any use of the information to criminally investigate or prosecute any alcohol or drug abuse patient.[facility] CenterIn the event this information is protected by the Federal Confidentiality of Alcohol and Drug Abuse Patient Records regulations: The Federal rules restrict any use of the information to criminally investigate or prosecute any alcohol or drug abuse patient.[facility] CenterIn the event this information is protected by the Federal Confidentiality of Alcohol and Drug Abuse Patient Records regulations: The Federal rules restrict any use of the information to criminally investigate or prosecute any alcohol or drug abuse patient.[facility] CenterIn the event this information is protected by the Federal Confidentiality of Alcohol and Drug Abuse Patient Records regulations: The Federal rules restrict any use of the information to criminally investigate or prosecute any alcohol or drug abuse patient.[facility] CenterIn the event this information is protected by the Federal Confidentiality of Alcohol and Drug Abuse Patient Records regulations: The Federal rules restrict any use of the information to criminally investigate or prosecute any alcohol or drug abuse patient.[facility] CenterIn the event this information is protected by the Federal Confidentiality of Alcohol and Drug Abuse Patient Records regulations: The Federal rules restrict any use of the information to criminally investigate or prosecute any alcohol or drug abuse patient.[facility] CenterIn the event this information is protected by the Federal Confidentiality of Alcohol and Drug Abuse Patient Records regulations: The Federal rules restrict any use of the information to criminally investigate or prosecute any alcohol or drug abuse patient.[facility] CenterIn the event this information is protected by the Federal Confidentiality of Alcohol and Drug Abuse Patient Records regulations: The Federal rules restrict any use of the information to criminally investigate or prosecute any alcohol or drug abuse patient.[facility] CenterIn the event this information is protected by the Federal Confidentiality of Alcohol and Drug Abuse Patient Records regulations: The Federal rules restrict any use of the information to criminally investigate or prosecute any alcohol or drug abuse patient.[facility] CenterIn the event this information is protected by the Federal Confidentiality of Alcohol and Drug Abuse Patient Records regulations: The Federal rules restrict any use of the information to criminally investigate or prosecute any alcohol or drug abuse patient.[facility] CenterIn the event this information is protected by the Federal Confidentiality of Alcohol and Drug Abuse Patient Records regulations: The Federal rules restrict any use of the information to criminally investigate or prosecute any alcohol or drug abuse patient.[facility] CenterIn the event this information is protected by the Federal Confidentiality of Alcohol and Drug Abuse Patient Records regulations: The Federal rules restrict any use of the information to criminally investigate or prosecute any alcohol or drug abuse patient.[facility] CenterIn the event this information is protected by the Federal Confidentiality of Alcohol and Drug Abuse Patient Records regulations: The Federal rules restrict any use of the information to criminally investigate or prosecute any alcohol or drug abuse patient.[facility] CenterIn the event this information is protected by the Federal Confidentiality of Alcohol and Drug Abuse Patient Records regulations: The Federal rules restrict any use of the information to criminally investigate or prosecute any alcohol or drug abuse patient.[facility] CenterIn the event this information is protected by the Federal Confidentiality of Alcohol and Drug Abuse Patient Records regulations: The Federal rules restrict any use of the information to criminally investigate or prosecute any alcohol or drug abuse patient.[facility] CenterIn the event this information is protected by the Federal Confidentiality of Alcohol and Drug Abuse Patient Records regulations: The Federal rules restrict any use of the information to criminally investigate or prosecute any alcohol or drug abuse patient.[facility] CenterIn the event this information is protected by the Federal Confidentiality of Alcohol and Drug Abuse Patient Records regulations: The Federal rules restrict any use of the information to criminally investigate or prosecute any alcohol or drug abuse patient.[facility] CenterIn the event this information is protected by the Federal Confidentiality of Alcohol and Drug Abuse Patient Records regulations: The Federal rules restrict any use of the information to criminally investigate or prosecute any alcohol or drug abuse patient.[facility] CenterIn the event this information is protected by the Federal Confidentiality of Alcohol and Drug Abuse Patient Records regulations: The Federal rules restrict any use of the information to criminally investigate or prosecute any alcohol or drug abuse patient.[facility] CenterIn the event this information is protected by the Federal Confidentiality of Alcohol and Drug Abuse Patient Records regulations: The Federal rules restrict any use of the information to criminally investigate or prosecute any alcohol or drug abuse patient.[facility] CenterIn the event this information is protected by the Federal Confidentiality of Alcohol and Drug Abuse Patient Records regulations: The Federal rules restrict any use of the information to criminally investigate or prosecute any alcohol or drug abuse patient.[facility] CenterIn the event this information is protected by the Federal Confidentiality of Alcohol and Drug Abuse Patient Records regulations: The Federal rules restrict any use of the information to criminally investigate or prosecute any alcohol or drug abuse patient.[facility] CenterIn the event this information is protected by the Federal Confidentiality of Alcohol and Drug Abuse Patient Records regulations: The Federal rules restrict any use of the information to criminally investigate or prosecute any alcohol or drug abuse patient.[facility] CenterIn the event this information is protected by the Federal Confidentiality of Alcohol and Drug Abuse Patient Records regulations: The Federal rules restrict any use of the information to criminally investigate or prosecute any alcohol or drug abuse patient.[facility] CenterIn the event this information is protected by the Federal Confidentiality of Alcohol and Drug Abuse Patient Records regulations: The Federal rules restrict any use of the information to criminally investigate or prosecute any alcohol or drug abuse patient.[facility] CenterIn the event this information is protected by the Federal Confidentiality of Alcohol and Drug Abuse Patient Records regulations: The Federal rules restrict any use of the information to criminally investigate or prosecute any alcohol or drug abuse patient.[facility] CenterIn the event this information is protected by the Federal Confidentiality of Alcohol and Drug Abuse Patient Records regulations: The Federal rules restrict any use of the information to criminally investigate or prosecute any alcohol or drug abuse patient.[facility] CenterIn the event this information is protected by the Federal Confidentiality of Alcohol and Drug Abuse Patient Records regulations: The Federal rules restrict any use of the information to criminally investigate or prosecute any alcohol or drug abuse patient.[facility] CenterIn the event this information is protected by the Federal Confidentiality of Alcohol and Drug Abuse Patient Records regulations: The Federal rules restrict any use of the information to criminally investigate or prosecute any alcohol or drug abuse patient.[facility] CenterIn the event this information is protected by the Federal Confidentiality of Alcohol and Drug Abuse Patient Records regulations: The Federal rules restrict any use of the information to criminally investigate or prosecute any alcohol or drug abuse patient.[facility] CenterIn the event this information is protected by the Federal Confidentiality of Alcohol and Drug Abuse Patient Records regulations: The Federal rules restrict any use of the information to criminally investigate or prosecute any alcohol or drug abuse patient.[facility] CenterIn the event this information is protected by the Federal Confidentiality of Alcohol and Drug Abuse Patient Records regulations: The Federal rules restrict any use of the information to criminally investigate or prosecute any alcohol or drug abuse patient.[facility] Reason for Visit (unrecogniz ed section and content) Reason Comments Pre-Op Exam PAT 11/18/21 CABG Reason Comments Returning Patient's Call Reason Comments Home Care confirmation call Reason Comments Wound Check Reason Comments Home Care PT eval Specialty Diagnoses / Procedures Referred By Rebekah t Referred To Contact [facility] [address] [place] [id number] Referral ID Status Reason Start Date Expiration Date Visits Re quested Visits Authorized [id number] 1 Reason Comments Home Care SOC and request 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 ED Follow Up patient admitted to ED on 12/13/21 for heart palpitations x3days. LINDSAY Cardioversion procedure completed in ED. patient states that he is feeling better since D/C from ED 12/17/21. Reason Comments Permanent Pacemaker Reason Comments Medication Follow-up Reason Comments EKG on Amiodarone/PACEMA KER IMPLANT Reason Comments Home Care Update Reason Comments CARD Follow Up Annual AFIB Reason Comments CARD Follow Up Annual Persistent atrial fibrillation (HCC) Care Teams (unrecognized sec tion and content) Java Analyst Relationship Specialty Start Date End Date Kelsey Berger MD [address] [place] [address] PCP - General Internal Medicine 08/13/21 Marcel Garcia [address] [place] [address] Cardiology 10/09/21 Java Analyst Relationship Specialty Start Date End Date Kelsey Berger MD [address] [place] [address] PCP - General Internal Medicine 08/13/21 Marcel Garcia [address] [place] [address] Cardiology 10/09/21 Java Analyst Relationship Specialty Start Date End Date Kelsey Berger MD [address] [place] [address] PCP - General Internal Medicine 08/13/21 Marcel Garcia [address] [place] [address] Cardiology 10/09/21 Java Analyst Relationship Specialty Start Date End Date Kelsey Berger MD [address] [place] [address] PCP - General Internal Medicine 08/13/21 Marcel Garcia [address] [place] [address] Cardiology 10/09/21 Java Analyst Relationship Specialty Start Date End Date Kelsey Berger MD [address] [place] [address] PCP - General Internal Medicine 08/13/21 Marcel Garcia [address] [place] [address] Cardiology 10/09/21 Java Analyst Relationship Specialty Start Date End Date Kelsey Berger MD [address] [place] [address] PCP - General Internal Medicine 08/13/21 Marcel Garcia [address] [place] [address] Cardiology 10/09/21 Catherine Mills, WOOD MILLING MACHINE TENDER.NURSE SUBSTANCE ABUSE [address] [place] [address] [place] [address] Referring Vascular Surgery 11/25/21 oRly Lazo MD [address] [place] [address] [facility] [place] [address] Home Care Physician Cardiothoracic Surgery 11/25/21 Alonzo De La Cruz, RN [address] [place] [address] Heat Regulator Post Acute Care 11/25/21 Java Analyst Relationship Specialty Start Date End Date Kelsey Berger MD [address] [place] [address] PCP - General Internal Medicine 08/13/21 Marcel Garcia [address] [place] [address] Cardiology 10/09/21 Catherine Mills, WOOD MILLING MACHINE TENDER.NURSE SUBSTANCE ABUSE [address] [place] [address] [place] [address] Referring Vascular Surgery 11/25/21 Roly Lazo MD [address] [place] [address] [place] [address] Home Care Physician Cardiothoracic Surgery 11/25/21 Alonzo De La Cruz, MAXIMINO [address] [place] [address] Heat Regulator Post Acute Care 11/25/21 Java Analyst Relationship Specialty Start Date End Date Kelsey Berger MD [address] [facility] [place] [address] PCP - General Internal Medicine 08/13/21 Marcel Garcia [address] [place] [address] Cardiology 10/09/21 Catherine Mills, WOOD MILLING MACHINE TENDER.NURSE SUBSTANCE ABUSE [address] [place] [address] [place] [address] Referring Vascular Surgery 11/25/21 Roly Lazo MD [address] [place] [address] [place] [address] Home Care Physician Cardiothoracic Surgery 11/25/21 Alonzo De La Cruz, MAXIMINO [address] [place] [address] Heat Regulator Post Acute Care 11/25/21 Java Analyst Relationship Specialty Start Date End Date Kelsey Berger MD [address] [place] [address] PCP - General Internal Medicine 08/13/21 Marcel Garcia [address] [place] [address] Cardiology 10/09/21 Catherine Mills, WOOD MILLING MACHINE TENDER.NURSE SUBSTANCE ABUSE [address] [place] [address] [place] [address] Referring Vascular Surgery 11/25/21 Roly Lazo MD [address] [place] [address] [place] [address] Home Care Physician Cardiothoracic Surgery 11/25/21 Alonzo De La Cruz RN [address] [place] [address] Heat Regulator Post Acute Care 11/25/21 Java Analyst Relationship Specialty Start Date End Date Kelsey Berger MD [address] [place] [address] PCP - General Internal Medicine 08/13/21 Marcel Garcia [address] [place] [address] Cardiology 10/09/21 Catherine Mills, WOOD MILLING MACHINE TENDER.NURSE SUBSTANCE ABUSE [address] [place] [address] [place] [address] Referring Vascular Surgery 11/25/21 Roly Lazo MD [address] [place] [address] [place] [address] Home Care Physician Cardiothoracic Surgery 11/25/21 Alonzo De La Cruz RN [address] [place] [address] Heat Regulator Post Acute Care 11/25/21 Java Analyst Relationship Specialty Start Date End Date Kelsey Berger MD [address] [place] [address] PCP - General Internal Medicine 08/13/21 Marcel Garcia [address] [place] [address] Cardiology 10/09/21 Catherine Mills, WOOD MILLING MACHINE TENDER.NURSE SUBSTANCE ABUSE [address] [place] [address] [place] [address] Referring Vascular Surgery 11/25/21 Roly Lazo MD [address] [place] [address] [place] [address] Home Care Physician Cardiothoracic Surgery 11/25/21 Alonzo De La Cruz RN [address] [place] [address] Heat Regulator Post Acute Care 11/25/21 Java Analyst Relationship Specialty Start Date End Date Kelsey Berger MD [address] [place] [address] PCP - General Internal Medicine 08/13/21 Marcel Garcia [address] [place] [address] Cardiology 10/09/21 Catherine Mills, WOOD MILLING MACHINE TENDER.NURSE SUBSTANCE ABUSE [address] [place] [address] [place] [address] Referring Vascular Surgery 11/25/21 Roly Lazo MD [address] [place] [address] [place] [address] Home Care Physician Cardiothoracic Surgery 11/25/21 Alonzo De La Cruz RN [address] [place] [address] Heat Regulator Post Acute Care 11/25/21 Java Analyst Relationship Specialty Start Date End Date Kelsey Berger MD [address] [place] [address] PCP - General Internal Medicine 08/13/21 Marcel Garcia [address] [place] [address] Cardiology 10/09/21 Catherine Mills, WOOD MILLING MACHINE TENDER.NURSE SUBSTANCE ABUSE [address] [place] [address] [place] [address] Referring Vascular Surgery 11/25/21 Roly Lazo MD [address] [place] [address] [place] [address] Home Care Physician Cardiothoracic Surgery 11/25/21 Alonzo De La Cruz RN [address] [place] [address] Heat Regulator Post Acute Care 11/25/21 Java Analyst Relationship Specialty Start Date End Date Kelsey Berger MD [address] [place] [address] PCP - General Internal Medicine 08/13/21 Marcel Garcia [address] [place] [address] Cardiology 10/09/21 Catherine Mills, WOOD MILLING MACHINE TENDER.NURSE SUBSTANCE ABUSE [address] [place] [address] [place] [address] Referring Vascular Surgery 11/25/21 Roly Lazo MD [address] [place] [address] [place] [address] Home Care Physician Cardiothoracic Surgery 11/25/21 Alonzo De La Cruz RN [address] [place] [address] Heat Regulator Post Acute Care 11/25/21 Java Analyst Relationship Specialty Start Date End Date Kelsey Berger MD [address] [place] [address] PCP - General Internal Medicine 08/13/21 Marcel Garcia [address] [place] [address] Cardiology 10/09/21 Catherine Mills, WOOD MILLING MACHINE TENDER.NURSE SUBSTANCE ABUSE [address] [place] [address] [place] [address] Referring Vascular Surgery 11/25/21 Roly Lazo MD [address] [place] [address] [place] [address] Home Care Physician Cardiothoracic Surgery 11/25/21 Alonzo De La Cruz RN [address] [place] [address] Heat Regulator Post Acute Care 11/25/21 Java Analyst Relationship Specialty Start Date End Date Kelsey Berger MD [address] [place] [address] PCP - General Internal Medicine 08/13/21 Marcel Garcia [address] [place] [address] Cardiology 10/09/21 Catherine Mills, WOOD MILLING MACHINE TENDER.NURSE SUBSTANCE ABUSE [address] [place] [address] [place] [address] Referring Vascular Surgery 11/25/21 Roly Lazo MD [address] [place] [address] [place] [address] Home Care Physician Cardiothoracic Surgery 11/25/21 Alonzo De La Cruz RN [address] [place] [address] Heat Regulator Post Acute Care 11/25/21 Java Analyst Relationship Specialty Start Date End Date Kelsey Berger MD [address] [place] [address] PCP - General Internal Medicine 08/13/21 Marcel Garcia [address] [place] [address] Cardiology 10/09/21 Catherine Mills, WOOD MILLING MACHINE TENDER.NURSE SUBSTANCE ABUSE [address] [place] [address] [place] [address] Referring Vascular Surgery 11/25/21 Roly Lazo MD [address] [place] [address] [place] [address] Home Care Physician Cardiothoracic Surgery 11/25/21 Alonzo De La Cruz RN [address] [place] [address] Heat Regulator Post Acute Care 11/25/21 Java Analyst Relationship Specialty Start Date End Date Kelsey Berger MD [address] [place] [address] PCP - General Internal Medicine 08/13/21 Marcel Garcia [address] [place] [address] Cardiology 10/09/21 Catherine Mills, WOOD MILLING MACHINE TENDER.NURSE SUBSTANCE ABUSE [address] [place] [address] [place] [address] Referring Vascular Surgery 11/25/21 Roly Lazo MD [address] [place] [address] [place] [address] Home Care Physician Cardiothoracic Surgery 11/25/21 Alonzo De La Cruz RN [address] [place] [address] Heat Regulator Post Acute Care 11/25/21 Java Analyst Relationship Specialty Start Date End Date Kelsey Berger MD [address] [place] [address] PCP - General Internal Medicine 08/13/21 Marcel Garcia [address] [place] [address] Cardiology 10/09/21 Catherine Mills, WOOD MILLING MACHINE TENDER.NURSE SUBSTANCE ABUSE [address] [place] [address] [place] [address] Referring Vascular Surgery 11/25/21 Roly Lazo MD [address] [place] [address] [place] [address] Home Care Physician Cardiothoracic Surgery 11/25/21 Alonzo De La Cruz RN [address] [place] [address] Heat Regulator Post Acute Care 11/25/21 Java Analyst Relationship Specialty Start Date End Date Kelsey Berger MD [address] [place] [address] PCP - General Internal Medicine 08/13/21 Marcel Garcia [address] [place] [address] Cardiology 10/09/21 Catherine Mills, WOOD MILLING MACHINE TENDER.NURSE SUBSTANCE ABUSE [address] [place] [address] [place] [address] Referring Vascular Surgery 11/25/21 Roly Lazo MD [address] [place] [address] [place] [address] Home Care Physician Cardiothoracic Surgery 11/25/21 Alonzo De La Cruz RN [address] [place] [address] Heat Regulator Post Acute Care 11/25/21 Java Analyst Relationship Specialty Start Date End Date Kelsey Berger MD [address] [place] [address] PCP - General Internal Medicine 08/13/21 Marcel Garcia [address] [place] [address] Cardiology 10/09/21 Catherine Mills, WOOD MILLING MACHINE TENDER.NURSE SUBSTANCE ABUSE [address] [place] [address] [place] [address] Referring Vascular Surgery 11/25/21 Roly Lazo MD [address] [place] [address] [place] [address] Home Care Physician Cardiothoracic Surgery 11/25/21 Alonzo De La Cruz RN [address] [place] [address] Heat Regulator Post Acute Care 11/25/21 Java Analyst Relationship Specialty Start Date End Date Kelsey Berger MD [address] [place] [address] PCP - General Internal Medicine 08/13/21 Marcel Garcia [address] [place] [address] Cardiology 10/09/21 Catherine Mills, WOOD MILLING MACHINE TENDER.NURSE SUBSTANCE ABUSE [address] [place] [address] [place] [address] Referring Vascular Surgery 11/25/21 Roly Lazo MD [address] [place] [address] [place] [address] Home Care Physician Cardiothoracic Surgery 11/25/21 Alonzo De La Cruz RN [address] [place] [address] Heat Regulator Post Acute Care 11/25/21 Java Analyst Relationship Specialty Start Date End Date Kelsey Berger MD [address] [place] [address] PCP - General Internal Medicine 08/13/21 Marcel Garcia [address] [place] [address] Cardiology 10/09/21 Catherine Mills, WOOD MILLING MACHINE TENDER.NURSE SUBSTANCE ABUSE [address] [place] [address] [place] [address] Referring Vascular Surgery 11/25/21 Roly Lazo MD [address] [place] [address] [place] [address] Home Care Physician Cardiothoracic Surgery 11/25/21 Alonzo De La Cruz RN [address] [place] [address] Heat Regulator Post Acute Care 11/25/21 Java Analyst Relationship Specialty Start Date End Date Kelsey Berger MD [address] [place] [address] PCP - General Internal Medicine 08/13/21 Marcel Garcia [address] [place] [address] Cardiology 10/09/21 Catherine Mills, WOOD MILLING MACHINE TENDER.NURSE SUBSTANCE ABUSE [address] [place] [address] [place] [address] Referring Vascular Surgery 11/25/21 Roly Lazo MD [address] [place] [address] [place] [address] Home Care Physician Cardiothoracic Surgery 11/25/21 Alonzo De La Cruz RN [address] [place] [address] Heat Regulator Post Acute Care 11/25/21 Java Analyst Relationship Specialty Start Date End Date Kelsey Berger MD [address] [place] [address] PCP - General Internal Medicine 08/13/21 Marcel Garcia [address] [place] [address] Cardiology 10/09/21 Catherine Mills, WOOD MILLING MACHINE TENDER.NURSE SUBSTANCE ABUSE [address] [place] [address] [place] [address] Referring Vascular Surgery 11/25/21 Roly Lazo MD [address] [place] [address] [place] [address] Home Care Physician Cardiothoracic Surgery 11/25/21 Alonzo De La Cruz RN [address] [place] [address] Heat Regulator Post Acute Care 11/25/21 Java Analyst Relationship Specialty Start Date End Date Kelsey Berger MD [address] [place] [address] PCP - General Internal Medicine 08/13/21 Marcel Garcia [address] [place] [address] Cardiology 10/09/21 Catherine Mills, WOOD MILLING MACHINE TENDER.NURSE SUBSTANCE ABUSE [address] [place] [address] [place] [address] Referring Vascular Surgery 11/25/21 Roly Lazo MD [address] [place] [address] [place] [address] Home Care Physician Cardiothoracic Surgery 11/25/21 Alonzo De La Cruz RN [address] [place], [place] [address] Heat Regulator Post Acute Care 11/25/21 01/08/22 Java Analyst Relationship Specialty Start Date End Date Kelsey Berger MD [address] [place] [address] PCP - General Internal Medicine 08/13/21 Marcel Garcia [address] [place] [address] Cardiology 10/09/21 Catherine Mills, WOOD MILLING MACHINE TENDER.NURSE SUBSTANCE ABUSE [address] [place] [address] [place] [address] Referring Vascular Surgery 11/25/21 Roly Lazo MD [address] [place] [address] [place] [address] Home Care Physician Cardiothoracic Surgery 11/25/21 Alonzo De La Cruz RN [address] [place], [place] [address] Heat Regulator Post Acute Care 11/25/21 01/08/22 Java Analyst Relationship Specialty Start Date End Date Kelsey Berger MD [address] [place] [address] PCP - General Internal Medicine 08/13/21 Marcel Garcia [address] [place] [address] Cardiology 10/09/21 Catherine Mills, WOOD MILLING MACHINE TENDER.NURSE SUBSTANCE ABUSE [address] [place] [address] [place] [address] Referring Vascular Surgery 11/25/21 Roly Lazo MD [address] [place] [address] [place] [address] Home Care Physician Cardiothoracic Surgery 11/25/21 Java Analyst Relationship Specialty Start Date End Date Kelsey Berger MD [address] [place] [address] PCP - General Internal Medicine 08/13/21 Marcel Garcia [address] [place] [address] Cardiology 10/09/21 Catherine Mills, WOOD MILLING MACHINE TENDER.NURSE SUBSTANCE ABUSE [address] [place] [address] [place] [address] Referring Vascular Surgery 11/25/21 Roly Lazo MD [address] [place] [address] [place] [address] Home Care Physician Cardiothoracic Surgery 11/25/21 Java Analyst Relationship Specialty Start Date End Date Kelsey Berger MD [address] [place] [address] PCP - General Internal Medicine 08/13/21 Marcel Garcia [address] [place] [address] Cardiology 10/09/21 Catherine Mills, WOOD MILLING MACHINE TENDER.NURSE SUBSTANCE ABUSE [address] [place] [address] [place] [address] Referring Vascular Surgery 11/25/21 Roly Lazo MD [address] [place] [address] [place] [address] Home Care Provider Cardiothoracic Surgery 11/25/21 Java Analyst Relationship Specialty Start Date End Date Kelsey Berger MD [address] [place] [address] PCP - General Internal Medicine 08/13/21 Marcel Garcia [address] [place] [address] Cardiology 10/09/21 Catherine Mills, WOOD MILLING MACHINE TENDER.NURSE SUBSTANCE ABUSE [address] [place] [address] [place] [address] Referring Vascular Surgery 11/25/21 Roly Lazo MD [address] [address] [place], [place] [address] Home Care Provider Cardiothoracic Surgery 11/25/21 Team Status: Active Member Role Status Dates Dr. Mikel Fields MD Family Provider Active Dr. Kelsey Berger MD Primary Care Provider Active Team Status: Inactive Member Role Status Dates Dr. Kelsey Berger MD Primary Care Provider, Attendi ng Provider Active Team Status: Inactive Member Role Status Dates Dr. Kelsey Berger MD Primary Care Provider, Referri ng Provider Active Neva Espino FIRST MATE, FIRST MATE-C Attending Provider Active Team Status: Inactive Member Role Status Dates Dr. Kelsey Berger MD Primary Care Provider, Referri ng Provider Active Abhishek Moreira PA, PA Attending Provider Active Team Status: Inactive Member Role Status Dates Dr. Kelsey Berger MD Primary Care Provider Active Laura Hines PA, PA Attending Provider Active Team Status: Inactive Member Role Status Dates Dr. Kelsey Berger MD Primary Care Provider Active Neva Espino FIRST MATE, FIRST MATE-C Attending Provider Active Team Status: Active Member Role Status Dates Dr. Kelsey Berger MD Primary Care Provider Active Neva Espino FIRST MATE, FIRST MATE-C Attending Provider Active Team Status: Active Member Role Status Dates Dr. Kelsey Berger MD Primary Care Provider, Attendi ng Provider Active Team Status: Active Member Role Status Dates Dr. Kelsey Berger MD Primary Care Provider Active Dr. [place] MD Attending Provider Active Java Analyst Relationship Specialty Start Date End Date Kelsey Berger MD [address] [place] [address] PCP - General Internal Medicine 08/13/21 Marcel Garcia [address] [place] [address] Cardiology 10/09/21 Catherine Mills, WOOD MILLING MACHINE TENDER.NURSE SUBSTANCE ABUSE [address] [place] [address] Referring Vascular Surgery 11/25/21 Roly Lazo MD [address] [place] [address] [place] [address] Home Care Provider Cardiothoracic Surgery 11/25/21 Java Analyst Relationship Specialty Start Date End Date Kelsey Berger MD [address] [place] [address] PCP - General Internal Medicine 08/13/21 Marcel Garcia [address] [place] [address] Cardiology 10/09/21 Catherine Mills, WOOD MILLING MACHINE TENDER.NURSE SUBSTANCE ABUSE [address] [place] [address] Referring Vascular Surgery 11/25/21 Roly Lazo MD [address] [place] [address] [place], [place] [phone] Home Care Provider Cardiothoracic Surgery 11/25/21 Team Status: Inactive Member Role Status Dates Dr. Kelsey Berger MD Primary Care Provider, Referri ng Provider Active Mitch Bonilla FIRST MATE, FIRST MATE-C Attending Provider Active Team Status: Inactive Member Role Status Dates Dr. Kelsey Berger MD Primary Care Pro vider, Attending Provider, Referring Provider Active Java Analyst Relationship Specialty Start Date End Date Kelsey Berger MD [address] [place], [place] [address] PCP - General Internal Medicine 08/13/21 Marcel Garcia [address] [place] [address] Cardiology 10/09/21 Catherine Mills, WOOD MILLING MACHINE TENDER.NURSE SUBSTANCE ABUSE [address] [place] [address] Referring Vascular Surgery 11/25/21 Roly Lazo MD [address] [place] [address] [place], [place] [address] Home Care Provider Cardiothoracic Surgery 11/25/21 Java Analyst Relationship Specialty Start Date End Date Kelsey Berger MD [address] [place] [address] PCP - General Internal Medicine 08/13/21 Marcel Garcia MD [address] [place] [address] Cardiology 10/09/21 Catherine Mills, WOOD MILLING MACHINE TENDER.NURSE SUBSTANCE ABUSE [address] [place] [address] Referring Vascular Surgery 11/25/21 Roly Lazo MD [address] [place] [address] [place], [place] [address] Home Care Provider Cardiothoracic Surgery 11/25/21 Java Analyst Relationship Specialty Start Date End Date Kelsey Berger MD [address] [place] [address] PCP - General Internal Medicine 08/13/21 Marcel Garcia MD [address] [place] [address] Cardiology 10/09/21 Catherine Mills APRN.NURSE SUBSTANCE ABUSE [address] [place] [address] Referring Vascular Surgery 11/25/21 Roly Lazo MD [address] [place] [address] [place] [address] Home Care Provider Cardiothoracic Surgery 11/25/21 Java Analyst Relationship Specialty Start Date End Date Kelsey Berger MD [address] [place] [address] PCP - General Internal Medicine 08/13/21 Marcel Garcia MD [address] [place] [address] Cardiology 10/09/21 Catherine Plata, WOOD MILLING MACHINE TENDER.NURSE SUBSTANCE ABUSE [address] [place] [address] Referring Vascular Surgery 11/25/21 Roly Lazo MD [address] [place] [address] [place] [address] Home Care Provider Cardiothoracic Surgery 11/25/21 Java Analyst Relationship Specialty Start Date End Date Kelsey Berger MD [address] [place] [address] PCP - General Internal Medicine 08/13/21 Marcel Garcia MD [address] [place] [address] Cardiology 10/09/21 Catherine Plata, WOOD MILLING MACHINE TENDER.NURSE SUBSTANCE ABUSE [address] [place] [address] Referring Vascular Surgery 11/25/21 Roly Lazo MD [address] [place] [address] [place] [address] Home Care Provider Cardiothoracic Surgery 11/25/21 Java Analyst Relationship Specialty Start Date End Date Kelsey Berger MD [address] [place] [address] PCP - General Internal Medicine 08/13/21 Marcel Garcia MD [address] [place] [address] Cardiology 10/09/21 Catherine Plata, WOOD MILLING MACHINE TENDER.NURSE SUBSTANCE ABUSE [address] [place] [address] Referring Vascular Surgery 11/25/21 Roly Lazo MD [address] [place] [address] [place] [address] Home Care Provider Cardiothoracic Surgery 11/25/21 Java Analyst Relationship Specialty Start Date End Date Kelsey Berger MD [address] [facility] [address] PCP - General Internal Medicine 08/13/21 Marcel Garcia MD [address] [place] [address] Cardiology 10/09/21 Catherine Plata, WOOD MILLING MACHINE TENDER.NURSE SUBSTANCE ABUSE [address] [place] [address] Referring Vascular Surgery 11/25/21 Roly Lazo MD [address] [place] [address] [place] [address] Home Care Provider Cardiothoracic Surgery 11/25/21 Java Analyst Relationship Specialty Start Date End Date Kelsey Berger MD [address] [place] [address] PCP - General Internal Medicine 08/13/21 Marcel Garcia MD [address] [place] [address] Cardiology 10/09/21 Catherine Plata, WOOD MILLING MACHINE TENDER.NURSE SUBSTANCE ABUSE [address] [place] [address] Referring Vascular Surgery 11/25/21 Roly Lazo MD [address] [place] [address] [place] [address] Home Care Provider Cardiothoracic Surgery 11/25/21 Java Analyst Relationship Specialty Start Date End Date Kelsey Berger MD [address] [place] [address] PCP - General Internal Medicine 08/13/21 Marcel Garcia MD [address] [place] [address] Cardiology 10/09/21 Catherine Plata, WOOD MILLING MACHINE TENDER.NURSE SUBSTANCE ABUSE [address] [place] [address] Referring Vascular Surgery 11/25/21 Roly Lazo MD [address] [place] [address] [place] [address] Home Care Provider Cardiothoracic Surgery 11/25/21 Java Analyst Relationship Specialty Start Date End Date Kelsey Berger MD [address] [place] [address] PCP - General Internal Medicine 08/13/21 Marcel Garcia MD [address] [place] [address] Cardiology 10/09/21 Catherine Plata, WOOD MILLING MACHINE TENDER.NURSE SUBSTANCE ABUSE [address] [place] [address] Referring Vascular Surgery 11/25/21 Roly Lazo MD [address] [place] [address] [place] [address] Home Care Provider Cardiothoracic Surgery 11/25/21 Java Analyst Relationship Specialty Start Date End Date Kelsey Berger MD [address] [place] [address] PCP - General Internal Medicine 08/13/21 Marcel Garcia MD [address] [place] [address] Cardiology 10/09/21 Catherine Plata, WOOD M[employer]ING MACHINE TENDER.NURSE SUBSTANCE ABUSE [address] [place] [address] Referring Vascular Surgery 11/25/21 Roly Lazo MD [address] [address] [place] [address] Home Care Provider Cardiothoracic Surgery 11/25/21 Java Analyst Relationship Specialty Start Date End Date Kelsey Berger MD [address] [place] [address] PCP - General Internal Medicine 08/13/21 Marcel Garcia MD [address] [place], [place] [id number] Cardiology 10/09/21 Catherine Plata APRN.NURSE SUBSTANCE ABUSE [address] [place] [address] Referring Vascular Surgery 11/25/21 Roly Lazo MD [address] [place] [address] [place] [address] Home Care Provider Cardiothoracic Surgery 11/25/21 Team Status: Active Member Role Status Dates Dr. Kelsey Berger MD Primary Care Provider Active Team Status: Inactive Member Role Status Dates Dr. Kelsey Berger MD Primary Care Provider Active Start: October 13, 2024 End: October 13, 2024 Dr. Kelsey Berger MD Referring Provider Active Start: October 13, 2024 End: October 13, 2024 Dr. Vu Chacko MD Attending Provider Active Start: October 13, 2024 End: October 13, 2024 Team Status: Inactive Member Role Status Dates Dr. Kelsey Berger MD Primary Care Provider Active Start: October 26, 2024 End: October 26, 2024 Dr. Kelsey Berger MD Attending Provider Active Start: October 26, 2024 End: October 26, 2024 Team Status: Inactive Member Role Status Dates Dr. Kelsey Berger MD Primary Care Provider Active Start: February 01, 2025 End: February 01, 2025 Dr. Kelsey Berger MD Attending Provider Active Start: February 01, 2025 End: February 01, 2025 Java Analyst Relationship Specialty Start Date End Date Kelsey Berger MD [address] [place] [address] PCP - General Internal Medicine 08/13/21 Marcel Garcia MD [address] [place] [address] Cardiology 10/09/21 Catherine Plata, WOOD MILLING MACHINE TENDER.NURSE SUBSTANCE ABUSE [address] [place] [address] Referring Vascular Surgery 11/25/21 Roly Lazo MD [address] [place] [address] [place] [address] Home Care Provider Cardiothoracic Surgery 11/25/21 Java Analyst Relationship Specialty Start Date End Date Kelsey Berger MD [address] [place] [address] PCP - General Internal Medicine 08/13/21 Marcel Garcia MD [address] [place] [address] Cardiology 10/09/21 Catherine Plata, WOOD M[employer]ING MACHINE TENDER.NURSE SUBSTANCE ABUSE [address] [place] [address] Referring Vascular Surgery 11/25/21 Roly Lazo MD [address] [place] [address] [place] [address] Home Care Provider Cardiothoracic Surgery 11/25/21 Team Status: Active Member Role/Relationship Status Dates Dr. Kelsey Berger MD Primary care physician Active Team Status: Inactive Member Role/Relationship Status Dates Dr. Kelsey Berger MD Primary care physician Active Start: February 01, 2025 End: February 01, 2025 Dr. Kelsey Berger MD Attending physician Active Start: February 01, 2025 End: February 01, 2025 Team Status: Inactive Member Role/Relationship Status Dates Dr. Kelsey Berger MD Primary care physician Active Start: May 15, 2025 End: May 15, 2025 Dr. Kelsey Berger MD Referring Provider Active Start: May 15, 2025 End: May 15, 2025 Mitch Bonilla NP, [employer] Attending physician Active Start: May 15, 2025 End: May 15, 2025 Team Status: Active Member Role/Relationship Status Dates Dr. Kelsey Berger MD Primary care physician Active Start: May 15, 2025 Dr. Kelsey Berger MD Attending physician Active Start: May 15, 2025 Dr. Kelsey Berger MD Referring Provider Active Start: May 15, 2025 Team Status: Inactive Member Role/Relationship Status Dates Dr. Kelsey Berger MD Primary care physician Active Start: May 15, 2025 End: May 15, 2025 Dr. Kelsey Berger MD Attending physician Active Start: May 15, 2025 End: May 15, 2025 Dr. Kelsey Berger MD Referring Provider Active Start: May 15, 2025 End: May 15, 2025 Goals (unrecognized section and content) Goals may be documented in a n alternate sectionGoals may be documented in an alternate sectionGoals may be documented in an alternate sectionGoals may be documented in an alternate sectionGoals may be documented in an alternate sectionGoals may be documented in an alternate sectionGoals may be documented in an alternate sectionGoals may be documented in an alternate sectionGoals may be documented in an alternate sectionGoals may be documented in an alternate sectionGoals may be documented in an alternate sectionGoals may be documented in an alternate sectionGoals may be documented in an alternate sectionGoals may be documented in an alternate sectionGoals may be documented in an alternate sectionGoals may be documented in an alternate sectionGoals may be documented in an alternate section FOR RECORDS PERTAINING TO PATIENTS WHO ARE OR HAVE BEEN ENROLLED IN A CHEMICAL DEPENDENCY/SUBSTANCEABUSE PROGRAM, SOME INFORMATION MAY BE OMITTED. This clinical summary was aggregated from multiple sources. Caution should be exercised in using it in the provision of clinical care. This summary normalizes information from multiple sources, and as a consequence, information in this document may materially change the coding, format and clinical context of patient data. In addition, data may be omitted in some cases. CLINICAL DECISIONS SHOULD BE BASED ON THE PRIMARY CLINICAL RECORDS. [facility] [place] [facility]. provides no warranty or guarantee of the accuracy or completeness of information in this document.
[2025-06-09 12:37] VITALS: BP 129/91; PULSE 116; RESP 14; O2SAT 100
[2025-06-09 13:38] LABS: Anion Gap 8 (5-15); BUN 25 mg/dL (4-19); BUN/Creat Ratio 17.6 RATIO (10-20); Calcium,Total 9.0 mg/dL (7.6-11.0); Carbon Dioxide 22.7 mmol/L (21.0-32.0); Chloride 103 mmol/L (98-108); Estimated Creatinine Clearance 42.84 ml/min (50-250); Glucose 121 mg/dL (70-99); Potassium 4.6 mmol/L (3.3-5.1)
[2025-06-09 14:43] LABS: Troponin T High Sensitivity 15 ng/L (<=22)
[2025-06-09 14:49] VITALS: BP 127/81; PULSE 75; RESP 18; O2SAT 96
[2025-06-09 15:27] VITALS: BP 125/86; PULSE 71; RESP 16; TEMP 36.8; O2SAT 97
== END 2025-06-09 15:30 | disposition home or self-care (01) ==
PROVIDERS: Emergency Provider Emergency Medicine; PCP Internal Medicine; Visit Provider Emergency Medicine
DX: R00.2 Palpitations (principal); J44.9 Chronic obstructive pulmonary disease, unspecified; I48.91 Unspecified atrial fibrillation; R42 Dizziness and giddiness; Z95.810 Presence of automatic (implantable) cardiac defibrillator; I25.10 Atherosclerotic heart disease of native coronary artery without angina pectoris; Z87.891 Personal history of nicotine dependence; E78.2 Mixed hyperlipidemia; Z79.82 Long term (current) use of aspirin; Z79.899 Other long term (current) drug therapy; Z79.01 Long term (current) use of anticoagulants
CPT/HCPCS: 71045; 80048; 83735; 83880; 84484; 85025; 93005; 96360; 96361; 99284; A4216

== ENCOUNTER → 2025-07-31 | Outpatient (CLI) | payer MEDICARE, SELFPAY ==
[2022-03-26 14:16] VITALS: BMI 28.0
--- NOTE | 2025-07-31 10:48 | ECHOD_ITS ---
Reason For Study Reason For Study: RE EVAL EF Procedure This was a 2D Doppler, Color Flow transthoracic echocardiogram. Exam performed in department. Left Ventricle Normal-sized left ventricle. Mild-moderate concentric left ventricular hypertrophy. Left ventricular EF is variable in the setting of arrhythmia, estimated EF 50-55%. Diastolic function indeterminate in the setting of arrhythmia. No regional wall motion abnormalities noted. Right Ventricle Normal right ventricle. ICD or pacer leads identified within the right ventricle. Normal systolic function. RVSP estimated at: 30 mmHg. Atria The left and right atria are normal. Right atrial pressure estimated: 3 mmHg. Mitral Valve Mitral valve annuloplasty repair. Moderate mitral regurgitation. Tricuspid Valve Moderate tricuspid regurgitation. No tricuspid stenosis. Aortic Valve Tricuspid aortic valve. Calcified annulus. Mild aortic regurgitation. No hemodynamically significant aortic stenosis. Pulmonic Valve Normal pulmonic valve. Mild pulmonic regurgitation. No pulmonic stenosis. Great Vessels Normal sized aortic root. Normal ascending aorta. Pericardium/Pleural No pericardial effusion. MMode/2D Measurements & Calculations LVIDd: 4.6 cm IVSd: 1.4 cm Ao root diam: 3.4 cm LVIDs: 3.2 cm LVPWd: 1.2 cm FS: 29.8 % LAV(MOD-bp): 64.6 ml LVAd ap4: 24.5 cm2 SV(MOD-sp4): 36.6 ml LAV(MOD-bp) Indexed: 31.6 ml/m2 LVLd ap4: 7.8 cm SI(MOD-sp4): 17.9 ml/m2 LAV(MOD-sp2): 56.5 ml EDV(MOD-sp4): 67.5 ml LAV(MOD-sp4): 60.3 ml EDV(sp4-el): 65.6 ml LVAs ap4: 14.9 cm2 LVLs ap4: 6.7 cm ESV(MOD-sp4): 30.8 ml ESV(sp4-el): 28.1 ml EF(MOD-sp4): 54.3 % EF(sp4-el): 57.1 % SV(sp4-el): 37.5 ml LA A4 area: 21.8 cm2 LA dimension(2D): 4.9 cm RA A4 area: 11.0 cm2 Doppler Measurements & Calculations MV E max reggie: 135.9 cm/sec Ao V2 max: 122.0 cm/sec LV V1 max: 108.7 cm/sec Ao max P.0 mmHg LV V1 max P.7 mmHg Ao V2 mean: 90.0 cm/sec LV V1 mean P.5 mmHg Ao mean P.6 mmHg LV V1 mean: 73.5 cm/sec Ao V2 VTI: 25.6 cm LV V1 VTI: 21.0 cm AV (velocity ratio): 0.82 PA V2 max: 77.4 cm/sec TR max reggie: 264.2 cm/sec PA V2 mean: 57.9 cm/sec TR max P.9 mmHg ECHO/Echo Complete Interpretation Summary Mild-moderate concentric left ventricular hypertrophy. Left ventricular EF is variable in the setting of arrhythmia, estimated EF 50-5 5%. Diastolic function indeterminate in the setting of arrhythmia. Mitral valve annuloplasty repair. Moderate mitral regurgitation. Moderate tricuspid regurgitation. Mild aortic regurgitation Compared to 04/19/2024 echocardiogram, there are no significant changes. Continu e annual routine valvular surveillance with echocardiogram. Ordering Physician: Mitch Bonilla Referring Physician: Mitch Bonilla Performed By: Tram Flores RCS
== END | disposition home or self-care (01) ==
LOC: CVS 10:47
PROVIDERS: PCP Internal Medicine; Referring Provider Nurse Practitioner Family; Visit Provider Nurse Practitioner Family
DX: Z98.890 Other specified postprocedural states (principal); I48.0 Paroxysmal atrial fibrillation; Z95.0 Presence of cardiac pacemaker; Z95.1 Presence of aortocoronary bypass graft
CPT/HCPCS: 93306